=== PATIENT | female | born 1950 | race Caucasian/White ===

== ENCOUNTER 2019-09-01 15:39 | Outpatient (CLI) | payer MEDICARE, MEDICAID, SELFPAY ==
[2019-09-01 16:51] LABS: Hepatitis C Virus Antibody Non-Reactive (Nonreactive)
[2019-09-01 16:52] LABS: Hepatitis B Surface Antigen Non-Reactive (Nonreactive)
[2019-09-01 16:57] LABS: HIV 1 & 2 Antigen Non-Reactive (Non-Reactiv)
[2019-09-01 16:58] LABS: HIV 1 & 2 Antibody Non-Reactive (Non-Reactiv)
== END 2019-09-01 15:40 | disposition home or self-care (01) ==
PROVIDERS: PCP Family Medicine; Visit Provider Family Medicine
DX: Z77.21 Contact with and (suspected) exposure to potentially hazardous body fluids (principal); W46.1XXA Contact with contaminated hypodermic needle, initial encounter
CPT/HCPCS: 86803; 87340; 87806

== ENCOUNTER 2020-01-22 03:35 | Observation (INO) | payer MEDICARE, MEDICAID, SELFPAY ==
[2020-01-22] VITALS (22 sets, daily range): BP systolic 105–156; BP diastolic 65–106; PULSE 37–105; RESP 15–24; TEMP 36.6–37.1; O2SAT 89–98; BMI 29.8
--- NOTE | 2020-01-22 03:37 | XRR_ITS ---
PROCEDURE INFORMATION: Exam: XR Chest, 1 View Exam date and time: 01/22/2020 3:58 AM Age: 70 years old Clinical indication: Chest pain TECHNIQUE: Imaging protocol: XR of the chest Views: 1 view. COMPARISON: CR Chest 1 [place] [id number] 02/17/2019 10:52 AM FINDINGS: Lungs: Linear scarring or atelectasis left mid lung. No lobar consolidation. Pleural space: Unremarkable. No pleural effusion. No pneumothorax. Heart/Mediastinum: Cardiomegaly. Bones/joints: Osteopenia. XR/XR chest 1V portable [id number] IMPRESSION: Linear atelectasis or scarring left mid lung.
--- NOTE | 2020-01-22 03:37 | ECG_ITS ---
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 Measurements Intervals [place] Rate: 100 P: 83 [place]: 167 QRS: 46 QRSD: 89 T: 49 QT: 312 QTc: 404 Interpretive Statements SINUS TACHYCARDIA ABNORMAL RHYTHM ECG Compared to ECG 02/17/2019 10:41:49 Ectopic atrial tachycardia, multifocal no longer present Electronically Signed On 01-23-2020 20:28:36 CDT by Michel Pascal M.D. [id number]
--- NOTE | 2020-01-22 03:43 | W.ED.CHESTPA ---
Documented by User: Rose Smith 01/22/20 05:40 HPI - Chest Pain General: Chief Complaint: Chest Pain Stated Complaint: CP Time Seen by Provider: 01/22/20 03:36 Source: patient and EMS Mode of arrival: EMS Limitations: no limitations History of Present Illness: HPI narrative: Candis is a very nice 70-year-old female who comes in complaining of chest pain. When asked to describe the pain she describes as a hurting . She states that she was up throughout the night and she was awake when it started. She was resting in her chair at the time. Since the pain radiates to her left arm. She has associated shortness of breath became clammy and diaphoretic with this. She denies any nausea or vomiting. She denies having anything similar. She did not try anything for this prior to coming in and is unaware of anything that does make it better or worse. EMS transported her here and did not try any nitro or aspirin. The patient does claim an allergy to aspirin. Patient states the pain is about a 2 out of 10. Associated symptoms: Reports diaphoresis and dyspnea; Deny abdominal pain, fever(s), nausea, palpitations, syncope or vomiting Review of Systems Const: Reports: diaphoresis; Denies: fever(s), chills, body aches, fatigue or malaise Eyes: Denies: change in vision, blurry vision, photophobia, eye discomfort, eye discharge, eye redness or yellow eyes ENMT: Denies: throat pain, odynophagia, hoarseness, swelling of lips/tongue, ear or mastoid pain, ear discharge, change in hearing or nasal discharge Card: Reports: chest pain; Denies: palpitations, irregular heart rhythm, edema, lightheadedness, syncope, pre-syncope, dyspnea on exertion or orthopnea Resp: Reports: dyspnea; Denies: productive cough, non-productive cough, wheezing, hemoptysis or chest congestion GI: Denies: abdominal pain, nausea, vomiting, hematemesis, coffee ground emesis, heartburn, diarrhea, constipation, GI cramping, hematochezia or melena : Denies: flank pain, dysuria, urinary frequency, urinary urgency or hematuria Musc: Denies: neck pain, back pain, extremity pain, extremity swelling, joint pain, joint swelling, joint redness, joint warmth or joint stiffness Skin/Breast: Denies: rash, pruritus, erythema, skin pain or skin tenderness Neuro: Denies: headache(s), numbness in extremities, weakness in extremities, sensory changes, lack of coordination, difficulty walking, dizziness, vertigo, confusion, Slurred speech present or seizure-like activity Madi/Lymph: Denies: easy bruising, easy bleeding, petechiae, purpura or enlarged lymph nodes All/Imm: Denies: urticaria, throat swelling, tongue swelling, facial swelling or acute wheezing PFSH ED PFSH: Medical History Chronic low back pain Coronary artery disease DM type 2 (diabetes mellitus, type 2) GERD (gastroesophageal reflux disease) Hypertension Obstructive sleep apnea Osteoarthritis Surgical History H/O tubal ligation H/O umbilical hernia repair H/O: hysterectomy Previous section Status post bilateral knee replacements Course Vital Signs: Vital signs: Vital Signs Temperature 98.7 F 01/22/20 03:37 Pulse Rate 78 01/22/20 12:53 Respiratory Rate 15 01/22/20 12:00 Blood Pressure 148/92 01/22/20 12:00 Pulse Oximetry 95 01/22/20 12:53 MDM - Chest Pain Lab Data: Labs: Lab Results 01/22/20 01/22/20 01/22/20 Range/Units 03:00 03:00 03:00 WBC 8.9 (4.0-10.0) 10^3/ uL RBC 4.67 (4.1-5.3) 10^6/u L Hgb 8.8 L (11.5-15.3) g/dL Hct 30.7 L (37.0-47.0) % MCV 65.7 L (81-99) fL MCH 18.8 L (28.0-34.0) pg MCHC 28.7 L (30.0-36.0) g/dL RDW 18.5 H (12.1-15.1) % Plt Count 308 (130-400) 10^3/c mm MPV 9.7 (7.4-10.4) fL Neut % (Auto) 62.2 % Lymph % (Auto) 29.1 % [place] % (Auto) 5.5 % Eos % (Auto) 2.2 % Baso % (Auto) 0.6 % Neut # (Auto) 5.52 (1.8-7.7) 10^3/u L Lymph # (Auto) 2.6 (0.8-4.8) 10^3/u L [place] # (Auto) 0.5 (0.2-0.9) 10^3/u L Eos # (Auto) 0.2 (0.0-0.8) 10^3/u L Baso # (Auto) 0.1 (0.0-0.1) 10^3/u L Nucleated RBC % (a uto) 0 % Nucleated RBCs # 0.0 /100WBC PT (12.1-14.9) SECO NDS INR (0.8-1.2) D-Dimer (0-0.59) ug/mIFE U Sodium 128 L (136-145) mmol/L Potassium 4.0 (3.5-5.1) mmol/L Chloride 92 L (98-107) mmol/L Carbon Dioxide 24 (22-29) mmol/L Anion Gap 16.0 (5-19) BUN 8 (8-23) mg/dL Creatinine 0.7 (0.5-0.9) mg/dL GFR Calculation Not Reportable Glucose 237 H (65-115) mg/dL Calculated Osmolal ity 272 L (285-295) mOsm/k g Calcium 9.5 (8.5-10.5) mg/dL Magnesium 1.6 L (1.7-2.3) mg/dL Total Bilirubin 0.3 (0.15-1.2) mg/dL AST 33 H (0-32) U/L ALT 20 (0-33) U/L Alkaline Phosphata se 158 H (35-105) IU/L Troponin T Baselin e 8 (0-10) ng/L Troponin T 120 Min [place] (0-10) ng/L Delta Troponin T (0-10) ABS# Total Protein 7.3 (6.6-8.7) g/dL Albumin 3.7 (3.5-5.2) g/dL Globulin 3.6 (1.3-4.6) g/dL Lipase 43 (13-60) U/L Urine Color (Yellow) Urine Appearance (CLEAR) Urine pH (5-7) Ur Specific Gravit y (1.005-1.030) Urine Protein (Negative) Urine Glucose (UA) (Normal) Urine Ketones (Negative) Urine Blood (Negative) Urine Nitrate (Negative) Urine Bilirubin (Negative) Urine Urobilinogen (Negative) mg/dL Ur Leukocyte Coby ase (Negative) 01/22/20 01/22/20 01/22/20 Range/Units 04:24 04:49 05:28 WBC (4.0-10.0) 10^3/ uL RBC (4.1-5.3) 10^6/u L Hgb (11.5-15.3) g/dL Hct (37.0-47.0) % MCV (81-99) fL MCH (28.0-34.0) pg MCHC (30.0-36.0) g/dL RDW (12.1-15.1) % Plt Count (130-400) 10^3/c mm MPV (7.4-10.4) fL Neut % (Auto) % Lymph % (Auto) % [place] % (Auto) % Eos % (Auto) % Baso % (Auto) % Neut # (Auto) (1.8-7.7) 10^3/u L Lymph # (Auto) (0.8-4.8) 10^3/u L [place] # (Auto) (0.2-0.9) 10^3/u L Eos # (Auto) (0.0-0.8) 10^3/u L Baso # (Auto) (0.0-0.1) 10^3/u L Nucleated RBC % (a uto) % Nucleated RBCs # /100WBC PT 14.20 (12.1-14.9) SECO NDS INR 1.07 (0.8-1.2) D-Dimer 0.63 H (0-0.59) ug/mIFE U Sodium (136-145) mmol/L Potassium (3.5-5.1) mmol/L Chloride (98-107) mmol/L Carbon Dioxide (22-29) mmol/L Anion Gap (5-19) BUN (8-23) mg/dL Creatinine (0.5-0.9) mg/dL GFR Calculation Glucose (65-115) mg/dL Calculated Osmolal ity (285-295) mOsm/k g Calcium (8.5-10.5) mg/dL Magnesium (1.7-2.3) mg/dL Total Bilirubin (0.15-1.2) mg/dL AST (0-32) U/L ALT (0-33) U/L Alkaline Phosphata se (35-105) IU/L Troponin T Baselin e (0-10) ng/L Troponin T 120 Min [place] 7.83 (0-10) ng/L Delta Troponin T -0.17 L (0-10) ABS# Total Protein (6.6-8.7) g/dL Albumin (3.5-5.2) g/dL Globulin (1.3-4.6) g/dL Lipase (13-60) U/L Urine Color Yellow (Yellow) Urine Appearance Clear (CLEAR) Urine pH 6.5 (5-7) Ur Specific Gravit y 1.010 (1.005-1.030) Urine Protein Neg (Negative) Urine Glucose (UA) Norm (Normal) Urine Ketones Negative (Negative) Urine Blood Neg (Negative) Urine Nitrate Negative (Negative) Urine Bilirubin Neg (Negative) Urine Urobilinogen Norm (Negative) mg/dL Ur Leukocyte Coby ase Negative (Negative) EKG Data^: EKG 1: Attestation: I personally reviewed and interpreted this EKG as follows: EKG interpretation date: 01/22/20 EKG interpretation time: 03:44 Interpretation: Normal sinus rhythm at 100 beats a minute, normal axis, no blocks, normal intervals, no acute ST-T wave changes. EKG 2: Attestation: I personally reviewed and interpreted this EKG as follows: EKG interpretation date: 01/22/20 EKG interpretation time: 05:36 Interpretation: Normal sinus rhythm at 98 beats a minute, no blocks, normal intervals, nonspecific ST-T wave changes. Discharge Plan Discharge Patient Disposition: Placed in Observation Admit Provider: Thelma Cerda Clinical Impression: Chest pain, DM type 2 (diabetes mellitus, type 2), Hypertension, Coronary artery disease Condition: Stable Referrals: Edmond Machado [Primary Care Provider] - Discharge Date/Time: 01/22/20 11:40 Sign Out Sign Out Data: Patient Sign Out occurred on 01/22/20 at 06:31. Patient's care was discussed, and care was transferred from Rose Smith to Alexandro Arreola DO. Sign Out Comment: Case turned over to Dr. Arreola at change of shift. Last updated by Rose Smith at 01/22/20 05:59 Coding Level of Care Code ED Test Puller for Chg Fwd Exam Detailed Documented by User: Alexandro Arreola DO 01/22/20 13:32 HPI - Chest Pain General: Chief Complaint: Chest Pain Stated Complaint: CP Time Seen by Provider: 01/22/20 03:36 PFSH ED PFSH: Medical History Chronic low back pain Coronary artery disease DM type 2 (diabetes mellitus, type 2) GERD (gastroesophageal reflux disease) Hypertension Obstructive sleep apnea Osteoarthritis Surgical History H/O tubal ligation H/O umbilical hernia repair H/O: hysterectomy Previous section Status post bilateral knee replacements Physical Exam Const: COMMON NORMALS: no acute distress GENERAL APPEARANCE: cooperative and comfortable ORIENTATION/CONSCIOUSNESS: Yes awake, Yes oriented to person, Yes oriented to place and Yes oriented to time HENMT: COMMON NORMALS: normocephalic, atraumatic and hearing grossly normal bilaterally HEAD & SCALP: normocephalic and atraumatic Neck/C-Spine: COMMON NORMALS: no JVD Resp: COMMON NORMALS: normal respiratory effort, No retractions, No use of accessory muscles and clear to auscultation bilaterally AUSCULTATION: clear to auscultation bilaterally Cardio: COMMON NORMALS: no JVD, regular rate, regular rhythm and No murmurs present (Cardio) RATE: regular rate RHYTHM: regular rhythm Extremity: COMMON NORMALS: normal to inspection, capillary refill normal, no clubbing, cyanosis or edema, no calf tenderness and no pedal edema Neuro: SENSORIUM/ORIENTATION: Yes oriented to person, Yes oriented to place and Yes oriented to time Skin: COMMON NORMALS: no rashes or lesions noted GENERAL SKIN EXAM: no rashes or lesions noted Course Vital Signs: Vital signs: Vital Signs Temperature 98.7 F 01/22/20 03:37 Pulse Rate 78 01/22/20 12:53 Respiratory Rate 15 01/22/20 12:00 Blood Pressure 148/92 01/22/20 12:00 Pulse Oximetry 95 01/22/20 12:53 MDM - Chest Pain MDM Narrative: Medical decision making narrative: 70-year-old female is care assumed by myself from Dr. Ge. She not having any chest pain she states she did have an episode a month ago. She is anemic as well. Slightly worse than she was about a year ago. Chest pain resolved this morning with nitro. Given her history and the recurrence of chest pain absence of any recent stress testing will go ahead and put her on knobs complete to rule out and get cardiac evaluation. Lab Data: Labs: Lab Results 01/22/20 01/22/20 01/22/20 Range/Units 03:00 03:00 03:00 WBC 8.9 (4.0-10.0) 10^3/ uL RBC 4.67 (4.1-5.3) 10^6/u L Hgb 8.8 L (11.5-15.3) g/dL Hct 30.7 L (37.0-47.0) % MCV 65.7 L (81-99) fL MCH 18.8 L (28.0-34.0) pg MCHC 28.7 L (30.0-36.0) g/dL RDW 18.5 H (12.1-15.1) % Plt Count 308 (130-400) 10^3/c mm MPV 9.7 (7.4-10.4) fL Neut % (Auto) 62.2 % Lymph % (Auto) 29.1 % [place] % (Auto) 5.5 % Eos % (Auto) 2.2 % Baso % (Auto) 0.6 % Neut # (Auto) 5.52 (1.8-7.7) 10^3/u L Lymph # (Auto) 2.6 (0.8-4.8) 10^3/u L [place] # (Auto) 0.5 (0.2-0.9) 10^3/u L Eos # (Auto) 0.2 (0.0-0.8) 10^3/u L Baso # (Auto) 0.1 (0.0-0.1) 10^3/u L Nucleated RBC % (a uto) 0 % Nucleated RBCs # 0.0 /100WBC PT (12.1-14.9) SECO NDS INR (0.8-1.2) D-Dimer (0-0.59) ug/mIFE U Sodium 128 L (136-145) mmol/L Potassium 4.0 (3.5-5.1) mmol/L Chloride 92 L (98-107) mmol/L Carbon Dioxide 24 (22-29) mmol/L Anion Gap 16.0 (5-19) BUN 8 (8-23) mg/dL Creatinine 0.7 (0.5-0.9) mg/dL GFR Calculation Not Reportable Glucose 237 H (65-115) mg/dL Calculated Osmolal ity 272 L (285-295) mOsm/k g Calcium 9.5 (8.5-10.5) mg/dL Magnesium 1.6 L (1.7-2.3) mg/dL Total Bilirubin 0.3 (0.15-1.2) mg/dL AST 33 H (0-32) U/L ALT 20 (0-33) U/L Alkaline Phosphata se 158 H (35-105) IU/L Troponin T Baselin e 8 (0-10) ng/L Troponin T 120 Min [place] (0-10) ng/L Delta Troponin T (0-10) ABS# Total Protein 7.3 (6.6-8.7) g/dL Albumin 3.7 (3.5-5.2) g/dL Globulin 3.6 (1.3-4.6) g/dL Lipase 43 (13-60) U/L Urine Color (Yellow) Urine Appearance (CLEAR) Urine pH (5-7) Ur Specific Gravit y (1.005-1.030) Urine Protein (Negative) Urine Glucose (UA) (Normal) Urine Ketones (Negative) Urine Blood (Negative) Urine Nitrate (Negative) Urine Bilirubin (Negative) Urine Urobilinogen (Negative) mg/dL Ur Leukocyte Coby ase (Negative) 01/22/20 01/22/20 01/22/20 Range/Units 04:24 04:49 05:28 WBC (4.0-10.0) 10^3/ uL RBC (4.1-5.3) 10^6/u L Hgb (11.5-15.3) g/dL Hct (37.0-47.0) % MCV (81-99) fL MCH (28.0-34.0) pg MCHC (30.0-36.0) g/dL RDW (12.1-15.1) % Plt Count (130-400) 10^3/c mm MPV (7.4-10.4) fL Neut % (Auto) % Lymph % (Auto) % [place] % (Auto) % Eos % (Auto) % Baso % (Auto) % Neut # (Auto) (1.8-7.7) 10^3/u L Lymph # (Auto) (0.8-4.8) 10^3/u L [place] # (Auto) (0.2-0.9) 10^3/u L Eos # (Auto) (0.0-0.8) 10^3/u L Baso # (Auto) (0.0-0.1) 10^3/u L Nucleated RBC % (a uto) % Nucleated RBCs # /100WBC PT 14.20 (12.1-14.9) SECO NDS INR 1.07 (0.8-1.2) D-Dimer 0.63 H (0-0.59) ug/mIFE U Sodium (136-145) mmol/L Potassium (3.5-5.1) mmol/L Chloride (98-107) mmol/L Carbon Dioxide (22-29) mmol/L Anion Gap (5-19) BUN (8-23) mg/dL Creatinine (0.5-0.9) mg/dL GFR Calculation Glucose (65-115) mg/dL Calculated Osmolal ity (285-295) mOsm/k g Calcium (8.5-10.5) mg/dL Magnesium (1.7-2.3) mg/dL Total Bilirubin (0.15-1.2) mg/dL AST (0-32) U/L ALT (0-33) U/L Alkaline Phosphata se (35-105) IU/L Troponin T Baselin e (0-10) ng/L Troponin T 120 Min [place] 7.83 (0-10) ng/L Delta Troponin T -0.17 L (0-10) ABS# Total Protein (6.6-8.7) g/dL Albumin (3.5-5.2) g/dL Globulin (1.3-4.6) g/dL Lipase (13-60) U/L Urine Color Yellow (Yellow) Urine Appearance Clear (CLEAR) Urine pH 6.5 (5-7) Ur Specific Gravit y 1.010 (1.005-1.030) Urine Protein Neg (Negative) Urine Glucose (UA) Norm (Normal) Urine Ketones Negative (Negative) Urine Blood Neg (Negative) Urine Nitrate Negative (Negative) Urine Bilirubin Neg (Negative) Urine Urobilinogen Norm (Negative) mg/dL Ur Leukocyte Coby ase Negative (Negative) Discharge Plan Discharge Patient Disposition: Placed in Observation Admit Provider: Thelma Cerda Clinical Impression: Chest pain, DM type 2 (diabetes mellitus, type 2), Hypertension, Coronary artery disease Condition: Stable Referrals: Edmond Machado [Primary Care Provider] - Discharge Date/Time: 01/22/20 11:40 Sign Out Sign Out Data: Patient Sign Out occurred on 01/22/20 at 06:31. Patient's care was discussed, and care was transferred from Rose Smith to Alexandro Arreola DO. Sign Out Comment: Case turned over to Dr. Arreola at change of shift. Last updated by Rose Smith at 01/22/20 05:59 Coding Level of Care Code ED Test Puller for Chg Fwd Exam Detailed
[2020-01-22] MEDS: sodium chloride 0.9% 1,000 ML 100 ML IV (03:46)
[2020-01-22] MEDS: nitroglycerin 0.4 mg sublingual Tablet SUBLINGUAL ×3 (03:50→04:20)
[2020-01-22 03:57] LABS: Basophils # 0.1 10^3/uL (0.0-0.1); Basophils % 0.6 %; Eosinophils # 0.2 10^3/uL (0.0-0.8); Eosinophils % 2.2 %; Hematocrit 30.7 % (37.0-47.0); Hemoglobin 8.8 g/dL (11.5-15.3); Lymphocytes # 2.6 10^3/uL (0.8-4.8); Lymphocytes % 29.1 %; Mean Corpuscular HGB Conc 28.7 g/dL (30.0-36.0); Mean Corpuscular Hemoglobin 18.8 pg (28.0-34.0); Mean Corpuscular Volume 65.7 fL (81-99); Mean Platelet Volume 9.7 fL (7.4-10.4); Monocytes # 0.5 10^3/uL (0.2-0.9); Monocytes % 5.5 %; Neutrophils # 5.52 10^3/uL (1.8-7.7); Neutrophils % 62.2 %; Nucleated Red Blood Cells % 0 %; Platelet Count 308 10^3/cmm (130-400); Red Blood Count 4.67 10^6/uL (4.1-5.3); Red Cell Distribution Width 18.5 % (12.1-15.1); White Blood Count 8.9 10^3/uL (4.0-10.0)
[2020-01-22 04:10] LABS: Alanine Aminotransferase 20 U/L (0-33); Albumin Level 3.7 g/dL (3.5-5.2); Alkaline Phosphatase 158 IU/L (35-105); Aspartate Amino Transferase 33 U/L (0-32); Blood Urea Nitrogen 8 mg/dL (8-23); Calcium 9.5 mg/dL (8.5-10.5); Carbon Dioxide 24 mmol/L (22-29); Chloride 92 mmol/L (98-107); Globulin 3.6 g/dL (1.3-4.6); Glucose 237 mg/dL (65-115); Lipase 43 U/L (13-60); Magnesium 1.6 mg/dL (1.7-2.3); Osmolality Calculated 272 mOsm/kg (285-295); Sodium 128 mmol/L (136-145); Total Bilirubin 0.3 mg/dL (0.15-1.2); Total Protein 7.3 g/dL (6.6-8.7)
[2020-01-22 04:11] LABS: Troponin(5th) Baseline 8 ng/L (0-10)
[2020-01-22] MEDS: magnesium sulfate premix 2 GM/50 ML PIGGYBACK IV (04:34)
[2020-01-22] MEDS: ondansetron 2 mg/ML SDV 2 mL 4 MG IVP (04:35)
[2020-01-22] MEDS: HYDROmorphone 1 mg/mL INJ 1 mL 0.5 MG IVP (04:35)
[2020-01-22 04:47] LABS: INR 1.07 (0.8-1.2)
[2020-01-22 04:49] LABS: D Dimer 0.63 ug/mIFEU (0-0.59)
--- NOTE | 2020-01-22 05:00 | PC.NURSE ---
after dilaudid adm, pt resp rate and sats dropped to 14/78% on r/a. Dr notified, vo for 2lpm of o2 obtained with 0.4mg of narcan PRN if no response from O2. Pt rr increased to 18-20 non labored with sats improved to 98% on 2lpm of O2. Pt reports no pain after dilaudid adm
[2020-01-22 05:14] LABS: Add Urine Microscopic? NO
--- NOTE | 2020-01-22 05:23 | CTR_ITS ---
PROCEDURE INFORMATION: Exam: CT Angiography Chest With Contrast Exam date and time: 01/22/2020 5:50 AM Age: 70 years old Clinical indication: Chest pain; Additional info: Chest pain, positive d-dimer TECHNIQUE: Imaging protocol: Computed tomographic angiography of the chest with intravenous contrast. 3D rendering (Not supervised by radiologist): MIP and/or 3D reconstructed images were created by the technologist. Radiation optimization: All CT scans at this facility use at least one of these dose optimization techniques: automated exposure control; mA and/or kV adjustment per patient size (includes targeted exams where dose is matched to clinical indication); or iterative reconstruction. Contrast material: OMNI 350; Contrast volume: 78 ml; Contrast route: INTRAVENOUS (IV); COMPARISON: CTA Chest w Abd/Pel w* 11/11/2018 9:30 PM RADIATION DOSE METRICS: Total DLP (mGy-cm): 632.13 FINDINGS: Pulmonary arteries: No dissection. No visualized embolism as characterized to the most proximal segmental level. Consider alternative form of imaging if indicated. Aorta: Unremarkable. No aortic aneurysm. No aortic dissection. Thyroid: Calcification left thyroid gland. Low density nodule 15 mm. Lungs: Minimal atelectasis. Lungs are well aerated without a focal area of consolidation. Pleural space: Unremarkable. No pneumothorax. No pleural effusion. Heart: Unremarkable. No cardiomegaly. No pericardial effusion. Lymph nodes: Numerous lymph nodes within the mediastinum including the anterior mediastinum. Largest lymph node in the pretracheal/retrocaval region. 15 mm. Previously noted. Liver: Nodular appearing liver. Hepatomegaly. Splenomegaly. Correlate regarding known history. Gallbladder and bile ducts: Small gallstones. Kidneys and ureters: 3 mm calculus lower pole left kidney New line small ventral hernia Bones/joints: Unremarkable. No acute fracture. Soft tissues: Unremarkable. CT/CT angio chest PE protcl [id number] IMPRESSION: 1. No dissection. No visualized embolism as characterized to the most proximal segmental level. Consider alternative form of imaging if indicated. 2. Numerous lymph nodes within the mediastinum including the anterior mediastinum. Largest lymph node in the pretracheal/retrocaval region. 15 mm. Previously noted. 3. Nodular appearing liver. Hepatomegaly. Splenomegaly. Correlate regarding known history. 4. Small gallstones. 5. Lungs are well aerated without a focal area of consolidation. COMMENTS: Consistent with the [employer]'s Incidental Findings Committee white paper (J Am Quintin Radiol 2015): In patients aged 35 years and older with an incidental thyroid nodule equal to or greater than 1.[address], MRI or extrathyroidal US, further evaluation with dedicated thyroid US is recommended for patients with normal life expectancy and without comorbidities. For smaller nodules without suspicious features, no further evaluation or follow up is recommended. Radiation Dose CTDIVOL = (mGy): DLP = 632.13 (mGy-cm)
[2020-01-22 05:24] LABS: Blood Urine Neg (Negative); Glucose Urine UA Norm (Normal); Ketones Urine Negative (Negative); Nitrate Urine Negative (Negative); Protein Urine Neg (Negative); Urine Appearance Clear (CLEAR); Urine Color Yellow (Yellow); pH Urine 6.5 (5-7)
[2020-01-22 05:25] LABS: Bilirubin Urine Neg (Negative); Leukocyte Esterase Urine Negative (Negative); Urobilinogen Urine Norm (Negative)
--- NOTE | 2020-01-22 05:37 | ECG_ITS ---
[facility] Test Date: 2020-01-22 Pat Name: Candis Almonte Department: Room: Gender: Female [employer]: : 1950 Requested By: Rose Clayton Order Number: [id number] Bray MD: Michel Pascal M.D. Measurements Intervals [place] Rate: 98 P: 83 [place]: 154 QRS: 33 QRSD: 91 T: 33 QT: 332 QTc: 426 Interpretive Statements SINUS RHYTHM MINIMAL ST DEPRESSION [0.025+ mV ST DEPRESSION] Compared to ECG 01/22/2020 03:44:01 ST (T wave) deviation now present Sinus tachycardia no longer present Electronically Signed On 01-23-2020 20:53:15 CDT by Michel Pascal M.D. [id number]
[2020-01-22 05:54] LABS: Troponin 5 2HR 7.83 ng/L (0-10)
[2020-01-22 05:57] LABS: Troponin 5 2HR Delta -0.17 ABS# (0-10)
[2020-01-22] MEDS: iohexol 350 mg/mL 100 mL Btl IV (06:09)
--- NOTE | 2020-01-22 06:22 | PC.NURSE ---
after CT, pt sats dropping consistently to <89% on r/a. Pt coached to take deep breaths, sats remaining in 89-90%. Pt placed on 2lpm of o2 via nasal cannula, sats immediately improving to 98-99%
--- NOTE | 2020-01-22 09:37 | ECG_ITS ---
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 Measurements Intervals [place] Rate: 91 P: 84 [place]: 152 QRS: 40 QRSD: 94 T: 45 QT: 327 QTc: 403 Interpretive Statements SINUS RHYTHM WITH MARKED SINUS ARRHYTHMIA Compared to ECG 01/22/2020 05:36:47 ST (T wave) deviation no longer present Electronically Signed On 01-23-2020 20:52:24 CDT by Michel Pascal M.D. [id number]
[2020-01-22 10:06] LABS: Troponin 5 6HR 7.24 ng/L (0-10)
[2020-01-22 10:09] LABS: Troponin 5 6HR Delta -0.76 ng/L (0-12)
[2020-01-22 10:59] LABS: SARS Covid-2 Antigen Negative (Negative)
--- NOTE | 2020-01-22 11:33 | PC.NURSE ---
pt from er transported by wheelchair. upon arrival to room pt wanted to use bsc. assisted in doing so. commode empty and pt resting in bed. assessment and vitals performed. pt was resting in bed with call light in reach and denied any needs when nurse left the room. will continue to monitor.
--- NOTE | 2020-01-22 13:33 | P.HP_ITS ---
Providers/Chief Complaint Admitting Physician: Thelma Cerda DO Primary Care Provider: Edmond Machado Chief Complaint: CP History of Present Illness Candis Almonte is a 70 year old female with a past medical history of coronary artery disease, diabetes, hypertension, obstructive sleep apnea, depression and hypothyroidism that presented to the emergency department for chest pain. She stated that it started this morning. While at rest and was located in the center of her chest. Patient stated that she had a coughing spell with this episode. She denies any fevers or chills. Denies any exposure to anyone under investigation are positive for COVID-19. Patient reports that she had stents in her heart several years ago but has not had any further cardiac intervention. 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 Patient was seen and evaluated in the emergency department due to concern for chest pain and history of coronary artery disease she was admitted for further evaluation and treatment. Review of Systems Const: Denies: fever(s) or chills Eyes: Denies: change in vision ENMT: Denies: nasal congestion Card: Reports: chest pain; Denies: palpitations or edema Resp: Reports: non-productive cough; Denies: dyspnea, productive cough or hemoptysis GI: Reports: constipation; Denies: abdominal pain, nausea, vomiting, diarrhea, hematochezia or melena : Denies: dysuria or hematuria Musc: Reports: other (Status post right BKA); Denies: extremity pain or muscle cramps Skin/Breast: Denies: rash or new lesions Neuro: Denies: headache(s) or dizziness Psych: Denies: anxiety or depression Endo: Denies: polyuria or hot flashes Madi/Lymph: Denies: easy bruising or easy bleeding Medications/Allergies Home Medications Medication Instructions Recorded Confirmed Last Taken Type acetaminophen [Tylenol] 650 mg PO QID PRN 01/22/20 01/22/20 Unknown History alum-mag hydroxide-simeth [Mylanta 5 ml PO QID PRN 01/22/20 01/22/20 Unknown History Maximum Strength] amlodipine [Norvasc] 2.5 mg PO DAILY 01/22/20 01/22/20 01/21/20 History aripiprazole [Abilify] 2 mg PO DAILY 01/22/20 01/22/20 01/21/20 20:00 History bisacodyl 10 mg WI DAILY PRN 01/22/20 01/22/20 01/21/20 History digoxin 125 mcg PO DAILY 01/22/20 01/22/20 01/21/20 History docusate sodium 50 mg PO DAILY 01/22/20 01/22/20 01/21/20 History donepezil [Aricept] 5 mg PO DAILY 01/22/20 01/22/20 01/21/20 08:00 History duloxetine [Cymbalta] 30 mg PO DAILY 01/22/20 01/22/20 01/21/20 History fluticasone propionate 2 puff INHALATION BID 01/22/20 01/22/20 01/21/20 History furosemide [Lasix] 40 mg PO DAILY 01/22/20 01/22/20 01/21/20 History hydrocodone-acetaminophen 1 tab PO Q6H PRN 01/22/20 01/22/20 01/21/20 History hydrocortisone 1 applic TOPICAL BID PRN 01/22/20 01/22/20 Unknown History insulin NPH isoph U-100 human 42 unit SUBCUT QAM 01/22/20 01/22/20 01/21/20 History [Novolin N Flexpen] insulin aspart U-100 [Novolog 100 unit SUBCUT DAILY 01/22/20 01/22/20 01/21/20 History Flexpen U-100 Insulin] insulin glargine 10 unit SUBCUT DAILY 01/22/20 01/22/20 01/21/20 History levothyroxine 125 mcg PO DAILY 01/22/20 01/22/20 01/21/20 History loperamide [Imodium A-D] 2 mg PO Q4H PRN 01/22/20 01/22/20 Unknown History magnesium hydroxide [Milk of 30 ml PO DAILY PRN 01/22/20 01/22/20 Unknown History Magnesia] memantine [Namenda] 5 mg PO BID 01/22/20 01/22/20 01/21/20 History metformin 500 mg PO BID 01/22/20 01/22/20 01/21/20 History nystatin 1 applic TOPICAL DAILY 01/22/20 01/22/20 Unknown History omeprazole magnesium [Prilosec OTC] 40 mg PO DAILY 01/22/20 01/22/20 01/21/20 History ondansetron HCl [Zofran] 4 mg PO Q4H PRN 01/22/20 01/22/20 Unknown History polyethylene glycol 3350 [Miralax] 17 g PO DAILY PRN 01/22/20 01/22/20 Unknown History potassium chloride 20 meq PO DAILY 01/22/20 01/22/20 01/21/20 History ropinirole [Requip XL] 1 mg PO DAILY 01/22/20 01/22/20 01/21/20 History sennosides-docusate sodium 2 tab-cap PO DAILY PRN 01/22/20 01/22/20 Unknown History [Senna-S] trospium 20 mg PO BID 01/22/20 01/22/20 01/21/20 History Allergies Allergy/AdvReac Type Severity Reaction Status Date / Time aspirin Allergy Unknown Verified 01/22/20 03:49 codeine Allergy Unknown Verified 01/22/20 03:49 morphine Allergy Unknown Verified 01/22/20 03:49 Sulfa (Sulfonamide Allergy Unknown Verified 01/22/20 03:49 Antibiotics) sulfamethoxazole Allergy Unknown Verified 01/22/20 03:49 [From Bactrim] trimethoprim [From Bactrim] Allergy Unknown Verified 01/22/20 03:49 PFSH Acute PFSH: Medical History Chronic low back pain Coronary artery disease DM type 2 (diabetes mellitus, type 2) GERD (gastroesophageal reflux disease) Hypertension Obstructive sleep apnea Osteoarthritis Surgical History (Updated 01/22/20 @ 13:35 by Thelma Cerda DO) H/O tubal ligation H/O umbilical hernia repair H/O: hysterectomy History of right below knee amputation Previous section Status post bilateral knee replacements Supplemental PFSH Information: Patient denies any history of tobacco abuse, denies any alcohol abuse. Is a [facility] resident. Denies any family history of any health problems. Vitals/I&O/Wt Last Vital Signs Temp 98.7 F 01/22/20 03:37 Pulse 78 01/22/20 12:53 Resp 15 01/22/20 12:00 BP 148/92 01/22/20 12:00 Pulse Ox 95 01/22/20 12:53 01/21/20 01/22/20 01/22/20 22:59 06:59 14:59 Intake Total 240 / 240 Balance 240 / 240 Weight last 48 hrs Weight 83.915 kg Physical Exam Const: COMMON NORMALS: patient oriented x3 and alert GENERAL APPEARANCE: cooperative ORIENTATION/CONSCIOUSNESS: Yes awake, Yes oriented to person, Yes oriented to place and Yes oriented to time HENMT: COMMON NORMALS: normocephalic and atraumatic HEAD & SCALP: normocephalic and atraumatic Eye: COMMON NORMALS: Equal, round and reactive pupils present PUPIL: Yes Equal, round and reactive pupils present Neck/C-Spine: COMMON NORMALS: supple GENERAL: Yes normal visual inspection Resp: COMMON NORMALS: normal respiratory effort and clear to auscultation bilaterally EFFORT & INSPECTION: Yes able to speak in complete sentences AUSCULTATION: clear to auscultation bilaterally, no rhonchi and no wheezes Cardio: COMMON NORMALS: regular rate, regular rhythm and No murmurs present (Cardio) RATE: regular rate RHYTHM: regular rhythm GI: COMMON NORMALS: Soft to palpation and non-tender INSPECTION: No abdominal distension AUSCULTATION: Yes normoactive bowel sounds PALPATION: Yes Soft to palpation Extremity: COMMON NORMALS: no clubbing, cyanosis or edema NARRATIVE EXTREMITY EXAM: s/p R BKA Neuro: COMMON NORMALS: patient oriented x3, CN's II-XII intact bilaterally, moves all extremities and no focal motor deficits SENSORIUM/ORIENTATION: Yes alert, Yes oriented to person, Yes oriented to place and Yes oriented to time SPEECH: speech normal OTHER: somewhat sleepy but answers all questions appropriately Psych: COMMON NORMALS: mental status grossly normal and cooperative Skin: COMMON NORMALS: no rashes or lesions noted GENERAL SKIN EXAM: no rashes or lesions noted Data : 01/23/20 04:15 01/23/20 04:15 CXR: I personally reviewed and interpreted this imaging study as follows: Radiologist's impression: FINDINGS: Lungs: Linear scarring or atelectasis left mid lung. No lobar consolidation. Pleural space: Unremarkable. No pleural effusion. No pneumothorax. Heart/Mediastinum: Cardiomegaly. Bones/joints: Osteopenia. XR/XR chest 1V portable [id number] IMPRESSION: Linear atelectasis or scarring left mid lung. CTA Chest: I personally reviewed and interpreted this imaging study as follows: Radiologist's impression: IMPRESSION: 1. No dissection. No visualized embolism as characterized to the most proximal segmental level. Consider alternative form of imaging if indicated. 2. Numerous lymph nodes within the mediastinum including the anterior mediastinum. Largest lymph node in the pretracheal/retrocaval region. 15 mm. Previously noted. 3. Nodular appearing liver. Hepatomegaly. Splenomegaly. Correlate regarding known history. 4. Small gallstones. 5. Lungs are well aerated without a focal area of consolidation. A&P Assessment and plan (1) Chest pain: Atypical chest pain with reported cough, rapid COVID antigen testing pend ing We will further evaluate with echocardiogram and potential stress test Telemetry Serial EKG and troponin Status: Acute (2) Coronary artery disease: With history of stenting many years ago, patient unable to describe specifics Status: Acute (3) GERD (gastroesophageal reflux disease): Continue on PPI Status: Acute (4) Obstructive sleep apnea: Continue with CPAP Status: Acute (5) Hypertension: Blood pressures well controlled at this time Status: Acute (6) DM type 2 (diabetes mellitus, type 2): Place on moderate dose sliding scale insulin as needed Status: Acute Additional A&P Information Anemia, microcytic, will check further iron studies and anemia work-up Hyponatremia: Patient appears to be mildly fluid overloaded will give Lasix IV x1 Incidental finding on CTA showing numerous lymph nodes in the mediastinum 15 mm previously noted, recommend close outpatient follow-up, also noted to have nodular appearance of the liver with hepatomegaly and splenomegaly Gallstones noted, no right upper quadrant pain did palpation recommend close outpatient follow-up DVT prophylaxis: SCDs, no pharmacologic prophylaxis due to anemia Diet: Carbohydrate consistent, n.p.o. 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
--- NOTE | 2020-01-22 13:36 | USCV_ITS ---
Candis Almonte Age: 70 Gender: F : 1950 Exam Date: 01/22/2020 14:59 Ordering Phys: Thelma Cerda DO Technologist: DAVEY PEREZ Exam Location: [facility] – [place] Indication: CHEST PAIN BP: 148 / 92 HR: 99 Rhythm: Sinus Technical Quality: Poor MEASUREMENTS (Male / Female) Normal Values 2D ECHO LV Diastolic Diameter PLAX 4.2 cm 4.2 - 5.9 / 3.9 - 5.3 cm LV Systolic Diameter PLAX 2.6 cm IVS Diastolic Thickness 1.4 cm 0.6 - 1.0 / 0.6 - 0.9 cm IVS Systolic Thickness 1.6 cm LVPW Diastolic Thickness 1.1 cm 0.6 - 1.0 / 0.6 - 0.9 cm LVPW Systolic Thickness 1.8 cm LVOT Diameter 2.0 cm LV Ejection Fraction 2D Teich 67.5 % LV Ejection Fraction MOD 2C 59.3 % LV Ejection Fraction 2C AL 60.0 % LA Diameter 3.0 cm LA Width 3.4 cm LA Height 5.0 cm RA Width 3.2 cm RA Height 3.3 cm M-MODE LV Diastolic Diameter MM 4.9 cm 4.2 - 5.9 / 3.9 - 5.3 cm LV Systolic Diameter MM 2.9 cm LV Ejection Fraction MM Teich 72.0 % IVS Diastolic Thickness MM 0.8 cm 0.6 - 1.0 / 0.6 - 0.9 cm IVS Systolic Thickness MM 1.1 cm LVPW Diastolic Thickness MM 0.9 cm 0.6 - 1.0 / 0.6 - 0.9 cm LVPW Systolic Thickness MM 2.2 cm Aortic Annulus Diameter 3.5 cm LA Ao Ratio MM 0.9 MV E Point Septal Separation 0.7 cm DOPPLER AV Peak Velocity 183.3 cm/s LVOT Peak Velocity 101.0 cm/s AV Area Cont Eq vti 2.9 cm squared AV Area Cont Eq pk 1.8 cm squared MV Peak Velocity 110.0 cm/s MV Area PHT 5.1 cm squared Mitral E to A Ratio 0.7 MV E' Velocity 41.0 cm/s Mitral E to MV E' Ratio 8.8 Mitral E to LV E' Lateral Ratio 8.6 Mitral E to LV E' Septal Ratio 9.1 TR Peak Velocity 83.7 cm/s TR Peak Gradient 2.8 mmHg Right Atrial Pressure 3.0 mmHg Pulmonary Artery Systolic Pressu 5.8 mmHg PV Peak Velocity 135.3 cm/s RV Acceleration Time 0.1 s FINDINGS Left Ventricle Normal left ventricular size and systolic function. Regional wall motion abnormalities cannot be assessed because of limited quality echo. LVEF is 55 to 60%. Mild left ventricular hypertrophy is noted. Grade 1 diastolic dysfunction is noted. Right Ventricle The right ventricle is normal in size and function. Right Atrium The right atrium is normal in size. Left Atrium The left atrium is normal in size. Mitral Valve Structurally normal mitral valve without significant stenosis or prolapse. There is no mitral regurgitation. Aortic Valve Not very well visualized. No significant stenosis is present. There is no aortic regurgitation. Tricuspid Valve Structurally normal tricuspid valve without significant stenosis or regurgitation. Insufficient TR jet to calculate RVSP. Pulmonic Valve Structurally normal pulmonic valve without significant stenosis. There is no pulmonic regurgitation. Pericardium Normal pericardium without effusion. Aorta Normal ascending aorta dimension. CONCLUSIONS LV systolic function is normal with EF of 55 to 60%. Regional wall motion abnormalities cannot be assessed because of limited quality echocardiogram. Grade 1 diastolic dysfunction is present. Aortic valve is not well-visualized. However no significant stenosis or regurgitation is present. No comparison studies are available. Michel Pascal MD (Electronically Signed) Final Date: 22 January 2020 17:40 S
--- NOTE | 2020-01-22 13:48 | ECG_ITS ---
[facility] Test Date: 2020-01-23 Pat Name: Candis Almonte Department: Room: 105 Gender: Female [employer] Man: : 1950 Requested By: Thelma Cerda Order Number: [id number] Asa MD: Chanel Conde M.D. Interpretive Statements NAME OF STUDY: LEXISCAN SESTAMIBI STRESS TEST INDICATION: Chest Pain, cad PROCEDURE: At the baseline, the blood pressure was 129/90 mmHg, oxygen saturation 93% with a heart rate of 96 bpm. The electrocardiogram showed normal sinus rhythm, normal axis with normal ST and T's. The Lexiscan was infused over a period of 20 seconds. A total of 0.4 milligrams of Lexiscan was infused. The stress phase was continued for a total of 5 minutes. Heart rate at the end of the stress phase was 101 bpm, oxygen saturation 94% with a blood pressure 171/89 mmHg. The EKG at the peak infusion revealed sinus tachycardia at [address]-T wave changes. Sestamibi was injected 20 seconds after the Lexiscan infusion. Blood pressure at the end of the recovery phase was 154/86 mmHg, oxygen saturation 92% with a heart rate of 99 beats per minute. CONCLUSION: 1. No significant EKG changes with the LexiScan infusion. 2. No LexiScan induced chest pain or cardiac arrhythmia. 3. Normal blood pressure and heart rate response. 4. Sestamibi/sestamibi perfusion scan pending; see separate report. Electronically Signed On 01-23-2020 12:16:50 CDT by Chanel Conde M.D. [email or web address]
[2020-01-22] MEDS: FUROsemide 10 mg/mL SDV 4mL 40 MG IVP (14:22)
[2020-01-22 14:29] LABS: Iron 19 ug/dL (37-145); Magnesium 1.6 mg/dL (1.7-2.3); NT Pro B Type Natriuretic Pept 33 pg/mL (0-125); Percent Saturation 5.1 % (20-50); Phosphorus 3.1 mg/dL (2.5-4.5); Thyroid Stimulating Hormone 5.61 uIU/mL (0.27-4.20); Total Iron Binding Capacity 372 mcg/dl; Unsaturated Iron Binding 353 ug/dL (112-347); Vitamin B12 886 pg/mL (232-1245)
[2020-01-22 14:31] LABS: Estmated Average Glucose 252; Hemoglobin A1C 10.4 % (4.0-6.0)
[2020-01-22 15:27] LABS: Digoxin 1.3 ng/mL (0.6-1.2)
[2020-01-22 16:52] LABS: Glucose Point of Care 316 mg/dL (70-110)
[2020-01-22] MEDS: memantine 5 mg tablet PO (17:51)
--- NOTE | 2020-01-22 19:41 | PC.NURSE ---
Rounding: Patient assisted to the bedside commode with x2 assist. Patient put back to bed call light within reach. Patient denies any needs or pain at this time.
[2020-01-22 19:57] LABS: Folate Level > 20.0 ng/mL (4.8-37.3)
[2020-01-22 20:45] LABS: Glucose Point of Care 371 mg/dL (70-110)
[2020-01-22] MEDS: insulin glargine 100 units/1 mL 10 UNIT SUBCUT (20:48)
[2020-01-23] VITALS (9 sets, daily range): BP systolic 126–165; BP diastolic 75–98; PULSE 82–100; RESP 15–25; TEMP 36.6–36.8; O2SAT 94–98
[2020-01-23 04:56] LABS: Basophils # 0.1 10^3/uL (0.0-0.1); Eosinophils # 0.2 10^3/uL (0.0-0.8); Eosinophils % 2.7 %; Hematocrit 32.7 % (37.0-47.0); Hemoglobin 8.9 g/dL (11.5-15.3); Lymphocytes # 1.8 10^3/uL (0.8-4.8); Mean Corpuscular HGB Conc 27.2 g/dL (30.0-36.0); Mean Corpuscular Hemoglobin 18.8 pg (28.0-34.0); Mean Platelet Volume 9.5 fL (7.4-10.4); Monocytes # 0.4 10^3/uL (0.2-0.9); Monocytes % 6.7 %; Neutrophils # 3.86 10^3/uL (1.8-7.7); Neutrophils % 61.3 %; Nucleated Red Blood Cells % 0 %; Platelet Count 304 10^3/cmm (130-400); Red Blood Count 4.74 10^6/uL (4.1-5.3); Red Cell Distribution Width 18.9 % (12.1-15.1); White Blood Count 6.3 10^3/uL (4.0-10.0)
[2020-01-23 05:16] LABS: Anion Gap 12.9 (5-19); Blood Urea Nitrogen 7 mg/dL (8-23); Carbon Dioxide 29 mmol/L (22-29); Chloride 97 mmol/L (98-107); Glucose 255 mg/dL (65-115); Osmolality Calculated 287 mOsm/kg (285-295); Potassium 3.9 mmol/L (3.5-5.1); Sodium 135 mmol/L (136-145)
[2020-01-23 05:17] LABS: Chol HDL Ratio 4.27 mg/dL (0.0-4.40); Cholesterol 128 mg/dL (0-200); HDL Cholesterol 30 mg/dL (60-100); LDL Cholesterol Calculated 75 mg/dL (50-129); Triglycerides 115 mg/dL (0-150)
--- NOTE | 2020-01-23 06:08 | PC.NURSE ---
End of shift: Patient has rested well this shift with CPAP in place. patient remains alert and cooperative with care. Patient denies any caffeine use for her pending stress test. Patient has had no complaints of pain.
[2020-01-23 07:28] LABS: Glucose Point of Care 272 mg/dL (70-110)
[2020-01-23] MEDS: regadenoson 0.4 Mg/5 ml Syringe IVP (08:16)
[2020-01-23 09:31] LABS: Iron 21 ug/dL (37-145); Percent Saturation 6.2 % (20-50); Total Iron Binding Capacity 337 mcg/dl; Unsaturated Iron Binding 316 ug/dL (112-347)
[2020-01-23] MEDS: amlodipine 5 mg Tablet 2.5 MG PO (09:49)
[2020-01-23] MEDS: levothyroxine 125 mcg Tablet PO (09:49)
[2020-01-23] MEDS: pantoprazole DR 40 mg Tablet PO (09:50)
[2020-01-23] MEDS: ropinirole 1 mg Tablet PO (09:50)
[2020-01-23] MEDS: ARIPiprazole 2 mg Tablet PO (09:50)
[2020-01-23] MEDS: duloxetine 30 mg Capsule PO (09:50)
[2020-01-23] MEDS: memantine 5 mg tablet PO (09:50)
[2020-01-23] MEDS: potassium chloride ER 10 mEq Tablet 20 MEQ PO (09:50)
[2020-01-23] MEDS: digoxin 125 mcg Tablet PO (09:50)
--- NOTE | 2020-01-23 11:12 | PC.CHAP ---
Pastoral Care Encounter/Spiritual Assessment Type of Contact [] Declined beamer hand visit [] Patient/Family/Request visit [] Outpatient visit [] Follow-up visit [] Physician referral [] Code/Alert [x] Routine visit [] Staff referral [] Actively dying [] Patient sleeping [] Family support [] [] Out of room [] Palliative care [] [x] Receiving care in room [] Pre-surgical visit [] Trauma [] Long length of stay [] ICU visit [] Other: Relational/Emotional Strength [x] Patient feels connected with others/family/visitors/staff [] Distress [] Loneliness/isolation [] Abandonment Spirituality of Patient [x] Person of Zaida [] Attends Mu-Ism of their Zaida [x] Believes in Prayer [] Reads Bible or Jainism materials [] There are Spiritual issues to be addressed Dispatcher Street Department Interventions [x] Prayer [x] Active listening [x] Non-anxious presence [x] Spiritual/emotional support [] Crisis/trauma care [x] Spiritual counseling [] Bereavement support [] Provided bereavement packet [] Provided Bible/devotional materials [] Provided toy/stuffed animal, coloring book to patient or family member [] Provided Communion [] Anointing/[place] [] Salvation [x] Completed spiritual assessment [] Other: Impact on Illness or Injury [] Angry [] Fearful [x] Anxious [] Often cries [] Exhaustion [] Unable to work [] Unable to attend methodist [] Unable to walk/stand [] Unable to read [] Unable to drive [] Unable to eat/drink [] Unable to sleep [] Unable to be with family [] Patient intubated [] Other: Summary Has had tests not sure what needs to done? Time spent with patient 10 mins
[2020-01-23 11:33] LABS: Glucose Point of Care 443 mg/dL (70-110)
--- NOTE | 2020-01-23 13:33 | PM.DCS ---
Discharge Providers Date of Admission: 01/22/20 08:33 Date of Discharge: January 23, 2020 Attending Provider at Admission: Thelma Cerda DO Attending Provider at Discharge: Thelma Cerda DO Primary Care Provider: Edmond Machado Diagnoses at Discharge Discharge Diagnosis (1) Chest pain: Status: Acute (2) Coronary artery disease: Status: Acute (3) GERD (gastroesophageal reflux disease): Status: Acute (4) Obstructive sleep apnea: Status: Acute (5) Hypertension: Status: Acute (6) DM type 2 (diabetes mellitus, type 2): Status: Acute Reason for Visit Reason for Visit: CP Hospital Course Hospital Course: Patient was seen and evaluated in the emergency department noted to have concern for chest pain and admitted for further evaluation and treatment. Serial EKG and troponin showed no acute changes she was admitted to telemetry and kept n.p.o. for stress test. Stress test showed low evidence of any ischemic changes and patient was discharged back to shelter facility. She did not have any further chest pain following admission. Physical Exam Const: COMMON NORMALS: patient oriented x3 and alert GENERAL APPEARANCE: cooperative ORIENTATION/CONSCIOUSNESS: Yes awake, Yes oriented to person, Yes oriented to place and Yes oriented to time HENMT: COMMON NORMALS: normocephalic and atraumatic HEAD & SCALP: normocephalic and atraumatic Eye: COMMON NORMALS: Equal, round and reactive pupils present PUPIL: Yes Equal, round and reactive pupils present Neck/C-Spine: COMMON NORMALS: supple GENERAL: Yes normal visual inspection Resp: COMMON NORMALS: normal respiratory effort and clear to auscultation bilaterally EFFORT & INSPECTION: Yes able to speak in complete sentences AUSCULTATION: clear to auscultation bilaterally, no rhonchi and no wheezes Cardio: COMMON NORMALS: regular rate, regular rhythm and No murmurs present (Cardio) RATE: regular rate RHYTHM: regular rhythm GI: COMMON NORMALS: Soft to palpation and non-tender INSPECTION: No abdominal distension AUSCULTATION: Yes normoactive bowel sounds PALPATION: Yes Soft to palpation Extremity: COMMON NORMALS: no clubbing, cyanosis or edema NARRATIVE EXTREMITY EXAM: s/p R BKA Neuro: COMMON NORMALS: patient oriented x3, CN's II-XII intact bilaterally, moves all extremities and no focal motor deficits SENSORIUM/ORIENTATION: Yes alert, Yes oriented to person, Yes oriented to place and Yes oriented to time SPEECH: speech normal Psych: COMMON NORMALS: mental status grossly normal and cooperative Skin: COMMON NORMALS: no rashes or lesions noted GENERAL SKIN EXAM: no rashes or lesions noted Discharge Data Data Completed and Pending: Completed Studies During Hospitalization Category Date Time Status CT angio chest PE protcl [id number] Stat Cat Scan 01/22/20 05:23 Completed Sestamibi Stress Test Request Routi ne Exams 01/22/20 13:48 Completed XR chest 1V gin ble [id number] Stat Exams 01/22/20 03:37 Completed NM rosalind perf SPECT r/s* [id number] Routin e Nuc Med 01/23/20 13:48 Completed CV echo complete* [id number] Routine Ultrasound 01/22/20 13:36 Completed Pending at discharge Category Date Time Status SARS Covid-2 Anti gen Routine Lab 01/23/20 12:56 Ordered Labs from last 24 hours 01/23/20 01/23/20 01/23/20 11:23 07:24 04:15 WBC RBC Hgb Hct MCV MCH MCHC RDW Plt Count MPV Neut % (Auto) Lymph % (Auto) [place] % (Auto) Eos % (Auto) Baso % (Auto) Neut # (Auto) Lymph # (Auto) [place] # (Auto) Eos # (Auto) Baso # (Auto) Nucleated RBC % (a uto) Nucleated RBCs # Sodium Potassium Chloride Carbon Dioxide Anion Gap BUN Creatinine GFR Calculation Glucose POC Glucose 443 272 Estimat Average Gl ucose Hemoglobin A1c Calculated Osmolal ity Calcium Phosphorus Magnesium Iron 21 L TIBC 337 % Saturation 6.2 L Unsat Iron Binding 316 NT-Pro-B Natriuret Pep Triglycerides Cholesterol LDL Cholesterol, C alc HDL Cholesterol LDL/HDL Ratio Cholesterol/HDL Ra rashawn Vitamin B12 Folate TSH Digoxin 01/23/20 01/23/20 01/23/20 04:15 04:15 04:15 WBC 6.3 RBC 4.74 Hgb 8.9 L Hct 32.7 L MCV 69.0 L MCH 18.8 L MCHC 27.2 L RDW 18.9 H Plt Count 304 MPV 9.5 Neut % (Auto) 61.3 Lymph % (Auto) 28.0 [place] % (Auto) 6.7 Eos % (Auto) 2.7 Baso % (Auto) 1.0 Neut # (Auto) 3.86 Lymph # (Auto) 1.8 [place] # (Auto) 0.4 Eos # (Auto) 0.2 Baso # (Auto) 0.1 Nucleated RBC % (a uto) 0 Nucleated RBCs # 0.0 Sodium 135 L Potassium 3.9 Chloride 97 L Carbon Dioxide 29 Anion Gap 12.9 BUN 7 L Creatinine 0.6 GFR Calculation Not Reportable Glucose 255 H POC Glucose Estimat Average Gl ucose Hemoglobin A1c Calculated Osmolal ity 287 Calcium 9.0 Phosphorus Magnesium Iron TIBC % Saturation Unsat Iron Binding NT-Pro-B Natriuret Pep Triglycerides 115 Cholesterol 128 LDL Cholesterol, C alc 75 HDL Cholesterol 30 L LDL/HDL Ratio 2.50 Cholesterol/HDL Ra rashawn 4.27 Vitamin B12 Folate TSH Digoxin 01/22/20 01/22/20 01/22/20 20:13 16:27 14:08 WBC RBC Hgb Hct MCV MCH MCHC RDW Plt Count MPV Neut % (Auto) Lymph % (Auto) [place] % (Auto) Eos % (Auto) Baso % (Auto) Neut # (Auto) Lymph # (Auto) [place] # (Auto) Eos # (Auto) Baso # (Auto) Nucleated RBC % (a uto) Nucleated RBCs # Sodium Potassium Chloride Carbon Dioxide Anion Gap BUN Creatinine GFR Calculation Glucose POC Glucose 371 316 Estimat Average Gl ucose Hemoglobin A1c Calculated Osmolal ity Calcium Phosphorus Magnesium Iron TIBC % Saturation Unsat Iron Binding NT-Pro-B Natriuret Pep Triglycerides Cholesterol LDL Cholesterol, C alc HDL Cholesterol LDL/HDL Ratio Cholesterol/HDL Ra rashawn Vitamin B12 Folate TSH Digoxin 1.3 H 01/22/20 01/22/20 01/22/20 03:00 03:00 03:00 WBC RBC Hgb Hct MCV MCH MCHC RDW Plt Count MPV Neut % (Auto) Lymph % (Auto) [place] % (Auto) Eos % (Auto) Baso % (Auto) Neut # (Auto) Lymph # (Auto) [place] # (Auto) Eos # (Auto) Baso # (Auto) Nucleated RBC % (a uto) Nucleated RBCs # Sodium Potassium Chloride Carbon Dioxide Anion Gap BUN Creatinine GFR Calculation Glucose POC Glucose Estimat Average Gl ucose 252 Hemoglobin A1c 10.4 H Calculated Osmolal ity Calcium Phosphorus 3.1 Magnesium 1.6 L Iron 19 L TIBC 372 % Saturation 5.1 L Unsat Iron Binding 353 H NT-Pro-B Natriuret Pep 33 Triglycerides Cholesterol LDL Cholesterol, C alc HDL Cholesterol LDL/HDL Ratio Cholesterol/HDL Ra rashawn Vitamin B12 886 Folate > 20.0 TSH 5.61 H Digoxin Vitals: Last Vital Signs Temp 98.1 F 01/23/20 12:00 Pulse 97 01/23/20 12:00 Resp 15 01/23/20 12:00 BP 161/90 01/23/20 12:00 Pulse Ox 96 01/23/20 12:00 Discharge Plan Discharge Patient Disposition: Xfer SNF Condition: Stable Prescriptions: New nitroglycerin 0.4 mg Tablet, Sublingual 0.4 mg sublingual Q5M PRN (Reason: Chest Pain) 30 Days Qty: 20 RF: 0 ferrous sulfate 325 mg (65 mg iron) tablet 325 mg PO BID 30 Days Qty: 60 RF: 0 Continued Lasix 40 mg Tablet 40 mg PO DAILY RF: 0 metformin 500 mg Tablet 500 mg PO BID RF: 0 Tylenol 325 mg Tablet 650 mg PO QID PRN (Reason: Pain) RF: 0 Aricept 5 mg Tablet 5 mg PO DAILY RF: 0 Miralax 17 gram Powder In Packet 17 g PO DAILY PRN (Reason: Constipation) RF: 0 Zofran 4 mg Tablet 4 mg PO Q4H PRN (Reason: Nausea) RF: 0 Senna-S 8.6-50 mg Tablet 2 tab-cap PO DAILY PRN (Reason: Constipation) RF: 0 Imodium A-D 2 mg Tablet 2 mg PO Q4H PRN (Reason: Diarrhea) RF: 0 docusate sodium 50 mg Capsule 50 mg PO DAILY RF: 0 Norvasc 2.5 mg Tablet 2.5 mg PO DAILY RF: 0 Milk of Magnesia 400 mg/5 mL Suspension 30 ml PO DAILY PRN (Reason: Constipation) RF: 0 hydrocortisone 1 % Cream 1 applic TOPICAL BID PRN (Reason: Itching) RF: 0 bisacodyl 10 mg Suppository 10 mg RI DAILY PRN (Reason: Constipation) RF: 0 levothyroxine 125 mcg Tablet 125 mcg PO DAILY RF: 0 digoxin 125 mcg (0.125 mg) Tablet 125 mcg PO DAILY RF: 0 nystatin 100,000 unit/gram Powder 1 applic TOPICAL DAILY RF: 0 fluticasone propionate 110 mcg/actuation Hfa Aerosol Inhaler 2 puff INHALATION BID RF: 0 Mylanta Maximum Strength 400-400-40 mg/5 mL Suspension 5 ml PO QID PRN (Reason: Constipation) RF: 0 Novolin N Flexpen 100 unit/mL (3 mL) Insulin Pen 42 unit SUBCUT QAM RF: 0 Novolog Flexpen U-100 Insulin 100 unit/mL (3 mL) Insulin Pen 100 unit SUBCUT DAILY RF: 0 Prilosec OTC 20 mg Tablet,Delayed Release (Dr/Ec) 40 mg PO DAILY RF: 0 Namenda 5 mg Tablet 5 mg PO BID RF: 0 trospium 20 mg Tablet 20 mg PO BID RF: 0 Cymbalta 30 mg Capsule,Delayed Release(Dr/Ec) 30 mg PO DAILY RF: 0 Abilify 2 mg Tablet 2 mg PO DAILY RF: 0 hydrocodone-acetaminophen 5-300 mg Tablet 1 tab PO Q6H PRN (Reason: Pain) RF: 0 insulin glargine 100 unit/mL (3 mL) Insulin Pen 10 unit SUBCUT DAILY RF: 0 Requip XL 2 mg Tablet Extended Release 24 Hr 1 mg PO DAILY RF: 0 potassium chloride 20 mEq Tablet Extended Release 20 meq PO DAILY RF: 0 Discharge Orders: Discharge Order (Routine); Ordered 01/23/20 Ordered By: Thelma Cerda Referrals: Edmond Machado [Primary Care Provider] - 4-7 days Discharge Diet: Cardiac and Diabetic Discharge Activity: Increase activity as tolerated Activity Restrictions/Additional Instructions: Discharge to nursing facility with iron 325 twice daily Nitro as needed for chest pain Stress test showed low probability of any coronary ischemia Recommend continued follow-up with her primary care provider in 5 to 7 days Follow-up with outpatient serial imaging due to lymph nodes within the mediastinum including paratracheal/retrocaval region 15 mm, incidental finding and previously noted on exams. Recommend follow-up in 3 to 6 months per primary care provider. Discussed with physician about any acute concerns, or present to the ED for any acute illness or concern. 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
[2020-01-23 13:42] LABS: SARS Covid-2 Antigen Negative (Negative)
--- NOTE | 2020-01-23 13:48 | NMCV_ITS ---
NM rosalind perf SPECT r/s* [id number] Candis Almonte Age: 70 Gender: F : 1950 Exam Date: 01/23/2020 07:30 Ordering Phys: Thelma Cerda DO Technologist: GENTRY Martinez Exam Location: [facility] Indications: CP STRESS TEST [facility] IMAGE PROTOCOL Rest/Stress 1 Radiopharmaceutical Dose (mCi) Administration Site Administered by Rest: Tc-99m 11.0 IV Ysabel Jessica, CORRECTIONAL OFFICER CHIEF Sestamibi Stress:Tc-99m 33.0 IV Ysabel Jessica, CORRECTIONAL OFFICER CHIEF Sestamibi Rest: 23-Jan-2020 ExtendEvent 630 Stress: 23-Jan-2020 Discovery 630 SPECT RESULTS Technical Quality: Good Raw Data Analysis: Breast attenuation, Soft tissue attenuation Image Corrections: No attenuation or motion correction applied Summed Stress Score: 0 Summed Rest Score: 0 Summed Difference Score: 0 PERFUSION FINDINGS SPECT images demonstrate homogeneous tracer distribution throughout the myocardium. FUNCTIONAL RESULTS (calculated via Gated SPECT) Stress Image LV EF (%): 58 Stress EDV (mL):72 TID: 1.24 Stress ESV (mL):30 FUNCTIONAL FINDINGS: The left ventricle is normal in size. Transient Ischemia Dilatation of 1.2. There is normal left ventricular systolic function. The left ventricular ejection fraction is normal with a value of 58%. There is normal left ventricular wall thickening. Normal end-diastolic and end-systolic volumes. IMPRESSIONS 1. Myocardial perfusion imaging is normal. 2. Overall left ventricular systolic function is normal without regional wall motion abnormalities. 3. The left ventricular ejection fraction is normal with a value of 58%. 4. Transient ischemic dilation index mildly increased at 1.2. This may represent hypertensive response or subendocardial ischemia. Clinical correlation is advised. 5. No significant EKG changes. This is of limited sensitivity given pharmacologic protocol. Refer to EKG portion of the study for details. Chanel Conde MD (Electronically Signed) Final Date: 23 January 2020 12:42 S
--- NOTE | 2020-01-23 14:45 | PC.NURSE ---
discharge assessment questions that were answered no are due to pt going to snf. report called to SAMREEN Hart.
== END 2020-01-23 16:00 | disposition skilled nursing facility (03) ==
LOC: ER 08:16 → CSU 10:41
PROVIDERS: Emergency Medicine; Family Medicine; Admitting Provider Family Medicine; PCP Family Medicine; Visit Provider Family Medicine
DX: R07.9 Chest pain, unspecified (principal); I25.10 Atherosclerotic heart disease of native coronary artery without angina pectoris; K21.9 Gastro-esophageal reflux disease without esophagitis; G47.33 Obstructive sleep apnea (adult) (pediatric); I10 Essential (primary) hypertension; E11.9 Type 2 diabetes mellitus without complications; F32.9 Major depressive disorder, single episode, unspecified; Z79.4 Long term (current) use of insulin
CPT/HCPCS: 12345; 36415; 36416; 71045; 71275; 78452; 80048; 80053; 80061; 80162; 81003; 82607; 82746; 82962; 83036; 83540; 83550; 83690; 83735; 83880; 84100; 84443; 84484; 85025; 85378; 85610; 87426; 93005; 93017; 93306; 96361; 96365; 96372; 96375; 99284; 99285; A9500; G0378; J1170; J1815 ×2; J1940; J2405; J2785; J3475; J3535; J7030; Q9967

== ENCOUNTER 2022-03-17 09:33 | Outpatient (CLI) | payer MEDICARE, MEDICAID, SELFPAY ==
[2022-03-17 15:17] LABS: Influenza A by IFA Negative (Negative); Influenza B by IFA Negative (Negative)
== END 2022-03-17 09:34 | disposition home or self-care (01) ==
PROVIDERS: PCP Family Medicine; Visit Provider Family Medicine
DX: Z01.89 Encounter for other specified special examinations (principal)
CPT/HCPCS: 87804

== ENCOUNTER 2023-09-06 08:30 | Outpatient (CLI) | payer MEDICARE, MEDICAID, SELFPAY ==
--- NOTE | 2023-09-06 08:33 | FL_ITS ---
WS: [id number] Exam: FL barium swallow [id number] Date/Time of Exam: 09/06/2023 8:34 AM Reason For Exam: Dysphasia Fluoroscopy time: 2min 0.577865gct minutes # of spot films: 0 Oral pharyngeal phase of swallowing was normal. No aspiration or penetration identified. Patulous eso phagus noted with marked presbyesophagus. There is thickening of the esophageal mucosa. Questionable esophageal ulceration involving the mid and distal aspects of the esophagus. Barium spills freely int o the stomach without obstruction. The esophagus is not displaced. FL/FL barium swallow [id number] IMPRESSION: 1. 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 2. Questionable esophageal ulceration involving the mid and distal esophagus. F urther evaluation with endoscopy might be a consideration. 3. No esophageal obstruction identified.
== END 2023-09-06 08:31 | disposition home or self-care (01) ==
LOC: RAD 08:31
PROVIDERS: PCP Family Medicine; Visit Provider Otolaryngology
DX: R13.10 Dysphagia, unspecified (principal)
CPT/HCPCS: 74220

== ENCOUNTER 2023-10-04 09:33 | Outpatient (CLI) | payer MEDICARE, MEDICAID, SELFPAY ==
--- NOTE | 2023-10-04 09:39 | FL_ITS ---
WS: [id number] Exam: FL barium swallow modifd [id number] Date/Time of Exam: 10/04/2023 10:10 AM Reason For Exam: Other dysphagia Fluoroscopy time: 3min 1.254971hoj minutes # of spot films: 0 Modified barium swallow was performed in conjunction with the speech therapy service. Oral pharyngeal phase of swallowing was normal. The patient experienced 1 episode of mild penetration into the laryngeal inlet when ingesting thin liquid barium. No aspiration was observed. The patient swallowed the barium tablet without difficulty however the tablet was retained in the midesophagus du e to dysmotility. Several swallows of pudding consistency barium and liquid propelled the tablet into the stomach. FL/FL barium swallow modifd [id number] IMPRESSION: 1. Single episode of mild penetration into the laryngeal inlet when the patient ingested thin liquid. 2. Esophageal dysmotility when the patient ingested a barium tablet. See above discussion. A separate report and recommendations will follow from the speech therapy servi ce.
== END 2023-10-04 09:34 | disposition home or self-care (01) ==
LOC: RAD 09:35
PROVIDERS: PCP Family Medicine; Visit Provider Otolaryngology
DX: R13.10 Dysphagia, unspecified (principal); R09.89 Other specified symptoms and signs involving the circulatory and respiratory systems; R93.3 Abnormal findings on diagnostic imaging of other parts of digestive tract
CPT/HCPCS: 74230; 92611

== ENCOUNTER 2025-01-21 17:11 | Emergency (ER) | payer MEDICARE, MEDICAID, SELFPAY ==
[2025-01-21 17:16] VITALS: BP 100/71; PULSE 92; RESP 17; TEMP 36.8; O2SAT 96
--- OUTSIDE RECORDS SUMMARY | 2025-01-21 17:17 | XMS_ITS | Encounter Summary ---
Author Organization [facility] Address [address] [place] [address] Care Team Providers Care Basin Finish Operator Tig Welder Name Role Phone Non-Staff, Physician Primary Care Provider Unava ilable Encounter Details Date Type Department Care Team (Latest Contact Info) Description 10/28/2002 Outpatient Historical [facility] Family Medicine- [address]mita [address] [place] [phone] Nell Verde MD NO ADDRESS ON FILE DIABETES UNCOMPL ADULT-TYPE II (CMS/HCC) (Primary Dx) Social History Tobacco Use Types Packs/Day Years Used Date Smoking Tobacco: Never Assessed Comments Unknown Sex and Gender Information Value Date Recorded Sex Assigned at Not on file 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 Gender Identity Not on file Sexual Orientation Not on file documented as of this encounter Plan of Treatment Not on file documented as of this encounter Visit Diagnoses Diagnosis Type II or unspecified type diabetes mellitus without mention of complication, not stated as uncontrolled- Primary documented in this encounter Additional Health Concerns Infection Onset Date Last Indicated Resolved Time CRE-CP Comment:Sputum 07/09/18 (Serratia) 07/09/2018 07/09/2018 MRSA 10/12/2018 12/25/2018 12/26/2019 8:08 PM CDT documented as of this encounter Care Teams Basin Finish Operator Tig Welder Relationship Specialty Start Date End Date Non-Staff, Physician NO ADDRESS ON FILE PCP - General 01/10/20 documented as of this encounter
--- OUTSIDE RECORDS SUMMARY | 2025-01-21 17:17 | XMS_ITS | Encounter Summary ---
Author Organization [facility] Address [address] [facility] [place] [address] Care Team Providers Care Chief Ii Dispatcher Name Role Phone Non-Staff, Physician Primary Care Provider Unava ilable Encounter Details Date Type Department Care Team (Latest Contact Info) Description 10/28/2002 Outpatient Historical [facility] Family Medicine- Amit[address] [place] [phone] Nell Verde MD NO ADDRESS ON FILE URIN TRACT INFECTION NOS (Primary Dx); CYST KIDNEY DIS, UNSPEC; ABDOMINAL PAIN RLQ; DIABETES UNCOMPL ADULT-TYPE II ([facility]) Social History Tobacco Use Types Packs/Day Years Used Date Smoking Tobacco: Never Assessed Comments Unknown Sex and Gender Information Value Date Recorded Sex Assigned at Not on file 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 Gender Identity Not on file Sexual Orientation Not on file documented as of this encounter Plan of Treatment Not on file documented as of this encounter Visit Diagnoses Diagnosis Urinary tract infection, site not specified- Primary Unspecified congenital cystic kidney disease Abdominal pain, right lower quadrant Type II or unspecified type diabetes mellitus without mention of complication, not stated as uncontrolled documented in this encounter Additional Health Concerns Infection Onset Date Last Indicated Resolved Time CRE-CP Comment:Sputum 07/09/18 (Serratia) 07/09/2018 07/09/2018 MRSA 10/12/2018 12/25/2018 12/26/2019 8:08 PM CDT documented as of this encounter Care Teams Chief Ii Dispatcher Relationship Specialty Start Date End Date Non-Staff, Physician NO ADDRESS ON FILE PCP - General 01/10/20 documented as of this encounter
--- OUTSIDE RECORDS SUMMARY | 2025-01-21 17:17 | XMS_ITS | Encounter Summary ---
Author Organization [facility] Address [address] [facility] Attn: Epic Prelude ADT [place] [address] Care Team Providers Care Director Enterprise Sales Name Role Phone Non-Staff, Physician Primary Care Provider Unava ilable Encounter Details Date Type Department Care Team (Late st Contact Info) Description 02/04/2002 [place] [id number] [address] Social History Tobacco Use Types Packs/Day Years Used Date Smoking Tobacco: Never Assessed Comments Unknown Sex and Gender Information Value Date Recorded Sex Assigned at Not on file 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 Gender Identity Not on file Sexual Orientation Not on file documented as of this encounter Plan of Treatment Not on file documented as of this encounter Visit Diagnoses Not on filedocumented in this encounter Additional Health Concerns Infection Onset Date Last Indicated Resolved Time CRE-CP Comment:Sputum 07/09/18 (Serratia) 07/09/2018 07/09/2018 MRSA 10/12/2018 12/25/2018 12/26/2019 8:08 PM CDT documented as of this encounter Care Teams Director Enterprise Sales Relationship Specialty Start Date End Date Non-Staff, Physician NO ADDRESS ON FILE PCP - General 01/10/20 documented as of this encounter
--- OUTSIDE RECORDS SUMMARY | 2025-01-21 17:17 | XMS_ITS | Encounter Summary ---
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 Gender Identity Not on file Sexual Orientation Not on file documented as of this encounter Plan of Treatment Not on file documented as of this encounter Visit Diagnoses Diagnosis Lumbago- Primary documented in this encounter Additional Health Concerns Infection Onset Date Last Indicated Resolved Time CRE-CP Comment:Sputum 07/09/18 (Serratia) 07/09/2018 07/09/2018 MRSA 10/12/2018 12/25/2018 12/26/2019 8:08 PM CDT documented as of this encounter Care Teams Carry Out Clerk Relationship Specialty Start Date End Date Non-Staff, Physician NO ADDRESS ON FILE PCP - General 01/10/20 documented as of this encounter
--- OUTSIDE RECORDS SUMMARY | 2025-01-21 17:17 | XMS_ITS | Encounter Summary ---
Author Organization [facility] Address [address] [facility] [place] [address] Care Team Providers Care Python Developer Name Role Phone Non-Staff, Physician Primary Care Provider Unava ilable Encounter Details Date Type Department Care Team (Latest Contact Info) Description 08/01/2006 Outpatient Historical [facility] Family Medicine- [address] [place] [phone] Abel Fields NP NO ADDRESS ON FILE Screening for Malignant Neoplasm of the Cervix (Primary Dx) Social History Tobacco Use Types Packs/Day Years Used Date Smoking Tobacco: Never Assessed Comments Unknown Sex and Gender Information Value Date Recorded Sex Assigned at Not on file 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 Gender Identity Not on file Sexual Orientation Not on file documented as of this encounter Plan of Treatment Not on file documented as of this encounter Visit Diagnoses Diagnosis Screening for malignant neoplasm of the cervix- Primary documented in this encounter Additional Health Concerns Infection Onset Date Last Indicated Resolved Time CRE-CP Comment:Sputum 07/09/18 (Serratia) 07/09/2018 07/09/2018 MRSA 10/12/2018 12/25/2018 12/26/2019 8:08 PM CDT documented as of this encounter Care Teams Python Developer Relationship Specialty Start Date End Date Non-Staff, Physician NO ADDRESS ON FILE PCP - General 01/10/20 documented as of this encounter
--- OUTSIDE RECORDS SUMMARY | 2025-01-21 17:17 | XMS_ITS | Encounter Summary ---
Author Organization [facility] Address [address] [facility] [place] [address] Care Team Providers Care Electric Car Operator Name Role Phone Non-Staff, Physician Primary Care Provider Unava ilable Encounter Details Date Type Department Care Team (Latest Contact Info) Description 08/23/2006 Outpatient Historical [facility] Pain [facility] [address] 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 Gender Identity Not on file Sexual Orientation Not on file documented as of this encounter Plan of Treatment Not on file documented as of this encounter Visit Diagnoses Diagnosis Thoracic or lumbosacral neuritis or radiculitis, unspecified- Primary documented in this encounter Additional Health Concerns Infection Onset Date Last Indicated Resolved Time CRE-CP Comment:Sputum 07/09/18 (Serratia) 07/09/2018 07/09/2018 MRSA 10/12/2018 12/25/2018 12/26/2019 8:08 PM CDT documented as of this encounter Care Teams Electric Car Operator Relationship Specialty Start Date End Date Non-Staff, Physician NO ADDRESS ON FILE PCP - General 01/10/20 documented as of this encounter
--- OUTSIDE RECORDS SUMMARY | 2025-01-21 17:17 | XMS_ITS | Encounter Summary ---
Author Organization [facility] Address [address] [place] [address] Care Team Providers Care Booster Pump Oiler Name Role Phone Non-Staff, Physician Primary Care Provider Unava ilable Encounter Details Date Type Department Care Team (Latest Contact Info) Description 09/12/2006 Outpatient Historical [facility] [address] 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 Gender Identity Not on file Sexual Orientation Not on file documented as of this encounter Plan of Treatment Not on file documented as of this encounter Visit Diagnoses Diagnosis Thoracic or lumbosacral neuritis or radiculitis, unspecified- Primary Lumbosacral spondylosis Lumbosacral spondylosis without myelopathy documented in this encounter Additional Health Concerns Infection Onset Date Last Indicated Resolved Time CRE-CP Comment:Sputum 07/09/18 (Serratia) 07/09/2018 07/09/2018 MRSA 10/12/2018 12/25/2018 12/26/2019 8:08 PM CDT documented as of this encounter Care Teams Booster Pump Oiler Relationship Specialty Start Date End Date Non-Staff, Physician NO ADDRESS ON FILE PCP - General 01/10/20 documented as of this encounter
--- OUTSIDE RECORDS SUMMARY | 2025-01-21 17:17 | XMS_ITS | Encounter Summary ---
Author Organization [facility] Address [address] [place] [address] Care Team Providers Care Farm Adviser Name Role Phone Non-Staff, Physician Primary Care Provider Unava ilable Encounter Details Date Type Department Care Team (Latest Contact Info) Description 02/19/2002 Outpatient Historical [facility] Family Medicine- [address] [place] [phone] Edmond Machado DO NO ADDRESS ON FILE HEADACHE (Primary Dx); CERVICALGIA; ABN BLOOD CHEMISTRY NEC Social History Tobacco Use Types Packs/Day Years Used Date Smoking Tobacco: Never Assessed Comments Unknown Sex and Gender Information Value Date Recorded Sex Assigned at Not on file Legal Sex Female 2:45 AM PRODUCTION ANALYST Gender Identity Not on file Sexual Orientation Not on file documented as of this encounter Plan of Treatment Not on file documented as of this encounter Visit Diagnoses Diagnosis Headache(784.0)- Primary Headache Cervicalgia Other abnormal blood chemistry documented in this encounter Additional Health Concerns Infection Onset Date Last Indicated Resolved Time CRE-CP Comment:Sputum 07/09/18 (Serratia) 07/09/2018 07/09/2018 MRSA 10/12/2018 12/25/2018 12/26/2019 8:08 PM CDT documented as of this encounter Care Teams Farm Adviser Relationship Specialty Start Date End Date Non-Staff, Physician NO ADDRESS ON FILE PCP - General 01/10/20 documented as of this encounter
--- OUTSIDE RECORDS SUMMARY | 2025-01-21 17:17 | XMS_ITS | Encounter Summary ---
Author Organization [facility] Address [address] [place] [address] Care Team Providers Care Business Lawyer Name Role Phone Non-Staff, Physician Primary Care Provider Unava ilable Encounter Details Date Type Department Care Team (Latest Contact Info) Description 08/23/2006 Outpatient Historical [facility] [address] 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
--- OUTSIDE RECORDS SUMMARY | 2025-01-21 17:17 | XMS_ITS | Encounter Summary ---
Author Organization [facility] Address [address] [place] [address] Care Team Providers Care General Repairer Name Role Phone Non-Staff, Physician Primary Care Provider Unava ilable Encounter Details Date Type Department Care Team (Latest Contact Info) Description 01/30/2007 Outpatient Historical [facility] Family Medicine- [address] [place] [phone] Jim Aquino PA NO ADDRESS ON FILE Edema (Primary Dx); Pain in Joint, Site Unspecified; DM w/o Complication Type II (CMS/HCC); Vaccine for Influenza Social History Tobacco Use Types Packs/Day Years Used Date Smoking Tobacco: Never Assessed Comments Unknown Sex and Gender Information Value Date Recorded Sex Assigned at Not on file Legal Sex Female 2:45 AM PRODUCT ENGINEER Gender Identity Not on file Sexual Orientation Not on file documented as of this encounter Plan of Treatment Not on file documented as of this encounter Visit Diagnoses Diagnosis Edema- Primary Pain in joint, site unspecified Type II or unspecified type diabetes mellitus without mention of complication, not stated as uncontrolled Vaccine for influenza Need for prophylactic vaccination and inoculation against influenza documented in this encounter Additional Health Concerns Infection Onset Date Last Indicated Resolved Time CRE-CP Comment:Sputum 07/09/18 (Serratia) 07/09/2018 07/09/2018 MRSA 10/12/2018 12/25/2018 12/26/2019 8:08 PM CDT documented as of this encounter Care Teams General Repairer Relationship Specialty Start Date End Date Non-Staff, Physician NO ADDRESS ON FILE PCP - General 01/10/20 documented as of this encounter
--- OUTSIDE RECORDS SUMMARY | 2025-01-21 17:17 | XMS_ITS | Encounter Summary ---
Author Organization [facility] Address [address] [facility] [place] [address] Care Team Providers Care Site Safety Coordinator Name Role Phone Non-Staff, Physician Primary Care Provider Unava ilable Encounter Details Date Type Department Care Team (Latest Contact Info) Description 05/13/[address] [facility] Family Medicine- [address] [place] [phone] Nell Verde MD NO ADDRESS ON FILE DERMATITIS NOS (Primary Dx) Social History Tobacco Use Types Packs/Day Years Used Date Smoking Tobacco: Never Assessed Comments Unknown Sex and Gender Information Value Date Recorded Sex Assigned at Not on file Legal Sex Female 2:45 AM PREFITTER DOORS Gender Identity Not on file Sexual Orientation Not on file documented as of this encounter Plan of Treatment Not on file documented as of this encounter Visit Diagnoses Diagnosis Contact dermatitis and other eczema, due to unspecified cause- Primary documented in this encounter Additional Health Concerns Infection Onset Date Last Indicated Resolved Time CRE-CP Comment:Sputum 07/09/18 (Serratia) 07/09/2018 07/09/2018 MRSA 10/12/2018 12/25/2018 12/26/2019 8:08 PM CDT documented as of this encounter Care Teams Site Safety Coordinator Relationship Specialty Start Date End Date Non-Staff, Physician NO ADDRESS ON FILE PCP - General 01/10/20 documented as of this encounter
--- OUTSIDE RECORDS SUMMARY | 2025-01-21 17:17 | XMS_ITS | Encounter Summary ---
Author Organization [facility] Address [address] [place] [address] Care Team Providers Care Dictaphone Typist Name Role Phone Non-Staff, Physician Primary Care Provider Unava ilable Encounter Details Date Type Department Care Team (Latest Contact Info) Description 09/06/2006 Outpatient Historical [facility] Family Medicine- [place] [place] [phone] Abel Fields NP NO ADDRESS ON FILE Acute Sinusitis, Unspecified (Primary Dx); Acute Bronchitis; Unspecified Vaginitis and Vulvovaginitis; DM w/o Complication Type II (CMS/HCC) Social History Tobacco Use Types Packs/Day Years Used Date Smoking Tobacco: Never Assessed Comments Unknown Sex and Gender Information Value Date Recorded Sex Assigned at Not on file Legal Sex Female 2: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 Gender Identity Not on file Sexual Orientation Not on file documented as of this encounter Plan of Treatment Not on file documented as of this encounter Visit Diagnoses Diagnosis Acute sinusitis, unspecified- Primary Acute bronchitis Vaginitis and vulvovaginitis, unspecified Type II or unspecified type diabetes mellitus without mention of complication, not stated as uncontrolled documented in this encounter Additional Health Concerns Infection Onset Date Last Indicated Resolved Time CRE-CP Comment:Sputum 07/09/18 (Serratia) 07/09/2018 07/09/2018 MRSA 10/12/2018 12/25/2018 12/26/2019 8:08 PM CDT documented as of this encounter Care Teams Dictaphone Typist Relationship Specialty Start Date End Date Non-Staff, Physician NO ADDRESS ON FILE PCP - General 01/10/20 documented as of this encounter
--- OUTSIDE RECORDS SUMMARY | 2025-01-21 17:17 | XMS_ITS | Encounter Summary ---
Author Organization [facility] Address [address] [place] [address] Care Team Providers Care Truck Trailer Mechanic Name Role Phone Non-Staff, Physician Primary Care Provider Unava ilable Encounter Details Date Type Department Care Team (Latest Contact Info) Description 02/21/2002 Outpatient Historical [facility] Medicine [place] [address] [facility] [address] [place] [phone] Nell Verde MD NO ADDRESS ON FILE DIABETES UNCOMPL ADULT-TYPE II (CMS/HCC) (Primary Dx); HYPERTENSION NOS; ADJ REACT-ANXIOUS MOOD Social History Tobacco Use Types Packs/Day Years Used Date Smoking Tobacco: Never Assessed Comments Unknown Sex and Gender Information Value Date Recorded Sex Assigned at Not on file Legal Sex Female 2:45 AM TRACK WALKER Gender Identity Not on file Sexual Orientation Not on file documented as of this encounter Plan of Treatment Not on file documented as of this encounter Visit Diagnoses Diagnosis Type II or unspecified type diabetes mellitus without mention of complication, not stated as uncontrolled- Primary Unspecified essential hypertension Adjustment disorder with anxiety documented in this encounter Additional Health Concerns Infection Onset Date Last Indicated Resolved Time CRE-CP Comment:Sputum 07/09/18 (Serratia) 07/09/2018 07/09/2018 MRSA 10/12/2018 12/25/2018 12/26/2019 8:08 PM CDT documented as of this encounter Care Teams Truck Trailer Mechanic Relationship Specialty Start Date End Date Non-Staff, Physician NO ADDRESS ON FILE PCP - General 01/10/20 documented as of this encounter
--- OUTSIDE RECORDS SUMMARY | 2025-01-21 17:17 | XMS_ITS | Encounter Summary ---
Author Organization [facility] Address [address] [place] [address] Care Team Providers Care Powder Operator Name Role Phone Non-Staff, Physician Primary Care Provider Unava ilable Reason for Referral * CT Scan (Routine) - Closed Specialty Diagnoses / Procedures Referred By Contac t Referred To Contact Radiology Diagnoses Cephalgia Procedures CT HEAD WO CONTRAST Edmond Machado DO [facility] CT Scan [place] [address] [place] [address] Phone: tel: fax: Referral ID Status Reason Start Date Expiration Date Visits Re quested Visits Authorized [id number] Closed 03/13/2019 04/12/2020 1 1 RATION WORKROOM SUPERVISOR Encounter Details Date Type Department Care Team (Late st Contact Info) Description 03/13/2019 Ancillary Orders [facility] Centralized Scheduling [address] [place] [address] Edmond Machado DO NO ADDRESS ON FILE Cephalgia Social History Tobacco Use Types Packs/Day Years Used Date Smoking Tobacco: Former Cigarettes 2.5 9 0 04/10/2003 - 04/10/2012 Smokeless Tobacco: Never Alcohol Use Standard Drinks/Week Comments No 0 (1 standard drink = 0.6 oz pur e alcohol) Comments No Sex and Gender Information Value Date Recorded Sex Assigned at Not on file Legal Sex Female 2:45 AM ALTERATION WORKROOM SUPERVISOR Gender Identity Not on file Sexual Orientation Not on file Occupation Industry Job Start Date Job End Date Not on file Not on file Not on file Not on file documented as of this encounter Plan of Treatment Not on file documented as of this encounter Results * CT HEAD WO CONTRAST (03/14/2019 3:14 PM ALTERATION WORKROOM SUPERVISOR) Anatomical Region Laterality Modality Head Computed Tomogra phy 03/14/2019 3:15 PM ALTERATION WORKROOM SUPERVISOR Impressions 03/16/2019 10:20 AM ALTERATION WORKROOM SUPERVISOR IMPRESSION: Please see below. Exam: CT HEAD WO CONTRAST Date/Time of Exam: 03/14/2019 3:14 PM Reason For Exam: See Diagnosis. Diagnosis: Cephalgia. Technique: CT of the head was performed without the administration of intravenous contrast. Comparison: CT head without contrast 09/12/2018. Findings: Mild atrophy. No evidence of an acute infarct, mass or hemorrhage. Intact calvarium. The middle ear cavities and mastoid air cells are clear. Prior sinus surgery. Interval right ethmoid sinus mucosal thickening. IMPRESSION: 1. No significant abnormality. [id number] Narrative Procedure Note Tex Murrieta MD - 03/16/2019 IMPRESSION: Please see below. Exam: CT HEAD WO CONTRAST Date/Time of Exam: 03/14/2019 3:14 PM Reason For Exam: See Diagnosis. Diagnosis: Cephalgia. Technique: CT of the head was performed without the administration of intravenous contrast. Comparison: CT head without contrast 09/12/2018. Findings: Mild atrophy. No evidence of an acute infarct, mass or hemorrhage. Intact calvarium. The middle ear cavities and mastoid air cells are clear. Prior sinus surgery. Interval right ethmoid sinus mucosal thickening. IMPRESSION: 1. No significant abnormality. [id number] ORDERABLES Final Result documented in this encounter Visit Diagnoses Diagnosis Cephalgia Headache Cephalgia Headache documented in this encounter Additional Health Concerns Infection Onset Date Last Indicated Resolved Time CRE-CP Comment:Sputum 07/09/18 (Serratia) 07/09/2018 07/09/2018 MRSA 10/12/2018 12/25/2018 12/26/2019 8:08 PM CDT Assessment Noted Time PHQ-9 Depression Total Score: 1 07/20/19 18 11:00 AM CDT documented as of this encounter Care Teams Powder Operator Relationship Specialty Start Date End Date Non-Staff, Physician NO ADDRESS ON FILE PCP - General 01/10/20 documented as of this encounter
--- OUTSIDE RECORDS SUMMARY | 2025-01-21 17:17 | XMS_ITS | Encounter Summary ---
Author Organization [facility] Address [address] [place] [address] Care Team Providers Care Taper Printed Circuit Layout Name Role Phone Non-Staff, Physician Primary Care Provider Unava ilable Encounter Details Date Type Department Care Team (Late st Contact Info) Description 02/06/2002 Outpatient Historical [facility] General Surgery [address] [address] [address] [place] [address] Social History Tobacco Use Types Packs/Day Years Used Date Smoking Tobacco: Never Assessed Comments Unknown Sex and Gender Information Value Date Recorded Sex Assigned at Not on file Legal Sex Female 2:45 AM RETAIL ACCOUNT 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
--- OUTSIDE RECORDS SUMMARY | 2025-01-21 17:17 | XMS_ITS | Encounter Summary ---
Author Organization [facility] Address [address] [place] [place] [address] Care Team Providers Care Animated Cartoons Painter Name Role Phone Non-Staff, Physician Primary Care Provider Unava ilable Encounter Details Date Type Department Care Team (Latest Contact Info) Description 08/01/[address] [facility] Family Medicine- [address]mit[address] [place] [phone] Abel Fields NP NO ADDRESS ON FILE Routine Gynecological Examination (Primary Dx); Unspecified Vaginitis and Vulvovaginitis; Unspecified Constipation; Lumbago Social History Tobacco Use Types Packs/Day Years Used Date Smoking Tobacco: Never Assessed Comments Unknown Sex and Gender Information Value Date Recorded Sex Assigned at Not on file Legal Sex Female 2:45 AM COATING OPERATOR Gender Identity Not on file Sexual Orientation Not on file documented as of this encounter Plan of Treatment Not on file documented as of this encounter Visit Diagnoses Diagnosis Routine gynecological examination- Primary Vaginitis and vulvovaginitis, unspecified Unspecified constipation Lumbago documented in this encounter Additional Health Concerns Infection Onset Date Last Indicated Resolved Time CRE-CP Comment:Sputum 07/09/18 (Serratia) 07/09/2018 07/09/2018 MRSA 10/12/2018 12/25/2018 12/26/2019 8:08 PM CDT documented as of this encounter Care Teams Animated Cartoons Painter Relationship Specialty Start Date End Date Non-Staff, Physician NO ADDRESS ON FILE PCP - General 01/10/20 documented as of this encounter
--- OUTSIDE RECORDS SUMMARY | 2025-01-21 17:17 | XMS_ITS | Encounter Summary ---
Author Organization [facility] Address [address] [facility] [place] [address] Care Team Providers Care Production Line Worker Name Role Phone Non-Staff, Physician Primary Care Provider Unava ilable Encounter Details Date Type Department Care Team (Latest Contact Info) Description 06/10/2002 Outpatient Historical [facility] Family Medicine- [address]mit[address] [place] [address] Nell Verde MD NO ADDRESS ON FILE ACUTE SINUSITIS NOS (Primary Dx); HYPERTENSION NOS; HYPOTHYROIDISM NOS; DIABETES UNCOMPL ADULT-TYPE II ([facility]) Social History Tobacco Use Types Packs/Day Years Used Date Smoking Tobacco: Never Assessed Comments Unknown Sex and Gender Information Value Date Recorded Sex Assigned at Not on file Legal Sex Female 2:45 AM BOOK EDITOR Gender Identity Not on file Sexual Orientation Not on file documented as of this encounter Plan of Treatment Not on file documented as of this encounter Visit Diagnoses Diagnosis Acute sinusitis, unspecified- Primary Unspecified essential hypertension Unspecified hypothyroidism Type II or unspecified type diabetes mellitus without mention of complication, not stated as uncontrolled documented in this encounter Additional Health Concerns Infection Onset Date Last Indicated Resolved Time CRE-CP Comment:Sputum 07/09/18 (Serratia) 07/09/2018 07/09/2018 MRSA 10/12/2018 12/25/2018 12/26/2019 8:08 PM CDT documented as of this encounter Care Teams Production Line Worker Relationship Specialty Start Date End Date Non-Staff, Physician NO ADDRESS ON FILE PCP - General 01/10/20 documented as of this encounter
--- OUTSIDE RECORDS SUMMARY | 2025-01-21 17:17 | XMS_ITS | Encounter Summary ---
Author Organization [facility] Address [address] [place] [address] Care Team Providers Care Food Services Manager Name Role Phone Non-Staff, Physician Primary Care Provider Unava ilable Encounter Details Date Type Department Care Team (Late st Contact Info) Description 07/07/2020 Lab Requisition [facility] Services [address] [place] [address] Nomi White, [address] [facility] [address] [place] [address] Social History Tobacco Use Types Packs/Day Years Used Date Smoking Tobacco: Former Cigarettes 2.5 9 0 04/10/2003 - 04/10/2012 Smokeless Tobacco: Never Alcohol Use Standard Drinks/Week Comments No 0 (1 standard drink = 0.6 oz pur e alcohol) Comments No Sex and Gender Information Value Date Recorded Sex Assigned at Not on file Legal Sex Female 2:45 AM RACECOURSE BARRIER ATTENDANT Gender Identity Not on file Sexual Orientation Not on file Occupation Industry Job Start Date Job End Date Not on file Not on file Not on file Not on file documented as of this encounter Plan of Treatment Not on file documented as of this encounter Procedures Procedure Name Priority Date/Time Associated Diagnosis Comments DIGOXIN LEVEL Routine 07/07/2020 8:50 AM CDT documented in this encounter Results * (ABNORMAL) DIGOXIN LEVEL (07/07/2020 8:50 AM CDT) DIGOXIN LEVEL <0.40(L) 0.80 - 2.00 ng/mL 07/07/2020 6:18 PM CDT [facility] Blood 07/07/2020 8:50 AM CDT 07/07/2020 5:22 PM CDT Nomi White DO CHEMISTRY ORDERABLES Final Result [facility] [address] [place] [address] documented in this encounter Visit Diagnoses Not on filedocumented in this encounter Additional Health Concerns Infection Onset Date Last Indicated Resolved Time CRE-CP Comment:Sputum 07/09/18 (Serratia) 07/09/2018 07/09/2018 Assessment Noted Time PHQ-9 Depression Total Score: 1 07/20/19 18 11:00 AM CDT documented as of this encounter Care Teams Food Services Manager Relationship Specialty Start Date End Date Non-Staff, Physician NO ADDRESS ON FILE PCP - General 01/10/20 documented as of this encounter
--- OUTSIDE RECORDS SUMMARY | 2025-01-21 17:17 | XMS_ITS | Encounter Summary ---
Author Organization [facility] Address [address] [facility] [place] [address] Care Team Providers Care Electric Pile Driver Operator Name Role Phone Non-Staff, Physician Primary Care Provider Unava ilable Reason for Referral * Outpatient Services (Routine) - Closed Specialty Diagnoses / Procedures Referred By Jose t Referred To Contact Diagnoses Well woman exam Procedures MAMMO DIGITIZED STUDY Mary Kate Abbasi APRN NO ADDRESS ON FILE Referral ID Status Reason Start Date Expiration Date Visits Re quested Visits Authorized [id number] Closed 07/05/2011 07/04/2012 1 1 * Outpatient Services (Routine) - Closed Specialty Diagnoses / Procedures Referred By Jose arriola Referred To Contact Diagnoses Well woman exam Procedures MAMMO DIGITIZED STUDY Mary Kate Abbasi APRN NO ADDRESS ON FILE Referral ID Status Reason Start Date Expiration Date Visits Re quested Visits Authorized [id number] Closed 07/05/2011 07/04/2012 1 1 Encounter Details Date Type Department Care Team (Late st Contact Info) Description 07/05/2011 Ancillary Orders [facility] Family Medicine- Amita Jimenez [address] [place] [phone] Mary Kate Abbasi APRN NO ADDRESS ON FILE Well woman exam Social History Tobacco Use Types Packs/Day Years Used Date Smoking Tobacco: Former Cigarettes Q uit: 04/10/2006 Smokeless Tobacco: Never Alcohol Use Standard Drinks/Week Comments No 0 (1 standard drink = 0.6 oz pur e alcohol) Comments No Sex and Gender Information Value Date Recorded Sex Assigned at Not on file Legal Sex Female 2:45 AM MANAGER CONSTRUCTION Gender Identity Not on file Sexual Orientation Not on file documented as of this encounter Plan of Treatment Not on file documented as of this encounter Results * MAMMO DIGITIZED STUDY (03/11/2009 11:46 AM MANAGER CONSTRUCTION) Narrative Emily Hairston, RT - 07/05/2011 11:46 AM CDT Order information only. Exam was auto-finalized. Procedure Note Emily Hairston, RT - 07/05/2011 Order information only. Exam was [facility]finalized. [facility] [place] [facility]N DIAGNOSTIC IMAGIN G ORDERABLES Final Result * MAMMO DIGITIZED STUDY (03/15/2007 11:45 AM MANAGER CONSTRUCTION) Narrative Emily Hairston, RT - 07/05/2011 11:46 AM CDT Order information only. Exam was auto-finalized. Procedure Note Emily Hairston, RT - 07/05/2011 Order information only. Exam was auto-finalized. [facility] [place] [place] [facility] APRN DIAGNOSTIC IMAGIN G ORDERABLES Final Result documented in this encounter Visit Diagnoses Diagnosis Well woman exam Routine general medical examination at a health care facility Well woman exam Routine general medical examination at a health care facility Well woman exam Routine general medical examination at a health care facility documented in this encounter Additional Health Concerns Infection Onset Date Last Indicated Resolved Time CRE-CP Comment:Sputum 07/09/18 (Serratia) 07/09/2018 07/09/2018 MRSA 10/12/2018 12/25/2018 12/26/2019 8:08 PM CDT documented as of this encounter Care Teams Electric Pile Driver Operator Relationship Specialty Start Date End Date Non-Staff, Physician NO ADDRESS ON FILE PCP - General 01/10/20 documented as of this encounter
--- OUTSIDE RECORDS SUMMARY | 2025-01-21 17:17 | XMS_ITS | Encounter Summary ---
Author Organization [facility] Address [address] [place] [address] Care Team Providers Care Floor Scraper Name Role Phone Non-Staff, Physician Primary Care Provider Unava ilable Encounter Details Date Type Department Care Team (Latest Contact Info) Description 09/12/2006 Outpatient [facility] [address] [place] [id number] Cristiano Nunez Thoracic or Lumbosacral Neuritis or Radiculitis, Unspecified (Primary Dx) Social History Tobacco Use Types Packs/Day Years Used Date Smoking Tobacco: Never Assessed Comments Unknown Sex and Gender Information Value Date Recorded Sex Assigned at Not on file 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
--- OUTSIDE RECORDS SUMMARY | 2025-01-21 17:17 | XMS_ITS | Encounter Summary ---
Author Organization [facility] Address [address] [facility] [address] Care Team Providers Care Unindentured Apprentice Name Role Phone Non-Staff, Physician Primary Care Provider Unava ilable Encounter Details Date Type Department Care Team (Latest Contact Info) Description 07/15/2002 Outpatient Historical [facility] Family Medicine- [address]mita [address] [place] [phone] Nell Verde MD NO ADDRESS ON FILE CERVICALGIA (Primary Dx) Social History Tobacco Use Types Packs/Day Years Used Date Smoking Tobacco: Never Assessed Comments Unknown Sex and Gender Information Value Date Recorded Sex Assigned at Not on file 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 Gender Identity Not on file Sexual Orientation Not on file documented as of this encounter Plan of Treatment Not on file documented as of this encounter Visit Diagnoses Diagnosis Cervicalgia- Primary documented in this encounter Additional Health Concerns Infection Onset Date Last Indicated Resolved Time CRE-CP Comment:Sputum 07/09/18 (Serratia) 07/09/2018 07/09/2018 MRSA 10/12/2018 12/25/2018 12/26/2019 8:08 PM CDT documented as of this encounter Care Teams Unindentured Apprentice Relationship Specialty Start Date End Date Non-Staff, Physician NO ADDRESS ON FILE PCP - General 01/10/20 documented as of this encounter
--- OUTSIDE RECORDS SUMMARY | 2025-01-21 17:17 | XMS_ITS | Encounter Summary ---
Author Organization [facility] Address [address] [facility] [place] [address] Care Team Providers Care Furnace Loader Name Role Phone Non-Staff, Physician Primary Care Provider Unava ilable Encounter Details Date Type Department Care Team (Latest Contact Info) Description 07/01/2002 Outpatient Historical [facility] Family Medicine- Amita [address] [place] [phone] Nell Verde MD NO ADDRESS ON FILE ACUTE SINUSITIS NOS (Primary Dx); Plantar fibromatosis; DIABETES UNCOMPL ADULT-TYPE II ([facility]) Social History Tobacco Use Types Packs/Day Years Used Date Smoking Tobacco: Never Assessed Comments Unknown Sex and Gender Information Value Date Recorded Sex Assigned at Not on file 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 Gender Identity Not on file Sexual Orientation Not on file documented as of this encounter Plan of Treatment Not on file documented as of this encounter Visit Diagnoses Diagnosis Acute sinusitis, unspecified- Primary Plantar fibromatosis Plantar fascial fibromatosis Type II or unspecified type diabetes mellitus without mention of complication, not stated as uncontrolled documented in this encounter Additional Health Concerns Infection Onset Date Last Indicated Resolved Time CRE-CP Comment:Sputum 07/09/18 (Serratia) 07/09/2018 07/09/2018 MRSA 10/12/2018 12/25/2018 12/26/2019 8:08 PM CDT documented as of this encounter Care Teams Furnace Loader Relationship Specialty Start Date End Date Non-Staff, Physician NO ADDRESS ON FILE PCP - General 01/10/20 documented as of this encounter
--- OUTSIDE RECORDS SUMMARY | 2025-01-21 17:17 | XMS_ITS | Encounter Summary ---
Author Organization [facility] Address [address] [place] [address] Care Team Providers Care Bioinformatics Developer Name Role Phone Non-Staff, Physician Primary Care Provider Unava ilable Encounter Details Date Type Department Care Team (Latest Contact Info) Description 02/13/2006 Outpatient Historical [facility] 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 Gender Identity Not on file Sexual Orientation Not on file documented as of this encounter Plan of Treatment Not on file documented as of this encounter Visit Diagnoses Diagnosis Other screening mammogram- Primary documented in this encounter Additional Health Concerns Infection Onset Date Last Indicated Resolved Time CRE-CP Comment:Sputum 07/09/18 (Serratia) 07/09/2018 07/09/2018 MRSA 10/12/2018 12/25/2018 12/26/2019 8:08 PM CDT documented as of this encounter Care Teams Bioinformatics Developer Relationship Specialty Start Date End Date Non-Staff, Physician NO ADDRESS ON FILE PCP - General 01/10/20 documented as of this encounter
--- OUTSIDE RECORDS SUMMARY | 2025-01-21 17:17 | XMS_ITS | Encounter Summary ---
Author Organization [facility] Address [address] [facility] [place] [address] Care Team Providers Care Necktie Centralizing Machine Operator Name Role Phone Non-Staff, Physician Primary Care Provider Unava ilable Encounter Details Date Type Department Care Team (Latest Contact Info) Description 02/25/2002 Outpatient Historical [facility] Family Medicine- [address]mita [address] [place] [phone] Nell Verde MD NO ADDRESS ON FILE DIABETES UNCOMPL ADULT-TYPE II ([facility]) (Primary Dx); DYSURIA Social History Tobacco Use Types Packs/Day Years Used Date Smoking Tobacco: Never Assessed Comments Unknown Sex and Gender Information Value Date Recorded Sex Assigned at Not on file 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 Gender Identity Not on file Sexual Orientation Not on file documented as of this encounter Plan of Treatment Not on file documented as of this encounter Visit Diagnoses Diagnosis Type II or unspecified type diabetes mellitus without mention of complication, not stated as uncontrolled- Primary Dysuria documented in this encounter Additional Health Concerns Infection Onset Date Last Indicated Resolved Time CRE-CP Comment:Sputum 07/09/18 (Serratia) 07/09/2018 07/09/2018 MRSA 10/12/2018 12/25/2018 12/26/2019 8:08 PM CDT documented as of this encounter Care Teams Necktie Centralizing Machine Operator Relationship Specialty Start Date End Date Non-Staff, Physician NO ADDRESS ON FILE PCP - General 01/10/20 documented as of this encounter
--- OUTSIDE RECORDS SUMMARY | 2025-01-21 17:17 | XMS_ITS | Encounter Summary ---
Author Organization [facility] Address [address] [place] [facility] [place] [address] Care Team Providers Care Photographic Artist Name Role Phone Non-Staff, Physician Primary Care Provider Unava ilable Encounter Details Date Type Department Care Team (Latest Contact Info) Description 08/16/2006 Outpatient Historical [facility] Family Medicine- [address]mit[address] [place] [phone] Abel Fields NP NO ADDRESS ON FILE Shortness of Breath (Primary Dx); Lumbago Social History Tobacco Use Types Packs/Day Years Used Date Smoking Tobacco: Never Assessed Comments Unknown Sex and Gender Information Value Date Recorded Sex Assigned at Not on file 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 Gender Identity Not on file Sexual Orientation Not on file documented as of this encounter Plan of Treatment Not on file documented as of this encounter Visit Diagnoses Diagnosis Shortness of breath- Primary Lumbago documented in this encounter Additional Health Concerns Infection Onset Date Last Indicated Resolved Time CRE-CP Comment:Sputum 07/09/18 (Serratia) 07/09/2018 07/09/2018 MRSA 10/12/2018 12/25/2018 12/26/2019 8:08 PM CDT documented as of this encounter Care Teams Photographic Artist Relationship Specialty Start Date End Date Non-Staff, Physician NO ADDRESS ON FILE PCP - General 01/10/20 documented as of this encounter
--- OUTSIDE RECORDS SUMMARY | 2025-01-21 17:17 | XMS_ITS | Encounter Summary ---
Author Organization [facility] Address [address] [place] [facility] [place] [address] Care Team Providers Care Shift Leader Name Role Phone Non-Staff, Physician Primary Care Provider Unava ilable Encounter Details Date Type Department Care Team (Latest Contact Info) Description 08/18/2006 Outpatient Historical [facility] Pain [facility] [address] 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
--- OUTSIDE RECORDS SUMMARY | 2025-01-21 17:17 | XMS_ITS | Clinical Summary ---
Author Organization [facility] tone Address [address] [place] [address] Care Team Providers Care Cpa Tax Name Role Phone Non-Staff, Physician Primary Care Provider Unava ilable Allergies Active Allergy Reactions Criticality Noted Date Comments Aspirin Nausea and Vomiting Medium Codeine Rash,Nausea and Vomiting,Unknown High Morphine Swelling High Sulfa (Sulfonamide Antibiotics) Rash High Sulfamethoxazole-Trim ethoprim Other (See Comments) 12/25/2018 Unknown, per facility Medications DULoxetine (CYMBALTA) 30 mg Capsule, Delayed Release(E.C.) Take 90 mg by mouth daily. Active albuterol (PROVENTIL,VENTOL IN) 2.5 mg /3 mL (0.083 %) Solution for Nebulization Take 3 mL (2.5 mg) by inhalation every 6 hours as needed for Shortness of Breath. 180 mL 3 03/18/20 15 Active Blood-Glucose Meter (ONETOUCH ULTRA2) KitIndications:Ty pe 2 diabetes mellitus with complication, with long-term current use of insulin,Hyperglyc emia Test blood sugar 3 times per day DX: E11.43. 1 Kit 01/20/20 17 Active Insulin O'Neals, Disposable, (BD ULTRA-FINE MINI PEN NEEDLE) 31 gauge x /16 NeedleIndications :Type 2 diabetes mellitus with hyperglycemia, with long-term current use of insulin Use 4 times per day Dx: E11.8. 300 Each 3 01/31/20 18 Active donepezil (ARICEPT) 5 mg tabletIndications :Short-term memory loss TAKE 1 TABLET BY MOUTH DAILY 90 Tablet 3 11/02/20 18 Active Additional Information Patient taking differently: DAILY LATE, Reported on 12/25/2018 lidocaine (LIDODERM) 5 % Adhesive Patch, MedicatedIndicati ons:Primary osteoarthritis of right knee Apply 1 Patch to affected area every 24 hours. 90 Each 3 04/17/19 Active lancets (One Touch Delica) 33 gaugeIndications: Type 2 diabetes mellitus with hyperglycemia, with long-term current use of insulin Test blood sugar 3 times per day. DX E11.43. 300 Each 3 04/17/19 Active fluticasone (FLOVENT HFA) 110 mcg/actuation HFA Aerosol InhalerIndication s:Mild intermittent asthma without complication,Panl obular emphysema Take 2 Puffs by inhalation 2 times daily. 36 Gram 3 04/17/19 Active blood sugar diagnostic (ONETOUCH ULTRA TEST) StripIndications: Type 2 diabetes mellitus with hyperglycemia, with long-term current use of insulin Test blood sugar three time per day. DX:E11.43. 300 Each 3 04/17/19 Active ARIPiprazole (ABILIFY) 2 mg tabletIndications :Depression with anxiety TAKE 1 TABLET(2 MG) BY MOUTH DAILY 90 Tablet 1 04/27/19 Active Additional Information Patient taking differently: 2 mg Oral DAILY LATE, (No instructions reported), Reported on 02/15/2019 HUMALOG KWIKPEN INSULIN 100 unit/mL pen syringeIndication s:Type 2 diabetes mellitus with complication, with long-term current use of insulin INJECT 15 UNITS SUBCUTANEOUSLY THREE TIMES DAILY BEFORE MEALS IF GLUCOSE GREATER THAN 160 45 mL 2 06/19/19 Active Additional Information Patient taking differently: Inject per sliding scale, Reported on 12/25/2018 insulin detemir U-100 (LEVEMIR FLEXTOUCH U-100 INSULN) 100 unit/mL pen syringeIndication s:Type 2 diabetes mellitus with complication, with long-term current use of insulin,Hyperglyc emia Inject 20 Units by subcutaneous injection daily at bedtime. 36 mL 06/25/19 Active furosemide (LASIX) 40 mg tablet Take 1 Tablet (40 mg) by mouth daily. 30 Tablet 1 07/21/19 Active potassium chloride (K-TAB) 20 mEq Extended Release tablet Take 2 Tablets (40 mEq) by mouth daily with breakfast. 30 Tablet 07/21/19 Active memantine (NAMENDA) 5 mg Tablet Take 5 mg by mouth 2 times daily. 12/18/19 Active mirtazapine (REMERON) 15 mg tablet Take 15 mg by mouth late in the day. 12/18/19 Active omeprazole (PriLOSEC) 40 mg Capsule, Delayed Release(E.C.) Take 40 mg by mouth daily. 12/19/19 Active trospium (SANCTURA) 20 mg Tablet Take 20 mg by mouth 2 times daily. 12/18/19 Active HYDROcodone-aceta minophen (NORCO) 7.5-325 mg Tablet Take 1 Tablet by mouth every 4 hours as needed. 10/27/19 Active Lactobacillus acidophilus (ACIDOPHILUS ORAL) Take 1 Tablet by mouth daily. Active metFORMIN (GLUCOPHAGE) 500 mg tablet Take 500 mg by mouth 2 times daily with meals. Active polyethylene glycol 3350 (MIRALAX) 17 gram/dose Powder Take 17 Grams by mouth daily. Dissolve in 8 ounces of fluid and drink entire liquid Active rOPINIRole (REQUIP) 0.5 mg tablet Take 0.5 mg by mouth daily at bedtime. Active levothyroxine 100 mcg tablet Take 100 mcg by mouth daily mental retardation aide. Active docusate sodium (COLACE) 100 mg capsule Take 200 mg by mouth 2 times daily. Active OTHER Take 1 Capsule by mouth 2 times daily. Lactobacillus Rhamnosus Active sennosides-docusa te sodium (SENNA PLUS) 8.6-50 mg tablet Take 2 Tablets by mouth 2 times daily. Active bisacodyl (DULCOLAX) 10 mg Suppository Insert 10 mg by rectum 1 time daily as needed for Constipation. Active magnesium hydroxide (MILK OF MAGNESIA) 400 mg/5 mL suspension Take 30 mL by mouth 1 time daily as needed for Constipation. Active aluminum - magnesium - simethicone (MYLANTA) 200-200-20 mg/5 mL Suspension Take 10 mL by mouth every 4 hours as needed for Dyspepsia. Active ondansetron HCl (ZOFRAN ORAL) Take 1 Tablet by mouth every 6 hours as needed. Active aspirin (TIANA CHEWABLE) 81 mg Tablet, Chewable Take 1 Tablet (81 mg) by mouth 2 times daily. 01/03/20 Active ondansetron (ZOFRAN ODT) 4 mg Tablet, Rapid Dissolve Place 1 Tablet (4 mg) under tongue every 4 hours as needed for Nausea. 30 Tablet 1 01/03/20 Active oxyCODONE-acetami nophen (PERCOCET) 5-325 mg tabletIndications :Status post above knee amputation of right lower extremity Take 1-2 Tablets by mouth every 4 hours as needed for Pain. 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 Active loperamide (IMODIUM) 2 mg Tablet Take 2 mg by mouth. 1 tab oral as needed for diarrhea then 1 tab after each loose stool not to exceed 6 tabs in 24 hours Active acetaminophen (TYLENOL) 325 mg tablet Take 650 mg by mouth every 4 hours as needed. Active insulin glargine (LANTUS) 100 unit/mL injection Inject 5 Units by subcutaneous injection daily at bedtime. Active albuterol-ipratro pium (COMBIVENT) 103-18 mcg/Actuation Inhalation Aero Take 2 Puffs by inhalation every 4 hours. 1 Inhaler 3 07/28/19 10 014 Disconti nued(Reo rder) Active Problems Problem Noted Date Diagnosed Date S/P AKA (above knee amputation) unilateral, righ t 01/05/2019 GERD (gastroesophageal reflux disease) 9 Constipation 12/25/2018 Preoperative general physical examination 2018 Anemia 12/25/2018 MRSA (methicillin resistant staph aureus) cultur e positive 12/25/2018 Infection of total knee replacement 12/24/2018 Hyperbilirubinemia 06/23/2018 Short-term memory loss 02/16/2017 Mixed hyperlipidemia 12/05/2016 Peripheral edema 12/05/2016 Depression with anxiety 11/10/2016 Bunion of great toe of right foot 07/04/2014 Obstructive sleep apnea 01/28/2013 Overactive bladder 09/10/2012 Restless legs 07/16/2012 Varicose vein of leg 01/09/2012 Essential hypertension 05/30/2011 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 Hiatal hernia 11/09/2010 Degenerative arthritis of right knee 09/14/2009 Type 2 diabetes mellitus wit h neurologic complication, with long-term current use of insulin Lumbago Pulmonary emphysema Asthma Hypothyroidism Alcoholic hepatitis without ascites Resolved Problems Problem Noted Date Diagnosed Date Resolved Date Bacteremia due to group B Streptococcus 07/18/2018 07/19/2018 Acute on chronic combined sy stolic and diastolic congestive heart failure 07/09/201807/19 Severe sepsis with septic shock 07/07/2018 07/18/2018 Hypokalemia 07/07/2018 07/19/2018 Hyponatremia 07/07/2018 07/19/2018 Bilateral leg edema 07/07/2018 07/20/19 19 Abscess and cellulitis-back of head 10/04/2013 12/15/2013 Umbilical hernia 09/10/2012 12/15/2013 Hypokalemia 09/10/2012 12/25/2018 Degenerative arthritis of left knee 11/01/2008 09/14/2009 Viral hepatitis A without hepatic coma 12/25/2018 Immunizations Immunization Administration Dates Next Due (ADACEL/BOOSTRIX)(10 YR UP) TDAP VACCINE, 0.5ML, IM 01/15/2018,06/08/2014,09/14/2010 (PNEUMOVAX 23)(50 YRS UP) PN EUMOCOCCAL POLYSACCHARIDE (PPV23) 0.5 ML, IM 02/02/2017,03/18/2005 (TDVAX)(7 YRS UP) TETANUS AN D DIPHTHERIA TOXOIDS, ADSORBED (2 LF OF TETANUS TOXOID AND 2 LF OF DIPHTHERIA TOXOID), 0.5ML (PF), IM 05/03/2000 Influenza Seasonal Unspecifi ed Formulation IM 01/15/2015,01/30/2007,03/24/2000 Influenza Vaccine High Dose 65+ Yrs IM 7 Influenza Vaccine Split 3+ Yrs IM 05/10/2010,02/2009 Family History Medical History Relation Name Comments Prostate Cancer Brother 1 Healthy Brother 2 Unknown Half-Brother 1 Unknown Half-Brother 2 No Known Problems Half-Sister 1 No Known Problems Half-Sister 2 No Known Problems Half-Sister 3 Depression Mother Hypertension Mother Healthy Sister Liver Disease Son 1 Depression Son 2 No Known Problems Son 3 Relation Name Status Comments Brother 1 Brother 2 MVA Daughter NONE Father Drowned Half-Brother 1 Alive Half-Brother 2 Alive Half-Sister 1 Alive Half-Sister 2 Alive Half-Sister 3 Alive Mother Sister Son 1 Alive Son 2 Alive Son 3 Alive Social History Tobacco Use Types Packs/Day Years Used Date Smoking Tobacco: Former Cigarettes 2.5 9 0 04/10/2003 - 04/10/2012 Smokeless Tobacco: Never Alcohol Use Standard Drinks/Week Comments No 0 (1 standard drink = 0.6 oz pur e alcohol) Comments No Sex and Gender Information Value Date Recorded Sex Assigned at Not on file Legal Sex Female 2:45 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 Gender Identity Not on file Sexual Orientation Not on file Occupation Industry Job Start Date Job End Date Not on file Not on file Not on file Not on file Last Filed Vital Signs Vital Sign Reading Time Taken Comments Blood Pressure 140/80 04/24/2019 10:00 PM SOLAR ENERGY SALES SPECIALIST Pulse 92 04/24/2019 10:00 PM SOLAR ENERGY SALES SPECIALIST Temperature 36.6 C (97.8 F) 04/24/2019 10:00 PM SOLAR ENERGY SALES SPECIALIST Respiratory Rate 18 04/24/2019 10:00 PM SOLAR ENERGY SALES SPECIALIST Oxygen Saturation 97% 02/15/2019 5:43 PM SOLAR ENERGY SALES SPECIALIST Inhaled Oxygen Concentration - - Weight 69.4 kg (153 lb) 02/15/2019 12:49 PM SOLAR ENERGY SALES SPECIALIST Height 147.3 cm (4' 10 ) 01/14/2019 10:43 AM CDT Body Mass Index 31.98 01/14/2019 10:43 AM CDT Plan of Treatment Health Maintenance Due Date Last Done Comments ZOSTER VACCINE (1 of 2) 01/16/1998 DIABETES MICROALBUMIN ANNUAL SCREEN 01/19/2018 01/19/2017, 12/09/2015, 08/20/2014, Additional history exists PNEUMOCOCCAL VACCINE 50+ YEA RS (2 of 2 - PCV) 02/02/2018 02/02/2017, 03/18/2005 DIABETES ANNUAL FOOT EXAM 05/12/20182017, 05/08/2015, 09/26/2013, Additional history exists DIABETES ANNUAL RETINAL EXAM 05/19/201812/2017, 05/19/2017, 12/26/2012 LDL CHOLESTEROL ANNUAL 10/26/2018 8, 07/19/2017, 12/09/2015, Additional history exists DIABETES HBA1C Q 6 MONTHS 06/25/20192018, 04/17/2018, 10/26/2017, Additional history exists OSTEOPOROSIS SCREENING 08/01/2022 08/01/2017 RSV VACCINE (60+ or ) (1 - 1-dose 75+ series) 01/16/2023 INFLUENZA VACCINE (#1) 2024 9, 02/02/2017, 01/15/2015, Additional history exists DTAP/TDAP/TD VACCINES (4 - T d or Tdap) 01/16/2028 01/15/2018, 06/08/2014, 09/14/2010, Additional history exists FIT/FOBT Q 1 year Discontinued 01/02/2002, 12/08/1999 COLORECTAL SCREENING Discontinued 07/21/2015, 10/15/2008, 06/25/2003 Colorectal Cancer Screening Discontinued FIT-DNA Q 3 years Discontinued Flex Sig/CT Colonography Q 5 years Discontinued Medical Devices Implanted Type Area Program Support Specialist Device Identifier Shelf Expiration Date Model / Serial / Lot Log [id number] - Cement - 1 - Cement Palacos Sgl [id number] Implanted:Qty: 1 on 11/11/2008 at [facility] Cement Left: Knee [employer] 05/11/2013 [id number] 1 / NA / [id number] Cement Palacos Sgl [id number] Implanted:Qty: 1 on 09/15/2009 at [facility] Cement Right: Knee [employer] 09/08/[id number] 1 / / [id number] Log 07026 - Katherine Total Knee - 1 - Comp Fem Nkii Gsf [id number] Implanted:Qty: 1 on 11/11/2008 at [facility] Knee Left: Knee [employer] 10/08/2017 [id number] 1 / NA / [id number] Log 58166 - Katherine Total Knee - 1 - Patella Nk Gs Poly 8mm [id number] Implanted:Qty: 1 on 11/11/2008 at [facility] Knee Left: Knee [employer] 09/08/2012 [id number] / NA / [id number] Log 95635 - Katherine Total Knee - 1 - Comp Tib Nkii Risk Control Product Liability Director Stmd [id number] Implanted:Qty: 1 on 11/11/2008 at [facility] Knee Left: Knee [employer] [id number] / NA / [id number] Log 98921 - Katherine Total Knee - 1 - Art Surface Nk [id number] Implanted:Qty: 1 on 11/11/2008 at [facility] Knee Left: Knee [employer] 05/11/2012 [id number] / NA / [id number] Log 20622 - Depuy Total Knee - 1 - Comp Fem Sigma Cr Npor Sz2.5 Rt 96-0018 Implanted:Qty: 1 on 09/15/2009 at [facility] Knee Right: Knee [employer] 07/09/2014 96-0018 / / [id number] Tibial Tray Implanted:Qty: 1 on 09/15/2009 at [facility] Knee Right: Knee [employer] 07/10/2019 [id number] / / [id number] Description:Napoleon DUONGTIBI AL TRAY FIXED BEARINGMODULAR COCR 2 Patella Implanted:Qty: 1 on 09/15/2009 at [facility] Knee Right: Knee [employer] 07/09/2014 96-0018 / / [id number] Description:3-Post Round Dom e [id number] MM Mesh Ventralex Patch Med [id number] - [id number] Implanted:Qty: 1 on 09/10/2012 at [facility] Mesh N/A: Abdomen CR [employer]ARD[employer] 06/10/2016 [id number] / / [id number] Cross-Linked Curved Insert Implanted:Qty: 1 on 09/15/2009 at [facility] Right: Knee [employer] 02/08/2014 [id number] / / [id number] Description:Napoleon DUONGCROS S-LINKED CURVED INSERT Procedures Procedure Name Priority Date/Time Associated Diagnosis Comments HEMOGLOBIN A1C Routine 12/25/2018 8:21 AM CDT LIPID PANEL Routine 10/26/2017 12:21 PM CDT XR DEXA BONE DENSITY AXIAL 1 OR MORE SITES Routine 08/01/2017 1:30 PM CDT Encounter for screening for osteoporosis HM DIABETES EYE EXAM Routine 05/19/2017 MICROALBUMIN/CREATI NINE RATIO, RANDOM UR Routine 01/19/2017 9:43 AM CDT Type 2 diabetes mellitus with complication, with long-term current use of insulin ([facility]) Hyperglycemia ENDOSCOPY, COLON, DIAGNOSTIC Routine 10/15/2008 from Last 3 Months or Most Recently Relevant to Health Maintenance Results * (ABNORMAL) HEMOGLOBIN A1C (12/25/2018 8:21 AM CDT) HEMOGLOBIN A1C 7.4(H) <=5.6 % 12/25/2018 9:10 AM CDT [facility] EST. AVG GLUCOSE, A1C 166 mg/dL 12/25/2018 9:10 AM CDT [facility] Blood Venipuncture / Unknown 12/25/2018 8:21 AM CDT 12/25/2018 8:40 AM CDT [facility]AT[facility] - 12/25/2018 9:10 AM CDT HGB A1C INTERPRETATION NORMAL: <5.7% PRE-DIABETES: 5.7 - 6.4% DIABETES: 6.5% OR GREATER us David eLvy MD CHEMISTRY ORDERABLES Final Resu lt [facility] CLIA #[id number] [address] [place] [address] * (ABNORMAL) LIPID PANEL (10/26/2017 12:21 PM CDT) CHOLESTEROL 169 <200 mg/dL 10/26/2017 9:39 PM CDT [facility] TRIGLYCERIDE 61 <150 mg/dL 10/26/2017 9:39 PM CDT [facility] HDL 63(H) 40 - 59 mg/dL 10/26/2017 9:39 PM CDT [facility] LDL CALCULATED 94 <100 mg/dL 10/26/2017 9:39 PM CDT [facility] NON-HDL CHOLESTEROL 106 <130 mg/dL 10/26/2017 9:39 PM CDT [facility] Blood Collection / Unknown 10/26/2017 12:21 PM CDT 10/26/2017 8:19 PM CDT Narrative [facility] - 10/26/2017 9:39 PM CDT TOTAL CHOLESTEROL mg/dL Desirable <200 Borderline high 200-239 High >=240 TRIGLYCERIDES mg/dL Normal <150 Borderline high 150-199 High 200-499 Very high >=500 HDL CHOLESTEROL mg/dL Low <40 Normal 40-59 Desirable >=60 NON HDL CHOLESTEROL mg/dL Optimal <130 Near Optimal 130-159 Borderline High 160-189 Very High >=190 Calculated LDL mg/dL Optimal <100 Near Optimal 100-129 Borderline High 130-159 High 160-189 Very High >=190 ATPIII Guidelines Reference Ranges for Lipid Panels (NCEP/AMA) Gwendolyn Pitts SAMPLE ROOM SUPERVISOR CHEMISTRY ORDERABLES Fi nal Result [facility] CLIA# [id number] [address] [place] [address] * XR DEXA BONE DENSITY AXIAL 1 OR MORE SITES (08/01/2017 1:30 PM CDT) Anatomical Region Laterality Modality Digital Radiogra phy 08/01/2017 1:31 PM CDT Impressions 08/01/2017 11:47 PM CDT IMPRESSION: 1. Current findings consistent with mild osteopenia; there is currently moderate risk for fracture as predicted at the lumbar spine. Age matched Z-score of greater than -2.0 does not indicate accelerated bone demineralization. Definitions: T-score > -0.99 = Normal T-score -1.00 to -1.49 = mild osteopenia T-score -1.50 to -1.99 = moderate osteopenia T-score -2.00 to -2.49 = severe osteopenia T-score < -2.50 = osteoporosis N.B. Changes in density of <=0.05 g/cm2 are not statistically significant. RECOMMENDATIONS: Normal: Low risk for fracture - f/u in 2 years Mild/Mod osteopenia: Moderate risk for fracture - f/u in 1 year Severe osteopenia: Moderate/high risk for fracture - f/u in 1 year Osteoporosis: High risk for fracture - f/u in 1 year NOF guidelines recommend consideration of FDA-approved medical therapies in patients with FRAX determined 10-year probabilities of hip/major osteoporosis-related fractures equal or greater than 3%/20% respectively. Consider assessing fracture risk using the FRAX analysis tool for guidance of clinical management available online at www.shef.ac.uk/FRAX/. Enter HotLink for Select DXA and the Femoral Neck BMD value. [id number] Narrative 08/01/2017 11:47 PM CDT DEXA Evaluation of the Lumbar Spine and Proximal Femur Reason for Consultation: Osteoporosis screening. Evaluation of bone mineral density. The following absorptiometry data were obtained. The quality of this examination is acceptable with regards to count density, processed images, data display and lack of important artifacts (including but not limited to motion and attenuation artifacts). Serial examination number 1. L1-L4 BMD (g/cm2): 0.939 Adult T-score: -1.0 Adult Z-score: 1.1 Left Femoral Neck BMD (g/cm2): 0.763 Adult T-score: -0.8 Adult Z-score: 1.0 Left Total Hip BMD (g/cm2): 1.016 Adult T-score: 0.6 Adult Z-score: 2.1 Procedure Note Luke Valladares MD - 08/01/2017 DEXA Evaluation of the Lumbar Spine and Proximal Femur Reason for Consultation: Osteoporosis screening. Evaluation of bone mineral density. The following absorptiometry data were obtained. The quality of this examination is acceptable with regards to count density, processed images, data display and lack of important artifacts (including but not limited to motion and attenuation artifacts). Serial examination number 1. L1-L4 BMD (g/cm2): 0.939 Adult T-score: -1.0 Adult Z-score: 1.1 Left Femoral Neck BMD (g/cm2): 0.763 Adult T-score: -0.8 Adult Z-score: 1.0 Left Total Hip BMD (g/cm2): 1.016 Adult T-score: 0.6 Adult Z-score: 2.1 IMPRESSION: 1. Current findings consistent with mild osteopenia; there is currently moderate risk for fracture as predicted at the lumbar spine. Age matched Z-score of greater than -2.0 does not indicate accelerated bone demineralization. Definitions: T-score > -0.99 = Normal T-score -1.00 to -1.49 = mild osteopenia T-score -1.50 to -1.99 = moderate osteopenia T-score -2.00 to -2.49 = severe osteopenia T-score < -2.50 = osteoporosis N.B. Changes in density of <=0.05 g/cm2 are not statistically significant. RECOMMENDATIONS: Normal: Low risk for fracture - f/u in 2 years Mild/Mod osteopenia: Moderate risk for fracture - f/u in 1 year Severe osteopenia: Moderate/high risk for fracture - f/u in 1 year Osteoporosis: High risk for fracture - f/u in 1 year NOF guidelines recommend consideration of FDA-approved medical therapies in patients with FRAX determined 10-year probabilities of hip/major osteoporosis-related fractures equal or greater than 3%/20% respectively. Consider assessing fracture risk using the FRAX analysis tool for guidance of clinical management available online at www.shef.ac.uk/FRAX/. Enter HotLink for Select DXA and the Femoral Neck BMD value. [id number] Gwendolyn Kirsty Pitts SAMPLE ROOM SUPERVISOR DIAGNOSTIC IMAGING ORDCesar PEREZ Final Result * DIABETES EYE EXAM (05/19/2017) us Abstract Spg Provider HEALTH MAINTENANCE Final R esult * MICROALBUMIN/CREATININE RATIO, RANDOM UR (01/19/2017 9:43 AM CDT) MICROALBUMIN, URINE <1.2 No Reference Range mg/dL 01/19/2017 9:27 PM CDT [facility] CREATININE, URINE 85.1 29.0 - 226.0 mg/dL 01/19/2017 9:27 PM CDT [facility] Comment: Reference Range varies with fluid intake and diet. MICROALBUMIN/C REAT RATIO, UR <14.1 <25.0 mg/g Creatinine 01/19/2017 9:27 PM CDT [facility] Urine URINE SPECIMEN OBTAINED BY CLEAN CATCH PROCEDURE / Unknown Collection / Unknown 01/19/2017 9:43 AM CDT 01/19/2017 8:39 PM CDT Narrative [facility] - 01/19/2017 9:27 PM CDT Condition Microalbumin/Creat ratio Normal Males <17 Normal Females <25 Microalbuminuria Males 17-299 Microalbuminuria Females 25-299 Overt proteinuria >=300 us Mary Kate Abbasi CARPET JOURNEYMAN URINE ORDERABLES Final Result [facility] CLIA# [id number] [address] [place] [id number] * ENDOSCOPY, COLON, DIAGNOSTIC (10/15/2008) us Abstract Spg Provider GI PROCEDURE ORDERABLES Fi nal Result [facility] from Last 3 Months or Most Recently Relevant to Health Maintenance Additional Health Concerns Infection Onset Date Last Indicated CRE-CP Comment:Sputum 07/09/18 (Serratia) 07/09/2018 07/09/[address] [place] [address] MEDICAID [place] PART [place] B Advance Directives For more information, please contact: [phone] Documents on File Type Date Recorded Patient Community Chest Officer Expl anation Advance Directive POA 07/07/2018 7:27 AM A dvance Directive POA * Full Code (Latest Code Status on File) Date Activated Date Inactivated Comments 01/01/2019 5:07 PM 01/04/2019 5:34 PM * Full Code Date Activated Date Inactivated Comments 07/07/2018 3:29 AM 07/19/2018 7:43 PM * Full Code Date Activated Date Inactivated Comments 06/23/2018 3:58 AM 06/24/2018 6:49 PM * Full Code Date Activated Date Inactivated Comments 10/25/2017 1:30 PM 10/25/2017 4:25 PM * Full Code Date Activated Date Inactivated Comments 07/21/2015 10:49 AM 07/21/2015 1:34 PM Care Teams Cpa Tax Relationship Specialty Start Date End Date Non-Staff, Physician NO ADDRESS ON FILE PCP - General 01/10/20
--- OUTSIDE RECORDS SUMMARY | 2025-01-21 17:17 | XMS_ITS | Encounter Summary ---
Author Organization [facility] Address [address] [facility] [place] [address] Care Team Providers Care Architectural Drafting Instructor Name Role Phone Non-Staff, Physician Primary Care Provider Unava ilable Encounter Details Date Type Department Care Team (Latest Contact Info) Description 11/22/2002 Outpatient Historical [facility] Family Medicine- [address] [place] [address] Nell Verde MD NO ADDRESS ON FILE BACKACHE NOS (Primary Dx) Social History Tobacco Use Types Packs/Day Years Used Date Smoking Tobacco: Never Assessed Comments Unknown Sex and Gender Information Value Date Recorded Sex Assigned at Not on file Legal 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 Gender Identity Not on file Sexual Orientation Not on file documented as of this encounter Plan of Treatment Not on file documented as of this encounter Visit Diagnoses Diagnosis Backache, unspecified- Primary documented in this encounter Additional Health Concerns Infection Onset Date Last Indicated Resolved Time CRE-CP Comment:Sputum 07/09/18 (Serratia) 07/09/2018 07/09/2018 MRSA 10/12/2018 12/25/2018 12/26/2019 8:08 PM CDT documented as of this encounter Care Teams Architectural Drafting Instructor Relationship Specialty Start Date End Date Non-Staff, Physician NO ADDRESS ON FILE PCP - General 01/10/20 documented as of this encounter
--- OUTSIDE RECORDS SUMMARY | 2025-01-21 17:17 | XMS_ITS | Encounter Summary ---
Author Organization [employer] [facility] Address [address] [place] [address] Care Team Providers Care Peer Specialist Name Role Phone Non-Staff, Physician Primary Care Provider Unava ilable Encounter Details Date Type Department Care Team (Late st Contact Info) Description 03/14/2019 Ancillary Orders [email or web address] [address] [place] [address] Edmond Machado, NO ADDRESS ON FILE Social History Tobacco Use Types Packs/Day Years Used Date Smoking Tobacco: Former Cigarettes 2.5 9 0 04/10/2003 - 04/10/2012 Smokeless Tobacco: Never Alcohol Use Standard Drinks/Week Comments No 0 (1 standard drink = 0.6 oz pur e alcohol) Comments No Sex and Gender Information Value Date Recorded Sex Assigned at Not on file Legal Sex Female 2:45 AM FITTER WELDER Gender Identity Not on file Sexual Orientation [...] documented as of this encounter Care Teams Peer Specialist Relationship Specialty Start Date End Date Non-Staff, Physician NO ADDRESS ON FILE PCP - General 01/10/20 documented as of this encounter
--- OUTSIDE RECORDS SUMMARY | 2025-01-21 17:17 | XMS_ITS | Encounter Summary ---
Author Organization [facility] Address [address] [place] [address] Care Team Providers Care Metal Work Duct Installer Name Role Phone Non-Staff, Physician Primary Care Provider Unava ilable Encounter Details Date Type Department Care Team (Latest Contact Info) Description 06/10/2002 Outpatient Historical [facility] [address] [place] [address] Nell Verde MD NO ADDRESS ON FILE DIABETES UNCOMPL ADULT-TYPE II (CMS/HCC) (Primary Dx) Social History Tobacco Use Types Packs/Day Years Used Date Smoking Tobacco: Never Assessed Comments Unknown Sex and Gender Information Value Date Recorded Sex Assigned at Not on file Legal Sex Female 2:45 AM EDUCATION REPORTER Gender Identity Not on file Sexual Orientation [...] documented as of this encounter Care Teams Metal Work Duct Installer Relationship Specialty Start Date End Date Non-Staff, Physician NO ADDRESS ON FILE PCP - General 01/10/20 documented as of this encounter
--- OUTSIDE RECORDS SUMMARY | 2025-01-21 17:17 | XMS_ITS | Encounter Summary ---
Author Organization [facility] Address [address] [place] [address] Care Team Providers Care Airport Traffic Controller Name Role Phone Non-Staff, Physician Primary Care Provider Unava ilable Encounter Details Date Type Department Care Team (Latest Contact Info) Description 08/08/2006 Outpatient [facility] [address] [place] [id number] Cristiano Nunez Thoracic or Lumbosacral Neuritis or Radiculitis, Unspecified (Primary Dx) Social History Tobacco Use Types Packs/Day Years Used Date Smoking Tobacco: Never Assessed Comments Unknown Sex and Gender Information Value Date Recorded Sex Assigned at Not on file Legal Sex Female 2:45 AM RETAIL MARKETING SPECIALIST Gender Identity Not on file Sexual [...] documented as of this encounter Care Teams Airport Traffic Controller Relationship Specialty Start Date End Date Non-Staff, Physician NO ADDRESS ON FILE PCP - General 01/10/20 documented as of this encounter
--- OUTSIDE RECORDS SUMMARY | 2025-01-21 17:17 | XMS_ITS | Encounter Summary ---
Author Organization [facility] Address [address] [place] [facility] [place] [address] Care Team Providers Care Instructional Design Manager Name Role Phone Non-Staff, Physician Primary Care Provider Unava ilable Encounter Details Date Type Department Care Team (Late st Contact Info) Description 06/10/2002 Outpatient Historical [facility] Family Medicine- [address] [place] [phone] Nell Verde MD NO ADDRESS ON FILE Social History Tobacco Use Types Packs/Day Years Used Date Smoking Tobacco: Never Assessed Comments Unknown Sex and Gender Information Value Date Recorded Sex Assigned at Not on file Legal Sex Female 2:45 AM STARCH TREATING ASSISTANT Gender Identity Not on file Sexual [...] documented as of this encounter Care Teams Instructional Design Manager Relationship Specialty Start Date End Date Non-Staff, Physician NO ADDRESS ON FILE PCP - General 01/10/20 documented as of this encounter
--- OUTSIDE RECORDS SUMMARY | 2025-01-21 17:17 | XMS_ITS | Encounter Summary ---
Author Organization [facility] Address [address] [place] [address] Care Team Providers Care Assembly Associate Name Role Phone Non-Staff, Physician Primary Care Provider Unava ilable Encounter Details Date Type Department Care Team (Late st Contact Info) Description 05/29/2007 Outpatient Historical [facility] Family Medicine [address] [place] [address] Jim Aquino PA NO ADDRESS ON FILE Social History Tobacco Use Types Packs/Day Years Used Date Smoking Tobacco: Never Assessed Comments Unknown Sex and Gender Information Value Date Recorded Sex Assigned at Not on file Legal Sex Female 2:45 AM TRANSACTIONAL ATTORNEY Gender Identity Not on file Sexual Orientation Not on file documented as of this encounter Progress Notes * Jim Aquino PA - 05/29/2007 12:00 AM CST Patient Name: Candis Almonte DOS: 05/29/2007 : 1950 VITALS: Weight: 0.0 pounds. Not dictated. Pulse: 0. BP: 120/80. SUBJECTIVE: The patient is here regarding her x-rays that she had. Had been having shoulder and knee pain. X-ray of the clavicle revealed no abnormalities. Right shoulder showed no abnormalities, fractures or dislocation. Cervical spine showed moderate degenerative changes, and left knee showed degenerative changes and osteoarthritis without other acute findings. OBJECTIVE: MUSCULOSKELETAL: The patient continues to have pain with range of motion of the right shoulder. Does have an area of ecchymosis on her right lateral shoulder. States she bumped it. EXTREMITIES: Left knee is painful with range of motion. ENDOCRINE: The patient states she has not been checking her blood sugars. ASSESSMENT: Degenerative joint disease, arthralgia, diabetes. PLAN: Recommend she check her sugar for a week or two. If her sugar is in good control, could consider an intra-articular injection. Will make further decisions after her sugar status is known. JESS Clayton D.O[facility] Electronically Signed by Jim Aquino PA-C 05/31/2007 12:19 , A, mdjoel Document #: [id number] cc: SACTIONAL ATTORNEY documented in this encounter Plan of Treatment Not on file documented as of this encounter Visit Diagnoses Not on filedocumented in this encounter Additional Health Concerns Infection Onset Date Last Indicated Resolved Time CRE-CP Comment:Sputum 07/09/18 (Serratia) 07/09/2018 07/09/2018 MRSA 10/12/2018 12/25/2018 12/26/2019 8:08 PM CDT documented as of this encounter Care Teams Assembly Associate Relationship Specialty Start Date End Date Non-Staff, Physician NO ADDRESS ON FILE PCP - General 01/10/20 documented as of this encounter
--- OUTSIDE RECORDS SUMMARY | 2025-01-21 17:17 | XMS_ITS | Encounter Summary ---
Author Organization [facility] Address [address] [place] [facility] [place] [address] Care Team Providers Care Temperature Regulator Name Role Phone Non-Staff, Physician Primary Care Provider Unava ilable Encounter Details Date Type Department Care Team (Latest Contact Info) Description 07/05/2002 Outpatient Historical [facility] Family Medicine- [address] [place] [address] Nell Verde MD NO ADDRESS ON FILE ACUTE SINUSITIS NOS (Primary Dx); ALLERGIC RHINITIS NOS; DIABETES UNCOMPL ADULT-TYPE II ([facility]) Social History Tobacco Use Types Packs/Day Years Used Date Smoking Tobacco: Never Assessed Comments Unknown Sex and Gender Information Value Date Recorded Sex Assigned at Not on file Legal Sex Female 2:45 AM SHANK TAPPER Gender Identity Not on file Sexual Orientation Not on file documented as of this encounter Plan of Treatment Not on file documented as of this encounter Visit Diagnoses Diagnosis Acute sinusitis, unspecified- Primary Allergic rhinitis, cause unspecified Type II or unspecified type diabetes mellitus without mention of complication, not stated as uncontrolled documented in this encounter Additional Health Concerns Infection Onset Date Last Indicated Resolved Time CRE-CP Comment:Sputum 07/09/18 (Serratia) 07/09/2018 07/09/2018 MRSA 10/12/2018 12/25/2018 12/26/2019 8:08 PM CDT documented as of this encounter Care Teams Temperature Regulator Relationship Specialty Start Date End Date Non-Staff, Physician NO ADDRESS ON FILE PCP - General 01/10/20 documented as of this encounter
--- OUTSIDE RECORDS SUMMARY | 2025-01-21 17:17 | XMS_ITS | Encounter Summary ---
Author Organization [facility] Address [address] [place] [address] Care Team Providers Care Guest Advisor Name Role Phone Non-Staff, Physician Primary Care Provider Unava ilable Encounter Details Date Type Department Care Team (Latest Contact Info) Description 08/18/2006 Outpatient Historical [facility] Pain Management Procedures [address] [place] [address] Cristiano Nunez Thoracic or Lumbosacral Neuritis or Radiculitis, Unspecified (Primary Dx) Social History Tobacco Use Types Packs/Day Years Used Date Smoking Tobacco: Never Assessed Comments Unknown Sex and Gender Information Value Date Recorded Sex Assigned at Not on file Legal Sex Female 2:45 AM SHOE CEMENTER Gender Identity Not on file Sexual Orientation [...] documented as of this encounter Care Teams Guest Advisor Relationship Specialty Start Date End Date Non-Staff, Physician NO ADDRESS ON FILE PCP - General 01/10/20 documented as of this encounter
--- OUTSIDE RECORDS SUMMARY | 2025-01-21 17:17 | XMS_ITS | Encounter Summary ---
Author Organization [facility] Address [address] [place] [facility] [place] [address] Care Team Providers Care Quick Mixer Operator Name Role Phone Non-Staff, Physician Primary Care Provider Unava ilable Encounter Details Date Type Department Care Team (Latest Contact Info) Description 08/07/2002 Outpatient Historical [facility] Family Medicine- [address] [place] [phone] Edmond Machado DO NO ADDRESS ON FILE CHRONIC AIRWAY OBSTRUCTION NEC (CMS/[facility]) (Primary Dx); DIABETES UNCOMPL ADULT-TYPE II (CMS/[facility]); SPASM OF MUSCLE Social History Tobacco Use Types Packs/Day Years Used Date Smoking Tobacco: Never Assessed Comments Unknown Sex and Gender Information Value Date Recorded Sex Assigned at Not on file Legal Sex Female 2:45 AM MANAGER MOLECULAR Gender Identity Not on file Sexual Orientation Not on file documented as of this encounter Plan of Treatment Not on file documented as of this encounter Visit Diagnoses Diagnosis Chronic airway obstruction, not elsewhere classified (CMS/HCC)- Primary Chronic airway obstruction, not elsewhere classified Type II or unspecified type diabetes mellitus without mention of complication, not stated as uncontrolled Spasm of muscle documented in this encounter Additional Health Concerns Infection Onset Date Last Indicated Resolved Time CRE-CP Comment:Sputum 07/09/18 (Serratia) 07/09/2018 07/09/2018 MRSA 10/12/2018 12/25/2018 12/26/2019 8:08 PM CDT documented as of this encounter Care Teams Quick Mixer Operator Relationship Specialty Start Date End Date Non-Staff, Physician NO ADDRESS ON FILE PCP - General 01/10/20 documented as of this encounter
--- OUTSIDE RECORDS SUMMARY | 2025-01-21 17:17 | XMS_ITS | Encounter Summary ---
Author Organization [facility] Address [address] [place] [address] Care Team Providers Care Celery Tier Name Role Phone Non-Staff, Physician Primary Care Provider Unava ilable Encounter Details Date Type Department Care Team (Latest Contact Info) Description 12/20/2006 Outpatient Historical [facility] [address] [place] [address] AMBULANCE, [facility] Pain in Soft Tissues of Limb (Primary Dx) Social History Tobacco Use Types Packs/Day Years Used Date Smoking Tobacco: Never Assessed Comments Unknown Sex and Gender Information Value Date Recorded Sex Assigned at Not on file Legal Sex Female 2:45 AM COMMISSIONED DEFENCE FORCE OFFICER Gender Identity Not on file Sexual Orientation Not on file documented as of this encounter Plan of Treatment Not on file documented as of this encounter Visit Diagnoses Diagnosis Pain in limb- Primary documented in this encounter Additional Health Concerns Infection Onset Date Last Indicated Resolved Time CRE-CP Comment:Sputum 07/09/18 (Serratia) 07/09/2018 07/09/2018 MRSA 10/12/2018 12/25/2018 12/26/2019 8:08 PM CDT documented as of this encounter Care Teams Celery Tier Relationship Specialty Start Date End Date Non-Staff, Physician NO ADDRESS ON FILE PCP - General 01/10/20 documented as of this encounter
--- OUTSIDE RECORDS SUMMARY | 2025-01-21 17:17 | XMS_ITS | Encounter Summary ---
Author Organization [facility] Address [address] [place] [address] Care Team Providers Care Calculator Operator Name Role Phone Non-Staff, Physician Primary Care Provider Unava ilable Encounter Details Date Type Department Care Team (Latest Contact Info) Description 08/11/2006 Outpatient Historical [facility] Pain Management Procedures [address] [place] [address] Cristiano Nunez Thoracic or Lumbosacral Neuritis or Radiculitis, Unspecified (Primary Dx) Social History Tobacco Use Types Packs/Day Years Used Date Smoking Tobacco: Never Assessed Comments Unknown Sex and Gender Information Value Date Recorded Sex Assigned at Not on file Legal Sex Female 2:45 AM PATHOLOGY MANAGER Gender Identity Not on file Sexual [...] documented as of this encounter Care Teams Calculator Operator Relationship Specialty Start Date End Date Non-Staff, Physician NO ADDRESS ON FILE PCP - General 01/10/20 documented as of this encounter
--- OUTSIDE RECORDS SUMMARY | 2025-01-21 17:17 | XMS_ITS | Encounter Summary ---
Author Organization [facility] Address [address] [place] [facility] [place] [address] Care Team Providers Care Beef Farmer Name Role Phone Non-Staff, Physician Primary Care Provider Unava ilable Encounter Details Date Type Department Care Team (Latest Contact Info) Description 08/08/2006 Outpatient Historical [facility] [address] [place] [phone] Cristiano Nunez Thoracic or Lumbosacral Neuritis or Radiculitis, Unspecified (Primary Dx); Lumbosacral Spondylosis Social History Tobacco Use Types Packs/Day Years Used Date Smoking Tobacco: Never Assessed Comments Unknown Sex and Gender Information Value Date Recorded Sex Assigned at Not on file Legal Sex Female 2:45 AM UPFITTER Gender Identity Not on file Sexual Orientation [...] documented as of this encounter Care Teams Beef Farmer Relationship Specialty Start Date End Date Non-Staff, Physician NO ADDRESS ON FILE PCP - General 01/10/20 documented as of this encounter
--- OUTSIDE RECORDS SUMMARY | 2025-01-21 17:17 | XMS_ITS | Encounter Summary ---
Author Organization [facility] Address [address] [place] [facility] [place] [address] Care Team Providers Care Fiscal Manager Name Role Phone Non-Staff, Physician Primary Care Provider Unava ilable Encounter Details Date Type Department Care Team (Latest Contact Info) Description 09/20/2002 Outpatient Historical [facility] Family Medicine- [address] [place] [phone] Nell Verde MD NO ADDRESS ON FILE LUMBAGO (Primary Dx); DIABETES UNCOMPL ADULT-TYPE II ([facility]) Social History Tobacco Use Types Packs/Day Years Used Date Smoking Tobacco: Never Assessed Comments Unknown Sex and Gender Information Value Date Recorded Sex Assigned at Not on file Legal Sex Female 2:45 AM CAR WASH MANAGER Gender Identity Not on file Sexual Orientation Not on file documented as of this encounter Plan of Treatment Not on file documented as of this encounter Visit Diagnoses Diagnosis Lumbago- Primary Type II or unspecified type diabetes mellitus without mention of complication, not stated as uncontrolled documented in this encounter Additional Health Concerns Infection Onset Date Last Indicated Resolved Time CRE-CP Comment:Sputum 07/09/18 (Serratia) 07/09/2018 07/09/2018 MRSA 10/12/2018 12/25/2018 12/26/2019 8:08 PM CDT documented as of this encounter Care Teams Fiscal Manager Relationship Specialty Start Date End Date Non-Staff, Physician NO ADDRESS ON FILE PCP - General 01/10/20 documented as of this encounter
--- OUTSIDE RECORDS SUMMARY | 2025-01-21 17:17 | XMS_ITS | Encounter Summary ---
Author Organization [facility] Address [address] [facility] [place] [address] Care Team Providers Care Skip Load Driver Name Role Phone Non-Staff, Physician Primary Care Provider Unava ilable Encounter Details Date Type Department Care Team (Late st Contact Info) Description 03/20/2007 Outpatient Historical [facility] Family Medicine- [address] [place] [address] Jim Aquino, PA NO ADDRESS ON FILE Social History Tobacco Use Types Packs/Day Years Used Date Smoking Tobacco: Never Assessed Comments Unknown Sex and Gender Information Value Date Recorded Sex Assigned at Not on file Legal Sex Female 2:45 AM MOBILE ELECTRONICS INSTALLER Gender Identity Not on file Sexual Orientation [...] documented as of this encounter Care Teams Skip Load Driver Relationship Specialty Start Date End Date Non-Staff, Physician NO ADDRESS ON FILE PCP - General 01/10/20 documented as of this encounter
--- OUTSIDE RECORDS SUMMARY | 2025-01-21 17:17 | XMS_ITS | Encounter Summary ---
Author Organization [facility] Address [address] [facility] [place] [address] Care Team Providers Care Hydraulic Chair Assembler Name Role Phone Non-Staff, Physician Primary Care Provider Unava ilable Encounter Details Date Type Department Care Team (Latest Contact Info) Description 08/19/2002 Outpatient Historical [facility] Family Medicine- [address] [place] [phone] Nell Verde MD NO ADDRESS ON FILE CERVICALGIA (Primary Dx); LUMBAGO; NEURALGIA/NEURITIS NOS Social History Tobacco Use Types Packs/Day Years Used Date Smoking Tobacco: Never Assessed Comments Unknown Sex and Gender Information Value Date Recorded Sex Assigned at Not on file Legal Sex Female 2:45 AM CONCESSION MANAGER Gender Identity Not on file Sexual Orientation Not on file documented as of this encounter Plan of Treatment Not on file documented as of this encounter Visit Diagnoses Diagnosis Cervicalgia- Primary Lumbago Neuralgia, neuritis, and radiculitis, unspecified documented in this encounter Additional Health Concerns Infection Onset Date Last Indicated Resolved Time CRE-CP Comment:Sputum 07/09/18 (Serratia) 07/09/2018 07/09/2018 MRSA 10/12/2018 12/25/2018 12/26/2019 8:08 PM CDT documented as of this encounter Care Teams Hydraulic Chair Assembler Relationship Specialty Start Date End Date Non-Staff, Physician NO ADDRESS ON FILE PCP - General 01/10/20 documented as of this encounter
--- OUTSIDE RECORDS SUMMARY | 2025-01-21 17:17 | XMS_ITS | Encounter Summary ---
Author Organization [facility] Address [address] [place] [address] Care Team Providers Care Decorating Machine Tender Name Role Phone Non-Staff, Physician Primary Care Provider Unava ilable Encounter Details Date Type Department Care Team (Latest Contact Info) Description 08/01/2017 Ancillary Orders [facility] [address] [place] [address] Gwendolyn Pitts, [place] [address] [place] [address] Visit for screening mammogram Social History Tobacco Use Types Packs/Day Years Used Date Smoking Tobacco: Former Cigarettes 2.5 9 0 04/10/2003 - 04/10/2012 Smokeless Tobacco: Never Alcohol Use Standard Drinks/Week Comments No 0 (1 standard drink = 0.6 oz pur e alcohol) Comments No Sex and Gender Information Value Date Recorded Sex Assigned at Not on file Legal Sex Female 2:45 AM TOW MOTOR OPERATOR Gender Identity Not on file Sexual Orientation Not on file Occupation Industry Job Start Date Job End Date Not on file Not on file Not on file Not on file documented as of this encounter Plan of Treatment Not on file documented as of this encounter Results * MAMMO PRIOR STUDY (03/18/2008 1:30 PM TOW MOTOR OPERATOR) Narrative 08/01/2017 1:39 PM CDT This exam was auto finalized to allow images to be scanned to PACS. Gwendolyn Lavee Hong COACH OPERATOR DIAGNOSTIC IMAGING ORDCesar PEREZ Final Result documented in this encounter Visit Diagnoses Diagnosis Visit for screening mammogram Other screening mammogram Visit for screening mammogram Other screening mammogram documented in this encounter Additional Health Concerns Infection Onset Date Last Indicated Resolved Time CRE-CP Comment:Sputum 07/09/18 (Serratia) 07/09/2018 07/09/2018 MRSA 10/12/2018 12/25/2018 12/26/2019 8:08 PM CDT Assessment Noted Time PHQ-9 Depression Total Score: 1 07/20/19 18 11:00 AM CDT documented as of this encounter Care Teams Decorating Machine Tender Relationship Specialty Start Date End Date Non-Staff, Physician NO ADDRESS ON FILE PCP - General 01/10/20 documented as of this encounter
--- OUTSIDE RECORDS SUMMARY | 2025-01-21 17:17 | XMS_ITS | Encounter Summary ---
Author Organization [facility] Address [address] [place] [facility] [place] [address] Care Team Providers Care Speedboat Operator Name Role Phone Non-Staff, Physician Primary Care Provider Unava ilable Encounter Details Date Type Department Care Team (Latest Contact Info) Description 05/07/2002 Outpatient Historical [facility] Family Medicine- Amita Jim[address] [place] [address] Edmond Machado, NO ADDRESS ON FILE DIABETES UNCOMPL ADULT-TYPE II (CMS/HCC) (Primary Dx); CERVICALGIA; ACUTE URI NOS; HYPERTENSION NOS Social History Tobacco Use Types Packs/Day Years Used Date Smoking Tobacco: Never Assessed Comments Unknown Sex and Gender Information Value Date Recorded Sex Assigned at Not on file Legal Sex Female 2:45 AM ADMINISTRATIVE ACCOUNTANT Gender Identity Not on file Sexual Orientation Not on file documented as of this encounter Plan of Treatment Not on file documented as of this encounter Visit Diagnoses Diagnosis Type II or unspecified type diabetes mellitus without mention of complication, not stated as uncontrolled- Primary Cervicalgia Acute upper respiratory infections of unspecified site Unspecified essential hypertension documented in this encounter Additional Health Concerns Infection Onset Date Last Indicated Resolved Time CRE-CP Comment:Sputum 07/09/18 (Serratia) 07/09/2018 07/09/2018 MRSA 10/12/2018 12/25/2018 12/26/2019 8:08 PM CDT documented as of this encounter Care Teams Speedboat Operator Relationship Specialty Start Date End Date Non-Staff, Physician NO ADDRESS ON FILE PCP - General 01/10/20 documented as of this encounter
--- OUTSIDE RECORDS SUMMARY | 2025-01-21 17:17 | XMS_ITS | Encounter Summary ---
Author Organization [facility] Address [address] [place] [address] Care Team Providers Care Drop Shipment Clerk Name Role Phone Non-Staff, Physician Primary Care Provider Unava ilable Encounter Details Date Type Department Care Team (Late st Contact Info) Description 03/27/2007 Outpatient Historical [facility] Family Medicine- Amita [address] [place] [address] Jim Aquino, [place] NO ADDRESS ON FILE Social History Tobacco Use Types Packs/Day Years Used Date Smoking Tobacco: Never Assessed Comments Unknown Sex and Gender Information Value Date Recorded Sex Assigned at Not on file Legal Sex Female 2:45 AM ROOM SERVICE MANAGER Gender Identity Not on file Sexual [...] documented as of this encounter Care Teams Drop Shipment Clerk Relationship Specialty Start Date End Date Non-Staff, Physician NO ADDRESS ON FILE PCP - General 01/10/20 documented as of this encounter
--- OUTSIDE RECORDS SUMMARY | 2025-01-21 17:17 | XMS_ITS | Encounter Summary ---
Author Organization [facility] Address [address] [place] [address] Care Team Providers Care Operations Research Group Manager Name Role Phone Non-Staff, Physician Primary Care Provider Unava ilable Encounter Details Date Type Department Care Team (Latest Contact Info) Description 03/06/2007 Outpatient Historical [facility] Family Medicine- Amita [address] [place] [address] Jim Aquino, [place] NO ADDRESS ON FILE Pain in Joint, Multiple Sites (Primary Dx); DM w/o Complication Type II (CMS/HCC); Nausea with Vomiting; Abdominal Pain, Unspecified Site Social History Tobacco Use Types Packs/Day Years Used Date Smoking Tobacco: Never Assessed Comments Unknown Sex and Gender Information Value Date Recorded Sex Assigned at Not on file Legal Sex Female 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 Gender Identity Not on file Sexual Orientation Not on file documented as of this encounter Plan of Treatment Not on file documented as of this encounter Visit Diagnoses Diagnosis Pain in joint, multiple sites- Primary Type II or unspecified type diabetes mellitus without mention of complication, not stated as uncontrolled Nausea with vomiting Abdominal pain, unspecified site documented in this encounter Additional Health Concerns Infection Onset Date Last Indicated Resolved Time CRE-CP Comment:Sputum 07/09/18 (Serratia) 07/09/2018 07/09/2018 MRSA 10/12/2018 12/25/2018 12/26/2019 8:08 PM CDT documented as of this encounter Care Teams Operations Research Group Manager Relationship Specialty Start Date End Date Non-Staff, Physician NO ADDRESS ON FILE PCP - General 01/10/20 documented as of this encounter
--- OUTSIDE RECORDS SUMMARY | 2025-01-21 17:18 | XMS_ITS | Encounter Summary ---
Author Organization [facility] Address [address] [place] [address] Care Team Providers Care Fiber Optic Central Office Installer Name Role Phone Non-Staff, Physician Primary Care Provider Unava ilable Encounter Details Date Type Department Care Team (Latest Contact Info) Description 01/21/2002 Outpatient Historical [facility] Medicine [place] [address] [facility] [address] [place] [phone] Yuan Barros MD ESOPHAGEAL REFLUX (Primary Dx) Social History Tobacco Use Types Packs/Day Years Used Date Smoking Tobacco: Never Assessed Comments Unknown Sex and Gender Information Value Date Recorded Sex Assigned at Not on file Legal Sex Female 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 Gender Identity Not on file Sexual Orientation Not on file documented as of this encounter Plan of Treatment Not on file documented as of this encounter Visit Diagnoses Diagnosis Esophageal reflux- Primary documented in this encounter Additional Health Concerns Infection Onset Date Last Indicated Resolved Time CRE-CP Comment:Sputum 07/09/18 (Serratia) 07/09/2018 07/09/2018 MRSA 10/12/2018 12/25/2018 12/26/2019 8:08 PM CDT documented as of this encounter Care Teams Fiber Optic Central Office Installer Relationship Specialty Start Date End Date Non-Staff, Physician NO ADDRESS ON FILE PCP - General 01/10/20 documented as of this encounter
--- OUTSIDE RECORDS SUMMARY | 2025-01-21 17:18 | XMS_ITS | Encounter Summary ---
Author Organization [facility] Address [address] [place] [address] Care Team Providers Care Rubbing Bed Operator Name Role Phone Non-Staff, Physician Primary Care Provider Unava ilable Encounter Details Date Type Department Care Team (Latest Contact Info) Description 02/25/2004 Outpatient Historical [facility] Family Medicine- Amita [address] [place] [phone] Abel Fields NP NO ADDRESS ON FILE VAGINITIS NOS (Primary Dx) Social History Tobacco Use Types Packs/Day Years Used Date Smoking Tobacco: Never Assessed Comments Unknown Sex and Gender Information Value Date Recorded Sex Assigned at Not on file 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 Gender Identity Not on file Sexual Orientation Not on file documented as of this encounter Plan of Treatment Not on file documented as of this encounter Visit Diagnoses Diagnosis Vaginitis and vulvovaginitis, unspecified- Primary documented in this encounter Additional Health Concerns Infection Onset Date Last Indicated Resolved Time CRE-CP Comment:Sputum 07/09/18 (Serratia) 07/09/2018 07/09/2018 MRSA 10/12/2018 12/25/2018 12/26/2019 8:08 PM CDT documented as of this encounter Care Teams Rubbing Bed Operator Relationship Specialty Start Date End Date Non-Staff, Physician NO ADDRESS ON FILE PCP - General 01/10/20 documented as of this encounter
--- OUTSIDE RECORDS SUMMARY | 2025-01-21 17:18 | XMS_ITS | Encounter Summary ---
Author Organization [facility] Address [address] [facility] [place] [address] Care Team Providers Care Welder First Class Name Role Phone Non-Staff, Physician Primary Care Provider Unava ilable Encounter Details Date Type Department Care Team (Late st Contact Info) Description 01/03/2006 Outpatient Historical [facility] Nell Verde MD NO ADDRESS ON FILE Social History Tobacco Use Types Packs/Day Years Used Date Smoking Tobacco: Never Assessed Comments Unknown Sex and Gender Information Value Date Recorded Sex Assigned at Not on file Legal Sex Female 2:45 AM PLANNER Gender Identity Not on file Sexual Orientation Not on file documented as of this encounter Plan of Treatment Not on file documented as of this encounter Procedures Procedure Name Priority Date/Time Associated Diagnosis Comments MRI LUMBAR WO CONTRAST Routine 01/03/2006 1:28 PM CDT documented in this encounter Results * MRI LUMBAR WO CONTRAST (01/03/2006 1:28 PM CDT) Anatomical Region Laterality Modality Spine Other 01/03/2006 1:28 PM CDT Narrative 01/03/2006 1:28 PM CDT ATTENTION: This report replaces any previous documents on this accession number received prior to this date and time: 01/03/2006 23:45 (ama) MR - LUMBAR SPINE WITHOUT CONTRAST, 01/03/06 HISTORY: Chronic low back pain. No comparison studies available. No significant focal bony lesion or acute fracture is identified. Conus is intact. L1-2: There is a small disc bulge and mild degenerative end plate changes. L2-3: There is a small right foraminal disc bulge without nerve root compression. L3-4: A small right foraminal disc protrusion is present which comes in close proximity to the exiting right L3 nerve root. L4-5: A tiny disc bulge is present. L5-S1: There is a small disc bulge and mild degenerative end plate changes. A left foraminal disc protrusion is present which may compress the exiting left L5 nerve root. IMPRESSION: 1. Left foraminal disc protrusion at L5-S1 which may compress the left L5 nerve root. 2. Small right foraminal disc protrusion at L3-4 which comes in close proximity to the exiting right L3 nerve root. ama / Dictated By: Robert Belle M.D. Electronically Signed By: Robert Belle M.D. Date Signed: 01/05/06 AMA Procedure Note 02/27/2009 ATTENTION: This report replaces any previous documents on this accession numberreceived prior to this date and time: 01/03/2006 23:45 (ama) MR - LUMBAR SPINE WITHOUT CONTRAST, 01/03/06 HISTORY: Chronic low back pain. No comparison studies available. No significant focal bony lesion or acute fracture is identified. Conusis intact. L1-2: There is a small disc bulge and mild degenerative end plate changes. L2-3: There is a small right foraminal disc bulge without nerve rootcompression. L3-4: A small right foraminal disc protrusion is present which comes in closeproximity to the exiting right L3 nerve root. L4-5: A tiny disc bulge is present. L5-S1: There is a small disc bulge and mild degenerative end plate changes. Aleft foraminal disc protrusion is present which may compress the exiting left L5 nerve root. IMPRESSION: 1. Left foraminal disc protrusion at L5-S1 which may compress the left E3pbwhg root. 2. Small right foraminal disc protrusion at L3-4 which comes in closeproximity to the exiting right L3 nerve root. ama / Dictated By: Robert Poteet, M.D. Electronically Signed By: Robert Belle M.D. Date Signed: 01/05/06 AMA us Historical Provider MR ORDERABLES Final Result documented in this encounter Visit Diagnoses Not on filedocumented in this encounter Additional Health Concerns Infection Onset Date Last Indicated Resolved Time CRE-CP Comment:Sputum 07/09/18 (Serratia) 07/09/2018 07/09/2018 MRSA 10/12/2018 12/25/2018 12/26/2019 8:08 PM CDT documented as of this encounter Care Teams Welder First Class Relationship Specialty Start Date End Date Non-Staff, Physician NO ADDRESS ON FILE PCP - General 01/10/20 documented as of this encounter
--- OUTSIDE RECORDS SUMMARY | 2025-01-21 17:18 | XMS_ITS | Encounter Summary ---
Author Organization [facility] Address [address] [place] [address] Care Team Providers Care Rd Scientist Name Role Phone Non-Staff, Physician Primary Care Provider Unava ilable Encounter Details Date Type Department Care Team (Latest Contact Info) Description 06/03/2005 Outpatient Historical [facility] Family Medicine- [address] [place] [address] Nell Verde MD NO ADDRESS ON FILE ACUTE BRONCHITIS (Primary Dx); MORBID OBESITY (CMS/HCC); DIABETES MELLITUS TYPE II-UNCOMPL (CMS/HCC) Social History Tobacco Use Types Packs/Day Years Used Date Smoking Tobacco: Never Assessed Comments Unknown Sex and Gender Information Value Date Recorded Sex Assigned at Not on file Legal Sex Female 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 Gender Identity Not on file Sexual Orientation Not on file documented as of this encounter Plan of Treatment Not on file documented as of this encounter Visit Diagnoses Diagnosis Acute bronchitis- Primary Morbid obesity (CMS/HCC) Morbid obesity Type II or unspecified type diabetes mellitus without mention of complication, not stated as uncontrolled documented in this encounter Additional Health Concerns Infection Onset Date Last Indicated Resolved Time CRE-CP Comment:Sputum 07/09/18 (Serratia) 07/09/2018 07/09/2018 MRSA 10/12/2018 12/25/2018 12/26/2019 8:08 PM CDT documented as of this encounter Care Teams Rd Scientist Relationship Specialty Start Date End Date Non-Staff, Physician NO ADDRESS ON FILE PCP - General 01/10/20 documented as of this encounter
--- OUTSIDE RECORDS SUMMARY | 2025-01-21 17:18 | XMS_ITS | Encounter Summary ---
Author Organization [facility] Address [address] [facility] [place] [address] Care Team Providers Care Sales Lead Name Role Phone Non-Staff, Physician Primary Care Provider Unava ilable Encounter Details Date Type Department Care Team (Latest Contact Info) Description 07/30/2003 Outpatient Historical [facility] Family Medicine- [address] [place] [address] Edmond Machado DO NO ADDRESS ON FILE ACUTE PHARYNGITIS (Primary Dx); ACUTE SINUSITIS NOS; ACUTE BRONCHITIS; LUMBAGO Social History Tobacco Use Types Packs/Day Years Used Date Smoking Tobacco: Never Assessed Comments Unknown Sex and Gender Information Value Date Recorded Sex Assigned at Not on file Legal Sex Female 2:45 AM SALES EXEC Gender Identity Not on file Sexual Orientation Not on file documented as of this encounter Plan of Treatment Not on file documented as of this encounter Visit Diagnoses Diagnosis Acute pharyngitis- Primary Acute sinusitis, unspecified Acute bronchitis Lumbago documented in this encounter Additional Health Concerns Infection Onset Date Last Indicated Resolved Time CRE-CP Comment:Sputum 07/09/18 (Serratia) 07/09/2018 07/09/2018 MRSA 10/12/2018 12/25/2018 12/26/2019 8:08 PM CDT documented as of this encounter Care Teams Sales Lead Relationship Specialty Start Date End Date Non-Staff, Physician NO ADDRESS ON FILE PCP - General 01/10/20 documented as of this encounter
--- OUTSIDE RECORDS SUMMARY | 2025-01-21 17:18 | XMS_ITS | Encounter Summary ---
Author Organization [facility] Address [address] [place] [address] Care Team Providers Care Fire Alarm Mechanic Name Role Phone Non-Staff, Physician Primary Care Provider Unava ilable Encounter Details Date Type Department Care Team (Latest Contact Info) Description 12/21/2005 Outpatient Historical [facility] Medicine [place] [address] [facility] [address] [place] [phone] Nell Verde MD NO ADDRESS ON FILE Urinary Tract Infection, Site not Specified (Primary Dx); Unspecified Backache; Dermatophytosis of Nail; DM w/o Complication Type II (CMS/HCC) Social History Tobacco Use Types Packs/Day Years Used Date Smoking Tobacco: Never Assessed Comments Unknown Sex and Gender Information Value Date Recorded Sex Assigned at Not on file Legal 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 Female 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 Gender Identity Not on file Sexual Orientation Not on file documented as of this encounter Plan of Treatment Not on file documented as of this encounter Visit Diagnoses Diagnosis Urinary tract infection, site not specified- Primary Backache, unspecified Dermatophytosis of nail Type II or unspecified type diabetes mellitus without mention of complication, not stated as uncontrolled documented in this encounter Additional Health Concerns Infection Onset Date Last Indicated Resolved Time CRE-CP Comment:Sputum 07/09/18 (Serratia) 07/09/2018 07/09/2018 MRSA 10/12/2018 12/25/2018 12/26/2019 8:08 PM CDT documented as of this encounter Care Teams Fire Alarm Mechanic Relationship Specialty Start Date End Date Non-Staff, Physician NO ADDRESS ON FILE PCP - General 01/10/20 documented as of this encounter
--- OUTSIDE RECORDS SUMMARY | 2025-01-21 17:18 | XMS_ITS | Encounter Summary ---
Author Organization [facility] Address [address] [facility] [address] Care Team Providers Care Sap Basis Administrator Name Role Phone Non-Staff, Physician Primary Care Provider Unava ilable Encounter Details Date Type Department Care Team (Latest Contact Info) Description 02/25/2004 Outpatient Historical [facility] Family Medicine- [address] [place] [phone] Abel Fields NP NO ADDRESS ON FILE ROUTINE SYSTEMS PROGRAMMER EXAMINATION (Primary Dx) Social History Tobacco Use Types Packs/Day Years Used Date Smoking Tobacco: Never Assessed Comments Unknown Sex and Gender Information Value Date Recorded Sex Assigned at Not on file Legal Sex Female 2:45 AM SPREADER OPERATOR Gender Identity Not on file Sexual Orientation Not on file documented as of this encounter Plan of Treatment Not on file documented as of this encounter Visit Diagnoses Diagnosis Routine gynecological examination- Primary documented in this encounter Additional Health Concerns Infection Onset Date Last Indicated Resolved Time CRE-CP Comment:Sputum 07/09/18 (Serratia) 07/09/2018 07/09/2018 MRSA 10/12/2018 12/25/2018 12/26/2019 8:08 PM CDT documented as of this encounter Care Teams Sap Basis Administrator Relationship Specialty Start Date End Date Non-Staff, Physician NO ADDRESS ON FILE PCP - General 01/10/20 documented as of this encounter
--- OUTSIDE RECORDS SUMMARY | 2025-01-21 17:18 | XMS_ITS | Encounter Summary ---
Author Organization [facility] Address [address] [place] [address] Care Team Providers Care Special Investigator Name Role Phone Non-Staff, Physician Primary Care Provider Unava ilable Encounter Details Date Type Department Care Team (Latest Contact Info) Description 02/18/2003 Outpatient Historical [facility] Family Medicine- [address] [place] [address] Edmond Machado DO NO ADDRESS ON FILE BACKACHE NOS (Primary Dx); HYPOTHYROIDISM NOS Social History Tobacco Use Types Packs/Day Years Used Date Smoking Tobacco: Never Assessed Comments Unknown Sex and Gender Information Value Date Recorded Sex Assigned at Not on file Legal Sex Female 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 Gender Identity Not on file Sexual Orientation Not on file documented as of this encounter Plan of Treatment Not on file documented as of this encounter Visit Diagnoses Diagnosis Backache, unspecified- Primary Unspecified hypothyroidism documented in this encounter Additional Health Concerns Infection Onset Date Last Indicated Resolved Time CRE-CP Comment:Sputum 07/09/18 (Serratia) 07/09/2018 07/09/2018 MRSA 10/12/2018 12/25/2018 12/26/2019 8:08 PM CDT documented as of this encounter Care Teams Special Investigator Relationship Specialty Start Date End Date Non-Staff, Physician NO ADDRESS ON FILE PCP - General 01/10/20 documented as of this encounter
--- OUTSIDE RECORDS SUMMARY | 2025-01-21 17:18 | XMS_ITS | Encounter Summary ---
Author Organization [facility] Address [address] [place] [address] Care Team Providers Care Deckhand Clam Dredge Name Role Phone Non-Staff, Physician Primary Care Provider Unava ilable Encounter Details Date Type Department Care Team (Latest Contact Info) Description 08/07/2003 Outpatient Historical [facility] Medicine [place] [address] [facility] [address] [place] [address] Abel Fields, [place] NO ADDRESS ON FILE Diverticulosis of colon (Primary Dx); CHRONIC SINUSITIS NOS Social History Tobacco Use Types Packs/Day Years Used Date Smoking Tobacco: Never Assessed Comments Unknown Sex and Gender Information Value Date Recorded Sex Assigned at Not on file Legal Sex Female 2:45 AM FORENSIC DOCUMENT EXAMINER Gender Identity Not on file Sexual Orientation Not on file documented as of this encounter Plan of Treatment Not on file documented as of this encounter Visit Diagnoses Diagnosis Diverticulosis of colon- Primary Diverticulosis of colon (without mention of hemorrhage) Unspecified sinusitis (chronic) documented in this encounter Additional Health Concerns Infection Onset Date Last Indicated Resolved Time CRE-CP Comment:Sputum 07/09/18 (Serratia) 07/09/2018 07/09/2018 MRSA 10/12/2018 12/25/2018 12/26/2019 8:08 PM CDT documented as of this encounter Care Teams Deckhand Clam Dredge Relationship Specialty Start Date End Date Non-Staff, Physician NO ADDRESS ON FILE PCP - General 01/10/20 documented as of this encounter
--- OUTSIDE RECORDS SUMMARY | 2025-01-21 17:18 | XMS_ITS | Encounter Summary ---
Author Organization [facility] Address [address] [facility] [place] [address] Care Team Providers Care Lav Crewman Name Role Phone Non-Staff, Physician Primary Care Provider Unava ilable Encounter Details Date Type Department Care Team (Latest Contact Info) Description 12/16/2003 Outpatient Historical [facility] Nell Verde MD NO ADDRESS ON FILE THORACIC DISC DEGEN (Primary Dx) Social History Tobacco Use Types Packs/Day Years Used Date Smoking Tobacco: Never Assessed Comments Unknown Sex and Gender Information Value Date Recorded Sex Assigned at Not on file Legal 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 Gender Identity Not on file Sexual Orientation Not on file documented as of this encounter Plan of Treatment Not on file documented as of this encounter Visit Diagnoses Diagnosis 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
--- OUTSIDE RECORDS SUMMARY | 2025-01-21 17:18 | XMS_ITS | Encounter Summary ---
Author Organization [facility] Address [address] [place] [address] Care Team Providers Care Shipping Track Supervisor Name Role Phone Non-Staff, Physician Primary Care Provider Unava ilable Encounter Details Date Type Department Care Team (Latest Contact Info) Description 01/09/2002 Outpatient Historical [facility] General Surgery [address] [place] [address] [address] [place] [address] [place] [address] 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 Gender Identity Not on file Sexual Orientation Not on file documented as of this encounter Plan of Treatment Not on file documented as of this encounter Visit Diagnoses Diagnosis Abdominal pain, epigastric- Primary documented in this encounter Additional Health Concerns Infection Onset Date Last Indicated Resolved Time CRE-CP Comment:Sputum 07/09/18 (Serratia) 07/09/2018 07/09/2018 MRSA 10/12/2018 12/25/2018 12/26/2019 8:08 PM CDT documented as of this encounter Care Teams Shipping Track Supervisor Relationship Specialty Start Date End Date Non-Staff, Physician NO ADDRESS ON FILE PCP - General 01/10/20 documented as of this encounter
--- OUTSIDE RECORDS SUMMARY | 2025-01-21 17:18 | XMS_ITS | Encounter Summary ---
Author Organization [facility] Address [address] [facility] [place] [address] Care Team Providers Care Toucher Up Name Role Phone Non-Staff, Physician Primary Care Provider Unava ilable Encounter Details Date Type Department Care Team (Latest Contact Info) Description 01/07/2004 Outpatient Historical [facility] Family Medicine- Amita [address] [place] [address] Abel Fields NP NO ADDRESS ON FILE ABDOMINAL PAIN RLQ (Primary Dx); BACKACHE NOS; CERVICALGIA; ACUTE PHARYNGITIS Social History Tobacco Use Types Packs/Day Years Used Date Smoking Tobacco: Never Assessed Comments Unknown Sex and Gender Information Value Date Recorded Sex Assigned at Not on file Legal Sex Female 2:45 AM STATE 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 Gender Identity Not on file Sexual Orientation Not on file documented as of this encounter Plan of Treatment Not on file documented as of this encounter Visit Diagnoses Diagnosis Abdominal pain, right lower quadrant- Primary Backache, unspecified Cervicalgia Acute pharyngitis documented in this encounter Additional Health Concerns Infection Onset Date Last Indicated Resolved Time CRE-CP Comment:Sputum 07/09/18 (Serratia) 07/09/2018 07/09/2018 MRSA 10/12/2018 12/25/2018 12/26/2019 8:08 PM CDT documented as of this encounter Care Teams Toucher Up Relationship Specialty Start Date End Date Non-Staff, Physician NO ADDRESS ON FILE PCP - General 01/10/20 documented as of this encounter
--- OUTSIDE RECORDS SUMMARY | 2025-01-21 17:18 | XMS_ITS | Encounter Summary ---
Author Organization [facility] Address [address] [place] [address] Care Team Providers Care Hoe Runner Name Role Phone Non-Staff, Physician Primary Care Provider Unava ilable Reason for Referral * CT Scan (Routine) - Closed Specialty Diagnoses / Procedures Referred By Contac t Referred To Contact Radiology Diagnoses Headache Procedures CT HEAD WO CONTRAST Edmond Machado DO [facility] CT Scan [place] [address] [facility] [address] [place] [address] Phone: tel: fax: Referral ID Status Reason Start Date Expiration Date V isits Requested Visits Authorized [id number] Closed [place] CTS to Schedule (SGF) 09/11/2018 10/12/2019 1 1 Encounter Details Date Type Department Care Team (Late st Contact Info) Description 09/11/[address] 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 Prior sinus surgery without significant mucosal thickening within the residual paranasal sinuses. Narrative 09/12/2018 2:07 PM CDT Exam: CT HEAD WO CONTRAST Date/Time of Exam: 09/12/2018 1:16 PM Reason For Exam: See Diagnosis. Diagnosis: Headache. Technique: CT of the head was performed without the administration of intravenous contrast. Findings: No acute infarction, hemorrhage or extra-axial collection. Mild sequela of small vessel ischemic disease. Mild diffuse parenchymal volume loss. The ventricles are midline and the basal cisterns are patent. No acute osseous abnormality. Prior sinus surgery. Small left mastoid effusion. The orbits are intact. Vascular calcifications present. Procedure Note Gurvinder Franco DO - 09/12/2018 Exam: CT HEAD WO CONTRAST Date/Time of Exam: 09/12/2018 1:16 PM Reason For Exam: See Diagnosis. Diagnosis: Headache. Technique: CT of the head was performed without the administration of intravenous contrast. Findings: No acute infarction, hemorrhage or extra-axial collection. Mild sequela of small vessel ischemic disease. Mild diffuse parenchymal volume loss. The ventricles are midline and the basal cisterns are patent. No acute osseous abnormality. Prior sinus surgery. Small left mastoid effusion. The orbits are intact. Vascular calcifications present. IMPRESSION: No acute intracranial abnormality. Prior sinus surgery without significant mucosal thickening within the residual paranasal sinuses. Edmond Machado DO CT ORDERABLES Final Result documented in this encounter Visit Diagnoses Diagnosis Headache Headache documented in this encounter Additional Health Concerns Infection Onset Date Last Indicated Resolved Time CRE-CP Comment:Sputum 07/09/18 (Serratia) 07/09/2018 07/09/2018 MRSA 10/12/2018 12/25/2018 12/26/2019 8:08 PM CDT Assessment Noted Time PHQ-9 Depression Total Score: 1 07/20/19 18 11:00 AM CDT documented as of this encounter Care Teams Hoe Runner Relationship Specialty Start Date End Date Non-Staff, Physician NO ADDRESS ON FILE PCP - General 01/10/20 documented as of this encounter
--- OUTSIDE RECORDS SUMMARY | 2025-01-21 17:18 | XMS_ITS | Encounter Summary ---
Author Organization [facility] Address [address] [place] [address] Care Team Providers Care Dynamometer Tester Engine Name Role Phone Non-Staff, Physician Primary Care Provider Unava ilable Encounter Details Date Type Department Care Team (Latest Contact Info) Description 11/07/2018 Ancillary Orders [facility] Centralized Scheduling [address] [place] [id number] Raeann Diehl MD NO ADDRESS ON FILE Weight loss; Nausea and vomiting Social History Tobacco Use Types Packs/Day Years Used Date Smoking Tobacco: Former Cigarettes 2.5 9 0 04/10/2003 - 04/10/2012 Smokeless Tobacco: Never Alcohol Use Standard Drinks/Week Comments No 0 (1 standard drink = 0.6 oz pur e alcohol) Comments No Sex and Gender Information Value Date Recorded Sex Assigned at Not on file 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 Gender Identity Not on file Sexual Orientation Not on file Occupation Industry Job Start Date Job End Date Not on file Not on file Not on file Not on file documented as of this encounter Plan of Treatment Not on file documented as of this encounter Visit Diagnoses Diagnosis Weight loss Loss of weight Nausea and vomiting Nausea with vomiting documented in this encounter Additional Health Concerns Infection Onset Date Last Indicated Resolved Time CRE-CP Comment:Sputum 07/09/18 (Serratia) 07/09/2018 07/09/2018 MRSA 10/12/2018 12/25/2018 12/26/2019 8:08 PM CDT Assessment Noted Time PHQ-9 Depression Total Score: 1 07/20/19 18 11:00 AM CDT documented as of this encounter Care Teams Dynamometer Tester Engine Relationship Specialty Start Date End Date Non-Staff, Physician NO ADDRESS ON FILE PCP - General 01/10/20 documented as of this encounter
--- OUTSIDE RECORDS SUMMARY | 2025-01-21 17:18 | XMS_ITS | Encounter Summary ---
Author Organization [facility] Address [address] [facility] [place] [address] Care Team Providers Care Pack Mule Worker Name Role Phone Non-Staff, Physician Primary Care Provider Unava ilable Encounter Details Date Type Department Care Team (Latest Contact Info) Description 04/23/2004 Outpatient Historical [facility] Family Medicine- [address] [place] [phone] Nell Verde MD NO ADDRESS ON FILE ACUTE BRONCHITIS (Primary Dx); ACUTE URI NOS; DIABETES MELLITUS TYPE II-UNCOMPL ([facility]) Social History Tobacco Use Types Packs/Day Years Used Date Smoking Tobacco: Never Assessed Comments Unknown Sex and Gender Information Value Date Recorded Sex Assigned at Not on file 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 Gender Identity Not on file Sexual Orientation Not on file documented as of this encounter Plan of Treatment Not on file documented as of this encounter Visit Diagnoses Diagnosis Acute bronchitis- Primary Acute upper respiratory infections of unspecified site Type II or unspecified type diabetes mellitus without mention of complication, not stated as uncontrolled documented in this encounter Additional Health Concerns Infection Onset Date Last Indicated Resolved Time CRE-CP Comment:Sputum 07/09/18 (Serratia) 07/09/2018 07/09/2018 MRSA 10/12/2018 12/25/2018 12/26/2019 8:08 PM CDT documented as of this encounter Care Teams Pack Mule Worker Relationship Specialty Start Date End Date Non-Staff, Physician NO ADDRESS ON FILE PCP - General 01/10/20 documented as of this encounter
--- OUTSIDE RECORDS SUMMARY | 2025-01-21 17:18 | XMS_ITS | Encounter Summary ---
Author Organization [facility] Address [address] [place] [facility] [place] [address] Care Team Providers Care Nylon Operator Name Role Phone Non-Staff, Physician Primary Care Provider Unava ilable Encounter Details Date Type Department Care Team (Latest Contact Info) Description 12/05/2003 Outpatient Historical [facility] Family Medicine- [address] [place] [address] Nell Verde MD NO ADDRESS ON FILE LUMBAGO (Primary Dx); URIN TRACT INFECTION NOS Social History Tobacco Use Types Packs/Day Years Used Date Smoking Tobacco: Never Assessed Comments Unknown Sex and Gender Information Value Date Recorded Sex Assigned at Not on file 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 Gender Identity Not on file Sexual Orientation Not on file documented as of this encounter Plan of Treatment Not on file documented as of this encounter Visit Diagnoses Diagnosis Lumbago- Primary Urinary tract infection, site not specified documented in this encounter Additional Health Concerns Infection Onset Date Last Indicated Resolved Time CRE-CP Comment:Sputum 07/09/18 (Serratia) 07/09/2018 07/09/2018 MRSA 10/12/2018 12/25/2018 12/26/2019 8:08 PM CDT documented as of this encounter Care Teams Nylon Operator Relationship Specialty Start Date End Date Non-Staff, Physician NO ADDRESS ON FILE PCP - General 01/10/20 documented as of this encounter
--- OUTSIDE RECORDS SUMMARY | 2025-01-21 17:18 | XMS_ITS | Encounter Summary ---
Author Organization [facility] Address [address] [facility] [place] [place] [place] [address] Care Team Providers Care Production Machine Computer Operator Name Role Phone Non-Staff, Physician Primary Care Provider Unava ilable Encounter Details Date Type Department Care Team (Latest Contact Info) Description 02/26/2003 Outpatient Historical [facility] Family Medicine- [address] [place] [address] Nell Verde MD NO ADDRESS ON FILE HERPANGINA (Primary Dx) Social History Tobacco Use Types Packs/Day Years Used Date Smoking Tobacco: Never Assessed Comments Unknown Sex and Gender Information Value Date Recorded Sex Assigned at Not on file 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 Gender Identity Not on file Sexual Orientation Not on file documented as of this encounter Plan of Treatment Not on file documented as of this encounter Visit Diagnoses Diagnosis Herpangina- Primary documented in this encounter Additional Health Concerns Infection Onset Date Last Indicated Resolved Time CRE-CP Comment:Sputum 07/09/18 (Serratia) 07/09/2018 07/09/2018 MRSA 10/12/2018 12/25/2018 12/26/2019 8:08 PM CDT documented as of this encounter Care Teams Production Machine Computer Operator Relationship Specialty Start Date End Date Non-Staff, Physician NO ADDRESS ON FILE PCP - General 01/10/20 documented as of this encounter
--- OUTSIDE RECORDS SUMMARY | 2025-01-21 17:18 | XMS_ITS | Encounter Summary ---
Author Organization [facility] Address [address] [place] [facility] [place] [address] Care Team Providers Care Pilot Plant Research Technician Name Role Phone Non-Staff, Physician Primary Care Provider Unava ilable Encounter Details Date Type Department Care Team (Latest Contact Info) Description 08/06/2003 Outpatient Historical [facility] Family Medicine- [address] [place] [address] Abel Feilds NP NO ADDRESS ON FILE OBST CHRON BRONCHITIS WITH EXAC (CMS/HCC) (Primary Dx); ABDOMINAL PAIN RLQ Social History Tobacco Use Types Packs/Day Years Used Date Smoking Tobacco: Never Assessed Comments Unknown Sex and Gender Information Value Date Recorded Sex Assigned at Not on file 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 Gender Identity Not on file Sexual Orientation Not on file documented as of this encounter Plan of Treatment Not on file documented as of this encounter Visit Diagnoses Diagnosis Obstructive chronic bronchitis with exacerbation (CMS/HCC)- Primary Obstructive chronic bronchitis with exacerbation Abdominal pain, right lower quadrant documented in this encounter Additional Health Concerns Infection Onset Date Last Indicated Resolved Time CRE-CP Comment:Sputum 07/09/18 (Serratia) 07/09/2018 07/09/2018 MRSA 10/12/2018 12/25/2018 12/26/2019 8:08 PM CDT documented as of this encounter Care Teams Pilot Plant Research Technician Relationship Specialty Start Date End Date Non-Staff, Physician NO ADDRESS ON FILE PCP - General 01/10/20 documented as of this encounter
--- OUTSIDE RECORDS SUMMARY | 2025-01-21 17:18 | XMS_ITS | Encounter Summary ---
Author Organization [facility] Address [address] [place] [address] Care Team Providers Care Global Security Architect Name Role Phone Non-Staff, Physician Primary Care Provider Unava ilable Encounter Details Date Type Department Care Team (Latest Contact Info) Description 03/18/2005 Outpatient Historical [facility] Family Medicine- [place] [address] [place] [phone] Nell Verde MD NO ADDRESS ON FILE HYPERTENSION NOS (Primary Dx); DIABETES MELLITUS TYPE II-UNCOMPL (CMS/[facility]); ACUTE URI NOS; VACCINE FOR STREP PNEUMONIAE Social History Tobacco Use Types Packs/Day Years Used Date Smoking Tobacco: Never Assessed Comments Unknown Sex and Gender Information Value Date Recorded Sex Assigned at Not on file 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 Gender Identity Not on file Sexual Orientation Not on file documented as of this encounter Plan of Treatment Not on file documented as of this encounter Visit Diagnoses Diagnosis Unspecified essential hypertension- Primary Type II or unspecified type diabetes mellitus without mention of complication, not stated as uncontrolled Acute upper respiratory infections of unspecified site Need for prophylactic vaccination against Streptococcus pneumoniae (pneumococcus) Need for prophylactic vaccination against streptococcus pneumoniae (pneumococcus) documented in this encounter Additional Health Concerns Infection Onset Date Last Indicated Resolved Time CRE-CP Comment:Sputum 07/09/18 (Serratia) 07/09/2018 07/09/2018 MRSA 10/12/2018 12/25/2018 12/26/2019 8:08 PM CDT documented as of this encounter Care Teams Global Security Architect Relationship Specialty Start Date End Date Non-Staff, Physician NO ADDRESS ON FILE PCP - General 01/10/20 documented as of this encounter
--- OUTSIDE RECORDS SUMMARY | 2025-01-21 17:18 | XMS_ITS | Encounter Summary ---
Author Organization [facility] Address [address] [place] [address] Care Team Providers Care Public Health Informatician Name Role Phone Non-Staff, Physician Primary Care Provider Unava ilable Encounter Details Date Type Department Care Team (Late st Contact Info) Description 05/15/2007 Outpatient Historical [facility] Family Medicine [place] [address] [facility] [address] [place] [phone] Jim Aquino PA NO ADDRESS ON FILE Social History Tobacco Use Types Packs/Day Years Used Date Smoking Tobacco: Never Assessed Comments Unknown Sex and Gender Information Value Date Recorded Sex Assigned at Not on file Legal 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 Also received an abrasion to the right shoulder. Also states her neck hurts now since the fall. In addition, she injured her knee. She states there is pain with movement. She has had arthroscopic surgery in the past. OBJECTIVE: NECK: Evaluation of the neck reveals limited range of motion looking to the right. EXTREMITIES: The shoulder has pain with active range of motion. There is some tenderness over the clavicle itself. The knee is stable to stress maneuvers. Bob sign is negative. ASSESSMENT: Neck, right shoulder, and knee trauma. PLAN: 1. We will set up for x-rays. 2. [place] 1 by mouth every eight hours as needed pain 3. DT will be given this date. Jim Aquino PA-C [facility] Electronically Signed by Jim Aquino PA-C 05/18/2007 16:42 , A, mdjoel Job #: Document #: [id number] cc: CER documented in this encounter Plan of Treatment Not on file documented as of this encounter Visit Diagnoses Not on filedocumented in this encounter Additional Health Concerns Infection Onset Date Last Indicated Resolved Time CRE-CP Comment:Sputum 07/09/18 (Serratia) 07/09/2018 07/09/2018 MRSA 10/12/2018 12/25/2018 12/26/2019 8:08 PM CDT documented as of this encounter Care Teams Public Health Informatician Relationship Specialty Start Date End Date Non-Staff, Physician NO ADDRESS ON FILE PCP - General 01/10/20 documented as of this encounter
--- OUTSIDE RECORDS SUMMARY | 2025-01-21 17:18 | XMS_ITS | Encounter Summary ---
Author Organization [facility] Address [address] [place] [address] Care Team Providers Care Senior Medical Writer Name Role Phone Non-Staff, Physician Primary Care Provider Unava ilable Encounter Details Date Type Department Care Team (Latest Contact Info) Description 06/25/2003 Outpatient Historical [facility] General Surgery [address] [address] [address] [place] [address] [place] [address] 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 Gender Identity Not on file Sexual Orientation Not on file documented as of this encounter Plan of Treatment Not on file documented as of this encounter Visit Diagnoses Diagnosis Personal history of colonic polyps- Primary documented in this encounter Additional Health Concerns Infection Onset Date Last Indicated Resolved Time CRE-CP Comment:Sputum 07/09/18 (Serratia) 07/09/2018 07/09/2018 MRSA 10/12/2018 12/25/2018 12/26/2019 8:08 PM CDT documented as of this encounter Care Teams Senior Medical Writer Relationship Specialty Start Date End Date Non-Staff, Physician NO ADDRESS ON FILE PCP - General 01/10/20 documented as of this encounter
--- OUTSIDE RECORDS SUMMARY | 2025-01-21 17:18 | XMS_ITS | Encounter Summary ---
Author Organization [facility] Address [address] [place] [address] Care Team Providers Care Quality Systems Specialist Name Role Phone Anshu Ames MD Primary Care Provider Reason for Visit * Reason Onset Date Comments Med Refill 01/16/2025 Encounter Details Date Type Department Care Team (Late st Contact Info) Description 01/16/2025 Refill [facility] - Primary [facility] [address] [facility] [address] [place], [place] [id number] Vanessa Dominguez RN Pain Social History Tobacco Use Types Packs/Day Years Used Date Smoking Tobacco: Never Smokeless Tobacco: Never PHQ-2 Answer Date Recorded PHQ-2 Score 0 04/29/2024 Comments Unknown Sex and Gender Information Value Date Recorded Sex Assigned at Not on file 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 Gender Identity Not on file Sexual Orientation Not on file documented as of this encounter Miscellaneous Notes * Telephone Encounter - Vanessa Dominguez RN - 01/16/2025 3:00 PM CDT [place] documented in this encounter Plan of Treatment Not on file documented as of this encounter Visit Diagnoses Diagnosis Pain Generalized pain documented in this encounter Additional Health Concerns Assessment Noted Time PHQ-9 Depression Total Score: 0 04/29/19 25 1:39 PM FARM FORE[employer]Y [employer] GARDEN WORKERS A fall risk assessment has been complete d for the patient 12/23/2024 9:37 AM CDT documented as of this encounter Care Teams Quality Systems Specialist Relationship Specialty Start Date End Date Anshu Ames MD [address] [place] [address] PCP - General Family Medicine 03/08/22 documented as of this encounter
--- OUTSIDE RECORDS SUMMARY | 2025-01-21 17:18 | XMS_ITS | Clinical Summary ---
Author Organization [facility] Address [address] [place]: Epic Prelude ADT [place] [address] Care Team Providers Care Recreation Activities Coordinator Name Role Phone Non-Staff, Physician Primary Care Provider Unava ilable Allergies Active Allergy Reactions Criticality Noted Date Comments Aspirin Nausea and Vomiting Medium Codeine Rash,Nausea and Vomiting,Unknown High Morphine Swelling High Sulfa (Sulfonamide Antibiotics) Rash High Sulfamethoxazole-Trim ethoprim Other (See Comments) 12/25/2018 Unknown, per facility Medications blood sugar diagnostic StripIndications:T ype 2 diabetes mellitus with hyperglycemia, with long-term current use of insulin Test blood sugar three time per day. DX:E11.43. 300 Each 3 04/17/19 Active fluticasone propionate (FLOVENT HFA) 110 mcg/actuation HFA Aerosol InhalerIndications :Mild intermittent asthma without complication,Panlo bular emphysema Take 2 Puffs by inhalation 2 times daily. 36 Gram 3 04/17/19 Active ARIPiprazole (ABILIFY) 2 mg tabletIndications: Depression with anxiety TAKE 1 TABLET(2 MG) BY MOUTH DAILY 90 Tablet 1 04/27/19 19 Active insulin lispro (HumaLOG KwikPen Insulin) 100 unit/mL pen syringeIndications :Type 2 diabetes mellitus with complication, with long-term current use of insulin INJECT 15 UNITS SUBCUTANEOUSLY THREE TIMES DAILY BEFORE MEALS IF GLUCOSE GREATER THAN 160 45 mL 2 06/19/19 19 Active insulin detemir U-100 (LEVEMIR) 100 unit/mL pen syringeIndications :Type 2 diabetes mellitus with complication, with long-term current use of insulin,Hyperglyce adriano Inject 20 Units by subcutaneous injection daily at bedtime. 36 mL 0 06/25/19 Active furosemide (LASIX) 40 mg tablet Take 1 Tablet (40 mg) by mouth daily. 30 Tablet 1 07/21/19 Active memantine (NAMENDA) 5 mg Tablet Take 5 mg by mouth 2 times daily. 12/18/19 Active potassium chloride (K-TAB) 20 mEq Extended Release tablet Take 2 Tablets (40 mEq) by mouth daily with breakfast. 30 Tablet 07/21/19 Active mirtazapine (REMERON) 15 mg tablet Take 15 mg by mouth late in the day. 12/18/19 Active HYDROcodone-acetam inophen (NORCO) 7.5-325 mg Tablet Take 1 Tablet by mouth every 4 hours as needed. 10/27/19 Active trospium (SANCTURA) 20 mg Tablet Take 20 mg by mouth 2 times daily. 12/18/19 Active omeprazole (PriLOSEC) 40 mg Capsule, Delayed Release(E.C.) Take 40 mg by mouth daily. 12/19/19 Active docusate sodium (COLACE) 100 mg capsule Take 200 mg by mouth 2 times daily. 12/26/19 Active sennosides-docusat e sodium (SENNA-S) 8.6-50 mg tablet Take 2 Tablets by mouth 2 times daily. 12/26/19 Active polyethylene glycol 3350 (MIRALAX) 17 gram/dose Powder Take 17 Grams by mouth daily. Dissolve in 8 ounces of fluid and drink entire liquid 12/26/19 Active levothyroxine 100 mcg tablet Take 100 mcg by mouth daily traffic administrator. 12/26/19 Active MAGNESIUM HYDROXIDE ORAL Take 30 mL by mouth 1 time daily as needed for Constipation. 1200 mg/15 mL 12/26/19 Active metFORMIN (GLUCOPHAGE) 500 mg tablet Take 1,000 mg by mouth 2 times daily with meals. 12/26/19 Active OTHER Take 1 Capsule by mouth 2 times daily. Lactobacillus Rhamnosus 12/26/19 Active Lactobacillus acidophilus (ACIDOPHILUS ORAL) Take 1 Tablet by mouth daily. 12/26/19 Active rOPINIRole (REQUIP) 0.5 mg tablet Take 1 mg by mouth daily at bedtime. 12/26/19 Active bisacodyL (DULCOLAX) 10 mg Suppository Insert 10 mg by rectum 1 time daily as needed for Constipation. 12/26/19 Active aluminum - magnesium - simethicone (MYLANTA) 200-200-20 mg/5 mL Suspension Take 10 mL by mouth every 4 hours as needed for Dyspepsia. 12/26/19 Active ondansetron HCl (ZOFRAN ORAL) Take 1 Tablet by mouth every 6 hours as needed. 12/26/19 Active Insulin [place], Disposable, 31 gauge x 06/23 NeedleIndications: Type 2 diabetes mellitus with hyperglycemia, with long-term current use of insulin Use 4 times per day Dx: E11.8. 300 Each 3 01/31/20 Active donepeziL (ARICEPT) 5 mg tabletIndications: Short-term memory loss TAKE 1 TABLET BY MOUTH DAILY 90 Tablet 3 02/10/20 Active lancets 33 gaugeIndications:T ype 2 diabetes mellitus with hyperglycemia, with long-term current use of insulin Test blood sugar 3 times per day. DX E11.43. 300 Each 3 04/17/19 Active lidocaine (LIDODERM) 5 % Adhesive Patch, MedicatedIndicatio ns:Primary osteoarthritis of right knee Apply 1 Patch to affected area every 24 hours. 90 Each 3 04/17/19 Active ondansetron (ZOFRAN ODT) 4 mg Tablet, Rapid Dissolve Place 1 Tablet (4 mg) under tongue every 4 hours as needed for Nausea. 30 Tablet 1 01/03/20 Active aspirin (TIANA CHEWABLE) 81 mg Tablet, Chewable Take 1 Tablet (81 mg) by mouth 2 times daily. 01/03/20 Active oxyCODONE-acetamin ophen (PERCOCET) 5-325 mg tabletIndications: Status post above knee amputation of right lower extremity Take 1-2 Tablets by mouth every 4 hours as needed for Pain. Max Daily Amount: 12 Tablets 42 Tablet 0 01/03/20 Active amLODIPine (NORVASC) 2.5 mg tablet Take 2.5 mg by mouth daily. 02/16/20 Active insulin glargine (LANTUS) 100 unit/mL injection Inject 35 Units by subcutaneous injection 2 times daily. Every morning and at bedtime. 02/16/20 Active Miscellaneous Medical SupplyIndications: Infection of total knee replacement, subsequent encounter Inspector And Mender Socks 1 Each 0 01/15/20 19 Active Miscellaneous Medical SupplyIndications: Infection of total knee replacement, subsequent encounter Temporary above the knee Prosthesis 1 Each 0 01/15/20 19 Active loperamide (IMODIUM) 2 mg Tablet Take 2 mg by mouth. 1 tab oral as needed for diarrhea then 1 tab after each loose stool not to exceed 6 tabs in 24 hours 02/16/20 19 Active acetaminophen (TYLENOL) 325 mg tablet Take 650 mg by mouth every 6 hours as needed for Pain. 02/16/20 19 Active Blood-Glucose Meter KitIndications:Typ e 2 diabetes mellitus with complication, with long-term current use of insulin,Hyperglyce adriano Test blood sugar 3 times per day DX: E11.43. 1 Kit 0 01/20/20 17 Active albuterol (PROVENTIL,VENTOLI N) 2.5 mg /3 mL (0.083 %) Solution for Nebulization Take 3 mL (2.5 mg) by inhalation every 6 hours as needed for Shortness of Breath. 180 mL 3 03/18/20 15 Active DULoxetine (CYMBALTA) 20 mg Capsule, Delayed Release(E.C.) Take 20 mg by mouth see administration instructions. Give 1 capsule by mouth in the morning every other day. Active digoxin (LANOXIN) 125 mcg (0.125 mg) tablet Take 125 mcg by mouth daily in the morning. Active ferrous sulfate 325 mg (65 mg iron) tablet Take 325 mg by mouth see administration instructions. Give 1 tablet by mouth in the morning every other day. Active gabapentin (NEURONTIN) 400 mg capsule Take 400 mg by mouth daily at bedtime. Active HYDROcodone-acetam inophen (NORCO) 5-325 mg tablet Take 1 Tablet by mouth every 6 hours as needed for Pain, Moderate. Active losartan (COZAAR) 25 mg tablet Take 25 mg by mouth daily. Active menthol (MINERAL ICE TOPICAL) Apply 2 % to affected area every 4 hours as needed for Pain. Active naloxone HCl (NARCAN INJECTION) Inject 2 mg by intramuscular injection 1 time daily as needed for Other (See Comment). Opioid overdose. Active nitroglycerin (NITROSTAT) 0.4 mg Tablet, Sublingual Place 0.4 mg under tongue every 5 minutes as needed for Chest Pain. Active insulin aspart (NovoLOG) 100 unit/mL injection Inject by subcutaneous injection see administration instructions. Inject per sliding scale subCUT before meals. 0-199= 0 200-249= 2 units 250-299= 3 units 300-349= 4 units 350-399= 5 units 400-900= 6 units Active triamcinolone acetonide (KENALOG) 0.1 % Ointment Apply to affected area 2 times daily. Active Active Problems Problem Noted Date Diagnosed Date S/P AKA (above knee amputation) unilateral, righ t 01/05/2019 GERD (gastroesophageal reflux disease) 9 Constipation 12/25/2018 Preoperative general physical examination 2018 MRSA (methicillin resistant staph aureus) cultur e positive 12/25/2018 Anemia 12/25/2018 Infection of total knee replacement 12/24/2018 Hyperbilirubinemia 06/23/2018 Short-term memory loss 02/16/2017 Mixed hyperlipidemia 12/05/2016 Peripheral edema 12/05/2016 Depression with anxiety 11/10/2016 Bunion of great toe of right foot 07/04/2014 Obstructive sleep apnea 01/28/2013 Overactive bladder 09/10/2012 Restless legs 07/16/2012 Varicose vein of leg 01/09/2012 Essential hypertension 05/30/2011 Hiatal hernia 11/09/2010 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 Degenerative arthritis of right knee 09/14/2009 Type 2 diabetes mellitus wit h neurologic complication, with long-term current use of insulin Pulmonary emphysema Asthma Lumbago Hypothyroidism Alcoholic hepatitis without ascites Resolved Problems Problem Noted Date Diagnosed Date Resolved Date Bacteremia due to group B Streptococcus 07/18/2018 07/19/2018 Acute on chronic combined sy stolic and diastolic congestive heart failure 07/09/201807/19 Severe sepsis with septic shock 07/07/2018 07/18/2018 Hyponatremia 07/07/2018 07/19/2018 Bilateral leg edema 07/07/2018 07/20/19 19 Hypokalemia 07/07/2018 07/19/2018 Abscess and cellulitis-back of head 10/04/2013 12/15/2013 [...] Date Smoking Tobacco: Former Cigarettes Q uit: 04/10/2012 Smokeless Tobacco: Never Alcohol Use Standard Drinks/Week Comments No 0 (1 standard drink = 0.6 oz pur e alcohol) Feeling Safe Answer Date Recorded Are you in a relationship wi th someone who hurts you emotionally and/or physically? No 05/05/2023 Comments No Sex and Gender Information Value Date Recorded Sex Assigned at Not on file Legal Sex Female 10:52 AM MEAT PROCESSING CENTER MANAGER Gender Identity Not on file Sexual Orientation Not on file Last Filed Vital Signs Vital Sign Reading Time Taken Comments Blood Pressure 143/92 05/06/2023 12:00 AM MEAT PROCESSING CENTER MANAGER Pulse 94 05/06/2023 12:00 AM MEAT PROCESSING CENTER MANAGER Temperature 36.3 C (97.3 F) 05/05/2023 9:01 PM MEAT PROCESSING CENTER MANAGER Respiratory Rate 16 05/06/2023 12:00 AM MEAT PROCESSING CENTER MANAGER Oxygen Saturation 100% 05/06/2023 12:00 AM MEAT PROCESSING CENTER MANAGER Inhaled Oxygen Concentration - - Weight 68.1 kg (150 lb 3.2 oz) 05/05/2023 9:01 P M MEAT PROCESSING CENTER MANAGER Height 147.3 cm (4' 10 ) 05/05/2023 9:01 PM MEAT PROCESSING CENTER MANAGER Body Mass Index 31.39 05/05/2023 9:01 PM MEAT PROCESSING CENTER MANAGER Plan of Treatment Health Maintenance Due Date Last Done Comments ZOSTER VACCINE (1 of 2) 01/16/1998 DIABETES MICROALBUMIN ANNUAL SCREEN 01/19/2018 01/19/2017, 12/09/2015, 08/20/2014 DIABETES ANNUAL FOOT EXAM 05/12/2018 05/12/2017, DIABETES ANNUAL RETINAL EXAM 05/19/2018 05/19/2017, 05/19/2017 LDL CHOLESTEROL ANNUAL 10/26/2018 8, 07/19/2017, 12/09/2015, Additional history exists DIABETES HBA1C Q 6 MONTHS 03/10/20212020, 07/07/2020, 05/23/2019, Additional history exists OSTEOPOROSIS SCREENING 08/01/2022 08/01/2017, 2017 RSV VACCINE (60+ or ) (1 - 1-dose 75+ series) 01/16/2023 INFLUENZA VACCINE (#1) 2024 9, 04/17/2018, 04/17/2018, Additional history exists DTAP/TDAP/TD VACCINES (4 - T d or Tdap) 01/16/2028 01/15/2018, 06/08/2014, 09/14/2010, Additional history exists COLORECTAL SCREENING Discontinued 07/21/2015, 10/16/19 09 Colorectal Cancer Screening Discontinued PNEUMOCOCCAL VACCINE 50+ YEARS Completed 1 , 02/15/2016, 03/18/2005 FIT-DNA Q 3 years Discontinued FIT/FOBT Q 1 year Discontinued Flex Sig/CT Colonography Q 5 years Discontinued Medical Devices Implanted Type Area Receiving Supervisor Device Identifier Shelf Expiration Date Model / Serial / Lot Log [id number] - Cement - 1 - Cement Palacos [facility] [id number] Implanted:Qty: 1 on 11/11/2008 Cement Left: Knee [employer] 05/11/2013 [id number] / NA / [id number] Cement Palacos [facility] [id number] Implanted:Qty: 1 on 09/15/2009 Cement Right: Knee [employer] 09/08/[id number] 1 / / [id number] Log [id number] - Julee Total Knee - 1 - Art Surface Nk Gs [id number] Implanted:Qty: 1 on 11/11/2008 Knee Left: Knee [employer] 05/11/2012 [id number] / NA / [id number] Log [id number] - Julee Total Knee - 1 - Comp Fem Nkii Gsf [id number] Implanted:Qty: 1 on 11/11/2008 Knee Left: Knee [employer] 10/08/2017 [id number] / NA / [id number] Log 74008 - Julee Total Knee - 1 - Comp Tib Nkii Floor Attendant Stmd [id number] Implanted:Qty: 1 on 11/11/2008 Knee Left: Knee [employer] [id number] / NA / [id number] Log 91954 - Julee Total Knee - 1 - Patella Nk Gs Poly 8mm [id number] Implanted:Qty: 1 on 11/11/2008 Knee Left: Knee [employer] 09/08/2012 [id number] / NA / [id number] Log 90581 - Depuy Total Knee - 1 - Comp Fem Sigma Cr Npor Sz2.5 Rt 96-0018 Implanted:Qty: 1 on 09/15/2009 Knee Right: Knee J[employer]J- [employer] 07/09/2014 96-0018 / / [id number] Patella Implanted:Qty: 1 on 09/15/2009 Knee Right: Knee [employer] 07/09/2014 96-0018 / / [id number] Description:3-Post Round Dom e [id number] MM Tibial Tray Implanted:Qty: 1 on 09/15/2009 Knee Right: Knee [employer] 07/10/2019 [id number] / / [id number] Description:aNpoleon DUONGTIBI AL TRAY FIXED BEARINGMODULAR COCR 2 Mesh Ventralex Patch Med [id number] - [id number] Implanted:Qty: 1 on 09/10/2012 Mesh N/A: Abdomen CR BARD- [employer] 06/10/2016 [id number] / / [id number] Cross-Linked Curved Insert Implanted:Qty: 1 on 09/15/2009 Right: Knee [employer] 02/08/2014 [id number] / / [id number] Description:HeatherTeaIggy JARRELLOS S-LINKED CURVED INSERT Procedures Procedure Name Priority Date/Time Associated Diagnosis Comments HEMOGLOBIN A1C Routine 12/25/2018 8:21 AM CDT LIPID PANEL Routine 10/26/2017 12:21 PM CDT XR DEXA BONE DENSITY AXIAL 1 OR MORE SITES Routine 08/01/2017 1:30 PM CDT Encounter for screening for osteoporosis HM DIABETES EYE EXAM 05/19/2017 12:00 AM MEAT PROCESSING CENTER MANAGER MICROALBUMIN/CREATI NINE RATIO, RANDOM UR Routine 01/19/2017 9:43 AM CDT from Last 3 Months or Most Recently Relevant to Health Maintenance Results * (ABNORMAL) HEMOGLOBIN A1C (12/25/2018 8:21 AM CDT) HEMOGLOBIN A1C 7.4(H) <=5.6 % 12/25/2018 9:10 AM CDT [facility] EST. AVG GLUCOSE, A1C 166 mg/dL 12/25/2018 9:10 AM CDT [facility] Blood Venipuncture / Unknown 12/25/2018 8:21 AM CDT 12/25/2018 8:40 AM CDT Narrative [facility] - 12/25/2018 9:10 AM CDT HGB A1C INTERPRETATION NORMAL: <5.7% PRE-DIABETES: 5.7 - 6.4% DIABETES: 6.5% OR GREATER us David Levy MD CHEMISTRY ORDERABLES Final Resu lt [facility] CLIA #[id number] [address] [address] [facility] CLIA #[id number] [address] [place] [address] * (ABNORMAL) LIPID PANEL (10/26/2017 12:21 PM CDT) CHOLESTEROL 169 <200 mg/dL 10/26/2017 9:39 PM CDT [facility] TRIGLYCERIDE 61 <150 mg/dL 10/26/2017 9:39 PM CDT [facility] HDL 63(H) 40 - 59 mg/dL 10/26/2017 9:39 PM CDT [facility] LDL CALCULATED 94 <100 mg/dL 10/26/2017 9:39 PM CDT [facility] NON-HDL CHOLESTEROL 106 <130 mg/dL 10/26/2017 9:39 PM CDT [facility] Blood Collection / Unknown 10/26/2017 12:21 PM CDT 10/26/2017 8:19 PM CDT Narrative [facility] - 10/26/2017 9:39 PM CDT TOTAL CHOLESTEROL mg/dL Desirable<200 Borderline [id number] High>=240 TRIGLYCERIDES mg/dL Normal<150 Borderline [id number] [id number] Very high>=500 HDL CHOLESTEROL mg/dL Low<40 Tccryz87-69 Desirable>=60 NON HDL CHOLESTEROL mg/dL Optimal<130 Near Tfyzuki480-241 Borderline [id number] Very High>=190 Calculated LDL mg/dL Optimal<100 Near Ovqjeaj953-991 Borderline Uvef410-449 Fzkr514-571 Very High>=190 ATPIII Guidelines Reference Ranges for Lipid Panels (NCEP/AMA) us Gwendolyn Pitts BEAMING INSPECTOR CHEMISTRY ORDERABLES Fi nal Result [facility] CLIA# [id number] [address] [place] [address] * XR DEXA BONE DENSITY AXIAL 1 OR MORE SITES (08/01/2017 1:30 PM CDT) Anatomical Region Laterality Modality Other Impressions 08/01/2017 11:47 PM CDT 1. Current findings consistent with mild osteopenia; [...] clinical management available online at [email or web address] Enter [employer] for Select DXA and the Femoral Neck BMD value. [id number] Narrative 08/01/2017 11:47 PM CDT DEXA Evaluation [...] 2.1 Procedure Note Luke Valladares MD - 06/04/2021 DEXA Evaluation of the Lumbar Spine and [...] 1.016 Adult T-score: 0.6 Adult Z-score: 2.1 IMPRESSION 1. Current findings consistent with mild osteopenia; [...] clinical management available online at [email or web address] Enter [employer] for Select DXA and the Femoral Neck BMD value. [id number] Gwendolyn Kirsty Hong BEAMING INSPECTOR DIAGNOSTIC IMAGING ORDCesar PEREZ Final Result * DIABETES EYE EXAM (05/19/2017 12:00 AM MEAT PROCESSING CENTER MANAGER) Sg Scanning HEALTH MAINTENANCE Final Result * MICROALBUMIN/CREATININE RATIO, RANDOM UR (01/19/2017 9:43 AM CDT) MICROALBUMIN, URINE <1.2 No Reference Range mg/dL 01/19/2017 9:27 PM T [facility] CREATININE, URINE 85.1 29.0 - 226.0 mg/dL 01/19/2017 9:27 PM T [facility] Comment: Reference Range varies with fluid intake and diet. MICROALBUMIN/C REAT RATIO, UR <14.1 <25.0 mg/g Creatinine 01/19/2017 9:27 PM T [facility] Urine URINE SPECIMEN OBTAINED BY CLEAN CATCH PROCEDURE / Unknown Collection / Unknown 01/19/2017 9:43 AM CDT 01/19/2017 8:39 PM CDT Danny [facility] - 01/19/2017 9:27 PM CDT Condition Microalbumin/Creat ratio Normal Males <17 Normal Females <25 Microalbuminuria Males 17-299 Microalbuminuria Females 25-299 Overt proteinuria >=300 us Mary Kate Abbasi HOT PLATE [employer] PRESS FEEDER URINE ORDERABLES Final Result [facility] [place]# [id number] [address] [place] [address] from Last 3 Months or Most Recently Relevant to Health Maintenance Additional Health Concerns Infection Onset Date Last Indicated ALLIED HEALTH INSTRUCTOR-CP Comment:Sputum 07/09/18 (Serratia) 07/09/2018 12/25/[address] [place] [address] MEDICAID [place] MEDICARE PART A AND B Advance Directives For more information, please contact: [phone] Documents on File Type Date Recorded Patient Stock Driver Expl anation Advance Directive POA 07/09/2018 5:19 AM Ad martines Directive POA Care Teams Recreation Activities Coordinator Relationship Specialty Start Date End Date Non-Staff, Physician NO ADDRESS ON FILE PCP - General 01/10/20
--- OUTSIDE RECORDS SUMMARY | 2025-01-21 17:18 | XMS_ITS | Encounter Summary ---
Author Organization [facility] Address [address] [place] [address] Care Team Providers Care Charity Fundraiser Name Role Phone Non-Staff, Physician Primary Care Provider Unava ilable Encounter Details Date Type Department Care Team (Latest Contact Info) Description 07/04/2003 Outpatient Historical [facility] General Surgery [address] [address] [address] [place] [address] [place] [address] [facility] [address] [place] [address] SURGERY FOLLOWUP, UNSPEC (Primary Dx) Social History Tobacco Use Types Packs/Day Years Used Date Smoking Tobacco: Never Assessed Comments Unknown Sex and Gender Information Value Date Recorded Sex Assigned at Not on file Legal Sex Female 2:45 AM CREDIT BALANCE SPECIALIST Gender Identity Not on file Sexual Orientation Not on file documented as of this encounter Plan of Treatment Not on file documented as of this encounter Visit Diagnoses Diagnosis Follow-up examination, following unspecified surgery- Primary documented in this encounter Additional Health Concerns Infection Onset Date Last Indicated Resolved Time CRE-CP Comment:Sputum 07/09/18 (Serratia) 07/09/2018 07/09/2018 MRSA 10/12/2018 12/25/2018 12/26/2019 8:08 PM CDT documented as of this encounter Care Teams Charity Fundraiser Relationship Specialty Start Date End Date Non-Staff, Physician NO ADDRESS ON FILE PCP - General 01/10/20 documented as of this encounter
--- OUTSIDE RECORDS SUMMARY | 2025-01-21 17:18 | XMS_ITS | Encounter Summary ---
Author Organization [facility] Address [address] [facility] [place] [address] Care Team Providers Care Dial Polisher Name Role Phone Non-Staff, Physician Primary Care Provider Unava ilable Encounter Details Date Type Department Care Team (Latest Contact Info) Description 02/18/2004 Outpatient Historical [facility] Family Medicine- [address] [place] [phone] Edmond Machado DO NO ADDRESS ON FILE ABDOMINAL PAIN UNSPEC SITE (Primary Dx); FEMALE GENITAL SYMPTOMS NOS; LUMBAGO; DIABETES MELLITUS TYPE II-UNCOMPL (CMS/HCC) Social History Tobacco Use Types Packs/Day Years Used Date Smoking Tobacco: Never Assessed Comments Unknown Sex and Gender Information Value Date Recorded Sex Assigned at Not on file Legal Sex Female 2:45 AM DIRECTOR ACUTE Gender Identity Not on file Sexual Orientation Not on file documented as of this encounter Plan of Treatment Not on file documented as of this encounter Visit Diagnoses Diagnosis Abdominal pain, unspecified site- Primary Unspecified symptom associated with female genital organs Lumbago Type II or unspecified type diabetes mellitus without mention of complication, not stated as uncontrolled documented in this encounter Additional Health Concerns Infection Onset Date Last Indicated Resolved Time CRE-CP Comment:Sputum 07/09/18 (Serratia) 07/09/2018 07/09/2018 MRSA 10/12/2018 12/25/2018 12/26/2019 8:08 PM CDT documented as of this encounter Care Teams Dial Polisher Relationship Specialty Start Date End Date Non-Staff, Physician NO ADDRESS ON FILE PCP - General 01/10/20 documented as of this encounter
--- OUTSIDE RECORDS SUMMARY | 2025-01-21 17:18 | XMS_ITS | Encounter Summary ---
Author Organization [facility] Address [address] [facility] [place] [address] Care Team Providers Care General Cleaner Name Role Phone Non-Staff, Physician Primary Care Provider Unava ilable Encounter Details Date Type Department Care Team (Latest Contact Info) Description 02/25/2004 Outpatient Historical [facility] Family Medicine- [address] [place] [phone] Abel Fields NP NO ADDRESS ON FILE ABDOMINAL PAIN RLQ (Primary Dx); VAGINITIS NOS; ROUTINE AVIATION PROGRAM MANAGER EXAMINATION Social History Tobacco Use Types Packs/Day Years Used Date Smoking Tobacco: Never Assessed Comments Unknown Sex and Gender Information Value Date Recorded Sex Assigned at Not on file Legal Sex Female 2:45 AM SOIL CONSERVATION AIDE Gender Identity Not on file Sexual Orientation Not on file documented as of this encounter Plan of Treatment Not on file documented as of this encounter Visit Diagnoses Diagnosis Abdominal pain, right lower quadrant- Primary Vaginitis and vulvovaginitis, unspecified Routine gynecological examination documented in this encounter Additional Health Concerns Infection Onset Date Last Indicated Resolved Time CRE-CP Comment:Sputum 07/09/18 (Serratia) 07/09/2018 07/09/2018 MRSA 10/12/2018 12/25/2018 12/26/2019 8:08 PM CDT documented as of this encounter Care Teams General Cleaner Relationship Specialty Start Date End Date Non-Staff, Physician NO ADDRESS ON FILE PCP - General 01/10/20 documented as of this encounter
--- OUTSIDE RECORDS SUMMARY | 2025-01-21 17:18 | XMS_ITS | Encounter Summary ---
Author Organization [facility] Address [address] [place] [address] Care Team Providers Care Button Maker Name Role Phone Non-Staff, Physician Primary Care Provider Unava ilable Encounter Details Date Type Department Care Team (Late st Contact Info) Description 11/19/2013 Ancillary Orders [facility] Admitting [address] [place] [address] Rodolfo Zendejas MD NO ADDRESS ON FILE Pain in limb (Primary Dx); Pain in joint, shoulder region Social History Tobacco Use Types Packs/Day Years Used Date Smoking Tobacco: Former Cigarettes 2.5 9 0 04/10/2003 - 04/10/2012 Smokeless Tobacco: Never Alcohol Use Standard Drinks/Week Comments No 0 (1 standard drink = 0.6 oz pur e alcohol) Comments No Sex and Gender Information Value Date Recorded Sex Assigned at Not on file Legal Sex Female 2:45 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 No soft tissue foreign body or calcification is seen. IMPRESSION normal right humerus views Procedure Note Stevie Xavier MD - 11/20/2013 PROCEDURE XR RIGHT HUMERUS, three views 19 November 2013 DESCRIPTION AP and lateral views of the right humerus show no acute fracture or deformity. No soft tissue foreign body or calcification is seen. IMPRESSION normal right humerus views us Rodolfo Zendejas MD DIAGNOSTIC IMAGING ORDERABL ES Final Result * XR SHOULDER 2+ VW RIGHT (11/19/2013 5:34 PM CDT) Anatomical Region Laterality Modality Upper Extremity Computed Radiogr aphy 11/19/2013 5:34 PM CDT Narrative 11/20/2013 9:20 AM CDT PROCEDURE XR RIGHT SHOULDER, three views 19 November 2013 DESCRIPTION AP, Grashey, and tangential scapular lateral view of the right shoulder show no acute fracture, dislocation, or deformity. No chromic lytic or separation is seen on nonweightbearing imaging. IMPRESSION no acute changes seen Procedure Note Stevie Xavier MD - 11/20/2013 PROCEDURE XR RIGHT SHOULDER, three views 19 November 2013 DESCRIPTION AP, Grashey, and tangential scapular lateral view of the right shoulder show no acute fracture, dislocation, or deformity. No chromic lytic or separation is seen on nonweightbearing imaging. IMPRESSION no acute changes seen us Rodolfo Zendejas MD DIAGNOSTIC IMAGING ORDERABL ES Final Result documented in this encounter Visit Diagnoses Diagnosis Pain in limb- Primary Pain in joint, shoulder region Pain in joint, shoulder region Pain in limb documented in this encounter Additional Health Concerns Infection Onset Date Last Indicated Resolved Time CRE-CP Comment:Sputum 07/09/18 (Serratia) 07/09/2018 07/09/2018 MRSA 10/12/2018 12/25/2018 12/26/2019 8:08 PM CDT documented as of this encounter Care Teams Button Maker Relationship Specialty Start Date End Date Non-Staff, Physician NO ADDRESS ON FILE PCP - General 01/10/20 documented as of this encounter
--- OUTSIDE RECORDS SUMMARY | 2025-01-21 17:18 | XMS_ITS | Encounter Summary ---
Author Organization [facility] Address [address] [place] [address] Care Team Providers Care Home Care Music Therapist Name Role Phone Non-Staff, Physician Primary Care Provider Unava ilable Encounter Details Date Type Department Care Team (Latest Contact Info) Description 09/09/2004 Outpatient Historical [facility] [place] [address] [facility] [address] [place] [address] Nell Verde MD NO ADDRESS ON FILE HYPERTENSION NOS (Primary Dx); DIABETES MELLITUS TYPE II-UNCOMPL (CMS/HCC); HYPOTHYROIDISM NOS; MYOCLONUS Social History Tobacco Use Types Packs/Day Years Used Date Smoking Tobacco: Never Assessed Comments Unknown Sex and Gender Information Value Date Recorded Sex Assigned at Not on file Legal Sex Female 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 Gender Identity Not on file Sexual Orientation Not on file documented as of this encounter Plan of Treatment Not on file documented as of this encounter Visit Diagnoses Diagnosis Unspecified essential hypertension- Primary Type II or unspecified type diabetes mellitus without mention of complication, not stated as uncontrolled Unspecified hypothyroidism Myoclonus documented in this encounter Additional Health Concerns Infection Onset Date Last Indicated Resolved Time CRE-CP Comment:Sputum 07/09/18 (Serratia) 07/09/2018 07/09/2018 MRSA 10/12/2018 12/25/2018 12/26/2019 8:08 PM CDT documented as of this encounter Care Teams Home Care Music Therapist Relationship Specialty Start Date End Date Non-Staff, Physician NO ADDRESS ON FILE PCP - General 01/10/20 documented as of this encounter
--- OUTSIDE RECORDS SUMMARY | 2025-01-21 17:18 | XMS_ITS | Encounter Summary ---
Author Organization [facility] Address [address] [place] [facility] [place] [address] Care Team Providers Care Pie Filling Mixer Name Role Phone Non-Staff, Physician Primary Care Provider Unava ilable Encounter Details Date Type Department Care Team (Latest Contact Info) Description 08/25/[address] 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 Gender Identity Not on file Sexual Orientation Not on file documented as of this encounter Plan of Treatment Not on file documented as of this encounter Visit Diagnoses Diagnosis Herpes zoster without mention of complication- Primary Otalgia, unspecified Acute pharyngitis Pain in joint, lower leg documented in this encounter Additional Health Concerns Infection Onset Date Last Indicated Resolved Time CRE-CP Comment:Sputum 07/09/18 (Serratia) 07/09/2018 07/09/2018 MRSA 10/12/2018 12/25/2018 12/26/2019 8:08 PM CDT documented as of this encounter Care Teams Pie Filling Mixer Relationship Specialty Start Date End Date Non-Staff, Physician NO ADDRESS ON FILE PCP - General 01/10/20 documented as of this encounter
--- OUTSIDE RECORDS SUMMARY | 2025-01-21 17:18 | XMS_ITS | Clinical Summary ---
Author Organization [facility] Address [address] [place] [address] Care Team Providers Care Merchandise Support Associate Name Role Phone Anshu Ames MD Primary Care Provider Allergies Active Allergy Reactions Criticality Noted Date Comments Aspirin Unknown 03/21/2022 Sulfamethoxazole-Trimethoprim Unknown 2021 Codeine Unknown 03/21/2022 Morphine Unknown 03/21/2022 Sulfa (Sulfonamide Antibiotics) Unknown 03/10 Medications HYDROcodone-maribel taminophen (NORCO) 5-325 mg per tabletIndicatio ns:Pain Take 1 tablet by mouth every 6 (six) hours. Max Daily Amount: 4 tablets 120 tablet 5 Active HYDROcodone-maribel taminophen (NORCO) 5-325 mg per tabletIndicatio ns:Pain Take 1 tablet by mouth every 6 (six) hours. Max Daily Amount: 4 tablets 120 tablet 5 01/17/20 25 Discontinu ed(Reorder ) Active Problems Problem Noted Date Diagnosed Date Globus sensation 08/07/2023 Thrombocytopenia 06/07/2023 Moderate dementia with mood disturbance 03/25/20 22 ASHD (arteriosclerotic heart disease) 03/25/2022 Status post left knee replacement 03/25/2022 Tachycardia 03/25/2022 Anemia 03/25/2022 Restless leg syndrome 03/25/2022 Other emphysema 03/25/2022 Hx of AKA (above knee amputation), right 022 Overactive bladder 03/25/2022 Major depression 03/25/2022 Chronic post-traumatic stress disorder (PTSD) Essential hypertension 03/25/2022 Chronic constipation 03/25/2022 Hypothyroidism 03/25/2022 Type 2 diabetes mellitus wit h diabetic neuropathy, with long-term current use of insulin 03/25/2022 Obstructive sleep apnea 03/25/2022 Hypokalemia 03/25/2022 Chronic diastolic CHF (congestive heart failure) 03/25/2022 Mixed hyperlipidemia 12/05/2016 Hiatal hernia with GERD 11/09/2010 Resolved Problems Problem Noted Date Diagnosed Date Resolved Date Pressure injury of left heel, unstageable 05/24/2024 06/24/2024 Alcoholic hepatitis without ascites 02/02/2024 02/02/2024 Infection of total knee replacement 12/24/2018 02/02/2024 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 02/02/2024 Encounters Date Type Department Care Team Description 01/16/2025 Refill [facility] [address] [place] [address] Vanessa Dominguez RN Pain 12/10/2024 Refill [facility] - [facility] [address] [place] [address] Alirio Teran LPN Pain 11/14/2024 Refill [facility] - [facility] [address] [place] [address] Vanessa Dominguez, DANA Pain from Last 3 Months Immunizations Immunization Administration Dates Next Due Td (adult) (TDVAX) 05/03/2000 Tdap (BOOSTRIX, ADACEL) 01/15/2018,06/08/2014, influenza, high-dose, trival ent (FLUZONE HIGH-DOSE) 01/25/2019,04/17/2018,02/02/2017,02/14,01/15/2015 influenza, injectable, triva lent (AFLURIA/FLUZONE MDV) 05/10/2010,02/18/2009,01/30/2007,03/24 pneumococcal conjugate PCV 1 3 (PREVNAR 13) 02/15/2016 pneumococcal polysaccharide PPV 23 (PNEUMOVAX 23) 02/02/2017,03/18/2005 Social History Tobacco Use Types Packs/Day Years Used Date Smoking Tobacco: Never Smokeless Tobacco: Never Tobacco Cessation:Counseling Given: Not Answered PHQ-2 Answer Date Recorded PHQ-2 Score 0 04/29/2024 Comments Unknown Sex and Gender Information Value Date Recorded Sex Assigned at Not on file Legal Sex Female 9:13 PM WINERY WORKER Gender Identity Not on file Sexual Orientation Not on file Last Filed Vital Signs Vital Sign Reading Time Taken Comments Blood Pressure 152/80 01/20/2025 11:12 AM CDT Pulse 83 01/20/2025 11:12 AM CDT Temperature 36.5 C (97.7 F) 01/20/2025 11:12 AM CDT Respiratory Rate 18 01/20/2025 11:12 AM CDT Oxygen Saturation 96% 01/20/2025 11:12 AM CDT Inhaled Oxygen Concentration - - Weight 78.5 kg (173 lb) 01/20/2025 11:12 AM CDT Height 144.8 cm (4' 9 ) 01/20/2025 11:12 AM CDT Body Mass Index 37.44 01/20/2025 11:12 AM CDT Plan of Treatment Health Maintenance Due Date Last Done Comments Foot Exam 1950 Ophthalmology Exam 01/16/1958 Urine Microalbumin 01/16/1958 Shingrix (ZOSTER RECOMBINANT) (1 of 2) 01/16/1998 Mammogram 08/29/2018 08/29/2017, 08/01/2017 Colonoscopy 10/15/2018 10/15/2008 Hemoglobin A1C 03/28/2019 12/25/2018 Bone Density Scan (DXA Scan) 08/01/2020 08/01/2017, 08/01/2017 RSV 60+ (1 - 1-dose 75+ series) 01/16/2023 COVID-19 Vaccine ( season) 2025 07/04/2024, 05/05/2023, 04/28/2020 Medicare Annual Wellness 09/13/2025 025, 09/13/2024, 06/30/2023 Td, Tdap Vaccines Adult 01/16/2028 01/16/20 18, 06/08/2014, 09/14/2010, Additional history exists Pneumococcal Vaccine: 50+ Years Completed 02/02/2017, 02/15/2016, 03/18/2005 Influenza Vaccination Completed 01/08/2025 , 01/31/2024, 02/27/2023, Additional history exists HIB Vaccines Aged Out No longer eligi ble based on patient's age to complete this topic HPV Vaccines Aged Out No longer eligi ble based on patient's age to complete this topic Hepatitis A Vaccines Aged Out No long er eligible based on patient's age to complete this topic Hepatitis B Vaccines Aged Out No long er eligible based on patient's age to complete this topic IPV Vaccines Aged Out No longer eligi ble based on patient's age to complete this topic Meningococcal Vaccines Aged Out No lo nger eligible based on patient's age to complete this topic RSV Mab Nirsevimab (Beyfortus) <20 months Aged Out No longer eligibl e based on patient's age to complete this topic Rotavirus Vaccines Aged Out No longer eligible based on patient's age to complete this topic Insurance [place]ICARE [place] [facility] Care Teams Merchandise Support Associate Relationship Specialty Start Date End Date Anshu Ames MD [facility] [address] PCP - General Family Medicine 03/08/22
--- OUTSIDE RECORDS SUMMARY | 2025-01-21 17:18 | XMS_ITS | Encounter Summary ---
Author Organization [facility] Address [address] [facility] [place] [address] Care Team Providers Care Major Account Representative Name Role Phone Non-Staff, Physician Primary Care Provider Unava ilable Encounter Details Date Type Department Care Team (Latest Contact Info) Description 02/11/2004 Outpatient Historical [facility] Family Medicine- [address] [place] [phone] Abel Fields NP NO ADDRESS ON FILE Lichenification (Primary Dx); CALCULUS OF KIDNEY; LUMBAGO Social History Tobacco Use Types Packs/Day Years Used Date Smoking Tobacco: Never Assessed Comments Unknown Sex and Gender Information Value Date Recorded Sex Assigned at Not on file Legal 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 Female 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 Gender Identity Not on file Sexual Orientation Not on file documented as of this encounter Plan of Treatment Not on file documented as of this encounter Visit Diagnoses Diagnosis Lichenification- Primary Lichenification and lichen simplex chronicus Calculus of kidney Lumbago documented in this encounter Additional Health Concerns Infection Onset Date Last Indicated Resolved Time CRE-CP Comment:Sputum 07/09/18 (Serratia) 07/09/2018 07/09/2018 MRSA 10/12/2018 12/25/2018 12/26/2019 8:08 PM CDT documented as of this encounter Care Teams Major Account Representative Relationship Specialty Start Date End Date Non-Staff, Physician NO ADDRESS ON FILE PCP - General 01/10/20 documented as of this encounter
--- OUTSIDE RECORDS SUMMARY | 2025-01-21 17:18 | XMS_ITS | Encounter Summary ---
Author Organization [facility] Address [address] [place] [facility] [place] [address] Care Team Providers Care Roll Wrapper Name Role Phone Non-Staff, Physician Primary Care Provider Unava ilable Encounter Details Date Type Department Care Team (Latest Contact Info) Description 08/22/2003 Outpatient Historical [facility] Family Medicine- [address] [place] [phone] Nell Verde MD NO ADDRESS ON FILE HYPERTENSION NOS (Primary Dx) Social History Tobacco Use Types Packs/Day Years Used Date Smoking Tobacco: Never Assessed Comments Unknown Sex and Gender Information Value Date Recorded Sex Assigned at Not on file Legal Sex Female 2:45 AM RADIO REPORTER Gender Identity Not on file Sexual Orientation Not on file documented as of this encounter Plan of Treatment Not on file documented as of this encounter Visit Diagnoses Diagnosis Unspecified essential hypertension- Primary documented in this encounter Additional Health Concerns Infection Onset Date Last Indicated Resolved Time CRE-CP Comment:Sputum 07/09/18 (Serratia) 07/09/2018 07/09/2018 MRSA 10/12/2018 12/25/2018 12/26/2019 8:08 PM CDT documented as of this encounter Care Teams Roll Wrapper Relationship Specialty Start Date End Date Non-Staff, Physician NO ADDRESS ON FILE PCP - General 01/10/20 documented as of this encounter
--- OUTSIDE RECORDS SUMMARY | 2025-01-21 17:18 | XMS_ITS | Encounter Summary ---
Author Organization [facility] Address [address] [place] [address] Care Team Providers Care Staff Air Tactical Officer Name Role Phone Non-Staff, Physician Primary Care Provider Unava ilable Encounter Details Date Type Department Care Team (Latest Contact Info) Description 06/20/2003 Outpatient Historical [facility] General Surgery [address] [address] [address] [place] [address] [place] [address] [facility] [address] [place] [address] ABDOMINAL PAIN OTHER SPEC SITE (Primary Dx) Social History Tobacco Use Types Packs/Day Years Used Date Smoking Tobacco: Never Assessed Comments Unknown Sex and Gender Information Value Date Recorded Sex Assigned at Not on file Legal Sex Female 2:45 AM PRINT CUTTER Gender Identity Not on file Sexual Orientation Not on file documented as of this encounter Plan of Treatment Not on file documented as of this encounter Visit Diagnoses Diagnosis Abdominal pain, other specified site- Primary documented in this encounter Additional Health Concerns Infection Onset Date Last Indicated Resolved Time CRE-CP Comment:Sputum 07/09/18 (Serratia) 07/09/2018 07/09/2018 MRSA 10/12/2018 12/25/2018 12/26/2019 8:08 PM CDT documented as of this encounter Care Teams Staff Air Tactical Officer Relationship Specialty Start Date End Date Non-Staff, Physician NO ADDRESS ON FILE PCP - General 01/10/20 documented as of this encounter
--- OUTSIDE RECORDS SUMMARY | 2025-01-21 17:18 | XMS_ITS | Encounter Summary ---
Author Organization [facility] Address [address] [place] [address] Care Team Providers Care Jingle Writer Name Role Phone Non-Staff, Physician Primary Care Provider Unava ilable Encounter Details Date Type Department Care Team (Latest Contact Info) Description 12/17/2018 Ancillary Orders [facility] [address] [place] [id number] Lance Mon PA-C [address] [place] [phone] Arthritis of right knee Social History Tobacco Use Types Packs/Day Years Used Date Smoking Tobacco: Former Cigarettes 2.5 9 0 04/10/2003 - 04/10/2012 Smokeless Tobacco: Never Alcohol Use Standard Drinks/Week Comments No 0 (1 standard drink = 0.6 oz pur e alcohol) Comments No Sex and Gender Information Value Date Recorded Sex Assigned at Not on file 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 This is suspicious for infection and loosening of the components. us Lance Mon PA-C DIAGNOSTIC IMAGING ORDERAB LES Final Result documented in this encounter Visit Diagnoses Diagnosis Arthritis of right knee Unspecified arthropathy, lower leg Arthritis of right knee Unspecified arthropathy, lower leg documented in this encounter Additional Health Concerns Infection Onset Date Last Indicated Resolved Time CRE-CP Comment:Sputum 07/09/18 (Serratia) 07/09/2018 07/09/2018 MRSA 10/12/2018 12/25/2018 12/26/2019 8:08 PM CDT Assessment Noted Time PHQ-9 Depression Total Score: 1 07/20/19 18 11:00 AM CDT documented as of this encounter Care Teams Jingle Writer Relationship Specialty Start Date End Date Non-Staff, Physician NO ADDRESS ON FILE PCP - General 01/10/20 documented as of this encounter
--- OUTSIDE RECORDS SUMMARY | 2025-01-21 17:18 | XMS_ITS | Encounter Summary ---
Author Organization [facility] Address [address] [place] [address] Care Team Providers Care Inventory And Pricing Associate Name Role Phone Non-Staff, Physician Primary Care Provider Unava ilable Encounter Details Date Type Department Care Team (Late st Contact Info) Description 10/20/2017 Ancillary Orders [facility] 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 Gwendolyn Smitheling PLUG SORTER DIAGNOSTIC IMAGING ORDE RABLES Final Result * MAMMO PRIOR STUDY (08/29/2017 11:40 AM CDT) Narrative 10/20/2017 11:40 AM CDT This exam was auto finalized to allow images to be scanned to PACS. us Gwendolyn Smitheling PLUG SORTER DIAGNOSTIC IMAGING ORDE RABLES Final Result * MAMMO PRIOR STUDY (08/01/2017 11:40 AM CDT) Narrative 10/20/2017 11:40 AM CDT This exam was auto finalized to allow images to be scanned to PACS. us Gwendolyn Pitts PLUG SORTER DIAGNOSTIC IMAGING ORDE RABLES Final Result documented in this encounter Visit Diagnoses Diagnosis Abnormal mammogram Abnormal mammogram, unspecified Abnormal mammogram Abnormal mammogram, unspecified Abnormal mammogram Abnormal mammogram, unspecified Abnormal mammogram Abnormal mammogram, unspecified documented in this encounter Additional Health Concerns Infection Onset Date Last Indicated Resolved Time CRE-CP Comment:Sputum 07/09/18 (Serratia) 07/09/2018 07/09/2018 MRSA 10/12/2018 12/25/2018 12/26/2019 8:08 PM CDT Assessment Noted Time PHQ-9 Depression Total Score: 1 07/20/19 18 11:00 AM CDT documented as of this encounter Care Teams Inventory And Pricing Associate Relationship Specialty Start Date End Date Non-Staff, Physician NO ADDRESS ON FILE PCP - General 01/10/20 documented as of this encounter
--- OUTSIDE RECORDS SUMMARY | 2025-01-21 17:18 | XMS_ITS | Encounter Summary ---
Author Organization [facility] Address [address] [place] [facility] [address] Care Team Providers Care Kindergarten Aide Name Role Phone Non-Staff, Physician Primary Care Provider Unava ilable Encounter Details Date Type Department Care Team (Latest Contact Info) Description 08/22/2003 Outpatient Historical [facility] Family Medicine- [address] [place] [phone] Nell Verde MD NO ADDRESS ON FILE DIABETES UNCOMPL ADULT-TYPE II (CMS/HCC) (Primary Dx); HYPOTHYROIDISM NOS; HYPERTENSION NOS Social History Tobacco Use Types Packs/Day Years Used Date Smoking Tobacco: Never Assessed Comments Unknown Sex and Gender Information Value Date Recorded Sex Assigned at Not on file 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 Female 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 Gender Identity Not on file Sexual Orientation Not on file documented as of this encounter Plan of Treatment Not on file documented as of this encounter Visit Diagnoses Diagnosis Type II or unspecified type diabetes mellitus without mention of complication, not stated as uncontrolled- Primary Unspecified hypothyroidism Unspecified essential hypertension documented in this encounter Additional Health Concerns Infection Onset Date Last Indicated Resolved Time CRE-CP Comment:Sputum 07/09/18 (Serratia) 07/09/2018 07/09/2018 MRSA 10/12/2018 12/25/2018 12/26/2019 8:08 PM CDT documented as of this encounter Care Teams Kindergarten Aide Relationship Specialty Start Date End Date Non-Staff, Physician NO ADDRESS ON FILE PCP - General 01/10/20 documented as of this encounter
--- OUTSIDE RECORDS SUMMARY | 2025-01-21 17:18 | XMS_ITS | Encounter Summary ---
Author Organization [facility] Address [address] [facility] [place] [address] Care Team Providers Care Property Utilization Manager Name Role Phone Non-Staff, Physician Primary Care Provider Unava ilable Encounter Details Date Type Department Care Team (Late st Contact Info) Description 09/21/2004 Outpatient Historical [facility] Abel Fields, NUCLEAR TECHNICIAN NO ADDRESS ON FILE Social History Tobacco Use Types Packs/Day Years Used Date Smoking Tobacco: Never Assessed Comments Unknown Sex and Gender Information Value Date Recorded Sex Assigned at Not on file Legal Sex Female 2:45 AM PURIFICATION 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
--- OUTSIDE RECORDS SUMMARY | 2025-01-21 17:19 | XMS_ITS | Encounter Summary ---
Author Organization [facility] Address [address] [place] [address] Care Team Providers Care Industrial Boilermaker Name Role Phone Non-Staff, Physician Primary Care Provider Unava ilable Encounter Details Date Type Department Care Team (Latest Contact Info) Description 05/22/2001 Outpatient Historical [facility] Family Medicine- [address] [place] [phone] Edmond Machado DO NO ADDRESS ON FILE HEADACHE (Primary Dx); CERVICALGIA; HYPERTENSION NOS Social History Tobacco Use Types Packs/Day Years Used Date Smoking Tobacco: Never Assessed Comments Unknown Sex and Gender Information Value Date Recorded Sex Assigned at Not on file Legal Sex Female 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 Gender Identity Not on file Sexual Orientation Not on file documented as of this encounter Plan of Treatment Not on file documented as of this encounter Visit Diagnoses Diagnosis Headache(784.0)- Primary Headache Cervicalgia Unspecified essential hypertension documented in this encounter Additional Health Concerns Infection Onset Date Last Indicated Resolved Time CRE-CP Comment: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
--- OUTSIDE RECORDS SUMMARY | 2025-01-21 17:19 | XMS_ITS | Encounter Summary ---
Author Organization [facility] Address [address] [facility] [place] [address] Care Team Providers Care Food Aide Name Role Phone Non-Staff, Physician Primary Care Provider Unava ilable Encounter Details Date Type Department Care Team (Latest Contact Info) Description 02/26/2001 Outpatient Historical [facility] Family Medicine- [address] [place] [phone] Nell Verde MD NO ADDRESS ON FILE HYPOTHYROIDISM NOS (Primary Dx); HEADACHE; ACUTE SINUSITIS NOS Social History Tobacco Use Types Packs/Day Years Used Date Smoking Tobacco: Never Assessed Comments Unknown Sex and Gender Information Value Date Recorded Sex Assigned at Not on file Legal 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 Female 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 Gender Identity Not on file Sexual Orientation Not on file documented as of this encounter Plan of Treatment Not on file documented as of this encounter Visit Diagnoses Diagnosis Unspecified hypothyroidism- Primary Headache(784.0) Headache Acute sinusitis, unspecified documented in this encounter Additional Health Concerns Infection Onset Date Last Indicated Resolved Time CRE-CP Comment:Sputum 07/09/18 (Serratia) 07/09/2018 07/09/2018 MRSA 10/12/2018 12/25/2018 12/26/2019 8:08 PM CDT documented as of this encounter Care Teams Food Aide Relationship Specialty Start Date End Date Non-Staff, Physician NO ADDRESS ON FILE PCP - General 01/10/20 documented as of this encounter
--- OUTSIDE RECORDS SUMMARY | 2025-01-21 17:19 | XMS_ITS | Encounter Summary ---
Author Organization [facility] Address [address] [facility] [place] [address] Care Team Providers Care Resaw Operator Name Role Phone Non-Staff, Physician Primary Care Provider Unava ilable Encounter Details Date Type Department Care Team (Latest Contact Info) Description 12/14/1999 Outpatient Historical [facility] Medicine [facility] [address] [place] [phone] Yuan Barros MD Abdominal pain, right upper quadrant (Primary Dx) Social History Tobacco Use Types Packs/Day Years Used Date Smoking Tobacco: Never Assessed Comments Unknown Sex and Gender Information Value Date Recorded Sex Assigned at Not on file Legal 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 Gender Identity Not on file Sexual Orientation Not on file documented as of this encounter Plan of Treatment Not on file documented as of this encounter Visit Diagnoses Diagnosis Abdominal pain, right upper quadrant- Primary documented in this encounter Additional Health Concerns Infection Onset Date Last Indicated Resolved Time CRE-CP Comment:Sputum 07/09/18 (Serratia) 07/09/2018 07/09/2018 MRSA 10/12/2018 12/25/2018 12/26/2019 8:08 PM CDT documented as of this encounter Care Teams Resaw Operator Relationship Specialty Start Date End Date Non-Staff, Physician NO ADDRESS ON FILE PCP - General 01/10/20 documented as of this encounter
--- OUTSIDE RECORDS SUMMARY | 2025-01-21 17:19 | XMS_ITS | Encounter Summary ---
Author Organization [facility] Address [address] [place] [address] Care Team Providers Care Statistical Secretary Name Role Phone Non-Staff, Physician Primary Care Provider Unava ilable Encounter Details Date Type Department Care Team (Latest Contact Info) Description 01/29/2002 Outpatient Historical [facility] Family Medicine- [address] [place] [phone] Jaime Frausto MD [address] [facility] [address] [place] [address] LOCAL SKIN INFECTION NOS (Primary Dx); Dermatitis due to plant; FLUID OVERLOAD Social History Tobacco Use Types Packs/Day Years Used Date Smoking Tobacco: Never Assessed Comments Unknown Sex and Gender Information Value Date Recorded Sex Assigned at Not on file Legal Sex Female 2:45 AM OIL AGENT Gender Identity Not on file Sexual Orientation Not on file documented as of this encounter Plan of Treatment Not on file documented as of this encounter Visit Diagnoses Diagnosis Unspecified local infection of skin and subcutaneous tissue- Primary Dermatitis due to plant Contact dermatitis and other eczema due to plants (except food) Fluid overload documented in this encounter Additional Health Concerns Infection Onset Date Last Indicated Resolved Time CRE-CP Comment:Sputum 07/09/18 (Serratia) 07/09/2018 07/09/2018 MRSA 10/12/2018 12/25/2018 12/26/2019 8:08 PM CDT documented as of this encounter Care Teams Statistical Secretary Relationship Specialty Start Date End Date Non-Staff, Physician NO ADDRESS ON FILE PCP - General 01/10/20 documented as of this encounter
--- OUTSIDE RECORDS SUMMARY | 2025-01-21 17:19 | XMS_ITS | Encounter Summary ---
Author Organization [facility] Address [address] [place] [facility] [place] [address] Care Team Providers Care Dairy Consultant Name Role Phone Non-Staff, Physician Primary Care Provider Unava ilable Encounter Details Date Type Department Care Team (Latest Contact Info) Description 10/29/1999 Outpatient Historical [facility] Family Medicine- [address] [place] [phone] Eliz Echevarria NO ADDRESS ON FILE Other specified disorder of bladder (Primary Dx); Dysuria Social History Tobacco Use Types Packs/Day Years Used Date Smoking Tobacco: Never Assessed Comments Unknown Sex and Gender Information Value Date Recorded Sex Assigned at Not on file Legal Sex Female 2:45 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 Gender Identity Not on file Sexual Orientation Not on file documented as of this encounter Plan of Treatment Not on file documented as of this encounter Visit Diagnoses Diagnosis Other specified disorder of bladder- Primary Dysuria documented in this encounter Additional Health Concerns Infection Onset Date Last Indicated Resolved Time CRE-CP Comment:Sputum 07/09/18 (Serratia) 07/09/2018 07/09/2018 MRSA 10/12/2018 12/25/2018 12/26/2019 8:08 PM CDT documented as of this encounter Care Teams Dairy Consultant Relationship Specialty Start Date End Date Non-Staff, Physician NO ADDRESS ON FILE PCP - General 01/10/20 documented as of this encounter
--- OUTSIDE RECORDS SUMMARY | 2025-01-21 17:19 | XMS_ITS | Encounter Summary ---
Author Organization [facility] Address [address] [place] [address] Care Team Providers Care Configuration Management Analyst Name Role Phone Non-Staff, Physician Primary Care Provider Unava ilable Encounter Details Date Type Department Care Team (Late st Contact Info) Description 03/18/2009 Ancillary Orders [facility] [address] [place] [address] Nikkie Arias, PIPE FITTER SUPERVISOR MAINTENANCE [address] [place] [address] Screening Mammogram Social History Tobacco Use Types Packs/Day Years Used Date Smoking Tobacco: Former Cigarettes Alcohol Use Standard Drinks/Week Comments No 0 (1 standard drink = 0.6 oz pur e alcohol) Comments No Sex and Gender Information Value Date Recorded Sex Assigned at Not on file Legal Sex Female 2:45 AM SUPERVISOR DRYING Gender Identity Not on file Sexual Orientation Not on file documented as of this encounter Plan of Treatment Not on file documented as of this encounter Results * MAMMO SCREENING BILAT (03/18/2009 10:33 AM SUPERVISOR DRYING) Anatomical Region Laterality Modality Breast Bilateral Mammography Narrative 03/19/2009 11:50 AM SUPERVISOR DRYING Bilateral Mammogram Reason for Exam: Screening Comparison: Comparison is made with the prior exam(s) dated 2005 Findings: Bilateral CC and MLO views were obtained. This examination was reviewed with the aid of a computer-aided detection system(CAD). The breast tissue density is fatty. No significant new findings since the prior mammogram(s). Procedure Note Jun Carias MD - 03/19/2009 Bilateral Mammogram Reason for Exam: Screening Comparison: Comparison is made with the prior exam(s) dated 2005 Findings: Bilateral CC and MLO views were obtained. This examination was reviewed with the aid of a computer-aided detectionsystem(CAD). The breast tissue density is fatty. No significant new findings since the prior mammogram(s). Nikkie Arias PIPE FITTER SUPERVISOR MAINTENANCE MAMMO ORDERABLES Final Resu lt documented in this encounter Visit Diagnoses Diagnosis Screening mammogram Other screening mammogram documented in this encounter Additional Health Concerns Infection Onset Date Last Indicated Resolved Time CRE-CP Comment:Sputum 07/09/18 (Serratia) 07/09/2018 07/09/2018 MRSA 10/12/2018 12/25/2018 12/26/2019 8:08 PM CDT documented as of this encounter Care Teams Configuration Management Analyst Relationship Specialty Start Date End Date Non-Staff, Physician NO ADDRESS ON FILE PCP - General 01/10/20 documented as of this encounter
--- OUTSIDE RECORDS SUMMARY | 2025-01-21 17:19 | XMS_ITS | Encounter Summary ---
Author Organization [facility] Address [address] [facility] [place] [address] Care Team Providers Care Ship Steward Name Role Phone Non-Staff, Physician Primary Care Provider Unava ilable Encounter Details Date Type Department Care Team (Latest Contact Info) Description 11/20/2001 Outpatient Historical [facility] Family Medicine- [address] [place] [phone] Edmond Machado DO NO ADDRESS ON FILE CUTANEOUS CANDIDIASIS (Primary Dx) Social History Tobacco Use Types Packs/Day Years Used Date Smoking Tobacco: Never Assessed Comments Unknown Sex and Gender Information Value Date Recorded Sex Assigned at Not on file Legal 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 Female 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 Gender Identity Not on file Sexual Orientation Not on file documented as of this encounter Plan of Treatment Not on file documented as of this encounter Visit Diagnoses Diagnosis Candidiasis of skin and nails- Primary documented in this encounter Additional Health Concerns Infection Onset Date Last Indicated Resolved Time CRE-CP Comment:Sputum 07/09/18 (Serratia) 07/09/2018 07/09/2018 MRSA 10/12/2018 12/25/2018 12/26/2019 8:08 PM CDT documented as of this encounter Care Teams Ship Steward Relationship Specialty Start Date End Date Non-Staff, Physician NO ADDRESS ON FILE PCP - General 01/10/20 documented as of this encounter
--- OUTSIDE RECORDS SUMMARY | 2025-01-21 17:19 | XMS_ITS | Encounter Summary ---
Author Organization [facility] Address [address] [place] [facility] [place] [address] Care Team Providers Care Laboratory Technician Name Role Phone Non-Staff, Physician Primary Care Provider Unava ilable Encounter Details Date Type Department Care Team (Latest Contact Info) Description 03/10/1998 Outpatient Historical [facility] Family Medicine- [address] [place] [phone] Edmond Machado DO NO ADDRESS ON FILE Pain in joint, lower leg (Primary Dx); Rash and other nonspecific skin eruption Social History Tobacco Use Types Packs/Day Years Used Date Smoking Tobacco: Never Assessed Comments Unknown Sex and Gender Information Value Date Recorded Sex Assigned at Not on file Legal Sex Female 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 Gender Identity Not on file Sexual Orientation Not on file documented as of this encounter Plan of Treatment Not on file documented as of this encounter Visit Diagnoses Diagnosis Pain in joint, lower leg- Primary Rash and other nonspecific skin eruption documented in this encounter Additional Health Concerns Infection Onset Date Last Indicated Resolved Time CRE-CP Comment:Sputum 07/09/18 (Serratia) 07/09/2018 07/09/2018 MRSA 10/12/2018 12/25/2018 12/26/2019 8:08 PM CDT documented as of this encounter Care Teams Laboratory Technician Relationship Specialty Start Date End Date Non-Staff, Physician NO ADDRESS ON FILE PCP - General 01/10/20 documented as of this encounter
--- OUTSIDE RECORDS SUMMARY | 2025-01-21 17:19 | XMS_ITS | Encounter Summary ---
Author Organization [facility] Address [address] Attn: Epic [address]relude [address]T [place] [address] Care Team Providers Care Customs And Border Protection Inspector Name Role Phone Non-Staff, Physician Primary Care Provider Unava ilable Encounter Details Date Type Department Care Team (Late st Contact Info) Description 06/27/2001 Outpatient Historical Jim Aquino PA NO ADDRESS ON FILE Social History Tobacco Use Types Packs/Day Years Used Date Smoking Tobacco: Never Assessed Comments Unknown Sex and Gender Information Value Date Recorded Sex Assigned at Not on file Legal Sex Female 2:45 AM POWER SUPERINTENDENT Gender Identity Not on file Sexual Orientation [...] documented as of this encounter Care Teams Customs And Border Protection Inspector Relationship Specialty Start Date End Date Non-Staff, Physician NO ADDRESS ON FILE PCP - General 01/10/20 documented as of this encounter
--- OUTSIDE RECORDS SUMMARY | 2025-01-21 17:19 | XMS_ITS | Encounter Summary ---
Author Organization [facility] Address [address] [facility] [place] [address] Care Team Providers Care Injection Molding Technician Name Role Phone Non-Staff, Physician Primary Care Provider Unava ilable Encounter Details Date Type Department Care Team (Latest Contact Info) Description 02/03/1998 Outpatient Historical [facility] Family Medicine- [address] [place] [phone] Edmond Machado DO NO ADDRESS ON FILE Generalized osteoarthrosis, involving multiple sites (Primary Dx) Social History Tobacco Use Types Packs/Day Years Used Date Smoking Tobacco: Never Assessed Comments Unknown Sex and Gender Information Value Date Recorded Sex Assigned at Not on file Legal Sex Female 2:45 AM CAB SUPERVISOR Gender Identity Not on file Sexual Orientation Not on file documented as of this encounter Plan of Treatment Not on file documented as of this encounter Visit Diagnoses Diagnosis Generalized osteoarthrosis, involving multiple sites- Primary documented in this encounter Additional Health Concerns Infection Onset Date Last Indicated Resolved Time CRE-CP Comment:Sputum 07/09/18 (Serratia) 07/09/2018 07/09/2018 MRSA 10/12/2018 12/25/2018 12/26/2019 8:08 PM CDT documented as of this encounter Care Teams Injection Molding Technician Relationship Specialty Start Date End Date Non-Staff, Physician NO ADDRESS ON FILE PCP - General 01/10/20 documented as of this encounter
--- OUTSIDE RECORDS SUMMARY | 2025-01-21 17:19 | XMS_ITS | Encounter Summary ---
Author Organization [facility] Address [address] [place] [address] Care Team Providers Care Director Of Institutional Research Name Role Phone Non-Staff, Physician Primary Care Provider Unava ilable Encounter Details Date Type Department Care Team (Latest Contact Info) Description 12/08/1999 Outpatient Historical [facility] Family Medicine- [address] [place] [phone] Eliz Echevarria NO ADDRESS ON FILE Vaginitis and vulvovaginitis, unspecified (Primary Dx); Ventral hernia, unspecified, without mention of obstruction or gangrene; Screening for malignant neoplasm of the rectum; Gynecologic examination Social History Tobacco Use Types Packs/Day Years Used Date Smoking Tobacco: Never Assessed Comments Unknown Sex and Gender Information Value Date Recorded Sex Assigned at Not on file Legal Sex Female 2:45 AM DICE TABLE PERSON Gender Identity Not on file Sexual Orientation Not on file documented as of this encounter Plan of Treatment Not on file documented as of this encounter Visit Diagnoses Diagnosis Vaginitis and vulvovaginitis, unspecified- Primary Ventral hernia, unspecified, without mention of obstruction or gangrene Screening for malignant neoplasm of the rectum Gynecologic examination Gynecological examination documented in this encounter Additional Health Concerns Infection Onset Date Last Indicated Resolved Time CRE-CP Comment:Sputum 07/09/18 (Serratia) 07/09/2018 07/09/2018 MRSA 10/12/2018 12/25/2018 12/26/2019 8:08 PM CDT documented as of this encounter Care Teams Director Of Institutional Research Relationship Specialty Start Date End Date Non-Staff, Physician NO ADDRESS ON FILE PCP - General 01/10/20 documented as of this encounter
--- OUTSIDE RECORDS SUMMARY | 2025-01-21 17:19 | XMS_ITS | Encounter Summary ---
Author Organization [facility] Address [address] [facility] Attn: Epic Prelude ADT [place] [address] Care Team Providers Care Dean Of Women Name Role Phone Non-Staff, Physician Primary Care Provider Unava ilable Encounter Details Date Type Department Care Team (Late st Contact Info) Description 08/29/2000 Outpatient Historical Jim Aquino PA NO ADDRESS ON FILE Social History Tobacco Use Types Packs/Day Years Used Date Smoking Tobacco: Never Assessed Comments Unknown Sex and Gender Information Value Date Recorded Sex Assigned at Not on file Legal Sex Female 2:45 AM NUTRITION SERVICES MANAGER Gender Identity Not on file Sexual [...] documented as of this encounter Care Teams Dean Of Women Relationship Specialty Start Date End Date Non-Staff, Physician NO ADDRESS ON FILE PCP - General 01/10/20 documented as of this encounter
--- OUTSIDE RECORDS SUMMARY | 2025-01-21 17:19 | XMS_ITS | Encounter Summary ---
Author Organization [facility] Address [address] [place] [address] Care Team Providers Care Windshield Wiper Repairer Name Role Phone Non-Staff, Physician Primary Care Provider Unava ilable Encounter Details Date Type Department Care Team (Latest Contact Info) Description 07/19/2000 Outpatient Historical [facility] Family Medicine- [address] [place] [phone] Jaime Frausto MD [address] [facility] [address] [place] [address] Abdominal pain, unspecified site (Primary Dx); Flatulence, eructation, and gas pain Social History Tobacco Use Types Packs/Day Years Used Date Smoking Tobacco: Never Assessed Comments Unknown Sex and Gender Information Value Date Recorded Sex Assigned at Not on file Legal Sex Female 2:45 AM 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 RESOURCES FILE CLERK Gender Identity Not on file Sexual Orientation Not on file documented as of this encounter Plan of Treatment Not on file documented as of this encounter Visit Diagnoses Diagnosis Abdominal pain, unspecified site- Primary Flatulence, eructation, and gas pain documented in this encounter Additional Health Concerns Infection Onset Date Last Indicated Resolved Time CRE-CP Comment:Sputum 07/09/18 (Serratia) 07/09/2018 07/09/2018 MRSA 10/12/2018 12/25/2018 12/26/2019 8:08 PM CDT documented as of this encounter Care Teams Windshield Wiper Repairer Relationship Specialty Start Date End Date Non-Staff, Physician NO ADDRESS ON FILE PCP - General 01/10/20 documented as of this encounter
--- OUTSIDE RECORDS SUMMARY | 2025-01-21 17:19 | XMS_ITS | Encounter Summary ---
Author Organization [facility] Address [address] [facility] [place] [address] Care Team Providers Care Biological Photographer Name Role Phone Non-Staff, Physician Primary Care Provider Unava ilable Encounter Details Date Type Department Care Team (Latest Contact Info) Description 04/21/1998 Outpatient Historical [facility] Family Medicine- [address] [place] [phone] Edmond Machado DO NO ADDRESS ON FILE Scabies (Primary Dx); Allergy, unspecified not elsewhere classified Social History Tobacco Use Types Packs/Day Years Used Date Smoking Tobacco: Never Assessed Comments Unknown Sex and Gender Information Value Date Recorded Sex Assigned at Not on file Legal Sex Female 2:45 AM 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 EQUIPMENT 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 Gender Identity Not on file Sexual Orientation Not on file documented as of this encounter Plan of Treatment Not on file documented as of this encounter Visit Diagnoses Diagnosis Scabies- Primary Allergy, unspecified not elsewhere classified documented in this encounter Additional Health Concerns Infection Onset Date Last Indicated Resolved Time CRE-CP Comment:Sputum 07/09/18 (Serratia) 07/09/2018 07/09/2018 MRSA 10/12/2018 12/25/2018 12/26/2019 8:08 PM CDT documented as of this encounter Care Teams Biological Photographer Relationship Specialty Start Date End Date Non-Staff, Physician NO ADDRESS ON FILE PCP - General 01/10/20 documented as of this encounter
--- OUTSIDE RECORDS SUMMARY | 2025-01-21 17:19 | XMS_ITS | Encounter Summary ---
Author Organization [facility] Address [address] [facility] [place] [address] Care Team Providers Care Enterprise Sales Executive Name Role Phone Non-Staff, Physician Primary Care Provider Unava ilable Encounter Details Date Type Department Care Team (Latest Contact Info) Description 11/27/2000 Outpatient Historical [facility] Family Medicine- [address] [place] [phone] Edmond Machado, NO ADDRESS ON FILE Toxic effect venom (Primary Dx); Cervicalgia; Impetigo; Dermatophytosis of groin and perianal area Social History Tobacco Use Types Packs/Day Years Used Date Smoking Tobacco: Never Assessed Comments Unknown Sex and Gender Information Value Date Recorded Sex Assigned at Not on file Legal Sex Female 2:45 AM AIRPLANE PATROLLER Gender Identity Not on file Sexual Orientation Not on file documented as of this encounter Plan of Treatment Not on file documented as of this encounter Visit Diagnoses Diagnosis Toxic effect venom- Primary Toxic effect of venom Cervicalgia Impetigo Dermatophytosis of groin and perianal area documented in this encounter Additional Health Concerns Infection Onset Date Last Indicated Resolved Time CRE-CP Comment:Sputum 07/09/18 (Serratia) 07/09/2018 07/09/2018 MRSA 10/12/2018 12/25/2018 12/26/2019 8:08 PM CDT documented as of this encounter Care Teams Enterprise Sales Executive Relationship Specialty Start Date End Date Non-Staff, Physician NO ADDRESS ON FILE PCP - General 01/10/20 documented as of this encounter
--- OUTSIDE RECORDS SUMMARY | 2025-01-21 17:19 | XMS_ITS | Encounter Summary ---
Author Organization [facility] Address [address] [facility] Attn: Epic Prelude ADT [place] [address] Care Team Providers Care Application Systems Engineer Name Role Phone Non-Staff, Physician Primary Care Provider Unava ilable Encounter Details Date Type Department Care Team (Late st Contact Info) Description 02/27/2001 Outpatient Historical Nell Verde MD NO ADDRESS ON FILE Social History Tobacco Use Types Packs/Day Years Used Date Smoking Tobacco: Never Assessed Comments Unknown Sex and Gender Information Value Date Recorded Sex Assigned at Not on file Legal Sex Female 2:45 AM SHAREPOINT CONSULTANT Gender Identity Not on file Sexual [...] documented as of this encounter Care Teams Application Systems Engineer Relationship Specialty Start Date End Date Non-Staff, Physician NO ADDRESS ON FILE PCP - General 01/10/20 documented as of this encounter
--- OUTSIDE RECORDS SUMMARY | 2025-01-21 17:19 | XMS_ITS | Encounter Summary ---
Author Organization [facility] Address [address] [place] [facility] [place] [address] Care Team Providers Care Warp Tier Name Role Phone Non-Staff, Physician Primary Care Provider Unava ilable Encounter Details Date Type Department Care Team (Latest Contact Info) Description 08/29/2000 Outpatient Historical [facility] Family Medicine- [address] [place] [phone] Edmond Machado DO NO ADDRESS ON FILE Unspecified hypothyroidism (Primary Dx); Cough; Fluid overload Social History Tobacco Use Types Packs/Day Years Used Date Smoking Tobacco: Never Assessed Comments Unknown Sex and Gender Information Value Date Recorded Sex Assigned at Not on file Legal Sex Female 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 Gender Identity Not on file Sexual Orientation Not on file documented as of this encounter Plan of Treatment Not on file documented as of this encounter Visit Diagnoses Diagnosis Unspecified hypothyroidism- Primary Cough Fluid overload documented in this encounter Additional Health Concerns Infection Onset Date Last Indicated Resolved Time CRE-CP Comment: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
--- OUTSIDE RECORDS SUMMARY | 2025-01-21 17:19 | XMS_ITS | Encounter Summary ---
Author Organization [facility] Address [address] [facility] [address] Care Team Providers Care Urban Gardening Specialist Name Role Phone Non-Staff, Physician Primary Care Provider Unava ilable Encounter Details Date Type Department Care Team (Latest Contact Info) Description 02/10/1998 Outpatient Historical [facility] Family Medicine- [address] [place] [phone] Edmond Machado DO NO ADDRESS ON FILE Pain in limb (Primary Dx); Other, multiple, and unspecified sites, insect bite, nonvenomous, infected(919.5) Social History Tobacco Use Types Packs/Day Years Used Date Smoking Tobacco: Never Assessed Comments Unknown Sex and Gender Information Value Date Recorded Sex Assigned at Not on file Legal Sex Female 2:45 AM MILL SET UP Gender Identity Not on file Sexual Orientation Not on file documented as of this encounter Plan of Treatment Not on file documented as of this encounter Visit Diagnoses Diagnosis Pain in limb- Primary Pain in soft tissues of limb Other, multiple, and unspecified sites, insect bite, nonvenomous, infected(919.5) Other, multiple, and unspecified sites, insect bite, nonvenomous, infected documented in this encounter Additional Health Concerns Infection Onset Date Last Indicated Resolved Time CRE-CP Comment:Sputum 07/09/18 (Serratia) 07/09/2018 07/09/2018 MRSA 10/12/2018 12/25/2018 12/26/2019 8:08 PM CDT documented as of this encounter Care Teams Urban Gardening Specialist Relationship Specialty Start Date End Date Non-Staff, Physician NO ADDRESS ON FILE PCP - General 01/10/20 documented as of this encounter
--- OUTSIDE RECORDS SUMMARY | 2025-01-21 17:19 | XMS_ITS | Encounter Summary ---
Author Organization [facility] Address [address] [place] [facility] [place] [address] Care Team Providers Care Electrical Maintenance Supervisor Name Role Phone Non-Staff, Physician Primary Care Provider Unava ilable Encounter Details Date Type Department Care Team (Latest Contact Info) Description 11/24/1999 Outpatient Historical [facility] Family Medicine- [address] [place] [phone] Edmond Machado DO NO ADDRESS ON FILE Backache, unspecified (Primary Dx); Pain in joint, shoulder region; Pain in joint, lower leg; Urinary tract infection, site not specified Social History Tobacco Use Types Packs/Day Years Used Date Smoking Tobacco: Never Assessed Comments Unknown Sex and Gender Information Value Date Recorded Sex Assigned at Not on file Legal Sex Female 2:45 AM TERMITE HELPER Gender Identity Not on file Sexual Orientation Not on file documented as of this encounter Plan of Treatment Not on file documented as of this encounter Visit Diagnoses Diagnosis Backache, unspecified- Primary Pain in joint, shoulder region Pain in joint, lower leg Urinary tract infection, site not specified documented in this encounter Additional Health Concerns Infection Onset Date Last Indicated Resolved Time CRE-CP Comment:Sputum 07/09/18 (Serratia) 07/09/2018 07/09/2018 MRSA 10/12/2018 12/25/2018 12/26/2019 8:08 PM CDT documented as of this encounter Care Teams Electrical Maintenance Supervisor Relationship Specialty Start Date End Date Non-Staff, Physician NO ADDRESS ON FILE PCP - General 01/10/20 documented as of this encounter
--- OUTSIDE RECORDS SUMMARY | 2025-01-21 17:19 | XMS_ITS | Encounter Summary ---
Author Organization [facility] Address [address] [place] [address] Care Team Providers Care Landscape Contractor Name Role Phone Non-Staff, Physician Primary Care Provider Unava ilable Encounter Details Date Type Department Care Team (Latest Contact Info) Description 02/21/2000 Outpatient Historical [facility] Family Medicine- [address] [place] [phone] Eliz Echevarria NO ADDRESS ON FILE Acute sinusitis, unspecified (Primary Dx); Headache(784.0); Cough Social History Tobacco Use Types Packs/Day Years Used Date Smoking Tobacco: Never Assessed Comments Unknown Sex and Gender Information Value Date Recorded Sex Assigned at Not on file Legal Sex Female 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 Gender Identity Not on file Sexual Orientation Not on file documented as of this encounter Plan of Treatment Not on file documented as of this encounter Visit Diagnoses Diagnosis Acute sinusitis, unspecified- Primary Headache(784.0) Headache Cough documented in this encounter Additional Health Concerns Infection Onset Date Last Indicated Resolved Time CRE-CP Comment:Sputum 07/09/18 (Serratia) 07/09/2018 07/09/2018 MRSA 10/12/2018 12/25/2018 12/26/2019 8:08 PM CDT documented as of this encounter Care Teams Landscape Contractor Relationship Specialty Start Date End Date Non-Staff, Physician NO ADDRESS ON FILE PCP - General 01/10/20 documented as of this encounter
--- OUTSIDE RECORDS SUMMARY | 2025-01-21 17:19 | XMS_ITS | Encounter Summary ---
Author Organization [facility] Address [address] [place] [address] Care Team Providers Care Hyperbaric Welder Diver Name Role Phone Non-Staff, Physician Primary Care Provider Unava ilable Encounter Details Date Type Department Care Team (Latest Contact Info) Description 08/09/2000 Outpatient Historical [facility] General Surgery [address] [address] [address] [place] [address] [place] [address] [facility] [address] [place] [address] Abdominal pain, epigastric (Primary Dx) Social History Tobacco Use Types Packs/Day Years Used Date Smoking Tobacco: Never Assessed Comments Unknown Sex and Gender Information Value Date Recorded Sex Assigned at Not on file Legal Sex Female 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
--- OUTSIDE RECORDS SUMMARY | 2025-01-21 17:19 | XMS_ITS | Encounter Summary ---
Author Organization [facility] Address [address] [place] [facility] [place] [address] Care Team Providers Care Corporate Compliance Officer Name Role Phone Non-Staff, Physician Primary Care Provider Unava ilable Encounter Details Date Type Department Care Team (Latest Contact Info) Description 03/24/2000 Outpatient Historical [facility] Family Medicine- [address] [place] [phone] Eliz Echevarria NO ADDRESS ON FILE Generalized osteoarthrosis, involving multiple sites (Primary Dx); Abdominal pain, unspecified site; Need vaccination-viral disease Social History Tobacco Use Types Packs/Day Years Used Date Smoking Tobacco: Never Assessed Comments Unknown Sex and Gender Information Value Date Recorded Sex Assigned at Not on file Legal Sex Female 2:45 AM HAND PACKAGER Gender Identity Not on file Sexual Orientation Not on file documented as of this encounter Plan of Treatment Not on file documented as of this encounter Visit Diagnoses Diagnosis Generalized osteoarthrosis, involving multiple sites- Primary Abdominal pain, unspecified site Need vaccination-viral disease Need for prophylactic vaccination and inoculation against other viral diseases documented in this encounter Additional Health Concerns Infection Onset Date Last Indicated Resolved Time CRE-CP Comment:Sputum 07/09/18 (Serratia) 07/09/2018 07/09/2018 MRSA 10/12/2018 12/25/2018 12/26/2019 8:08 PM CDT documented as of this encounter Care Teams Corporate Compliance Officer Relationship Specialty Start Date End Date Non-Staff, Physician NO ADDRESS ON FILE PCP - General 01/10/20 documented as of this encounter
--- OUTSIDE RECORDS SUMMARY | 2025-01-21 17:19 | XMS_ITS | Encounter Summary ---
Author Organization [facility] Address [address] [facility] [address] Care Team Providers Care Digital Engineer Name Role Phone Non-Staff, Physician Primary Care Provider Unava ilable Encounter Details Date Type Department Care Team (Latest Contact Info) Description 10/23/1998 Outpatient Historical [address] [phone] Edmond Machado, NO ADDRESS ON FILE Other abnormal blood chemistry (Primary Dx); Backache, unspecified; Other malaise and fatigue Social History Tobacco Use Types Packs/Day Years Used Date Smoking Tobacco: Never Assessed Comments Unknown Sex and Gender Information Value Date Recorded Sex Assigned at Not on file Legal 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 Gender Identity Not on file Sexual Orientation Not on file documented as of this encounter Plan of Treatment Not on file documented as of this encounter Visit Diagnoses Diagnosis Other abnormal blood chemistry- Primary Backache, unspecified Other malaise and fatigue documented in this encounter Additional Health Concerns Infection Onset Date Last Indicated Resolved Time CRE-CP Comment:Sputum 07/09/18 (Serratia) 07/09/2018 07/09/2018 MRSA 10/12/2018 12/25/2018 12/26/2019 8:08 PM CDT documented as of this encounter Care Teams Digital Engineer Relationship Specialty Start Date End Date Non-Staff, Physician NO ADDRESS ON FILE PCP - General 01/10/20 documented as of this encounter
--- OUTSIDE RECORDS SUMMARY | 2025-01-21 17:19 | XMS_ITS | Encounter Summary ---
Author Organization [facility] Address [address] [facility] [place] [address] Care Team Providers Care Commissary Assistant Name Role Phone Non-Staff, Physician Primary Care Provider Unava ilable Encounter Details Date Type Department Care Team (Latest Contact Info) Description 07/11/2000 Outpatient Historical [facility] Family Medicine- [address] [place] [phone] Edmond Machado DO NO ADDRESS ON FILE Other and unspecified noninfectious gastroenteritis and colitis(558.9) (Primary Dx) Social History Tobacco Use Types Packs/Day Years Used Date Smoking Tobacco: Never Assessed Comments Unknown Sex and Gender Information Value Date Recorded Sex Assigned at Not on file Legal Sex Female 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 Gender Identity Not on file Sexual Orientation Not on file documented as of this encounter Plan of Treatment Not on file documented as of this encounter Visit Diagnoses Diagnosis Other and unspecified noninfectious gastroenteritis and colitis(558.9)- Primary Other and unspecified noninfectious gastroenteritis and colitis documented in this encounter Additional Health Concerns Infection Onset Date Last Indicated Resolved Time CRE-CP Comment:Sputum 07/09/18 (Serratia) 07/09/2018 07/09/2018 MRSA 10/12/2018 12/25/2018 12/26/2019 8:08 PM CDT documented as of this encounter Care Teams Commissary Assistant Relationship Specialty Start Date End Date Non-Staff, Physician NO ADDRESS ON FILE PCP - General 01/10/20 documented as of this encounter
--- OUTSIDE RECORDS SUMMARY | 2025-01-21 17:19 | XMS_ITS | Encounter Summary ---
Author Organization [facility] Address [address] [facility] [place] [address] Care Team Providers Care Forging Press Lever Tender Name Role Phone Non-Staff, Physician Primary Care Provider Unava ilable Encounter Details Date Type Department Care Team (Latest Contact Info) Description 04/24/2001 Outpatient Historical [facility] Family Medicine- [address] [place] [phone] Edmond Machado DO NO ADDRESS ON FILE HEADACHE (Primary Dx); ACUTE URI NOS; KERATODERMA, ACQUIRED Social History Tobacco Use Types Packs/Day Years Used Date Smoking Tobacco: Never Assessed Comments Unknown Sex and Gender Information Value Date Recorded Sex Assigned at Not on file Legal Sex Female 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 Gender Identity Not on file Sexual Orientation Not on file documented as of this encounter Plan of Treatment Not on file documented as of this encounter Visit Diagnoses Diagnosis Headache(784.0)- Primary Headache Acute upper respiratory infections of unspecified site Acquired keratoderma documented in this encounter Additional Health Concerns Infection Onset Date Last Indicated Resolved Time CRE-CP Comment:Sputum 07/09/18 (Serratia) 07/09/2018 07/09/2018 MRSA 10/12/2018 12/25/2018 12/26/2019 8:08 PM CDT documented as of this encounter Care Teams Forging Press Lever Tender Relationship Specialty Start Date End Date Non-Staff, Physician NO ADDRESS ON FILE PCP - General 01/10/20 documented as of this encounter
--- OUTSIDE RECORDS SUMMARY | 2025-01-21 17:19 | XMS_ITS | Encounter Summary ---
Author Organization [facility] Address [address] [facility] [place] [address] Care Team Providers Care Accounts Receivable Supervisor Name Role Phone Non-Staff, Physician Primary Care Provider Unava ilable Encounter Details Date Type Department Care Team (Latest Contact Info) Description 12/16/1999 Outpatient Historical [facility] Medicine [place] [address] [facility] [address] [place] [phone] Yuan Barros MD Abdominal pain, epigastric (Primary Dx); Abdominal pain, right upper quadrant Social History Tobacco Use Types Packs/Day Years Used Date Smoking Tobacco: Never Assessed Comments Unknown Sex and Gender Information Value Date Recorded Sex Assigned at Not on file Legal Sex Female 2:45 AM DRIVER HELPER Gender Identity Not on file Sexual Orientation Not on file documented as of this encounter Plan of Treatment Not on file documented as of this encounter Visit Diagnoses Diagnosis Abdominal pain, epigastric- Primary Abdominal pain, right upper quadrant documented in this encounter Additional Health Concerns Infection Onset Date Last Indicated Resolved Time CRE-CP Comment:Sputum 07/09/18 (Serratia) 07/09/2018 07/09/2018 MRSA 10/12/2018 12/25/2018 12/26/2019 8:08 PM CDT documented as of this encounter Care Teams Accounts Receivable Supervisor Relationship Specialty Start Date End Date Non-Staff, Physician NO ADDRESS ON FILE PCP - General 01/10/20 documented as of this encounter
--- OUTSIDE RECORDS SUMMARY | 2025-01-21 17:19 | XMS_ITS | Encounter Summary ---
Author Organization [facility] Address [address] [facility] [place] [address] Care Team Providers Care Gas Pit Worker Name Role Phone Non-Staff, Physician Primary Care Provider Unava ilable Encounter Details Date Type Department Care Team (Latest Contact Info) Description 09/29/1999 Outpatient Historical [facility] Family Medicine- [address] [place] [phone] Eliz Echevarria NO ADDRESS ON FILE Benign murali lg bowel (Primary Dx); Rectal/anal hemorrhage; Obesity, unspecified Social History Tobacco Use Types Packs/Day Years Used Date Smoking Tobacco: Never Assessed Comments Unknown Sex and Gender Information Value Date Recorded Sex Assigned at Not on file Legal Sex Female 2:45 AM 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 Gender Identity Not on file Sexual Orientation Not on file documented as of this encounter Plan of Treatment Not on file documented as of this encounter Visit Diagnoses Diagnosis 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
--- OUTSIDE RECORDS SUMMARY | 2025-01-21 17:19 | XMS_ITS | Encounter Summary ---
Author Organization [facility] Address [address] [place] [facility] [place] [address] Care Team Providers Care Soaker Meat Name Role Phone Non-Staff, Physician Primary Care Provider Unava ilable Encounter Details Date Type Department Care Team (Latest Contact Info) Description 06/26/2001 Outpatient Historical [facility] Family Medicine- [address] [place] [phone] Edmond Machado DO NO ADDRESS ON FILE OSTEOARTHROS NOS-UNSPEC (Primary Dx); HEADACHE Social History Tobacco Use Types Packs/Day Years Used Date Smoking Tobacco: Never Assessed Comments Unknown Sex and Gender Information Value Date Recorded Sex Assigned at Not on file Legal Sex Female 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 MOP 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 Gender Identity Not on file Sexual Orientation Not on file documented as of this encounter Plan of Treatment Not on file documented as of this encounter Visit Diagnoses Diagnosis Osteoarthrosis, unspecified whether generalized or localized, unspecified site- Primary Headache(784.0) Headache documented in this encounter Additional Health Concerns Infection Onset Date Last Indicated Resolved Time CRE-CP Comment:Sputum 07/09/18 (Serratia) 07/09/2018 07/09/2018 MRSA 10/12/2018 12/25/2018 12/26/2019 8:08 PM CDT documented as of this encounter Care Teams Soaker Meat Relationship Specialty Start Date End Date Non-Staff, Physician NO ADDRESS ON FILE PCP - General 01/10/20 documented as of this encounter
--- OUTSIDE RECORDS SUMMARY | 2025-01-21 17:19 | XMS_ITS | Encounter Summary ---
Author Organization [facility] Address [address] [place] [facility] [place] [address] Care Team Providers Care Embedded Software Programmer Name Role Phone Non-Staff, Physician Primary Care Provider Unava ilable Encounter Details Date Type Department Care Team (Latest Contact Info) Description 07/25/2000 Outpatient Historical [facility] Family Medicine- [address] [place] [phone] Edmond Machado DO NO ADDRESS ON FILE Contact dermatitis and other eczema, due to unspecified cause (Primary Dx); Backache, unspecified; Abdominal pain, unspecified site Social History Tobacco Use Types Packs/Day Years Used Date Smoking Tobacco: Never Assessed Comments Unknown Sex and Gender Information Value Date Recorded Sex Assigned at Not on file Legal Sex Female 2:45 AM FORESTRY AID Gender Identity Not on file Sexual Orientation Not on file documented as of this encounter Plan of Treatment Not on file documented as of this encounter Visit Diagnoses Diagnosis Contact dermatitis and other eczema, due to unspecified cause- Primary Backache, unspecified Abdominal pain, unspecified site documented in this encounter Additional Health Concerns Infection Onset Date Last Indicated Resolved Time CRE-CP Comment:Sputum 07/09/18 (Serratia) 07/09/2018 07/09/2018 MRSA 10/12/2018 12/25/2018 12/26/2019 8:08 PM CDT documented as of this encounter Care Teams Embedded Software Programmer Relationship Specialty Start Date End Date Non-Staff, Physician NO ADDRESS ON FILE PCP - General 01/10/20 documented as of this encounter
--- OUTSIDE RECORDS SUMMARY | 2025-01-21 17:19 | XMS_ITS | Encounter Summary ---
Author Organization [facility] Address [address] [place] [address] Care Team Providers Care Ticketer Name Role Phone Non-Staff, Physician Primary Care Provider Unava ilable Encounter Details Date Type Department Care Team (Latest Contact Info) Description 06/12/2001 Outpatient Historical [facility] Family Medicine- Amita Jim[address] [place] [phone] Edmond Machado DO NO ADDRESS ON FILE HEADACHE (Primary Dx); LACK OF COORDINATION; DYSURIA Social History Tobacco Use Types Packs/Day Years Used Date Smoking Tobacco: Never Assessed Comments Unknown Sex and Gender Information Value Date Recorded Sex Assigned at Not on file Legal Sex Female 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 Gender Identity Not on file Sexual Orientation Not on file documented as of this encounter Plan of Treatment Not on file documented as of this encounter Visit Diagnoses Diagnosis Headache(784.0)- Primary Headache Lack of coordination Dysuria documented in this encounter Additional Health Concerns Infection Onset Date Last Indicated Resolved Time CRE-CP Comment:Sputum 07/09/18 (Serratia) 07/09/2018 07/09/2018 MRSA 10/12/2018 12/25/2018 12/26/2019 8:08 PM CDT documented as of this encounter Care Teams Ticketer Relationship Specialty Start Date End Date Non-Staff, Physician NO ADDRESS ON FILE PCP - General 01/10/20 documented as of this encounter
--- OUTSIDE RECORDS SUMMARY | 2025-01-21 17:19 | XMS_ITS | Encounter Summary ---
Author Organization [facility] Address [address] [facility] [address] Care Team Providers Care Freelance Digital Project Manager Name Role Phone Non-Staff, Physician Primary Care Provider Unava ilable Encounter Details Date Type Department Care Team (Latest Contact Info) Description 05/03/[address] 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 Gender Identity Not on file Sexual Orientation Not on file documented as of this encounter Plan of Treatment Not on file documented as of this encounter Visit Diagnoses Diagnosis Unspecified viral infection, in conditions classified elsewhere and of unspecified site- Primary Need for prophylactic vaccination with tetanus-diphtheria (Td) documented in this encounter Additional Health Concerns Infection Onset Date Last Indicated Resolved Time CRE-CP Comment:Sputum 07/09/18 (Serratia) 07/09/2018 07/09/2018 MRSA 10/12/2018 12/25/2018 12/26/2019 8:08 PM CDT documented as of this encounter Care Teams Freelance Digital Project Manager Relationship Specialty Start Date End Date Non-Staff, Physician NO ADDRESS ON FILE PCP - General 01/10/20 documented as of this encounter
--- OUTSIDE RECORDS SUMMARY | 2025-01-21 17:19 | XMS_ITS | Encounter Summary ---
Author Organization [facility] Address [address] [place] [address] Care Team Providers Care Fabric Separator Operator Name Role Phone Non-Staff, Physician Primary Care Provider Unava ilable Encounter Details Date Type Department Care Team (Latest Contact Info) Description 01/30/2002 Outpatient Historical [facility] General Surgery [address] [address] [address] [place] [address] [place] [address] [facility] [address] [place] [address] Open wound of breast (Primary Dx) Social History Tobacco Use Types Packs/Day Years Used Date Smoking Tobacco: Never Assessed Comments Unknown Sex and Gender Information Value Date Recorded Sex Assigned at Not on file Legal Sex Female 2:45 AM DIRECTOR OF SPA AND GUEST EXPERIENCE Gender Identity Not on file Sexual Orientation Not on file documented as of this encounter Plan of Treatment Not on file documented as of this encounter Visit Diagnoses Diagnosis Open wound of breast- Primary Open wound of breast, without mention of complication documented in this encounter Additional Health Concerns Infection Onset Date Last Indicated Resolved Time CRE-CP Comment:Sputum 07/09/18 (Serratia) 07/09/2018 07/09/2018 MRSA 10/12/2018 12/25/2018 12/26/2019 8:08 PM CDT documented as of this encounter Care Teams Fabric Separator Operator Relationship Specialty Start Date End Date Non-Staff, Physician NO ADDRESS ON FILE PCP - General 01/10/20 documented as of this encounter
--- OUTSIDE RECORDS SUMMARY | 2025-01-21 17:19 | XMS_ITS | Encounter Summary ---
Author Organization [facility] Address [address] [facility] [place] [address] Care Team Providers Care Tank Calibrator Name Role Phone Non-Staff, Physician Primary Care Provider Unava ilable Encounter Details Date Type Department Care Team (Latest Contact Info) Description 03/12/2001 Outpatient Historical [facility] Family Medicine- [address]mita [address] [place] [phone] Nell Verde MD NO ADDRESS ON FILE JOINT PAIN-PELVIS (Primary Dx) Social History Tobacco Use Types Packs/Day Years Used Date Smoking Tobacco: Never Assessed Comments Unknown Sex and Gender Information Value Date Recorded Sex Assigned at Not on file Legal Sex Female 2:45 AM HAND MODEL Gender Identity Not on file Sexual Orientation Not on file documented as of this encounter Plan of Treatment Not on file documented as of this encounter Visit Diagnoses Diagnosis Pain in joint, pelvic region and thigh- Primary documented in this encounter Additional Health Concerns Infection Onset Date Last Indicated Resolved Time CRE-CP Comment: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
--- OUTSIDE RECORDS SUMMARY | 2025-01-21 17:19 | XMS_ITS | Encounter Summary ---
Author Organization [facility] Address [address] [place] [address] Care Team Providers Care Small Arms Artillery Repairer Name Role Phone Non-Staff, Physician Primary Care Provider Unava ilable Encounter Details Date Type Department Care Team (Late st Contact Info) Description 10/28/2009 Ancillary Orders [facility] Orthopedics- [address] [place] [address] Matthew Levy MD NO ADDRESS ON FILE Knee Pain Social History Tobacco Use Types Packs/Day Years Used Date Smoking Tobacco: Former Cigarettes Alcohol Use Standard Drinks/Week Comments No 0 (1 standard drink = 0.6 oz pur e alcohol) Comments No Sex and Gender Information Value Date Recorded Sex Assigned at Not on file Legal Sex Female 2:45 AM INGOT CASTER Gender Identity Not on file Sexual Orientation Not on file documented as of this encounter Plan of Treatment Scheduled Orders Name Type Priority Associated Diagnoses Orde r Schedule XR KNEE 1 OR 2 VW RIGHT Imaging Routine Knee Pain Expected: 10/28/2009 (Approximate), Expires: 12/27/2009 documented as of this encounter Visit Diagnoses Diagnosis Knee pain Pain in joint, lower leg documented in this encounter Additional Health Concerns Infection Onset Date Last Indicated Resolved Time CRE-CP Comment:Sputum 07/09/18 (Serratia) 07/09/2018 07/09/2018 MRSA 10/12/2018 12/25/2018 12/26/2019 8:08 PM CDT documented as of this encounter Care Teams Small Arms Artillery Repairer Relationship Specialty Start Date End Date Non-Staff, Physician NO ADDRESS ON FILE PCP - General 01/10/20 documented as of this encounter
--- OUTSIDE RECORDS SUMMARY | 2025-01-21 17:19 | XMS_ITS | Encounter Summary ---
Author Organization [facility] Address [address] [place] [address] Care Team Providers Care Mechanical Commissioning Engineer Name Role Phone Non-Staff, Physician Primary Care Provider Unava ilable Encounter Details Date Type Department Care Team (Latest Contact Info) Description 01/02/2002 Outpatient Historical [facility] Family Medicine- Amita Jimenez [address] [place] [phone] Jaime Frausto MD [address] [facility] [address] [place] [address] ABDOMINAL PAIN RUQ (Primary Dx); Gynecologic examination; POSTMENOPAUSAL HORMONAL REPLACMT Social History Tobacco Use Types Packs/Day Years Used Date Smoking Tobacco: Never Assessed Comments Unknown Sex and Gender Information Value Date Recorded Sex Assigned at Not on file Legal Sex Female 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 Gender Identity Not on file Sexual Orientation Not on file documented as of this encounter Plan of Treatment Not on file documented as of this encounter Visit Diagnoses Diagnosis Abdominal pain, right upper quadrant- Primary Gynecologic examination Gynecological examination Need for prophylactic hormone replacement therapy (postmenopausal) documented in this encounter Additional Health Concerns Infection Onset Date Last Indicated Resolved Time CRE-CP Comment:Sputum 07/09/18 (Serratia) 07/09/2018 07/09/2018 MRSA 10/12/2018 12/25/2018 12/26/2019 8:08 PM CDT documented as of this encounter Care Teams Mechanical Commissioning Engineer Relationship Specialty Start Date End Date Non-Staff, Physician NO ADDRESS ON FILE PCP - General 01/10/20 documented as of this encounter
--- OUTSIDE RECORDS SUMMARY | 2025-01-21 17:19 | XMS_ITS | Encounter Summary ---
Author Organization [facility] Address [address] [place] [facility] [address] Care Team Providers Care Oriental Rug Stretcher Name Role Phone Non-Staff, Physician Primary Care Provider Unava ilable Encounter Details Date Type Department Care Team (Latest Contact Info) Description 07/05/2000 Outpatient Historical [facility] Family Medicine- [address]mita Jim[address] [place] [phone] Edmond Machado DO NO ADDRESS ON FILE Lichenification (Primary Dx); Headache(784.0); Fluid overload Social History Tobacco Use Types Packs/Day Years Used Date Smoking Tobacco: Never Assessed Comments Unknown Sex and Gender Information Value Date Recorded Sex Assigned at Not on file Legal Sex Female 2:45 AM MARRIAGE COUNSELOR MINISTER Gender Identity Not on file Sexual Orientation Not on file documented as of this encounter Plan of Treatment Not on file documented as of this encounter Visit Diagnoses Diagnosis Lichenification- Primary Lichenification and lichen simplex chronicus Headache(784.0) Headache Fluid overload documented in this encounter Additional Health Concerns Infection Onset Date Last Indicated Resolved Time CRE-CP Comment:Sputum 07/09/18 (Serratia) 07/09/2018 07/09/2018 MRSA 10/12/2018 12/25/2018 12/26/2019 8:08 PM CDT documented as of this encounter Care Teams Oriental Rug Stretcher Relationship Specialty Start Date End Date Non-Staff, Physician NO ADDRESS ON FILE PCP - General 01/10/20 documented as of this encounter
--- OUTSIDE RECORDS SUMMARY | 2025-01-21 17:19 | XMS_ITS | Encounter Summary ---
Author Organization [facility] Address [address] [place] [facility] [place] [address] Care Team Providers Care Curriculum Coach Name Role Phone Non-Staff, Physician Primary Care Provider Unava ilable Encounter Details Date Type Department Care Team (Latest Contact Info) Description 10/25/2000 Outpatient Historical [facility] Family Medicine- [address]mit[address] [place] [phone] Edmond Machado DO NO ADDRESS ON FILE Unspecified essential hypertension (Primary Dx); Unspecified hypothyroidism; Obesity, unspecified Social History Tobacco Use Types Packs/Day Years Used Date Smoking Tobacco: Never Assessed Comments Unknown Sex and Gender Information Value Date Recorded Sex Assigned at Not on file Legal Sex Female 2:45 AM ACCOUNTING FILE CLERK Gender Identity Not on file Sexual Orientation Not on file documented as of this encounter Plan of Treatment Not on file documented as of this encounter Visit Diagnoses Diagnosis Unspecified essential hypertension- Primary Unspecified hypothyroidism Obesity, unspecified documented in this encounter Additional Health Concerns Infection Onset Date Last Indicated Resolved Time CRE-CP Comment:Sputum 07/09/18 (Serratia) 07/09/2018 07/09/2018 MRSA 10/12/2018 12/25/2018 12/26/2019 8:08 PM CDT documented as of this encounter Care Teams Curriculum Coach Relationship Specialty Start Date End Date Non-Staff, Physician NO ADDRESS ON FILE PCP - General 01/10/20 documented as of this encounter
--- OUTSIDE RECORDS SUMMARY | 2025-01-21 17:19 | XMS_ITS | Encounter Summary ---
Author Organization [facility] Address [address] [place] [address] Care Team Providers Care Development Chemist Name Role Phone Non-Staff, Physician Primary Care Provider Unava ilable Encounter Details Date Type Department Care Team (Latest Contact Info) Description 01/09/2001 Outpatient Historical [facility] Family Medicine- [address]mita [address] [place] [phone] Edmond Machado DO NO ADDRESS ON FILE Acute upper respiratory infections of unspecified site (Primary Dx) Social History Tobacco Use Types Packs/Day Years Used Date Smoking Tobacco: Never Assessed Comments Unknown Sex and Gender Information Value Date Recorded Sex Assigned at Not on file Legal Sex Female 2:45 AM BUS TRANSPORTATION MANAGER Gender Identity Not on file Sexual Orientation Not on file documented as of this encounter Plan of Treatment Not on file documented as of this encounter Visit Diagnoses Diagnosis Acute upper respiratory infections of unspecified site- Primary documented in this encounter Additional Health Concerns Infection Onset Date Last Indicated Resolved Time CRE-CP Comment:Sputum 07/09/18 (Serratia) 07/09/2018 07/09/2018 MRSA 10/12/2018 12/25/2018 12/26/2019 8:08 PM CDT documented as of this encounter Care Teams Development Chemist Relationship Specialty Start Date End Date Non-Staff, Physician NO ADDRESS ON FILE PCP - General 01/10/20 documented as of this encounter
--- OUTSIDE RECORDS SUMMARY | 2025-01-21 17:19 | XMS_ITS | Encounter Summary ---
Author Organization [facility] Address [address] [place] [address] Care Team Providers Care Computer Customer Support Specialist Name Role Phone Non-Staff, Physician Primary Care Provider Unava ilable Encounter Details Date Type Department Care Team (Latest Contact Info) Description 10/26/2001 Outpatient Historical [facility] Medicine [address] [facility] [address] [place] [address] Nell Verde MD NO ADDRESS ON FILE URIN TRACT INFECTION NOS (Primary Dx); VAGINITIS NOS Social History Tobacco Use Types Packs/Day Years Used Date Smoking Tobacco: Never Assessed Comments Unknown Sex and Gender Information Value Date Recorded Sex Assigned at Not on file Legal Sex Female 2:45 AM 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 Gender Identity Not on file Sexual Orientation Not on file documented as of this encounter Plan of Treatment Not on file documented as of this encounter Visit Diagnoses Diagnosis Urinary tract infection, site not specified- Primary Vaginitis and vulvovaginitis, unspecified documented in this encounter Additional Health Concerns Infection Onset Date Last Indicated Resolved Time CRE-CP Comment:Sputum 07/09/18 (Serratia) 07/09/2018 07/09/2018 MRSA 10/12/2018 12/25/2018 12/26/2019 8:08 PM CDT documented as of this encounter Care Teams Computer Customer Support Specialist Relationship Specialty Start Date End Date Non-Staff, Physician NO ADDRESS ON FILE PCP - General 01/10/20 documented as of this encounter
--- OUTSIDE RECORDS SUMMARY | 2025-01-21 17:19 | XMS_ITS | Encounter Summary ---
Author Organization [facility] Address [address] [place] [facility] [place] [address] Care Team Providers Care Clipper Operator Name Role Phone Non-Staff, Physician Primary Care Provider Unava ilable Encounter Details Date Type Department Care Team (Latest Contact Info) Description 10/02/2001 Outpatient Historical [facility] Family Medicine- [address]mita [address] [place] [phone] Edmond Machado DO NO ADDRESS ON FILE HELICOBACTER PYLORI INFECTION (Primary Dx); SPASM OF MUSCLE Social History Tobacco Use Types Packs/Day Years Used Date Smoking Tobacco: Never Assessed Comments Unknown Sex and Gender Information Value Date Recorded Sex Assigned at Not on file Legal Sex Female 2:45 AM COMPRESSOR STATION ENGINEER Gender Identity Not on file Sexual Orientation Not on file documented as of this encounter Plan of Treatment Not on file documented as of this encounter Visit Diagnoses Diagnosis Helicobacter pylori (H. pylori)- Primary Spasm of muscle documented in this encounter Additional Health Concerns Infection Onset Date Last Indicated Resolved Time CRE-CP Comment:Sputum 07/09/18 (Serratia) 07/09/2018 07/09/2018 MRSA 10/12/2018 12/25/2018 12/26/2019 8:08 PM CDT documented as of this encounter Care Teams Clipper Operator Relationship Specialty Start Date End Date Non-Staff, Physician NO ADDRESS ON FILE PCP - General 01/10/20 documented as of this encounter
--- OUTSIDE RECORDS SUMMARY | 2025-01-21 17:19 | XMS_ITS | Encounter Summary ---
Author Organization [facility] Address [address] [facility] Attn: Epic Prelude ADT [place] [address] Care Team Providers Care Blender/Braze Applicator Name Role Phone Non-Staff, Physician Primary Care Provider Unava ilable Encounter Details Date Type Department Care Team (Late st Contact Info) Description 01/31/2002 [place] [address] [address] Social History Tobacco Use Types Packs/Day Years Used Date Smoking Tobacco: Never Assessed Comments Unknown Sex and Gender Information Value Date Recorded Sex Assigned at Not on file Legal Sex Female 2:45 AM PAY STATION COLLECTOR Gender Identity Not on file Sexual Orientation [...] documented as of this encounter Care Teams Blender/Braze Applicator Relationship Specialty Start Date End Date Non-Staff, Physician NO ADDRESS ON FILE PCP - General 01/10/20 documented as of this encounter
--- OUTSIDE RECORDS SUMMARY | 2025-01-21 17:19 | XMS_ITS | Encounter Summary ---
Author Organization [facility] Address [address] [facility] Attn: Epic Prelude ADT [place] [address] Care Team Providers Care Horse Racing Manager Name Role Phone Non-Staff, Physician Primary Care Provider Unava ilable Encounter Details Date Type Department Care Team (Late st Contact Info) Description 01/04/2002 Outpatient Historical Abel Fields NP NO ADDRESS ON FILE Social History Tobacco Use Types Packs/Day Years Used Date Smoking Tobacco: Never Assessed Comments Unknown Sex and Gender Information Value Date Recorded Sex Assigned at Not on file Legal Sex Female 2:45 AM DENTURE FINISHER Gender Identity Not on file Sexual Orientation [...] documented as of this encounter Care Teams Horse Racing Manager Relationship Specialty Start Date End Date Non-Staff, Physician NO ADDRESS ON FILE PCP - General 01/10/20 documented as of this encounter
--- OUTSIDE RECORDS SUMMARY | 2025-01-21 17:19 | XMS_ITS | Encounter Summary ---
Author Organization [facility] Address [address] [facility] [place] [address] Care Team Providers Care Insulation Worker Furnace Installer Name Role Phone Non-Staff, Physician Primary Care Provider Unava ilable Encounter Details Date Type Department Care Team (Latest Contact Info) Description 08/14/2001 Outpatient Historical [facility] Family Medicine- [address] [place] [phone] Edmond Machado DO NO ADDRESS ON FILE ANEMIA NOS (Primary Dx); HEMATURIA; BACKACHE NOS; MYALGIA AND MYOSITIS NOS Social History Tobacco Use Types Packs/Day Years Used Date Smoking Tobacco: Never Assessed Comments Unknown Sex and Gender Information Value Date Recorded Sex Assigned at Not on file Legal Sex Female 2:45 AM CONDUIT HELPER Gender Identity Not on file Sexual Orientation Not on file documented as of this encounter Plan of Treatment Not on file documented as of this encounter Visit Diagnoses Diagnosis Anemia, unspecified- Primary Hematuria Backache, unspecified Myalgia and myositis, unspecified Mylagia and myositis, unspecified documented in this encounter Additional Health Concerns Infection Onset Date Last Indicated Resolved Time CRE-CP Comment:Sputum 07/09/18 (Serratia) 07/09/2018 07/09/2018 MRSA 10/12/2018 12/25/2018 12/26/2019 8:08 PM CDT documented as of this encounter Care Teams Insulation Worker Furnace Installer Relationship Specialty Start Date End Date Non-Staff, Physician NO ADDRESS ON FILE PCP - General 01/10/20 documented as of this encounter
--- OUTSIDE RECORDS SUMMARY | 2025-01-21 17:19 | XMS_ITS | Encounter Summary ---
Author Organization [facility] Address [address] [facility] Attn: Epic Prelude ADT [place] [address] Care Team Providers Care Extrusion Operator Name Role Phone Non-Staff, Physician Primary Care Provider Unava ilable Encounter Details Date Type Department Care Team (Late st Contact Info) Description 12/14/1999 Outpatient Historical Abel Fields NP NO ADDRESS ON FILE Social History Tobacco Use Types Packs/Day Years Used Date Smoking Tobacco: Never Assessed Comments Unknown Sex and Gender Information Value Date Recorded Sex Assigned at Not on file Legal Sex Female 2:45 AM BOATBUILDER APPRENTICE WOOD Gender Identity Not on file Sexual Orientation [...] documented as of this encounter Care Teams Extrusion Operator Relationship Specialty Start Date End Date Non-Staff, Physician NO ADDRESS ON FILE PCP - General 01/10/20 documented as of this encounter
--- OUTSIDE RECORDS SUMMARY | 2025-01-21 17:19 | XMS_ITS | Encounter Summary ---
Author Organization [facility] Address [address] [place] [facility] [place] [address] Care Team Providers Care Chinese Instructor Name Role Phone Non-Staff, Physician Primary Care Provider Unava ilable Encounter Details Date Type Department Care Team (Latest Contact Info) Description 04/06/2001 Outpatient Historical [facility] Family Medicine- [address] [place] [phone] Nell Verde MD NO ADDRESS ON FILE FLU W MANIFESTATION NEC (Primary Dx); URINARY FREQUENCY Social History Tobacco Use Types Packs/Day Years Used Date Smoking Tobacco: Never Assessed Comments Unknown Sex and Gender Information Value Date Recorded Sex Assigned at Not on file Legal Sex Female 2:45 AM SAWMILL MOULDER OPERATOR Gender Identity Not on file Sexual Orientation Not on file documented as of this encounter Plan of Treatment Not on file documented as of this encounter Visit Diagnoses Diagnosis Influenza with other manifestations- Primary Urinary frequency documented in this encounter Additional Health Concerns Infection Onset Date Last Indicated Resolved Time CRE-CP Comment:Sputum 07/09/18 (Serratia) 07/09/2018 07/09/2018 MRSA 10/12/2018 12/25/2018 12/26/2019 8:08 PM CDT documented as of this encounter Care Teams Chinese Instructor Relationship Specialty Start Date End Date Non-Staff, Physician NO ADDRESS ON FILE PCP - General 01/10/20 documented as of this encounter
--- NOTE | 2025-01-21 17:27 | XRR_ITS ---
PROCEDURE INFORMATION: Exam: XR Left Finger(s) Exam date and time: 01/21/2025 5:30 PM Age: 75 years old Clinical indication: Wound TECHNIQUE: Imaging protocol: Radiologic exam of the left fingers. Views: Minimum 2 views. COMPARISON: No relevant prior studies available. FINDINGS: Bones/joints: Destructive osseous changes involving the distal interphalangeal joint of the middle finger with erosion extending into both the middle and distal phalanges. There is volar subluxation of the distal phalanx. Soft tissues: Skin defect overlying the dorsal aspect of the distal middle finger with subcutaneous gas. Circumferential soft tissue swelling of the 3rd digit. XR/XR finger LT min 2V [id number] IMPRESSION: Findings of osteomyelitis and/or septic arthritis involving the middle finger middle phalanx, distal phalanx, and distal interphalangeal joint. There is associated soft tissue gas.
--- NOTE | 2025-01-21 17:27 | W.ED.EXTPRO ---
HPI - Extremity Problem General: Chief complaint: Wound/Laceration Stated complaint: Wound on finger Time Seen by Provider: 01/21/25 17:13 Source: patient Mode of arrival: ambulatory Limitations: no limitations History of Present Illness: Patient is a 75-year-old female with a history of dementia here from [facility] due to concerns of an infection involving her left middle finger. According to fpc report, patient has had a chronic distal wound infection that she continually picks at . She reportedly just finished a round of cephalexin the finger does not seem to be improving thus they decided to call an ambulance today to have her medically evaluated. Patient overall is a very poor historian secondary to her dementia. prison does not report any recent fevers. MD Complaint: extremity pain and extremity swelling Location: left and upper extremity (L middle finger) Radiation: none Associated symptoms: Reports no associated symptoms Related Data Home Medications ?Medication ?Instructions ?Recorded ?Confirmed acetaminophen 325 mg tablet 650 mg PO QID PRN Pain 01/22/20 01/22/20 (Tylenol) aluminum-mag hydroxide-simethicone 5 ml PO QID PRN Constipation 01/22/20 01/22/20 400 mg-400 mg-40 mg/5 mL oral susp (Mylanta Maximum Strength) amlodipine 2.5 mg tablet (Norvasc) 2.5 mg PO DAILY 01/22/20 01/22/20 aripiprazole 2 mg tablet (Abilify) 2 mg PO DAILY 01/22/20 01/22/20 bisacodyl 10 mg rectal suppository 10 mg AK DAILY PRN Constipation 01/22/20 01/22/20 digoxin 125 mcg (0.125 mg) tablet 125 mcg PO DAILY 01/22/20 01/22/20 docusate sodium 50 mg capsule 50 mg PO DAILY 01/22/20 01/22/20 donepezil 5 mg tablet (Aricept) 5 mg PO DAILY 01/22/20 01/22/20 duloxetine 30 mg capsule,delayed 30 mg PO DAILY 01/22/20 01/22/20 release (Cymbalta) fluticasone propionate 110 2 puff inhalation BID 01/22/20 01/22/20 mcg/actuation HFA aerosol inhaler furosemide 40 mg tablet (Lasix) 40 mg PO DAILY 01/22/20 01/22/20 hydrocodone 5 mg-acetaminophen 300 1 tab PO Q6H PRN Pain 01/22/20 01/22/20 mg tablet hydrocortisone 1 % topical cream 1 applic topical BID PRN Itching 01/22/20 01/22/20 insulin NPH isoph U-100 human 100 42 unit SUBCUT QAM 01/22/20 01/22/20 unit/mL (3 mL) subcutaneous pen (Novolin N FlexPen) insulin aspart U-100 100 unit/mL 100 unit SUBCUT DAILY 01/22/20 01/22/20 (3 mL) subcutaneous pen (Novolog FlexPen U-100 Insulin aspart) insulin glargine 100 unit/mL (3 10 unit SUBCUT DAILY 01/22/20 01/22/20 mL) subcutaneous pen levothyroxine 125 mcg tablet 125 mcg PO DAILY 01/22/20 01/22/20 loperamide 2 mg tablet (Imodium 2 mg PO Q4H PRN Diarrhea 01/22/20 01/22/20 A-D) magnesium hydroxide 400 mg/5 mL 30 ml PO DAILY PRN Constipation 01/22/20 01/22/20 oral suspension (Milk of ThermoCeramix) memantine 5 mg tablet (Namenda) 5 mg PO BID 01/22/20 01/22/20 metformin 500 mg tablet 500 mg PO BID 01/22/20 01/22/20 nystatin 100,000 unit/gram topical 1 applic topical DAILY 01/22/20 01/22/20 powder omeprazole magnesium 20 mg 40 mg PO DAILY 01/22/20 01/22/20 tablet,delayed release (Prilosec OTC) ondansetron HCl 4 mg tablet 4 mg PO Q4H PRN Nausea 01/22/20 01/22/20 (Zofran) polyethylene glycol 3350 17 gram 17 g PO DAILY PRN Constipation 01/22/20 01/22/20 oral powder packet (Miralax) potassium chloride 20 mEq 20 meq PO DAILY 01/22/20 01/22/20 tablet,extended release ropinirole 2 mg tablet,extended 1 mg PO DAILY 01/22/20 01/22/20 release 24 hr (Requip XL) sennosides 8.6 mg-docusate sodium 2 tab-cap PO DAILY PRN Constipation 01/22/20 01/22/20 50 mg tablet (Senna-S) trospium 20 mg tablet 20 mg PO BID 01/22/20 01/22/20 Previous Rx's ?Medication ?Instructions ?Recorded cephalexin 500 mg capsule 500 mg PO Q6H 7 days #28 caps 01/21/25 ciprofloxacin HCl 500 mg tablet 500 mg PO Q12H #14 tabs 01/21/25 (Cipro) Allergies Allergy/AdvReac Type Severity Reaction Status Date / Time aspirin Allergy Unknown Verified 01/22/20 03:49 codeine Allergy Unknown Verified 01/22/20 03:49 morphine Allergy Unknown Verified 01/22/20 03:49 Sulfa (Sulfonamide Allergy Unknown Verified 01/22/20 03:49 Antibiotics) sulfamethoxazole (From Allergy Unknown Verified 01/22/20 03:49 Bactrim) trimethoprim (From Bactrim) Allergy Unknown Verified 01/22/20 03:49 Review of Systems General: Reports: ROS unobtainable due to medical condition and ROS unobtainable due to mental status Narrative: pt has chronic dementia-has no idea why she is here [facility] PFSH: Medical History Coronary artery disease GERD (gastroesophageal reflux disease) Chronic low back pain Osteoarthritis Obstructive sleep apnea Hypertension DM type 2 (diabetes mellitus, type 2) Surgical History History of right below knee amputation Status post bilateral knee replacements H/O: hysterectomy H/O tubal ligation Previous section H/O umbilical hernia repair Physical Exam Const: COMMON NORMALS: no acute distress and alert EXAM LIMITATIONS: altered mental status (chronic-dementia; at mental baseline per fpc) GENERAL APPEARANCE: cooperative Resp: COMMON NORMALS: normal respiratory effort and clear to auscultation bilaterally AUSCULTATION: clear to auscultation bilaterally Cardio: COMMON NORMALS: regular rate and regular rhythm RATE: regular rate RHYTHM: regular rhythm Extremity: NARRATIVE EXTREMITY EXAM: GENERAL: Yes normal exam except as noted LEFT UPPER EXTREMITY: Yes hand & digits (see below) OTHER: pt has necrotic/degloving like injury involving the distal aspect of her L middle finger; nail is gone; foul smelling; she has most likely osteo involving at least her distal IP joint; remainder of digit is edematous; no streaking Neuro: COMMON NORMALS: moves all extremities, no focal motor deficits and no sensory deficits noted SENSORIUM/ORIENTATION: Yes alert Course Consultations: Consultation #1: Dr. Topete-reviewed imaging of finger and XR-agrees this will require amputation but does not feel this needs to be done emergently; recommending follow-up in office and they will schedule this as an outpatient procedure; did request we continue her on oral antibiotics Vital Signs: Vital signs: Vital Signs Temperature 98.2 F 01/21/25 17:16 Pulse Rate 92 01/21/25 17:16 Respiratory Rate 17 01/21/25 17:16 Blood Pressure 100/71 01/21/25 17:16 Pulse Oximetry 96 01/21/25 17:16 Oxygen Delivery Me thod Room Air 01/21/25 17:16 MDM - Extremity (Nontraumatic) Medical Decision Making Patient here for chronic wound to her left middle finger. Patient has dementia and she reportedly constantly picks at this finger. Patient recently just finished oral Keflex. Clinical concern for osteomyelitis which was confirmed with XR. Patient is not tachycardic or febrile. She is a normal white count and normal lactic. CRP is scantly elevated at 18.3. I did speak to data collection specialist Dr. Topete who said that finger does not need to be emergently amputated with recommendation to follow-up in office and they will schedule this as an outpatient procedure. Medical Records I reviewed the patient's medical records. Lab Data I reviewed the patient's lab results. 01/21/25 17:47 01/21/25 17:47 Laboratory Results WBC 4.43 10^3/uL (3.29-11.43) 01/21/25 17:47 RBC 4.43 10^6/uL (3.85-5.65) 01/21/25 17:47 Hgb 11.00 g/dL (11.27-16.99) L 01/21/25 17:47 Hct 34.9 % (36-47) L 01/21/25 17:47 MCV 78.8 fl (85-98) L 01/21/25 17:47 MCH 24.8 pg (27-33) L 01/21/25 17:47 MCHC 31.5 g/dL (30-55) 01/21/25 17:47 RDW 14.7 % (12.1-15.1) 01/21/25 17:47 Plt Count 124 10^3/cmm (157-399) L 01/21/25 17:47 MPV 9.9 fL (7.4-10.4) 01/21/25 17:47 Neut % (Auto) 65.8 % 01/21/25 17:47 Lymph % (Auto) 24.4 % 01/21/25 17:47 Summit % (Auto) 7.7 % 01/21/25 17:47 Eos % (Auto) 0.9 % 01/21/25 17:47 Baso % (Auto) 0.7 % 01/21/25 17:47 Neut # (Auto) 2.92 10^3/uL (1.8-7.7) 01/21/25 17:47 Lymph # (Auto) 1.1 10^3/uL (0.8-4.8) 01/21/25 17:47 Summit # (Auto) 0.3 10^3/uL (0.2-0.9) 01/21/25 17:47 Eos # (Auto) 0.0 10^3/uL (0.0-0.8) 01/21/25 17:47 Baso # (Auto) 0.0 10^3/uL (0.0-0.1) 01/21/25 17:47 Nucleated RBC % (auto) 0 % 01/21/25 17:47 Nucleated RBCs # 0.0 /100WBC 01/21/25 17:47 Sodium 134 mmol/L (136-145) L 01/21/25 17:47 Potassium 3.8 mmol/L (3.5-5.1) 01/21/25 17:47 Chloride 98 mmol/L (98-107) 01/21/25 17:47 Carbon Dioxide 22 mmol/L (22-29) 01/21/25 17:47 Anion Gap 17.8 (5-19) 01/21/25 17:47 BUN 15 mg/dL (8-23) 01/21/25 17:47 Creatinine 1.0 mg/dL (0.5-0.9) H 01/21/25 17:47 GFR Calculation Not Reportable 01/21/25 17:47 Glucose 210 mg/dL (65-115) H 01/21/25 17:47 Calculated Osmolality 285 mOsm/kg (285-295) 01/21/25 17:47 Lactic Acid 1.9 mmol/L (0.5-2.2) 01/21/25 17:47 Calcium 8.8 mg/dL (8.5-10.5) 01/21/25 17:47 Total Bilirubin 0.3 mg/dL (0.15-1.2) 01/21/25 17:47 AST 26 U/L (0-32) 01/21/25 17:47 ALT 20 U/L (0-33) 01/21/25 17:47 Alkaline Phosphatase 122 U/L (35-105) H 01/21/25 17:47 C-Reactive Protein 18.3 mg/L (0.0-4.9) H 01/21/25 17:47 Total Protein 7.9 g/dL (6.6-8.7) 01/21/25 17:47 Albumin 3.4 g/dL (3.5-5.2) L 01/21/25 17:47 Globulin 4.5 g/dL (1.3-4.6) 01/21/25 17:47 XR interpretation done by ED provider, pending radiology final review Discharge Plan Discharge Patient Disposition: Home Clinical Impression: Osteomyelitis of finger of left hand Condition: Stable Prescriptions: New ciprofloxacin HCl [Cipro] 500 mg tablet 500 mg PO Q12H Qty: 14 0RF cephalexin 500 mg capsule 500 mg PO Q6H 7 Days Qty: 28 0RF No Action Lasix 40 mg Tablet 40 mg PO DAILY metformin 500 mg Tablet 500 mg PO BID Tylenol 325 mg Tablet 650 mg PO QID PRN (Reason: Pain) Aricept 5 mg Tablet 5 mg PO DAILY Miralax 17 gram Powder In Packet 17 g PO DAILY PRN (Reason: Constipation) Zofran 4 mg Tablet 4 mg PO Q4H PRN (Reason: Nausea) Senna-S 8.6-50 mg Tablet 2 tab-cap PO DAILY PRN (Reason: Constipation) Imodium A-D 2 mg Tablet 2 mg PO Q4H PRN (Reason: Diarrhea) docusate sodium 50 mg Capsule 50 mg PO DAILY Norvasc 2.5 mg Tablet 2.5 mg PO DAILY Milk of Magnesia 400 mg/5 mL Suspension 30 ml PO DAILY PRN (Reason: Constipation) hydrocortisone 1 % Cream 1 applic TOPICAL BID PRN (Reason: Itching) bisacodyl 10 mg Suppository 10 mg AK DAILY PRN (Reason: Constipation) levothyroxine 125 mcg Tablet 125 mcg PO DAILY digoxin 125 mcg (0.125 mg) Tablet 125 mcg PO DAILY nystatin 100,000 unit/gram Powder 1 applic TOPICAL DAILY fluticasone propionate 110 mcg/actuation Hfa Aerosol Inhaler 2 puff INHALATION BID Mylanta Maximum Strength 400-400-40 mg/5 mL Suspension 5 ml PO QID PRN (Reason: Constipation) Novolin N FlexPen 100 unit/mL (3 mL) Insulin Pen 42 unit SUBCUT QAM Novolog FlexPen U-100 Insulin 100 unit/mL (3 mL) Insulin Pen 100 unit SUBCUT DAILY Prilosec OTC 20 mg Tablet,Delayed Release (Dr/Ec) 40 mg PO DAILY Namenda 5 mg Tablet 5 mg PO BID trospium 20 mg Tablet 20 mg PO BID Cymbalta 30 mg Capsule,Delayed Release(Dr/Ec) 30 mg PO DAILY Abilify 2 mg Tablet 2 mg PO DAILY hydrocodone-acetaminophen 5-300 mg Tablet 1 tab PO Q6H PRN (Reason: Pain) insulin glargine 100 unit/mL (3 mL) Insulin Pen 10 unit SUBCUT DAILY Requip XL 2 mg Tablet Extended Release 24 Hr 1 mg PO DAILY potassium chloride 20 mEq Tablet Extended Release 20 meq PO DAILY Discharge Orders: Discharge ED (Routine); Ordered 01/21/25 Ordered By: Aimee Bernabe Referrals: Edmond Machado [Primary Care Provider, Unknown] Patient Instructions: Osteomyelitis (ED), Patient Portal & [facility]amon Instructions Activity Restrictions/Additional Instructions: Patient has osteomyelitis (infection of the bone) involving her middle and distal phalanx of her left middle finger. This will eventually require amputation of the digit. Patient's vital signs were normal upon arrival. She has a normal white count on her blood work. Normal lactic. Her CRP is mildly elevated. I did speak with Dr. Topete, our orthopedic surgeon on-call who stated this did not have to be done emergently. He recommended keeping her on oral antibiotics. Case management should contact patient/fpc this week to help set you up with a follow-up appointment with orthopedics so they can schedule her for this procedure. She needs to return to the emergency department for onset of fevers, redness or streaking up her hand or arm, or any other concerns the fpc may have. Print Language: Lao Coding Level of Care Code ED Small Stock Facer for Francoise Jacome
[2025-01-21 17:56] LABS: Hematocrit 34.9 % (36-47); Hemoglobin 11.00 g/dL (11.27-16.99); Mean Corpuscular HGB Conc 31.5 g/dL (30-55); Mean Corpuscular Hemoglobin 24.8 pg (27-33); Mean Corpuscular Volume 78.8 fl (85-98); Nucleated Red Blood Cells % 0 %; Platelet Count 124 10^3/cmm (157-399); Red Blood Count 4.43 10^6/uL (3.85-5.65); White Blood Count 4.43 10^3/uL (3.29-11.43)
[2025-01-21 18:12] LABS: Alanine Aminotransferase 20 U/L (0-33); Albumin Level 3.4 g/dL (3.5-5.2); Alkaline Phosphatase 122 U/L (35-105); Anion Gap 17.8 (5-19); Aspartate Amino Transferase 26 U/L (0-32); Blood Urea Nitrogen 15 mg/dL (8-23); Calcium 8.8 mg/dL (8.5-10.5); Carbon Dioxide 22 mmol/L (22-29); Chloride 98 mmol/L (98-107); Globulin 4.5 g/dL (1.3-4.6); Glucose 210 mg/dL (65-115); Osmolality Calculated 285 mOsm/kg (285-295); Potassium 3.8 mmol/L (3.5-5.1); Sodium 134 mmol/L (136-145); Total Protein 7.9 g/dL (6.6-8.7)
[2025-01-21 18:13] LABS: Lactic Sepsis W/Reflex 1.9 mmol/L (0.5-2.2)
[2025-01-21 19:08] VITALS: BP 114/65; O2SAT 94
[2025-01-21 19:37] VITALS: BP 125/65; O2SAT 96
[2025-01-21 20:51] VITALS: BP 133/74; O2SAT 99
[2025-01-21 22:01] VITALS: BP 110/82; O2SAT 97
[2025-01-21 22:17] VITALS: BP 110/82; PULSE 87; RESP 17; O2SAT 98
--- NOTE | 2025-01-23 07:27 | DCPLANNER ---
messaged ortho for er f/u
== END 2025-01-21 22:18 | disposition home or self-care (01) ==
PROVIDERS: Emergency Provider Physician Assistant; PCP Family Medicine
DX: M86.8X4 Other osteomyelitis, hand (principal)
CPT/HCPCS: 36415; 73140; 80053; 83605; 85025; 86140; 87040; 99284; J3373

== ENCOUNTER → 2025-01-24 11:07 | Outpatient (BNVA) | payer MEDICARE, MEDICAID, SELFPAY | PROVIDERS: PCP Family Medicine; Visit Provider Orthopaedic Surgery | DX: M86.142 Other acute osteomyelitis, left hand (principal) | CPT/HCPCS: 99204 ==

== ENCOUNTER 2025-02-13 07:50 | Day surgery (SDC) | payer MEDICARE, MEDICAID, SELFPAY ==
[2025-02-13] VITALS (9 sets, daily range): BP systolic 108–174; BP diastolic 69–98; PULSE 77–86; RESP 15–22; TEMP 36.2–38; O2SAT 92–100
--- NOTE | 2025-02-13 10:49 | W.PM.OPSFHP ---
Same Day Surgery H&P Indication for Procedure/HPI DATE OF PROCEDURE: February 13, 2025 CHIEF COMPLAINT/INDICATIONFOR SURGICAL PROCEDURE: Left hand long finger osteomyelitis with nonhealing ulcer. PREOP DIAGNOSIS: Left hand nonhealing ulcer, with osteomyelitis. PLANNED PROCEDURE: Operation Date: 02/13/25 11:55 Proposed Procedures p LEFT Midde Finger Amputation(Left) - Rufino Topete MD Kiran is an established, 75-year-old female patient, who was referred to our clinic from the emergency department for chronic osteomyelitis of the middle finger of the left hand. Patient has been managed with oral antibiotics which have not helped and due to her overall dementia/confusion, she does pick at her finger, which is because the ulcer to continue to worsen. She was seen originally on January 24, 2025 where treatment plan was discussed with the patient and the skilled facility caregivers present with her. The plan was then made to proceed with scheduling patient for left hand long finger amputation and possible follow-up with antibiotics as needed. The patient presented to the hospital today for planned surgical procedure however, she has not continued her oral antibiotics as previously instructed and now is having increased erythema and warmth now proceeding to the dorsum of the left hand. ROS Review of Systems General: Reports: 10 or more systems reviewed and unremarkable except as noted in History and below Const: Denies: fever(s), chills or body aches Card: Denies: chest pain or orthopnea Resp: Denies: dyspnea, productive cough or wheezing GI: Denies: abdominal pain, nausea or vomiting Skin/Breast: Denies: Infected, chronic, nonhealing ulcer to the left long finger. Erythema and warmth to the left hand. Swelling to the left upper extremity. Neuro: Denies: numbness in extremities or weakness in extremities Psych: Denies: anxiety Madi/Lymph: Denies: easy bruising or easy bleeding Medications/Allergies* Aspirin, codeine, morphine, sulfa, sulfamethoxazole and trimethoprim. Home Medications ?Medication ?Instructions ?Recorded ?Confirmed ?Type acetaminophen 325 mg tablet 650 mg PO QID PRN Pain 01/22/20 02/12/25 History (Tylenol) digoxin 125 mcg (0.125 mg) tablet 125 mcg PO DAILY 01/22/20 02/12/25 History duloxetine 30 mg capsule,delayed 30 mg PO QAM 01/22/20 02/12/25 History release (Cymbalta) fluticasone propionate 110 2 puff inhalation DAILY 01/22/20 02/12/25 History mcg/actuation HFA aerosol inhaler furosemide 40 mg tablet (Lasix) 40 mg PO DAILY 01/22/20 02/12/25 History hydrocodone 5 mg-acetaminophen 300 1 tab PO Q6H PRN Pain 01/22/20 02/12/25 History mg tablet insulin glargine 100 unit/mL (3 65 unit SUBCUT BID 01/22/20 02/12/25 History mL) subcutaneous pen magnesium hydroxide 400 mg/5 mL 30 ml PO DAILY 01/22/20 02/12/25 History oral suspension (Milk of Magnesia) omeprazole magnesium 20 mg 40 mg PO BID 01/22/20 02/12/25 History tablet,delayed release (Prilosec OTC) sennosides 8.6 mg-docusate sodium 2 tab-cap PO BID 01/22/20 02/12/25 History 50 mg tablet (Senna-S) trospium 20 mg tablet 20 mg PO BID 01/22/20 02/12/25 History amitriptyline 100 mg tablet 100 mg PO BEDTIME 01/24/25 02/12/25 History aluminum-mag hydroxide-simethicone 30 ml PO QID PRN Indigestion 02/12/25 02/12/25 History 200 mg-200 mg-20 mg/5 mL oral susp amitriptyline 50 mg tablet 50 mg PO DAILY 02/12/25 02/12/25 History docusate sodium 100 mg tablet 200 mg PO BID 02/12/25 02/12/25 History gabapentin 400 mg tablet 400 mg PO BEDTIME 02/12/25 02/12/25 History insulin aspart U-100 100 unit/mL 3 sliding scale dose SUBCUT 02/12/25 02/12/25 History (3 mL) subcutaneous pen (Novolog DIRECTED FlexPen U-100 Insulin aspart) levothyroxine 100 mcg tablet 100 mcg PO DAILY 02/12/25 02/12/25 History losartan 25 mg tablet 25 mg PO DAILY 02/12/25 02/12/25 History memantine 10 mg tablet 10 mg PO BID 02/12/25 02/12/25 History mirtazapine 15 mg tablet 15 mg PO BEDTIME 02/12/25 02/12/25 History ropinirole 1 mg tablet 1 mg PO BEDTIME 02/12/25 02/12/25 History Allergies/Adverse Reactions Allergy/AdvReac Type Severity Reaction Status Date / Time aspirin Allergy Unknown Verified 02/13/25 08:30 codeine Allergy Unknown Verified 02/13/25 08:30 morphine Allergy Unknown Verified 02/13/25 08:30 Sulfa (Sulfonamide Allergy Unknown Verified 02/13/25 08:30 Antibiotics) sulfamethoxazole (From Allergy Unknown Verified 02/13/25 08:30 Bactrim) trimethoprim (From Bactrim) Allergy Unknown Verified 02/13/25 08:30 Pertinent History/Comorbid Conditions* Medical History (Updated 01/29/25 @ 00:00 by PHILLIP Sanchez) Coronary artery disease GERD (gastroesophageal reflux disease) Chronic low back pain Osteoarthritis Obstructive sleep apnea Hypertension DM type 2 (diabetes mellitus, type 2) Surgical History (Updated 01/22/20 @ 13:35 by Thelma Cerda DO) History of right below knee amputation Status post bilateral knee replacements H/O: hysterectomy H/O tubal ligation Previous section H/O umbilical hernia repair Social History Smoking and tobacco/nicotine status: former use of tobacco/nicotine Pertinent Exam Findings alert, not oriented x 3 (Has known dementia. ), clear to auscultation bilaterally, regular rate & rhythm, operative site marked and procedure specific exam findings Narrative: EXAM NARRATIVE: On examination of her left hand today she has circumferential ulceration of the left distal long finger around the DIP joint region. There is open wound all the way down to bone on the dorsal aspect. Tissues distally do not look viable. No other abnormalities of the hand. Patient is absent her right lower extremity which I was told by litigation claim representative she also had a chronic infection there 2. Const: COMMON NORMALS: no acute distress, average body habitus and patient oriented x3 (Oriented to self) HENMT: COMMON NORMALS: normocephalic and atraumatic HEAD & SCALP: normocephalic and atraumatic Neck/C-Spine: COMMON NORMALS: full ROM Chest: COMMONS NORMALS: normal inspection of the chest Resp: COMMON NORMALS: normal respiratory effort, No retractions and No use of accessory muscles Cardio: COMMON NORMALS: regular rate and Peripheral pulses 2+ throughout RATE: regular rate PERIPHERAL PULSES: Peripheral pulses 2+ throughout Extremity: NARRATIVE EXTREMITY EXAM: As per above Neuro: COMMON NORMALS: patient oriented x3 (Oriented to self), moves all extremities, no focal motor deficits and no sensory deficits noted Psych: COMMON NORMALS: mental status grossly normal (Patient has dementia), cooperative, normal affect and speech normal SPEECH: Yes normal speech Skin: COMMON NORMALS: no rashes or lesions noted and no wounds (Ulceration of the left long finger around the DIP joint) GENERAL SKIN EXAM: no rashes or lesions noted Recommendations Surgery/Procedure today Other Plans: Plan at this time is for surgical amputation of the left long finger through the PIP joint for slightly more proximal. Patient has nonhealing osteomyelitis with bone destruction of this finger. All risks and benefits have been discussed with her provider since the patient cannot understand most of this. All questions were answered. Patient's family was also contacted, as patient does have known dementia. The patient was not remained on her oral antibiotics as previously discussed at the last office visit. For this cause, she will likely require IV antibiotics to follow the procedure. It was originally discussed to possibly hold off on surgery for IV antibiotics however, due to the significant nature of the chronic ulcer down to bone and worsening, it was felt best to proceed with procedure and follow with IV antibiotics postoperatively. This will be arranged for the skilled facility where the patient lives. Coding Level of Care Code Acute Code for Francoise Jacome
--- NOTE | 2025-02-13 11:12 | W.PM.OPSUD ---
Surgery/Procedure H&P Update DATE OF PROCEDURE: February 13, 2025 DATE H&P PERFORMED: 02/13/25 H&P UPDATE INFORMATION: I have reviewed H&P completed within last 30 days, I have examined patient prior to procedure and No changes to prior documentation PREOP DIAGNOSIS: Left hand nonhealing ulcer, with osteomyelitis. PLANNED PROCEDURE: Operation Date: 02/13/25 11:55 Proposed Procedures p LEFT Midde Finger Amputation(Left) - Rufino Topete MD
[2025-02-13] MEDS: ceFAZolin 2,000 mg SDV 2000 MG IVP (13:39)
--- NOTE | 2025-02-13 14:19 | P.OP_ITS ---
Operative Report Date of procedure: February 13, 2025 Surgeon: Rufino Topete MD Procedure: Preoperative diagnosis: Chronic left long finger ulceration with infection and osteomyelitis Postoperative diagnosis: Same Procedure: Partial amputation of left long finger Surgeon: Rufino Topete MD Electronic Field Service Engineer: CESILIA Tipton Assistance was necessary for assistance during the procedure, wound closure, dressing placement Anesthesia: General Tourniquet time: 30 minutes at 250mmhg Specimens: Distal left long finger, remnants of middle phalanx of left long finger, cultures of purulent material from left long finger Indications: Candis is a 75-year-old white female who has significant dementia also history of type 2 diabetes has been difficult to control. She began having ulceration on her finger and nursing staff at her facility indicated she continue to pick at it to the point that it became quite infected and loss of tissue all the way down to bone. X-rays demonstrate osteomyelitis with destruction of the distal and middle phalanx of her long finger left hand. After orthopedic evaluation is felt patient would most benefit from amputation of the finger through the PIP joint or distal portion of the proximal phalanx of the left long finger. All risks benefits treatment alternatives discussed with her power of real estate attorney and they are agreeable to this at this time. Procedure: After TAVR consent patient was taken to the operating room placed on table supine position general anesthetic administered. Once good anesthesia was achieved left upper extremity prepped and draped usual fashion. After surgical timeout sterile tourniquet was applied to the forearm and pneumatic cuff inflated 2 and 50 mmHg. Left hand demonstrated a very swollen and erythematous middle finger. With dry ulcer just posterior to the nailbed on the dorsal surface. With compression of the finger purulent material could be expressed off this distal area and cultures were obtained from this. Incision was then made in a fishmouth type incision at the level of the PIP joint hearing dissection all the way down to the joint into the tendons. Extensor cook was spared on the dorsal aspect the finger as well as portion of the flexor tendon past this joint was also divided. Remainder the soft tissue was sharply divided and then distal finger was removed. During this process proximal portion of the middle phalanx was dissected out showed quite a bit of distraction and this was sent as a sample for cultures and evaluation. Distal fingertip is also sent to pathology for review. At this point nonviable tissue was sharply debrided from the finger and. Subsequently distal portion of the proximal phalanx was removed, primarily the condyles, with a microsagittal saw. 3-0 Prolene in a weave type suturing was then used to suture the extensor tendon to the flexor tendon over the end of the proximal phalanx. [id number] sutures of 3-0 Prolene were also used. Finger was then washed as aerofix irrigation. Skin edges were then repaired with 3-0 Vicryl [id number] sutures until wound is completely closed. At this point pneumatic cuff is deflated after 30 minutes total tourniquet time. Hand and surgical site were cleaned and dried. Xeroform gauze placed over this and then gauze dressing and Kerlix wrap. Ck was then wrapped around the hand and wrist. Patient awakened transferred to cover room in stable condition.
--- NOTE | 2025-02-13 14:55 | ANE.PACU2 ---
Inpatient post-anesthesia follow up: Airway intact: Yes Vital signs: Temperature 97.2 F Pulse Rate 86 Respiratory Rate 18 Blood Pressure 134/94 Pulse Oximetry 96 Oxygen Delivery Me thod Room Air Oxygen Flow Rate 8 Fraction of Inspir ed Oxygen Hydration adequate: Yes Nausea and vomiting: No Pain level: 1 Mental status: Baseline
== END 2025-02-13 14:40 | disposition home or self-care (01) ==
PROVIDERS: PCP Family Medicine; Visit Provider Orthopaedic Surgery
PROC: (CPT 26951; principal; 2025-02-13 11:55)
DX: M86.8X4 Other osteomyelitis, hand (principal); L98.498 Non-pressure chronic ulcer of skin of other sites with other specified severity; I10 Essential (primary) hypertension; E11.9 Type 2 diabetes mellitus without complications; K21.9 Gastro-esophageal reflux disease without esophagitis; I25.10 Atherosclerotic heart disease of native coronary artery without angina pectoris; G47.33 Obstructive sleep apnea (adult) (pediatric); Z79.891 Long term (current) use of opiate analgesic; Z79.4 Long term (current) use of insulin; Z87.891 Personal history of nicotine dependence
CPT/HCPCS: 26951; 36416; 82962; 87070; 87075; 87186; 87205; 88305; 88307; 88311; J0690; J2250; J2704; J3010; J3373; J7030; J7050

== ENCOUNTER → 2025-02-25 12:41 | Outpatient (BNVA) | payer MEDICARE, MEDICAID, SELFPAY | PROVIDERS: PCP Family Medicine; Visit Provider Orthopaedic Surgery | DX: M86.042 Acute hematogenous osteomyelitis, left hand (principal) | CPT/HCPCS: 99024 ==

== ENCOUNTER → 2025-03-10 13:55 | Outpatient (BNVA) | payer MEDICARE, MEDICAID, SELFPAY | PROVIDERS: PCP Family Medicine; Visit Provider Orthopaedic Surgery | DX: M86.142 Other acute osteomyelitis, left hand (principal) | CPT/HCPCS: 99024 ==

== ENCOUNTER 2025-03-23 03:01 | Emergency (ER) | payer MEDICARE, MEDICAID, SELFPAY ==
--- OUTSIDE RECORDS SUMMARY | 2025-03-17 15:05 | XMS_ITS | Encounter Summary ---
Author Organization [facility] Address [address] [place] [address] Care Team Providers Care Internal Corrosion Specialist Name Role Phone Anshu Ames MD Primary Care Provider Reason for Visit * Reason Comments Skilled Nursing Visit Encounter Details Date Type Department Care Team ([facility] st Contact Info) Description 03/17/2025 3:05 PM FINISHING DEPARTMENT SUPERVISOR Telemedicine [facility] Emergency Department [place] - Primary Care [address] [place] [address] Anshu Ames MD [address] [place] [address] Type 2 diabetes mellitus with diabetic neuropathy, with long-term current use of insulin (HCC) (Primary Dx); Chronic diastolic CHF (congestive heart failure) (HCC); Pancytopenia (HCC); Other emphysema (HCC); Hx of AKA (above knee amputation), right (HCC) Social History Tobacco Use Types Packs/Day Years Used Date Smoking Tobacco: Never Smokeless Tobacco: Never Tobacco Cessation:Counseling Given: Not Answered PHQ-2 Answer Date Recorded PHQ-2 Score 0 04/29/2024 Comments Unknown Sex and Gender Information Value Date Recorded Sex Assigned at Not on file Legal Sex Female 9:13 PM FINISHING DEPARTMENT SUPERVISOR Gender Identity Not on file Sexual Orientation Not on file documented as of this encounter Last Filed Vital Signs Vital Sign Reading Time Taken Comments Blood Pressure 112/60 03/17/2025 9:55 AM FINISHING DEPARTMENT SUPERVISOR Pulse 86 03/17/2025 9:55 AM FINISHING DEPARTMENT SUPERVISOR Temperature 36.6 C (97.9 F) 03/17/2025 9:55 AM FINISHING DEPARTMENT SUPERVISOR Respiratory Rate 20 03/17/2025 9:55 AM FINISHING DEPARTMENT SUPERVISOR Oxygen Saturation 96% 03/17/2025 9:55 AM FINISHING DEPARTMENT SUPERVISOR Inhaled Oxygen Concentration - - Weight 75.8 kg (167 lb) 03/17/2025 9:55 AM FINISHING DEPARTMENT SUPERVISOR Height 144.8 cm (4' 9 ) 03/17/2025 9:55 AM FINISHING DEPARTMENT SUPERVISOR Body Mass Index 36.14 03/17/2025 9:55 AM FINISHING DEPARTMENT SUPERVISOR documented in this encounter Patient Instructions * Patient Instructions* Kevin Mon - 03/17/2025 9:57 AM FINISHING DEPARTMENT SUPERVISOR REDUCING YOUR BODY MASS INDEX Through Healthy Eating & Regular Exercise Body Mass Index (BMI) is a common measure of body fat based on weight and height to determine if you are underweight, normal weight, overweight or obese. Your BMI can help identify if you are at riskfor certain health conditions and even . Your weight affects your body and health in many ways. A high BMI puts you at risk for chronic diseases such as diabetes, heart disease, high blood pressure, stroke, arthritis and some cancers. Other conditions that may result from a high BMI include sleep apnea, osteoarthritis, infertility and gastroesophageal reflux disease (GERD). To maintain a healthy weight, a balance of the energy taken in must equal the energy spent on activity to keep your body functioning. By using more energy than you are eating, weight loss will occur.This can be done by increasing your physical activity or by taking in less calories; however, too little food (by skipping meals, crash diets) can negatively affect your metabolism. Nutrition Tips Eat more fresh fruits and vegetables, whole grains, low fat diary and lean proteins such as fish, turkey, chicken and beans. Eat fewer foods higher in calories and fat such as fast food, desserts, snack foods, sweetened beverages, soft drinks including diet sodas, etc. Eating smaller portions can help you lose weight and keep it off. Crash diets may help you lose weight quickly but typically do not result in the ability to keep weight off. Physical Activity Tips Engage in regular physical activity while eating a balanced diet to lose weight and keep it off. Exercise walton calories and fat as well as reduces your risk for chronic diseases. No matter your weight or weight loss goals, regular exercise will improve your health. Be sure to choose activities that you enjoy so that you will want to continue your weight loss journey. Aim for at least 150 minutes a week of moderate aerobic activity, 75 minutes a week of vigorous aerobic activity or a combination of moderate and vigorous activity for overall health benefits. Start with short sessions (10-15 minutes) if you have been inactive for a long time. Try adding 5 minutes to each session until you gradually build up to 30 minutes of exercise most days of the week. Swimming and water-based exercise can be a good alternative if other activities cause joint discomfort. Donot forget to drink plenty of fluids before, during and after exercise. Set a weight loss goal of 1-2 pounds per week. A long-term goal should also be set for 5-7 percent of total body weight but focusing on 1-2 pounds per week will get you on your way for a healthier you. Losing weight may cause muscle loss. Resistance training helps increase or maintain muscle mass. Becautious lifting heavy weights if you have high blood pressure and avoid holding your breath. Increasing muscle mass helps you lose weight faster. Check with your doctor before starting a new exercise program, especially if you have any concerns about your fitness, have not exercised for a long time or have chronic health problems, such as heart disease, diabetes or arthritis. Ask about any changes to your medications or any concerns in becoming more active. A Few Tips to Keep You Motivated Weight control is one of many great benefits of healthy eating and regular exercise. You can also improve your mood, increase your energy levels, sleep better and improve your cholesterol and blood sugar levels. Schedule your physical activity into your day just like you would with brushing your teeth Try exercising with a friend or family member to make it more fun Try replacing some screen time (TV, computer, phone) with physical activity Start slow and work your way up to more challenging activities Change up your scenery - try walking in the park, on the trail, downtown or at the mall Break your workouts into small chunks - 10 minutes in the morning, 10 during your lunch break and 10 in the evening. Eat smaller more frequent meals and snacks with each including a fruit and lean protein Use smaller plates to help control portion sizes Drink water in place of sweetened beverages Look for healthy options at fast food restaurants (yogurt, fruit, salad, etc.) Choose skim milk and low-fat cheese and yogurts A Registered Dietitian with [facility] Department can provide individual nutritional counseling for adults with a variety of conditions. Patients are seen by appointment only and a physician referral is required. Health insurance plans vary on their coverage of nutrition counseling. There is a fee if the service is not covered by the insurance policy. We recommendcontacting your insurance or our Financial Counselors for coverage and cost estimates at [phone] or toll free at . For more information or to schedule an appointment, please contact the Scheduling Department at [phone]. To schedule an appointment with a dietitian in [place], please call [phone]. SHING DEPARTMENT SUPERVISOR documented in this encounter Plan of Treatment Not on file documented as of this encounter Visit Diagnoses Diagnosis Type 2 diabetes mellitus with diabetic neuropathy, with long-term current use of insulin (HCC)- Primary Chronic diastolic CHF (congestive heart failure) (HCC) Pancytopenia (HCC) Other emphysema (HCC) Other emphysema Hx of AKA (above knee amputation), right (HCC) documented in this encounter Additional Health Concerns Assessment Noted Time PHQ-9 Depression Total Score: 0 04/29/19 25 1:39 PM FINISHING DEPARTMENT SUPERVISOR A fall risk assessment has been complete d for the patient 03/17/2025 9:57 AM FINISHING DEPARTMENT SUPERVISOR documented as of this encounter Care Teams Internal Corrosion Specialist Relationship Specialty Start Date End Date Anshu Ames MD [address] [place] [address] PCP - General Family Medicine 03/08/22 documented as of this encounter
--- OUTSIDE RECORDS SUMMARY | 2025-03-19 14:30 | XMS_ITS | Encounter Summary ---
Author Organization [facility] Address [address] [place] [address] Care Team Providers Care Progress Developer Name Role Phone Anshu Ames MD Primary Care Provider Encounter Details Date Type Department Care Team (Late st Contact Info) Description 03/19/2025 2:30 PM SMALL PACKAGE AND BUNDLE SORTER CLERK Telemedicine [facility] [place] - Primary Care 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, sequela Social History Tobacco Use Types Packs/Day Years Used Date Smoking Tobacco: Never Smokeless Tobacco: Never PHQ-2 Answer Date Recorded PHQ-2 Score 0 04/29/2024 Comments Unknown Sex and Gender Information Value Date Recorded Sex Assigned at Not on file Legal Sex Female 9:13 PM SMALL PACKAGE AND BUNDLE SORTER CLERK Gender Identity Not on file Sexual Orientation Not on file documented as of this encounter Plan of Treatment Not on file documented as of this encounter Visit Diagnoses Diagnosis Compulsive skin picking- Primary 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
[2025-03-23 03:03] VITALS: BP 147/74; PULSE 85; RESP 18; TEMP 37.1; O2SAT 99; BMI 29.9
--- OUTSIDE RECORDS SUMMARY | 2025-03-23 03:11 | XMS_ITS | Encounter Summary ---
Author Organization [facility] Address [address] [place] [address] Care Team Providers Care Student Outreach Coordinator Name Role Phone Non-Staff, Physician Primary Care Provider Unava ilable Encounter Details Date Type Department Care Team (Latest Contact Info) Description 08/07/2002 Outpatient Historical [facility] Family Medicine- [address] [place] [phone] Edmond Machado DO NO ADDRESS ON FILE CHRONIC AIRWAY OBSTRUCTION NEC (CMS/[facility]) (Primary Dx); DIABETES UNCOMPL ADULT-TYPE II (CMS/[facility]); SPASM OF MUSCLE Social History Tobacco Use Types Packs/Day Years Used Date Smoking Tobacco: Never Assessed Comments Unknown Sex and Gender Information Value Date Recorded Sex Assigned at Not on file Legal Sex Female 2:45 AM REGISTERED NURSE CARDIAC Gender Identity Not on file Sexual Orientation [...] documented as of this encounter Care Teams Student Outreach Coordinator Relationship Specialty Start Date End Date Non-Staff, Physician NO ADDRESS ON FILE PCP - General 01/10/20 documented as of this encounter
--- OUTSIDE RECORDS SUMMARY | 2025-03-23 03:11 | XMS_ITS | Encounter Summary ---
Author Organization [facility] Address [address] [place] [facility] [place] [address] Care Team Providers Care Cash Grain Grower Name Role Phone Non-Staff, Physician Primary Care Provider Unava ilable Encounter Details Date Type Department Care Team (Latest Contact Info) Description 09/20/2002 Outpatient Historical [facility] Family Medicine- [address]mit[address] [place] [phone] Nell Verde MD NO ADDRESS ON FILE LUMBAGO (Primary Dx); DIABETES UNCOMPL ADULT-TYPE II ([facility]) Social History Tobacco Use Types Packs/Day Years Used Date Smoking Tobacco: Never Assessed Comments Unknown Sex and Gender Information Value Date Recorded Sex Assigned at Not on file Legal Sex Female 2:45 AM OTR OWNER OPERATOR Gender Identity Not on file Sexual [...] documented as of this encounter Care Teams Cash Grain Grower Relationship Specialty Start Date End Date Non-Staff, Physician NO ADDRESS ON FILE PCP - General 01/10/20 documented as of this encounter
--- OUTSIDE RECORDS SUMMARY | 2025-03-23 03:11 | XMS_ITS | Encounter Summary ---
Author Organization [facility] Address [address] [facility] [place] [place] [address] Care Team Providers Care Structural Shop Helper Name Role Phone Non-Staff, Physician Primary Care Provider Unava ilable Encounter Details Date Type Department Care Team (Latest Contact Info) Description 02/25/2002 Outpatient Historical [facility] Family Medicine- [address] [place] [phone] Nell Verde MD NO ADDRESS ON FILE DIABETES UNCOMPL ADULT-TYPE II (CMS/[facility]) (Primary Dx); DYSURIA Social History Tobacco Use Types Packs/Day Years Used Date Smoking Tobacco: Never Assessed Comments Unknown Sex and Gender Information Value Date Recorded Sex Assigned at Not on file Legal Sex Female 2:45 AM CLEANER TOUCH UP WORKER Gender Identity Not on file Sexual [...] documented as of this encounter Care Teams Structural Shop Helper Relationship Specialty Start Date End Date Non-Staff, Physician NO ADDRESS ON FILE PCP - General 01/10/20 documented as of this encounter
--- OUTSIDE RECORDS SUMMARY | 2025-03-23 03:11 | XMS_ITS | Encounter Summary ---
Author Organization [facility] Address [address] [facility] Attn: Epic Prelude ADT [place] [address] Care Team Providers Care Community Fundraiser Name Role Phone Non-Staff, Physician Primary Care Provider Unava ilable Encounter Details Date Type Department Care Team (Late st Contact Info) Description 02/04/2002 Outpatient [place] [id number] [address] Social History Tobacco Use Types Packs/Day Years Used Date Smoking Tobacco: Never Assessed Comments Unknown Sex and Gender Information Value Date Recorded Sex Assigned at Not on file Legal Sex Female 2:45 AM RETORT OR CONDENSER PRESS OPERATOR Gender Identity Not on file Sexual [...] documented as of this encounter Care Teams Community Fundraiser Relationship Specialty Start Date End Date Non-Staff, Physician NO ADDRESS ON FILE PCP - General 01/10/20 documented as of this encounter
--- OUTSIDE RECORDS SUMMARY | 2025-03-23 03:11 | XMS_ITS | Encounter Summary ---
Author Organization [facility] Address [address] [place] [facility] [place] [address] Care Team Providers Care Guardian Family Member Name Role Phone Non-Staff, Physician Primary Care Provider Unava ilable Encounter Details Date Type Department Care Team (Latest Contact Info) Description 05/13/2002 Outpatient Historical [facility] Family Medicine- [address] [place] [phone] Nell Verde MD NO ADDRESS ON FILE DERMATITIS NOS (Primary Dx) Social History Tobacco Use Types Packs/Day Years Used Date Smoking Tobacco: Never Assessed Comments Unknown Sex and Gender Information Value Date Recorded Sex Assigned at Not on file Legal Sex Female 2:45 AM NUCLEAR AUXILIARY OPERATOR Gender Identity Not on file Sexual [...] documented as of this encounter Care Teams Guardian Family Member Relationship Specialty Start Date End Date Non-Staff, Physician NO ADDRESS ON FILE PCP - General 01/10/20 documented as of this encounter
--- OUTSIDE RECORDS SUMMARY | 2025-03-23 03:11 | XMS_ITS | Encounter Summary ---
Author Organization [facility] Address [address] [place] [facility] [place] [address] Care Team Providers Care Manager Construction Name Role Phone Non-Staff, Physician Primary Care Provider Unava ilable Encounter Details Date Type Department Care Team (Latest Contact Info) Description 05/07/2002 Outpatient Historical [facility] Family Medicine- [address] [place] [phone] Edmond Machado DO NO ADDRESS ON FILE DIABETES UNCOMPL ADULT-TYPE II (CMS/HCC) (Primary Dx); CERVICALGIA; ACUTE URI NOS; HYPERTENSION NOS Social History Tobacco Use Types Packs/Day Years Used Date Smoking Tobacco: Never Assessed Comments Unknown Sex and Gender Information Value Date Recorded Sex Assigned at Not on file Legal Sex Female 2:45 AM GENERAL HANDLING SUPERVISOR Gender Identity Not on file Sexual [...] (Serratia) 07/09/2018 07/09/2018 MRSA 10/12/2018 12/25/2018 12/26/2019 8:0 8 PM CDT documented as of this encounter Care Teams Manager Construction Relationship Specialty Start Date End Date Non-Staff, Physician NO ADDRESS ON FILE PCP - General 01/10/20 documented as of this encounter
--- OUTSIDE RECORDS SUMMARY | 2025-03-23 03:11 | XMS_ITS | Encounter Summary ---
Author Organization [facility] Address [address] [place] [facility] [place] [address] Care Team Providers Care Manager Electronic Name Role Phone Non-Staff, Physician Primary Care Provider Unava ilable Encounter Details Date Type Department Care Team (Latest Contact Info) Description 07/15/2002 Outpatient Historical [facility] Family Medicine- [address] [place] [phone] Nell Verde MD NO ADDRESS ON FILE CERVICALGIA (Primary Dx) Social History Tobacco Use Types Packs/Day Years Used Date Smoking Tobacco: Never Assessed Comments Unknown Sex and Gender Information Value Date Recorded Sex Assigned at Not on file Legal Sex Female 2:45 AM REFRIGERATION PLANT CORK INSULATOR Gender Identity Not on file Sexual Orientation [...] as of this encounter Care Teams Manager Electronic Relationship Specialty Start Date End Date Non-Staff, Physician NO ADDRESS ON FILE PCP - General 01/10/20 documented as of this encounter
--- OUTSIDE RECORDS SUMMARY | 2025-03-23 03:11 | XMS_ITS | Encounter Summary ---
Author Organization [facility] Address [address] [place] [facility] [address] Care Team Providers Care Smocking Machine Operator Name Role Phone Non-Staff, Physician Primary Care Provider Unava ilable Encounter Details Date Type Department Care Team (Latest Contact Info) Description 08/19/2002 Outpatient Historical [facility] Family Medicine- [address] [place] [phone] Nell Verde MD NO ADDRESS ON FILE CERVICALGIA (Primary Dx); LUMBAGO; NEURALGIA/NEURITIS NOS Social History Tobacco Use Types Packs/Day Years Used Date Smoking Tobacco: Never Assessed Comments Unknown Sex and Gender Information Value Date Recorded Sex Assigned at Not on file Legal Sex Female 2:45 AM DIRECTOR OF EMPLOYER SERVICES Gender Identity Not on file Sexual Orientation [...] documented as of this encounter Care Teams Smocking Machine Operator Relationship Specialty Start Date End Date Non-Staff, Physician NO ADDRESS ON FILE PCP - General 01/10/20 documented as of this encounter
--- OUTSIDE RECORDS SUMMARY | 2025-03-23 03:11 | XMS_ITS | Encounter Summary ---
Author Organization [facility] Address [address] [place] [address] Care Team Providers Care Manager Online Name Role Phone Non-Staff, Physician Primary Care Provider Unava ilable Encounter Details Date Type Department Care Team (Latest Contact Info) Description 10/28/2002 Outpatient Historical [facility] Family Medicine- [address] [place] [phone] Nell Verde MD NO ADDRESS ON FILE URIN TRACT INFECTION NOS (Primary Dx); CYST KIDNEY DIS, UNSPEC; ABDOMINAL PAIN RLQ; DIABETES UNCOMPL ADULT-TYPE II ([facility]) Social History Tobacco Use Types Packs/Day Years Used Date Smoking Tobacco: Never Assessed Comments Unknown Sex and Gender Information Value Date Recorded Sex Assigned at Not on file Legal Sex Female 2:45 AM MOLD RELEASE WORKER Gender Identity Not on file Sexual [...] as of this encounter Care Teams Manager Online Relationship Specialty Start Date End Date Non-Staff, Physician NO ADDRESS ON FILE PCP - General 01/10/20 documented as of this encounter
--- OUTSIDE RECORDS SUMMARY | 2025-03-23 03:11 | XMS_ITS | Encounter Summary ---
Author Organization [facility] Address [address] [place] [address] Care Team Providers Care Rn Provider Relations Name Role Phone Anshu Ames MD Primary Care Provider Reason for Visit * Reason Onset Date Comments Med Refill 03/18/2025 Encounter Details Date Type Department Care Team (Late st Contact Info) Description 03/18/2025 Refill [facility] - Primary Care [address] [place], [place] [id number] Alia Landeros LPN Pain Social History Tobacco Use Types Packs/Day Years Used Date Smoking Tobacco: Never Smokeless Tobacco: Never PHQ-2 Answer Date Recorded PHQ-2 Score 0 04/29/2024 Comments Unknown Sex and Gender Information Value Date Recorded Sex Assigned at Not on file Legal Sex Female 9:13 PM SUPERVISOR CLAM BED Gender Identity Not on file Sexual Orientation Not on file documented as of this encounter Miscellaneous Notes * Telephone Encounter - Alia Landeros LPN - 03/18/2025 3:36 PM SUPERVISOR CLAM BED [place] RVISOR CLAM BED documented in this encounter Plan of Treatment Not on file documented as of this encounter Visit Diagnoses Diagnosis Pain Generalized pain documented in this encounter Additional Health Concerns Assessment Noted Time PHQ-9 Depression Total Score: 0 04/29/19 25 1:39 PM SUPERVISOR CLAM BED A fall risk assessment has been complete d for the patient 03/17/2025 9:57 AM SUPERVISOR CLAM BED documented as of this encounter Care Teams Rn Provider Relations Relationship Specialty Start Date End Date Anshu Ames MD [address] [place] [address] PCP - General Family Medicine 03/08/22 documented as of this encounter
--- OUTSIDE RECORDS SUMMARY | 2025-03-23 03:11 | XMS_ITS | Encounter Summary ---
Author Organization [facility] Address [address] [place] [address] Care Team Providers Care Hauling Contractor Name Role Phone Non-Staff, Physician Primary Care Provider Unava ilable Encounter Details Date Type Department Care Team (Late st Contact Info) Description 07/07/2020 Lab Requisition [facility] Services [address] [place] [address] Nomi White, [address] [facility] [address] [place] [address] Social History Tobacco Use Types Packs/Day Years Used Date Smoking Tobacco: Former Cigarettes 2.5 9 0 04/10/2003 - 04/10/2012 Smokeless Tobacco: Never Alcohol Use Standard Drinks/Week Comments No 0 (1 standard drink = 0.6 oz pur e alcohol) Comments No Sex and Gender Information Value Date Recorded Sex Assigned at Not on file Legal Sex Female 2:45 AM FIRER POWERHOUSE Gender Identity Not on file Sexual Orientation [...] - 2.00 ng/mL 07/07/2020 6:18 PM CDT [facility] Blood 07/07/2020 8:50 AM CDT 07/07/2020 5:22 PM CDT Nomi White DO CHEMISTRY ORDERABLES Final Result [facility] [address] [place] [address] documented in this encounter Visit Diagnoses Not on filedocumented in this encounter Additional Health Concerns Infection Onset Date Last Indicated Resolved Time CRE-CP Comment:Sputum 07/09/18 (Serratia) 07/09/2018 07/09/2018 Assessment Noted Time PHQ-9 Depression Total Score: 1 07/20/19 18 11:00 AM CDT documented as of this encounter Care Teams Hauling Contractor Relationship Specialty Start Date End Date Non-Staff, Physician NO ADDRESS ON FILE PCP - General 01/10/20 documented as of this encounter
--- OUTSIDE RECORDS SUMMARY | 2025-03-23 03:11 | XMS_ITS | Encounter Summary ---
Author Organization [facility] Address [address] [place] [address] Care Team Providers Care Hide Mill Worker Name Role Phone Non-Staff, Physician Primary Care Provider Unava ilable Encounter Details Date Type Department Care Team (Late st Contact Info) Description 03/14/2019 Ancillary Orders [facility] [address] [place] [address] Edmond Machado, NO ADDRESS ON [...] on file Legal Sex Female 2:45 AM LANG INTERPRETER Gender Identity Not on file Sexual Orientation [...] documented as of this encounter Care Teams Hide Mill Worker Relationship Specialty Start Date End Date Non-Staff, Physician NO ADDRESS ON FILE PCP - General 01/10/20 documented as of this encounter
--- OUTSIDE RECORDS SUMMARY | 2025-03-23 03:11 | XMS_ITS | Encounter Summary ---
Author Organization [facility] Address [address] [place] [place] [address] Care Team Providers Care Bookkeeper Name Role Phone Non-Staff, Physician Primary Care Provider Unava ilable Encounter Details Date Type Department Care Team (Latest Contact Info) Description 07/05/2002 Outpatient Historical [facility] Family Medicine- [address] [place] [address] Nell Verde MD NO ADDRESS ON FILE ACUTE SINUSITIS NOS (Primary Dx); ALLERGIC RHINITIS NOS; DIABETES UNCOMPL ADULT-TYPE II ([facility]) Social History Tobacco Use Types Packs/Day Years Used Date Smoking Tobacco: Never Assessed Comments Unknown Sex and Gender Information Value Date Recorded Sex Assigned at Not on file Legal Sex Female 2:45 AM STATE AUDITOR Gender Identity Not on file Sexual Orientation [...] documented as of this encounter Care Teams Bookkeeper Relationship Specialty Start Date End Date Non-Staff, Physician NO ADDRESS ON FILE PCP - General 01/10/20 documented as of this encounter
--- OUTSIDE RECORDS SUMMARY | 2025-03-23 03:11 | XMS_ITS | Encounter Summary ---
Author Organization [facility] Address [address] [place] [address] Care Team Providers Care Director Speech And Hearing Name Role Phone Non-Staff, Physician Primary Care Provider Unava ilable Encounter Details Date Type Department Care Team (Latest Contact Info) Description 06/10/2002 Outpatient Historical [employer] [facility] [employer] [facility] [address] [place] [address] Nell Verde MD NO ADDRESS ON FILE DIABETES UNCOMPL ADULT-TYPE II (CMS/HCC) (Primary Dx) Social History Tobacco Use Types Packs/Day Years Used Date Smoking Tobacco: Never Assessed Comments Unknown Sex and Gender Information Value Date Recorded Sex Assigned at Not on file Legal Sex Female 2:45 AM SHREDDED FILLER HOPPER FEEDER Gender Identity Not on file Sexual Orientation [...] as of this encounter Care Teams Director Speech And Hearing Relationship Specialty Start Date End Date Non-Staff, Physician NO ADDRESS ON FILE PCP - General 01/10/20 documented as of this encounter
--- OUTSIDE RECORDS SUMMARY | 2025-03-23 03:11 | XMS_ITS | Encounter Summary ---
Author Organization [facility] Address [address] [place] [address] Care Team Providers Care Corrugator Supervisor Name Role Phone Non-Staff, Physician Primary Care Provider Unava ilable Encounter Details Date Type Department Care Team (Latest Contact Info) Description 02/19/2002 Outpatient Historical [facility] Family Medicine- [address] [place] [phone] Edmond Machado DO NO ADDRESS ON FILE HEADACHE (Primary Dx); CERVICALGIA; ABN BLOOD CHEMISTRY NEC Social History Tobacco Use Types Packs/Day Years Used Date Smoking Tobacco: Never Assessed Comments Unknown Sex and Gender Information Value Date Recorded Sex Assigned at Not on file Legal Sex Female 2:45 AM SHOP FITTER Gender Identity Not on file Sexual Orientation [...] documented as of this encounter Care Teams Corrugator Supervisor Relationship Specialty Start Date End Date Non-Staff, Physician NO ADDRESS ON FILE PCP - General 01/10/20 documented as of this encounter
--- OUTSIDE RECORDS SUMMARY | 2025-03-23 03:11 | XMS_ITS | Encounter Summary ---
Author Organization [facility] Address [address] [place] [address] Care Team Providers Care Chiseler Head Name Role Phone Non-Staff, Physician Primary Care Provider Unava ilable Encounter Details Date Type Department Care Team (Late st Contact Info) Description 02/06/2002 Outpatient Historical [facility] General Surgery [address] [address] [address] [place] [address] Social History Tobacco Use Types Packs/Day Years Used Date Smoking Tobacco: Never Assessed Comments Unknown Sex and Gender Information Value Date Recorded Sex Assigned at Not on file Legal Sex Female 2:45 AM PHOTOENGRAVING SKETCH MAKER Gender Identity Not on file Sexual Orientation [...] documented as of this encounter Care Teams Chiseler Head Relationship Specialty Start Date End Date Non-Staff, Physician NO ADDRESS ON FILE PCP - General 01/10/20 documented as of this encounter
--- OUTSIDE RECORDS SUMMARY | 2025-03-23 03:11 | XMS_ITS | Encounter Summary ---
Author Organization [facility] Address [address] [place] [facility] [place] [address] Care Team Providers Care Tape Librarian Name Role Phone Non-Staff, Physician Primary Care Provider Unava ilable Encounter Details Date Type Department Care Team (Late st Contact Info) Description 06/10/2002 Outpatient Historical [facility] Family Medicine- [place] [address] [place] [address] Nell Verde MD NO ADDRESS ON FILE Social History Tobacco Use Types Packs/Day Years Used Date Smoking Tobacco: Never Assessed Comments Unknown Sex and Gender Information Value Date Recorded Sex Assigned at Not on file Legal Sex Female 2:45 AM DEVELOPMENTAL EDUCATION INSTRUCTOR Gender Identity Not on file Sexual Orientation [...] documented as of this encounter Care Teams Tape Librarian Relationship Specialty Start Date End Date Non-Staff, Physician NO ADDRESS ON FILE PCP - General 01/10/20 documented as of this encounter
--- OUTSIDE RECORDS SUMMARY | 2025-03-23 03:11 | XMS_ITS | Encounter Summary ---
Author Organization [facility] Address [address] [place] [address] Care Team Providers Care Apple Peeler Operator Name Role Phone Non-Staff, Physician Primary Care Provider Unava ilable Encounter Details Date Type Department Care Team (Latest Contact Info) Description 02/21/2002 Outpatient Historical [facility] [place] [address] [facility] [address] [place] [address] Nell Verde MD NO ADDRESS ON FILE DIABETES UNCOMPL ADULT-TYPE II (CMS/HCC) (Primary Dx); HYPERTENSION NOS; ADJ REACT-ANXIOUS MOOD Social History Tobacco Use Types Packs/Day Years Used Date Smoking Tobacco: Never Assessed Comments Unknown Sex and Gender Information Value Date Recorded Sex Assigned at Not on file Legal Sex Female 2:45 AM MULTI MISSION HELICOPTER 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
--- OUTSIDE RECORDS SUMMARY | 2025-03-23 03:11 | XMS_ITS | Encounter Summary ---
Author Organization [facility] Address [address] [place] [address] Care Team Providers Care Boardinghouse Keeper Name Role Phone Non-Staff, Physician Primary Care Provider Unava ilable Encounter Details Date Type Department Care Team (Latest Contact Info) Description 07/01/2002 Outpatient Historical [facility] Family Medicine- [place] [address] [place] [address] Nell Verde MD NO ADDRESS ON FILE ACUTE SINUSITIS NOS (Primary Dx); Plantar fibromatosis; DIABETES UNCOMPL ADULT-TYPE II ([facility]) Social History Tobacco Use Types Packs/Day Years Used Date Smoking Tobacco: Never Assessed Comments Unknown Sex and Gender Information Value Date Recorded Sex Assigned at Not on file Legal Sex Female 2:45 AM BUSINESS SERVICES ASSISTANT Gender Identity Not on file Sexual [...] documented as of this encounter Care Teams Boardinghouse Keeper Relationship Specialty Start Date End Date Non-Staff, Physician NO ADDRESS ON FILE PCP - General 01/10/20 documented as of this encounter
--- OUTSIDE RECORDS SUMMARY | 2025-03-23 03:11 | XMS_ITS | Encounter Summary ---
Author Organization [facility] Address [address] [facility] [place] [address] Care Team Providers Care Treating Engineer Helper Name Role Phone Non-Staff, Physician Primary Care Provider Unava ilable Encounter Details Date Type Department Care Team (Latest Contact Info) Description 11/22/2002 Outpatient Historical [facility] Family Medicine- [address] [place] [address] Nell Verde MD NO ADDRESS ON FILE BACKACHE NOS (Primary Dx) Social History Tobacco Use Types Packs/Day Years Used Date Smoking Tobacco: Never Assessed Comments Unknown Sex and Gender Information Value Date Recorded Sex Assigned at Not on file Legal Sex Female 2:45 AM LEATHER TOGGLER Gender Identity Not on file Sexual Orientation [...] documented as of this encounter Care Teams Treating Engineer Helper Relationship Specialty Start Date End Date Non-Staff, Physician NO ADDRESS ON FILE PCP - General 01/10/20 documented as of this encounter
--- OUTSIDE RECORDS SUMMARY | 2025-03-23 03:11 | XMS_ITS | Encounter Summary ---
Author Organization [facility] Address [address] [place] [address] Care Team Providers Care Yarn Finisher Name Role Phone Non-Staff, Physician Primary Care Provider Unava ilable Reason for Referral * Outpatient Services (Routine) - Closed Specialty Diagnoses / Procedures Referred By Jose t Referred To Contact Diagnoses Well woman exam Procedures MAMMO DIGITIZED STUDY Mary Kate Abbasi APRN NO ADDRESS ON FILE Referral ID Status Reason Start Date Expiration Date Visits Re quested Visits Authorized [id number] Closed 07/05/2011 07/04/2012 1 1 * Outpatient Services (Routine) - Closed Specialty Diagnoses / Procedures Referred By Jose arriola Referred To Contact Diagnoses Well woman exam Procedures MAMMO DIGITIZED STUDY Mary Kate Abbasi APRN NO ADDRESS ON FILE Referral ID Status Reason Start Date Expiration Date Visits Re quested Visits Authorized [id number] Closed 07/05/2011 07/04/2012 1 1 Encounter Details Date Type Department Care Team (Late st Contact Info) Description 07/05/2011 Ancillary Orders [facility] Family Medicine- [address] [place] [phone] Mary Kate Abbasi APRN NO ADDRESS ON FILE Well woman exam Social History Tobacco Use Types Packs/Day Years Used Date Smoking Tobacco: Former Cigarettes 0 Q uit: 04/10/2006 Smokeless Tobacco: Never Alcohol Use Standard Drinks/Week Comments No 0 (1 standard drink = 0.6 oz pur e alcohol) Comments No Sex and Gender Information Value Date Recorded Sex Assigned at Not on file Legal Sex Female 2:45 AM INFORMATION TECHNOLOGY AUDITOR Gender Identity Not on file Sexual Orientation Not on file documented as of this encounter Plan of Treatment Not on file documented as of this encounter Results * MAMMO DIGITIZED STUDY (03/11/2009 11:46 AM INFORMATION TECHNOLOGY AUDITOR) Narrative Emily Hairston, RT - 07/05/2011 11:46 AM CDT Order information only. Exam was auto-finalized. Procedure Note Emily Hairston, RT - 07/05/2011 Order information only. Exam was [facility]finalized. [facility]ST[facility] G ORDERABLES Final Result * MAMMO DIGITIZED STUDY (03/15/2007 11:45 AM INFORMATION TECHNOLOGY AUDITOR) Narrative Emily Hairston, RT - 07/05/2011 11:46 AM CDT Order information only. Exam was auto-finalized. Procedure Note Emily Hairston, RT - 07/05/2011 Order information only. Exam was [facility]-finalized. [facility]N DIAGNOSTIC IMAGIN G ORDERABLES [...] documented as of this encounter Care Teams Yarn Finisher Relationship Specialty Start Date End Date Non-Staff, Physician NO ADDRESS ON FILE PCP - General 01/10/20 documented as of this encounter
--- OUTSIDE RECORDS SUMMARY | 2025-03-23 03:11 | XMS_ITS | Encounter Summary ---
Author Organization [facility] Address [address] [place] [address] Care Team Providers Care Curing Pickling Packer Name Role Phone Non-Staff, Physician Primary Care Provider Unava ilable Encounter Details Date Type Department Care Team (Latest Contact Info) Description 06/10/2002 Outpatient Historical [facility] Family Medicine- [address] [place] [address] Nell Verde MD NO ADDRESS ON FILE ACUTE SINUSITIS NOS (Primary Dx); HYPERTENSION NOS; HYPOTHYROIDISM NOS; DIABETES UNCOMPL ADULT-TYPE II ([facility]) Social History Tobacco Use Types Packs/Day Years Used Date Smoking Tobacco: Never Assessed Comments Unknown Sex and Gender Information Value Date Recorded Sex Assigned at Not on file Legal Sex Female 2:45 AM CUSTOMS IMPORT SPECIALIST Gender Identity Not on file Sexual [...] documented as of this encounter Care Teams Curing Pickling Packer Relationship Specialty Start Date End Date Non-Staff, Physician NO ADDRESS ON FILE PCP - General 01/10/20 documented as of this encounter
--- OUTSIDE RECORDS SUMMARY | 2025-03-23 03:11 | XMS_ITS | Encounter Summary ---
Author Organization [facility] Address [address] [place] [address] Care Team Providers Care Nibbler Operator Name Role Phone Non-Staff, Physician Primary [...] on file Legal Sex Female 2:45 AM THERMOFORMING 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 Gender Identity Not on file [...] documented as of this encounter Care Teams Nibbler Operator Relationship Specialty Start Date End Date Non-Staff, Physician NO ADDRESS ON FILE PCP - General 01/10/20 documented as of this encounter
--- OUTSIDE RECORDS SUMMARY | 2025-03-23 03:11 | XMS_ITS | Encounter Summary ---
Author Organization [facility] Address [address] [place] [address] Care Team Providers Care Financial Services Assistant Name Role Phone Non-Staff, Physician Primary Care Provider Unava ilable Encounter Details Date Type Department Care Team (Latest Contact Info) Description 10/28/2002 Outpatient Historical [facility] Family Medicine- [address] [place] [phone] Nell Verde MD NO ADDRESS ON FILE DIABETES UNCOMPL ADULT-TYPE II (CMS/HCC) (Primary Dx) Social History Tobacco Use Types Packs/Day Years Used Date Smoking Tobacco: Never Assessed Comments Unknown Sex and Gender Information Value Date Recorded Sex Assigned at Not on file Legal Sex Female 2:45 AM CARPET RENOVATOR Gender Identity Not on file Sexual Orientation [...] documented as of this encounter Care Teams Financial Services Assistant Relationship Specialty Start Date End Date Non-Staff, Physician NO ADDRESS ON FILE PCP - General 01/10/20 documented as of this encounter
--- OUTSIDE RECORDS SUMMARY | 2025-03-23 03:12 | XMS_ITS | Encounter Summary ---
Author Organization [facility] Address [address] [facility] [address] Care Team Providers Care Pattern Painter Name Role Phone Non-Staff, Physician Primary Care Provider Unava ilable Encounter Details Date Type Department Care Team (Latest Contact Info) Description 02/25/2004 Outpatient Historical [facility] Family Medicine- [address] [place] [address] Abel Fields NP NO ADDRESS ON FILE ROUTINE TOOL MACHINE SETUP OPERATOR EXAMINATION (Primary Dx) Social History Tobacco Use Types Packs/Day Years Used Date Smoking Tobacco: Never Assessed Comments Unknown Sex and Gender Information Value Date Recorded Sex Assigned at Not on file Legal Sex Female 2:45 AM EXPANSION JOINT FINISHER Gender Identity Not on file Sexual [...] documented as of this encounter Care Teams Pattern Painter Relationship Specialty Start Date End Date Non-Staff, Physician NO ADDRESS ON FILE PCP - General 01/10/20 documented as of this encounter
--- OUTSIDE RECORDS SUMMARY | 2025-03-23 03:12 | XMS_ITS | Encounter Summary ---
Author Organization [facility] Address [address] [place] [address] Care Team Providers Care Leaf Stamper Name Role Phone Non-Staff, Physician Primary Care Provider Unava ilable Encounter Details Date Type Department Care Team (Latest Contact Info) Description 02/13/2006 Outpatient Historical [facility] [address] [place] [address] Nell Verde MD NO ADDRESS ON FILE Other Screening Mammogram (Primary Dx) Social History Tobacco Use Types Packs/Day Years Used Date Smoking Tobacco: Never Assessed Comments Unknown Sex and Gender Information Value Date Recorded Sex Assigned at Not on file Legal Sex Female 2:45 AM CAKE BATTER MIXER Gender Identity Not on file Sexual Orientation [...] documented as of this encounter Care Teams Leaf Stamper Relationship Specialty Start Date End Date Non-Staff, Physician NO ADDRESS ON FILE PCP - General 01/10/20 documented as of this encounter
--- OUTSIDE RECORDS SUMMARY | 2025-03-23 03:12 | XMS_ITS | Encounter Summary ---
Author Organization [facility] Address [address] [place] [address] Care Team Providers Care Colored Liquid Plastic Applier Name Role Phone Non-Staff, Physician Primary Care Provider Unava ilable Encounter Details Date Type Department Care Team (Latest Contact Info) Description 12/05/2003 Outpatient Historical [facility] Family Medicine- [address] [place] [phone] Nell Verde MD NO ADDRESS ON FILE LUMBAGO (Primary Dx); URIN TRACT INFECTION NOS Social History Tobacco Use Types Packs/Day Years Used Date Smoking Tobacco: Never Assessed Comments Unknown Sex and Gender Information Value Date Recorded Sex Assigned at Not on file Legal Sex Female 2:45 AM POLICE PATROL LIEUTENANT Gender Identity Not on file Sexual Orientation [...] documented as of this encounter Care Teams Colored Liquid Plastic Applier Relationship Specialty Start Date End Date Non-Staff, Physician NO ADDRESS ON FILE PCP - General 01/10/20 documented as of this encounter
--- OUTSIDE RECORDS SUMMARY | 2025-03-23 03:12 | XMS_ITS | Encounter Summary ---
Author Organization [facility] Address [address] [place] [address] Care Team Providers Care Antisqueak Applier Name Role Phone Non-Staff, Physician Primary Care Provider Unava ilable Encounter Details Date Type Department Care Team (Latest Contact Info) Description 08/23/2006 Outpatient Historical [facility] Pain Management Procedures [address] [place] [phone] Cristiano Nunez Thoracic or Lumbosacral Neuritis or Radiculitis, Unspecified (Primary Dx) Social History Tobacco Use Types Packs/Day Years Used Date Smoking Tobacco: Never Assessed Comments Unknown Sex and Gender Information Value Date Recorded Sex Assigned at Not on file Legal Sex Female 2:45 AM EQUIPMENT VALIDATION ENGINEER Gender Identity Not on file Sexual [...] documented as of this encounter Care Teams Antisqueak Applier Relationship Specialty Start Date End Date Non-Staff, Physician NO ADDRESS ON FILE PCP - General 01/10/20 documented as of this encounter
--- OUTSIDE RECORDS SUMMARY | 2025-03-23 03:12 | XMS_ITS | Encounter Summary ---
Author Organization [facility] Address [address] [place] [address] Care Team Providers Care Diagnostics Tech Name Role Phone Non-Staff, Physician Primary Care Provider Unava ilable Encounter Details Date Type Department Care Team (Latest Contact Info) Description 09/06/2006 Outpatient Historical [facility] Family Medicine- [address] [place] [address] Abel Fields NP NO ADDRESS ON FILE Acute Sinusitis, Unspecified (Primary Dx); Acute Bronchitis; Unspecified Vaginitis and Vulvovaginitis; DM w/o Complication Type II (CMS/HCC) Social History Tobacco Use Types Packs/Day Years Used Date Smoking Tobacco: Never Assessed Comments Unknown Sex and Gender Information Value Date Recorded Sex Assigned at Not on file Legal Sex Female 2:45 AM AGRONOMY ADVISOR Gender Identity Not on file Sexual [...] documented as of this encounter Care Teams Diagnostics Tech Relationship Specialty Start Date End Date Non-Staff, Physician NO ADDRESS ON FILE PCP - General 01/10/20 documented as of this encounter
--- OUTSIDE RECORDS SUMMARY | 2025-03-23 03:12 | XMS_ITS | Encounter Summary ---
Author Organization [facility] Address [address] [place] [address] Care Team Providers Care Take Up Operator Name Role Phone Non-Staff, Physician Primary Care Provider Unava ilable Encounter Details Date Type Department Care Team (Late st Contact Info) Description 03/27/2007 Outpatient Historical [facility] Family Medicine- [address] [place] [address] Jim Aquino, PA NO ADDRESS ON FILE Social History Tobacco Use Types Packs/Day Years Used Date Smoking Tobacco: Never Assessed Comments Unknown Sex and Gender Information Value Date Recorded Sex Assigned at Not on file Legal Sex Female 2:45 AM TRAINING PROGRAM DEVELOPER Gender Identity Not on file Sexual Orientation [...] documented as of this encounter Care Teams Take Up Operator Relationship Specialty Start Date End Date Non-Staff, Physician NO ADDRESS ON FILE PCP - General 01/10/20 documented as of this encounter
--- OUTSIDE RECORDS SUMMARY | 2025-03-23 03:12 | XMS_ITS | Encounter Summary ---
Author Organization [facility] Address [address] [place] [facility] [place] [address] Care Team Providers Care Biology Specialist Name Role Phone Non-Staff, Physician Primary Care Provider Unava ilable Encounter Details Date Type Department Care Team (Latest Contact Info) Description 07/30/[address] [facility] Family Medicine- [address] [place] [address] Edmond Machado DO NO ADDRESS ON FILE ACUTE PHARYNGITIS (Primary Dx); ACUTE SINUSITIS NOS; ACUTE BRONCHITIS; LUMBAGO Social History Tobacco Use Types Packs/Day Years Used Date Smoking Tobacco: Never Assessed Comments Unknown Sex and Gender Information Value Date Recorded Sex Assigned at Not on file Legal Sex Female 2:45 AM BOARD MIXER TENDER Gender Identity Not on file Sexual Orientation [...] documented as of this encounter Care Teams Biology Specialist Relationship Specialty Start Date End Date Non-Staff, Physician NO ADDRESS ON FILE PCP - General 01/10/20 documented as of this encounter
--- OUTSIDE RECORDS SUMMARY | 2025-03-23 03:12 | XMS_ITS | Encounter Summary ---
Author Organization [facility] Address [address] [place] [address] Care Team Providers Care Labor Relations Analyst Name Role Phone Non-Staff, Physician Primary Care Provider Unava ilable Encounter Details Date Type Department Care Team (Latest Contact Info) Description 09/12/2006 Outpatient [facility] [address] [place] [phone] Cristiano Nunez Thoracic or Lumbosacral Neuritis or Radiculitis, Unspecified (Primary Dx) Social History Tobacco Use Types Packs/Day Years Used Date Smoking Tobacco: Never Assessed Comments Unknown Sex and Gender Information Value Date Recorded Sex Assigned at Not on file Legal Sex Female 2:45 AM BOOM MAN Gender Identity Not on file Sexual Orientation [...] documented as of this encounter Care Teams Labor Relations Analyst Relationship Specialty Start Date End Date Non-Staff, Physician NO ADDRESS ON FILE PCP - General 01/10/20 documented as of this encounter
--- OUTSIDE RECORDS SUMMARY | 2025-03-23 03:12 | XMS_ITS | Encounter Summary ---
Author Organization [facility] Address [address] [place] [address] Care Team Providers Care Watch Train Inspector Name Role Phone Non-Staff, Physician Primary Care Provider Unava ilable Encounter Details Date Type Department Care Team (Latest Contact Info) Description 08/07/2003 Outpatient Historical [facility] Medicine [place] [address] [facility] [address] [place] [phone] Abel Fields, [place] NO ADDRESS ON FILE Diverticulosis of colon (Primary Dx); CHRONIC SINUSITIS NOS Social History Tobacco Use Types Packs/Day Years Used Date Smoking Tobacco: Never Assessed Comments Unknown Sex and Gender Information Value Date Recorded Sex Assigned at Not on file Legal Sex Female 2:45 AM SHIP PILOT DISPATCHER Gender Identity Not on file Sexual Orientation [...] documented as of this encounter Care Teams Watch Train Inspector Relationship Specialty Start Date End Date Non-Staff, Physician NO ADDRESS ON FILE PCP - General 01/10/20 documented as of this encounter
--- OUTSIDE RECORDS SUMMARY | 2025-03-23 03:12 | XMS_ITS | Encounter Summary ---
Author Organization [facility] Address [address] [place] [address] Care Team Providers Care Acoustic Intelligence Specialist Name Role Phone Non-Staff, Physician Primary Care Provider Unava ilable Encounter Details Date Type Department Care Team (Latest Contact Info) Description 08/01/2017 Ancillary Orders [facility] [address] [place] [phone] Gwendolyn Pitts, [place] [address] [place] [address] Visit for screening mammogram Social History Tobacco [...] Legal Sex Female 2:45 AM DIRECTOR OF LABORATORY OPERATIONS Gender Identity Not on file Sexual Orientation Not on file Occupation Industry Job Start Date Job End Date Not on file Not on file Not on file Not on file documented as of this encounter Plan of Treatment Not on file documented as of this encounter Results * MAMMO PRIOR STUDY (03/18/2008 1:30 PM DIRECTOR OF LABORATORY OPERATIONS) Narrative 08/01/2017 1:39 PM CDT This exam was auto finalized to allow images to be scanned to PACS. Gwendolyn Lavee Hong [facility] ORDCesar PEREZ Final Result documented [...] documented as of this encounter Care Teams Acoustic Intelligence Specialist Relationship Specialty Start Date End Date Non-Staff, Physician NO ADDRESS ON FILE PCP - General 01/10/20 documented as of this encounter
--- OUTSIDE RECORDS SUMMARY | 2025-03-23 03:12 | XMS_ITS | Encounter Summary ---
Author Organization [facility] Address [address] [facility] [place] [address] Care Team Providers Care Email Campaign Manager Name Role Phone Non-Staff, Physician Primary Care Provider Unava ilable Encounter Details Date Type Department Care Team (Latest Contact Info) Description 02/18/2003 Outpatient Historical [facility] Family Medicine- [address] [place] [address] Edmond Machado DO NO ADDRESS ON FILE BACKACHE NOS (Primary Dx); HYPOTHYROIDISM NOS Social History Tobacco Use Types Packs/Day Years Used Date Smoking Tobacco: Never Assessed Comments Unknown Sex and Gender Information Value Date Recorded Sex Assigned at Not on file Legal Sex Female 2:45 AM COUNTY ASSESSOR Gender Identity Not on file Sexual Orientation [...] documented as of this encounter Care Teams Email Campaign Manager Relationship Specialty Start Date End Date Non-Staff, Physician NO ADDRESS ON FILE PCP - General 01/10/20 documented as of this encounter
--- OUTSIDE RECORDS SUMMARY | 2025-03-23 03:12 | XMS_ITS | Encounter Summary ---
Author Organization [facility] Address [address] [place] [address] Care Team Providers Care Footwear Machinery Instructor Name Role Phone Non-Staff, Physician Primary Care Provider Unava ilable Encounter Details Date Type Department Care Team (Latest Contact Info) Description 09/12/2006 Outpatient Historical [facility] [address] [place] [phone] Cristiano Nunez Thoracic or Lumbosacral Neuritis or Radiculitis, Unspecified (Primary Dx); Lumbosacral Spondylosis Social History Tobacco Use Types Packs/Day Years Used Date Smoking Tobacco: Never Assessed Comments Unknown Sex and Gender Information Value Date Recorded Sex Assigned at Not on file Legal Sex Female 2:45 AM AUTOMATION TESTER Gender Identity Not on file Sexual Orientation [...] documented as of this encounter Care Teams Footwear Machinery Instructor Relationship Specialty Start Date End Date Non-Staff, Physician NO ADDRESS ON FILE PCP - General 01/10/20 documented as of this encounter
--- OUTSIDE RECORDS SUMMARY | 2025-03-23 03:12 | XMS_ITS | Encounter Summary ---
Author Organization [facility] Address [address] [place] [address] Care Team Providers Care Oil Analyst Name Role Phone Non-Staff, Physician Primary Care Provider Unava ilable Encounter Details Date Type Department Care Team (Latest Contact Info) Description 08/22/2003 Outpatient Historical [facility] Family Medicine- [address] [place] [address] Nell Verde MD NO ADDRESS ON FILE HYPERTENSION NOS (Primary Dx) Social History Tobacco Use Types Packs/Day Years Used Date Smoking Tobacco: Never Assessed Comments Unknown Sex and Gender Information Value Date Recorded Sex Assigned at Not on file Legal Sex Female 2:45 AM SOLID WASTE FACILITY OPERATOR Gender Identity Not on file Sexual [...] documented as of this encounter Care Teams Oil Analyst Relationship Specialty Start Date End Date Non-Staff, Physician NO ADDRESS ON FILE PCP - General 01/10/20 documented as of this encounter
--- OUTSIDE RECORDS SUMMARY | 2025-03-23 03:12 | XMS_ITS | Encounter Summary ---
Author Organization [facility] Address [address] [place] [address] Care Team Providers Care Gravity Prospecting Operator Helper Name Role Phone Non-Staff, Physician Primary Care Provider Unava ilable Encounter Details Date Type Department Care Team (Latest Contact Info) Description 08/11/2006 Outpatient Historical [facility] Pain Management Procedures [address] [place] [phone] Cristiano Nunez Thoracic or Lumbosacral Neuritis or Radiculitis, Unspecified (Primary Dx) Social History Tobacco Use Types Packs/Day Years Used Date Smoking Tobacco: Never Assessed Comments Unknown Sex and Gender Information Value Date Recorded Sex Assigned at Not on file Legal Sex Female 2:45 AM SUPERVISOR COOK ROOM Gender Identity Not on file Sexual Orientation [...] documented as of this encounter Care Teams Gravity Prospecting Operator Helper Relationship Specialty Start Date End Date Non-Staff, Physician NO ADDRESS ON FILE PCP - General 01/10/20 documented as of this encounter
--- OUTSIDE RECORDS SUMMARY | 2025-03-23 03:12 | XMS_ITS | Encounter Summary ---
Author Organization [facility] Address [address] [place] [address] Care Team Providers Care Take Away Man Name Role Phone Non-Staff, Physician Primary Care Provider Unava ilable Encounter Details Date Type Department Care Team (Latest Contact Info) Description 06/20/2003 Outpatient Historical [facility] General Surgery [address] [address] [address] [place] [address] [place] [address] [facility] [address] [place] [address] ABDOMINAL PAIN OTHER SPEC SITE (Primary Dx) Social History Tobacco Use Types Packs/Day Years Used Date Smoking Tobacco: Never Assessed Comments Unknown Sex and Gender Information Value Date Recorded Sex Assigned at Not on file Legal Sex Female 2:45 AM OFFICE MACHINE MECHANIC Gender Identity Not on file Sexual Orientation [...] as of this encounter Care Teams Take Away Man Relationship Specialty Start Date End Date Non-Staff, Physician NO ADDRESS ON FILE PCP - General 01/10/20 documented as of this encounter
--- OUTSIDE RECORDS SUMMARY | 2025-03-23 03:12 | XMS_ITS | Encounter Summary ---
Author Organization [facility] Address [address] [place] [address] Care Team Providers Care Bias Machine Operator Helper Name Role Phone Non-Staff, Physician Primary Care Provider Unava ilable Encounter Details Date Type Department Care Team (Latest Contact Info) Description 07/04/[address] [facility] General Surgery [address] [address] [place] [address] [place] [address] [facility] [address] [place] [address] SURGERY FOLLOWUP, UNSPEC (Primary Dx) Social History Tobacco Use Types Packs/Day Years Used Date Smoking Tobacco: Never Assessed Comments Unknown Sex and Gender Information Value Date Recorded Sex Assigned at Not on file Legal Sex Female 2:45 AM HEAT WELDER PLASTICS Gender Identity Not on file Sexual Orientation [...] documented as of this encounter Care Teams Bias Machine Operator Helper Relationship Specialty Start Date End Date Non-Staff, Physician NO ADDRESS ON FILE PCP - General 01/10/20 documented as of this encounter
--- OUTSIDE RECORDS SUMMARY | 2025-03-23 03:12 | XMS_ITS | Encounter Summary ---
Author Organization [facility] Address [address] [facility] [place] [address] Care Team Providers Care Travel Counselor Automobile Club Name Role Phone Non-Staff, Physician Primary Care [...] on file Legal Sex Female 2:45 AM NEWSPAPER PEDDLER Gender Identity Not on file Sexual Orientation [...] documented as of this encounter Care Teams Travel Counselor Automobile Club Relationship Specialty Start Date End Date Non-Staff, Physician NO ADDRESS ON FILE PCP - General 01/10/20 documented as of this encounter
--- OUTSIDE RECORDS SUMMARY | 2025-03-23 03:12 | XMS_ITS | Encounter Summary ---
Author Organization [facility] Address [address] [place] [address] Care Team Providers Care Retail Interior Designer Name Role Phone Non-Staff, Physician Primary Care Provider Unava ilable Encounter Details Date Type Department Care Team (Latest Contact Info) Description 01/30/2007 Outpatient Historical [facility] Family Medicine- [place] [address] [place] [address] Jim Aquino PA NO ADDRESS ON FILE Edema (Primary Dx); Pain in Joint, Site Unspecified; DM w/o Complication Type II (CMS/HCC); Vaccine for Influenza Social History Tobacco Use Types Packs/Day Years Used Date Smoking Tobacco: Never Assessed Comments Unknown Sex and Gender Information Value Date Recorded Sex Assigned at Not on file Legal Sex Female 2:45 AM DENTAL TECHNICIAN APPRENTICE Gender Identity Not on file Sexual Orientation [...] documented as of this encounter Care Teams Retail Interior Designer Relationship Specialty Start Date End Date Non-Staff, Physician NO ADDRESS ON FILE PCP - General 01/10/20 documented as of this encounter
--- OUTSIDE RECORDS SUMMARY | 2025-03-23 03:12 | XMS_ITS | Encounter Summary ---
Author Organization [facility] Address [address] [place] [address] Care Team Providers Care Oil Heat Technician Name Role Phone Non-Staff, Physician Primary Care Provider Unava ilable Encounter Details Date Type Department Care Team (Late st Contact Info) Description 05/29/2007 Outpatient Historical [facility] Family Medicine [place] [address] [facility] [address] [place] [address] Jim Aquino PA NO ADDRESS ON FILE Social History Tobacco Use Types Packs/Day Years Used Date Smoking Tobacco: Never Assessed Comments Unknown Sex and Gender Information Value Date Recorded Sex Assigned at Not on file Legal Sex Female 2:45 AM BUILDING CONSTRUCTION ENGINEER Gender Identity Not on file Sexual [...] sugar status is known. JESS 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
--- OUTSIDE RECORDS SUMMARY | 2025-03-23 03:12 | XMS_ITS | Encounter Summary ---
Author Organization [facility] Address [address] [place] [address] Care Team Providers Care Joiner Apprentice Name Role Phone Non-Staff, Physician Primary Care Provider Unava ilable Encounter Details Date Type Department Care Team (Latest Contact Info) Description 02/26/2003 Outpatient Historical [facility] Family Medicine- [address] [place] [address] Nell Verde MD NO ADDRESS ON FILE HERPANGINA (Primary Dx) Social History Tobacco Use Types Packs/Day Years Used Date Smoking Tobacco: Never Assessed Comments Unknown Sex and Gender Information Value Date Recorded Sex Assigned at Not on file Legal Sex Female 2:45 AM DROP HAMMER SETTER UP Gender Identity Not on file Sexual [...] documented as of this encounter Care Teams Joiner Apprentice Relationship Specialty Start Date End Date Non-Staff, Physician NO ADDRESS ON FILE PCP - General 01/10/20 documented as of this encounter
--- OUTSIDE RECORDS SUMMARY | 2025-03-23 03:12 | XMS_ITS | Encounter Summary ---
Author Organization [facility] Address [address] [place] [address] Care Team Providers Care Compress Machine Operator Name Role Phone Non-Staff, Physician Primary Care Provider Unava ilable Reason for Referral * CT Scan (Routine) - Closed Specialty Diagnoses / Procedures Referred By Contac t Referred To Contact Radiology Diagnoses Cephalgia Procedures CT HEAD WO CONTRAST Edmond Machado DO [facility] Scan [place] [address] [place] [address] Phone: tel: fax: Referral ID Status Reason Start Date Expiration Date Visits Re quested Visits Authorized [id number] Closed 03/13/2019 04/12/2020 1 1 MANAGER Encounter Details Date Type Department Care Team (Late st Contact Info) Description 03/13/[address] [facility] Centralized Scheduling [address] [place] [address] Edmond Machado DO NO ADDRESS [...] on file Legal Sex Female 2:45 AM CAFE MANAGER Gender Identity Not on file Sexual Orientation Not on file Occupation Industry Job Start Date Job End Date Not on file Not on file Not on file Not on file documented as of this encounter Plan of Treatment Not on file documented as of this encounter Results * CT HEAD WO CONTRAST (03/14/2019 3:14 PM CAFE MANAGER) Anatomical Region Laterality Modality Head Computed Tomogra phy 03/14/2019 3:15 PM CAFE MANAGER Impressions 03/16/2019 10:20 AM CAFE MANAGER IMPRESSION: Please see below. Exam: CT HEAD [...] mucosal thickening. IMPRESSION: 1. No significant abnormality. [id number] Narrative Procedure Note Tex Murrieta MD - [...] mucosal thickening. IMPRESSION: 1. No significant abnormality. [id number] ORDERABLES Final Result [...] documented as of this encounter Care Teams Compress Machine Operator Relationship Specialty Start Date End Date Non-Staff, Physician NO ADDRESS ON FILE PCP - General 01/10/20 documented as of this encounter
--- OUTSIDE RECORDS SUMMARY | 2025-03-23 03:12 | XMS_ITS | Encounter Summary ---
Author Organization [facility] Address [address] [facility] [place] [place] [address] Care Team Providers Care Language Tutor Name Role Phone Non-Staff, Physician Primary Care Provider Unava ilable Encounter Details Date Type Department Care Team (Late st Contact Info) Description 03/20/2007 Outpatient Historical [facility] Family Medicine- [place] [address] [place] [address] Jim Aquino, PA NO ADDRESS ON FILE Social History Tobacco Use Types Packs/Day Years Used Date Smoking Tobacco: Never Assessed Comments Unknown Sex and Gender Information Value Date Recorded Sex Assigned at Not on file Legal Sex Female 2:45 AM ROPE MACHINE SETTER Gender Identity Not on file Sexual Orientation [...] documented as of this encounter Care Teams Language Tutor Relationship Specialty Start Date End Date Non-Staff, Physician NO ADDRESS ON FILE PCP - General 01/10/20 documented as of this encounter
--- OUTSIDE RECORDS SUMMARY | 2025-03-23 03:12 | XMS_ITS | Encounter Summary ---
Author Organization [facility] Address [address] [facility] [place] [address] Care Team Providers Care Dairy Frozen Manager Name Role Phone Non-Staff, Physician Primary Care Provider Unava ilable Encounter Details Date Type Department Care Team (Latest Contact Info) Description 01/07/2004 Outpatient Historical [facility] Family Medicine- [address] [place] [address] Abel Fields NP NO ADDRESS ON FILE ABDOMINAL PAIN RLQ (Primary Dx); BACKACHE NOS; CERVICALGIA; ACUTE PHARYNGITIS Social History Tobacco Use Types Packs/Day Years Used Date Smoking Tobacco: Never Assessed Comments Unknown Sex and Gender Information Value Date Recorded Sex Assigned at Not on file Legal Sex Female 2:45 AM SCIENTIFIC ILLUSTRATOR Gender Identity Not on file Sexual Orientation [...] as of this encounter Care Teams Dairy Frozen Manager Relationship Specialty Start Date End Date Non-Staff, Physician NO ADDRESS ON FILE PCP - General 01/10/20 documented as of this encounter
--- OUTSIDE RECORDS SUMMARY | 2025-03-23 03:12 | XMS_ITS | Encounter Summary ---
Author Organization [facility] Address [address] [place] [place] [address] Care Team Providers Care Oracle Database Administrator Name Role Phone Non-Staff, Physician Primary Care Provider Unava ilable Encounter Details Date Type Department Care Team (Latest Contact Info) Description 08/01/2006 Outpatient Historical [facility] Family Medicine- Amita [address] [place] [address] Abel Fields NP NO ADDRESS ON FILE Routine Gynecological Examination (Primary Dx); Unspecified Vaginitis and Vulvovaginitis; Unspecified Constipation; Lumbago Social History Tobacco Use Types Packs/Day Years Used Date Smoking Tobacco: Never Assessed Comments Unknown Sex and Gender Information Value Date Recorded Sex Assigned at Not on file Legal Sex Female 2:45 AM QUALITY TECHNICIAN Gender Identity Not on file Sexual [...] documented as of this encounter Care Teams Oracle Database Administrator Relationship Specialty Start Date End Date Non-Staff, Physician NO ADDRESS ON FILE PCP - General 01/10/20 documented as of this encounter
--- OUTSIDE RECORDS SUMMARY | 2025-03-23 03:12 | XMS_ITS | Encounter Summary ---
Author Organization [facility] Address [address] [facility] [place] [address] Care Team Providers Care Sales Department Supervisor Name Role Phone Non-Staff, Physician Primary Care Provider Unava ilable Encounter Details Date Type Department Care Team (Latest Contact Info) Description 08/01/2006 Outpatient Historical [facility] Family Medicine- [address]mit[address] [place] [phone] Abel Fields NP NO ADDRESS ON FILE Screening for Malignant Neoplasm of the Cervix (Primary Dx) Social History Tobacco Use Types Packs/Day Years Used Date Smoking Tobacco: Never Assessed Comments Unknown Sex and Gender Information Value Date Recorded Sex Assigned at Not on file Legal Sex Female 2:45 AM MYSQL DATABASE DEVELOPER Gender Identity Not on file Sexual [...] as of this encounter Care Teams Sales Department Supervisor Relationship Specialty Start Date End Date Non-Staff, Physician NO ADDRESS ON FILE PCP - General 01/10/20 documented as of this encounter
--- OUTSIDE RECORDS SUMMARY | 2025-03-23 03:12 | XMS_ITS | Encounter Summary ---
Author Organization [facility] Address [address] [place] [address] Care Team Providers Care Plumbers And Top Helpers Name Role Phone Non-Staff, Physician Primary Care Provider Unava ilable Encounter Details Date Type Department Care Team (Latest Contact Info) Description 08/18/2006 Outpatient Historical [facility] Pain Management Procedures [address] [place] [phone] Cristiano Nunez Thoracic or Lumbosacral Neuritis or Radiculitis, Unspecified (Primary Dx) Social History Tobacco Use Types Packs/Day Years Used Date Smoking Tobacco: Never Assessed Comments Unknown Sex and Gender Information Value Date Recorded Sex Assigned at Not on file Legal Sex Female 2:45 AM UTILITY PLANT OPERATIVE Gender Identity Not on file Sexual Orientation [...] documented as of this encounter Care Teams Plumbers And Top Helpers Relationship Specialty Start Date End Date Non-Staff, Physician NO ADDRESS ON FILE PCP - General 01/10/20 documented as of this encounter
--- OUTSIDE RECORDS SUMMARY | 2025-03-23 03:12 | XMS_ITS | Encounter Summary ---
Author Organization [facility] Address [address] [place] [address] Care Team Providers Care Shipping Technician Name Role Phone Non-Staff, Physician Primary Care Provider Unava ilable Encounter Details Date Type Department Care Team (Latest Contact Info) Description 08/08/2006 Outpatient [facility] [address] [place] [phone] Cristiano Nunez Thoracic or Lumbosacral Neuritis or Radiculitis, Unspecified (Primary Dx) Social History Tobacco Use Types Packs/Day Years Used Date Smoking Tobacco: Never Assessed Comments Unknown Sex and Gender Information Value Date Recorded Sex Assigned at Not on file Legal Sex Female 2:45 AM ONCOLOGY RADIATION PHYSICIAN Gender Identity Not on file Sexual Orientation [...] as of this encounter Care Teams Shipping Technician Relationship Specialty Start Date End Date Non-Staff, Physician NO ADDRESS ON FILE PCP - General 01/10/20 documented as of this encounter
--- OUTSIDE RECORDS SUMMARY | 2025-03-23 03:12 | XMS_ITS | Encounter Summary ---
Author Organization [facility] Address [address] [place] [facility] [place] [address] Care Team Providers Care Dietary Aide Teacher Name Role Phone Non-Staff, Physician Primary Care Provider Unava ilable Encounter Details Date Type Department Care Team (Latest Contact Info) Description 08/16/2006 Outpatient Historical [facility] Family Medicine- Amita [address] [place] [phone] Abel Fields NP NO ADDRESS ON FILE Shortness of Breath (Primary Dx); Lumbago Social History Tobacco Use Types Packs/Day Years Used Date Smoking Tobacco: Never Assessed Comments Unknown Sex and Gender Information Value Date Recorded Sex Assigned at Not on file Legal Sex Female 2:45 AM EXTERN Gender Identity Not on file Sexual Orientation [...] documented as of this encounter Care Teams Dietary Aide Teacher Relationship Specialty Start Date End Date Non-Staff, Physician NO ADDRESS ON FILE PCP - General 01/10/20 documented as of this encounter
--- OUTSIDE RECORDS SUMMARY | 2025-03-23 03:12 | XMS_ITS | Encounter Summary ---
Author Organization [facility] Address [address] [place] [address] Care Team Providers Care Journeyman Glazier Name Role Phone Non-Staff, Physician Primary Care Provider Unava ilable Encounter Details Date Type Department Care Team (Latest Contact Info) Description 03/06/2007 Outpatient Historical [facility] Family Medicine- [address] [place] [address] Jim Aquino, [place] NO ADDRESS ON FILE Pain in Joint, Multiple Sites (Primary Dx); DM w/o Complication Type II (CMS/HCC); Nausea with Vomiting; Abdominal Pain, Unspecified Site Social History Tobacco Use Types Packs/Day Years Used Date Smoking Tobacco: Never Assessed Comments Unknown Sex and Gender Information Value Date Recorded Sex Assigned at Not on file Legal Sex Female 2:45 AM NEWSPAPER EDITOR MANAGING Gender Identity Not on file Sexual Orientation [...] documented as of this encounter Care Teams Journeyman Glazier Relationship Specialty Start Date End Date Non-Staff, Physician NO ADDRESS ON FILE PCP - General 01/10/20 documented as of this encounter
--- OUTSIDE RECORDS SUMMARY | 2025-03-23 03:12 | XMS_ITS | Encounter Summary ---
Author Organization [facility] Address [address] [place] [address] Care Team Providers Care Compotype Operator Name Role Phone Non-Staff, Physician Primary Care Provider Unava ilable Encounter Details Date Type Department Care Team (Latest Contact Info) Description 08/18/2006 Outpatient Historical [facility] Pain [facility] [address] [place] [phone] Cristiano Nunez Thoracic or Lumbosacral Neuritis or Radiculitis, Unspecified (Primary Dx) Social History Tobacco Use Types Packs/Day Years Used Date Smoking Tobacco: Never Assessed Comments Unknown Sex and Gender Information Value Date Recorded Sex Assigned at Not on file Legal Sex Female 2:45 AM CORD SPLICER Gender Identity Not on file Sexual Orientation [...] documented as of this encounter Care Teams Compotype Operator Relationship Specialty Start Date End Date Non-Staff, Physician NO ADDRESS ON FILE PCP - General 01/10/20 documented as of this encounter
--- OUTSIDE RECORDS SUMMARY | 2025-03-23 03:12 | XMS_ITS | Encounter Summary ---
Author Organization [facility] Address [address] [place] [address] Care Team Providers Care Napper Fixer Name Role Phone Non-Staff, Physician Primary Care Provider Unava ilable Encounter Details Date Type Department Care Team (Latest Contact Info) Description 08/22/2003 Outpatient Historical [facility] Family Medicine- [address] [place] [phone] Nell Verde MD NO ADDRESS ON FILE DIABETES UNCOMPL ADULT-TYPE II (CMS/HCC) (Primary Dx); HYPOTHYROIDISM NOS; HYPERTENSION NOS Social History Tobacco Use Types Packs/Day Years Used Date Smoking Tobacco: Never Assessed Comments Unknown Sex and Gender Information Value Date Recorded Sex Assigned at Not on file Legal Sex Female 2:45 AM CANDY DECORATOR Gender Identity Not on file Sexual Orientation [...] documented as of this encounter Care Teams Napper Fixer Relationship Specialty Start Date End Date Non-Staff, Physician NO ADDRESS ON FILE PCP - General 01/10/20 documented as of this encounter
--- OUTSIDE RECORDS SUMMARY | 2025-03-23 03:12 | XMS_ITS | Encounter Summary ---
Author Organization [facility] Address [address] [place] [address] Care Team Providers Care Application Technician Name Role Phone Non-Staff, Physician Primary Care Provider Unava ilable Encounter Details Date Type Department Care Team (Latest Contact Info) Description 02/25/2004 Outpatient Historical [facility] Family Medicine- [address]mit[address] [place] [phone] Abel Fields NP NO ADDRESS ON FILE VAGINITIS NOS (Primary Dx) Social History Tobacco Use Types Packs/Day Years Used Date Smoking Tobacco: Never Assessed Comments Unknown Sex and Gender Information Value Date Recorded Sex Assigned at Not on file Legal Sex Female 2:45 AM PRECISION 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 Gender Identity Not on file [...] as of this encounter Care Teams Application Technician Relationship Specialty Start Date End Date Non-Staff, Physician NO ADDRESS ON FILE PCP - General 01/10/20 documented as of this encounter
--- OUTSIDE RECORDS SUMMARY | 2025-03-23 03:12 | XMS_ITS | Encounter Summary ---
Author Organization [facility] Address [address] [facility] [place] [address] Care Team Providers Care Sericulturist Name Role Phone Non-Staff, Physician Primary Care Provider Unava ilable Encounter Details Date Type Department Care Team (Latest Contact Info) Description 02/11/2004 Outpatient Historical [facility] Family Medicine- [address] [place] [phone] Abel Fields NP NO ADDRESS ON FILE Lichenification (Primary Dx); CALCULUS OF KIDNEY; LUMBAGO Social History Tobacco Use Types Packs/Day Years Used Date Smoking Tobacco: Never Assessed Comments Unknown Sex and Gender Information Value Date Recorded Sex Assigned at Not on file Legal Sex Female 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
--- OUTSIDE RECORDS SUMMARY | 2025-03-23 03:12 | XMS_ITS | Encounter Summary ---
Author Organization [facility] Address [address] [place] [address] Care Team Providers Care It Software Engineer Name Role Phone Non-Staff, Physician Primary Care Provider Unava ilable Encounter Details Date Type Department Care Team (Latest Contact Info) Description 02/18/2004 Outpatient Historical [facility] Family Medicine- [address] [place] [phone] Edmond Machado DO NO ADDRESS ON FILE ABDOMINAL PAIN UNSPEC SITE (Primary Dx); FEMALE GENITAL SYMPTOMS NOS; LUMBAGO; DIABETES MELLITUS TYPE II-UNCOMPL (CMS/HCC) Social History Tobacco Use Types Packs/Day Years Used Date Smoking Tobacco: Never Assessed Comments Unknown Sex and Gender Information Value Date Recorded Sex Assigned at Not on file Legal Sex 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
--- OUTSIDE RECORDS SUMMARY | 2025-03-23 03:12 | XMS_ITS | Clinical Summary ---
Author Organization [facility] Address [address] [place] [address] Care Team Providers Care Boat Assembler Name Role Phone Non-Staff, Physician Primary [...] complication, with long-term current use of insulin (CMS/HCC),Hypergl ycemia Test blood sugar 3 times per day DX: E11.43. 1 Kit 01/20/20 17 Active Insulin Granby, Disposable, (BD ULTRA-FINE MINI PEN NEEDLE) 31 gauge x 3/16 NeedleIndications :Type 2 diabetes mellitus with hyperglycemia, with long-term current use of insulin (CMS/HCC) Use 4 times per day Dx: E11.8. 300 Each 3 01/31/20 18 Active donepezil (ARICEPT) 5 mg tabletIndications :Short-term memory loss TAKE 1 TABLET BY MOUTH DAILY 90 Tablet 3 02/10/20 Active Additional Information Patient taking differently: DAILY LATE, Reported on 12/25/2018 lidocaine (LIDODERM) 5 % Adhesive Patch, MedicatedIndicati ons:Primary osteoarthritis of right knee Apply 1 Patch to affected area every 24 hours. 90 Each 3 04/17/19 Active lancets (One Touch Delica) 33 gaugeIndications: Type 2 diabetes mellitus with hyperglycemia, with long-term current use of insulin (CMS/[facility]) Test blood sugar 3 times per day. DX E11.43. 300 Each 3 04/17/19 Active fluticasone (FLOVENT HFA) 110 mcg/actuation HFA Aerosol InhalerIndication s:Mild intermittent asthma without complication,Panl obular emphysema (CMS/HCC) Take 2 Puffs by inhalation 2 times daily. 36 Gram 3 04/17/19 Active blood sugar diagnostic (SolarmassTOUCH ULTRA TEST) StripIndications: Type 2 diabetes mellitus with hyperglycemia, with long-term current use of insulin ([facility]) Test blood sugar three time per day. [...] complication, with long-term current use of insulin ([facility]) INJECT 15 UNITS SUBCUTANEOUSLY THREE TIMES DAILY BEFORE MEALS IF GLUCOSE GREATER THAN 160 45 mL 2 06/19/19 Active Additional Information Patient taking differently: Inject per sliding scale, Reported on 12/25/2018 insulin detemir U-100 (LEVEMIR FLEXTOUCH U-100 INSULN) 100 unit/mL pen syringeIndication s:Type 2 diabetes mellitus with complication, with long-term current use of insulin (CMS/HCC),Hypergl ycemia Inject 20 Units by subcutaneous injection daily [...] tablet Take 100 mcg by mouth daily opal miner. Active docusate sodium (COLACE) 100 mg capsule [...] :Infection of total knee replacement, subsequent encounter Shift Superintendent Caustic Cresylate Socks 1 Each 01/15/20 Active amLODIPine (NORVASC) [...] on file Legal Sex Female 2:45 AM INFANT NANNY Gender Identity Not on file Sexual Orientation Not on file Occupation Industry Job Start Date Job End Date Not on file Not on file Not on file Not on file Last Filed Vital Signs Vital Sign Reading Time Taken Comments Blood Pressure 140/80 04/24/2019 10:00 PM INFANT NANNY Pulse 92 04/24/2019 10:00 PM INFANT NANNY Temperature 36.6 C (97.8 F) 04/24/2019 10:00 PM INFANT NANNY Respiratory Rate 18 04/24/2019 10:00 PM INFANT NANNY Oxygen Saturation 97% 02/15/2019 5:43 PM INFANT NANNY Inhaled Oxygen Concentration - - Weight 69.4 kg (153 lb) 02/15/2019 12:49 PM INFANT NANNY Height 147.3 cm (4' 10 ) 01/14/2019 [...] EXAM 05/19/201812/2017, 05/19/2017, 12/26/2012 LDL CHOLESTEROL ANNUAL 10/26/201810/26/ 8, 07/19/2017, 12/09/2015, Additional history exists DIABETES [...] years Discontinued Medical Devices Implanted Type Area Chain Carrier Device Identifier Shelf Expiration Date Model / Serial / Lot Log 37916 - Cement - 1 - Cement Palacos Sgl [id number] Implanted:Qty: 1 on 11/11/2008 at [facility] Cement Left: Knee [employer] 05/11/2013 [id number] 1 / NA / [id number] Cement Palacos Sgl [id number] Implanted:Qty: 1 on 09/15/2009 at [facility] Cement Right: Knee [employer] 09/08/[id number] 1 / / [id number] Log 69490 - Julee Total Knee - 1 - Comp Fem Nkii Gsf [id number] Implanted:Qty: 1 on 11/11/2008 at [facility] Knee Left: Knee [employer] 10/08/2017 [id number] 1 / NA / [id number] Log 01751 - Julee Total Knee - 1 - Patella Nk Gs Poly 8mm [id number] Implanted:Qty: 1 on 11/11/2008 at [facility] Knee Left: Knee [employer] 09/08/2012 [id number] / NA / [id number] Log 46935 - Julee Total Knee - 1 - Comp Tib Nkii Benefit Director Stmd [id number] Implanted:Qty: 1 on 11/11/2008 at [facility] Knee Left: Knee [employer] [id number] / NA / [id number] Log 10985 - Julee Total Knee - 1 - Art Surface Nk Gs [id number] Implanted:Qty: 1 on 11/11/2008 at [facility] Knee Left: Knee [employer] 05/11/2012 [id number] / NA / [id number] Log 16455 - Depuy Total Knee - 1 - Comp Fem Sigma Cr Npor Sz2.5 Rt 96-0018 Implanted:Qty: 1 on 09/15/2009 at [facility] Knee Right: Knee J[employer]J- [employer] 07/09/2014 96-0018 / / [id number] Tibial Tray Implanted:Qty: 1 on 09/15/2009 at [facility] Knee Right: Knee J[employer]- [employer] 07/10/2019 [id number] / / [id number] Description:Napoleon RIVERA AL TRAY FIXED BEARINGMODULAR COCR 2 Patella Implanted:Qty: 1 on 09/15/2009 at [facility] Knee Right: Knee J[employer]J- [employer] 07/09/2014 96-0018 / / [id number] Description:3-Post Round Dom e Hsauemc24 MM Mesh Ventralex Patch Med [id number] - [id number] Implanted:Qty: 1 on 09/10/2012 at [facility] Mesh N/A: Abdomen CR BARD- [employer] 06/10/2016 [id number] / / [id number] Cross-Linked Curved Insert Implanted:Qty: 1 on 09/15/2009 at [facility] Right: Knee [employer] 02/08/2014 [id number] / / [id number] Description:Napoleon HOLLOWAY S-LINKED CURVED INSERT Procedures Procedure Name Priority [...] complication, with long-term current use of insulin ([facility]) Hyperglycemia ENDOSCOPY, COLON, DIAGNOSTIC Routine 10/15/2008 from Last 3 Months or Most Recently Relevant to Health Maintenance Results * (ABNORMAL) HEMOGLOBIN A1C (12/25/2018 8:21 AM CDT) HEMOGLOBIN A1C 7.4(H) <=5.6 % 12/25/2018 9:10 AM CDT [facility] EST. AVG GLUCOSE, A1C 166 mg/dL 12/25/2018 9:10 AM CDT [facility] Blood Venipuncture / Unknown 12/25/2018 8:21 AM CDT 12/25/2018 8:40 AM CDT [facility] - 12/25/2018 9:10 AM CDT HGB A1C INTERPRETATION NORMAL: <5.7% PRE-DIABETES: 5.7 - 6.4% DIABETES: 6.5% OR GREATER us David Levy MD CHEMISTRY ORDERABLES Final Resu lt [facility] CLIA #[id number] [facility] [place] [address] * (ABNORMAL) LIPID PANEL (10/26/2017 12:21 PM CDT) CHOLESTEROL 169 <200 mg/dL 10/26/2017 9:39 PM CDT [facility]3] LABORATORY SERVICES-[facility] TRIGLYCERIDE 61 <150 mg/dL 10/26/2017 9:39 PM CDT [facility]3] LABORATORY SERVICES[facility] HDL 63(H) 40 - 59 mg/dL 10/26/2017 9:39 PM CDT [facility]3] LABORATORY SERVICES[facility] LDL CALCULATED 94 <100 mg/dL 10/26/2017 9:39 PM CDT [facility]3] LABORATORY SERVICES-[facility] NON-HDL CHOLESTEROL 106 <130 mg/dL 10/26/2017 9:39 PM CDT [facility]3] LABORATORY SERVICES[facility] Blood Collection / Unknown 10/26/2017 12:21 PM CDT 10/26/2017 8:19 PM CDT Narrative [facility]3] LABORATORY SERVICES[facility] - 10/26/2017 9:39 [...] Ranges for Lipid Panels (NCEP/AMA) Gwendolyn Pitts PRINT SHOP STENOGRAPHER CHEMISTRY ORDERABLES Fi nal Result [facility]3] LABORATORY SERVICES-[facility] IA# [id number] [address] [place] [address] * XR DEXA BONE DENSITY AXIAL 1 [...] clinical management available online at [email or web address]/[email or web address]/. Enter [employer] for Select DXA and the Femoral Neck BMD value. [id number] Narrative 08/01/2017 11:47 PM CDT DEXA Evaluation [...] clinical management available online at [email or web address]/[email or web address]/. Enter [employer] for Select DXA and the Femoral Neck BMD value. [id number] us Gwendolyn Smitheling PRINT SHOP STENOGRAPHER DIAGNOSTIC IMAGING BARBARA PEREZ Final Result * HM DIABETES EYE EXAM (05/19/2017) us Abstract Spg Provider HEALTH MAINTENANCE Final R esult * MICROALBUMIN/CREATININE RATIO, RANDOM UR (01/19/2017 9:43 AM CDT) MICROALBUMIN, URINE <1.2 No Reference Range mg/dL 01/19/2017 9:27 PM CDT [facility]3] LABORATORY SERVICES[facility] CREATININE, URINE 85.1 29.0 - 226.0 mg/dL 01/19/2017 9:27 PM CDT [facility]3] LABORATORY SERVICES[facility] Comment: Reference Range varies with fluid intake and diet. MICROALBUMIN/C REAT RATIO, UR <14.1 <25.0 mg/g Creatinine 01/19/2017 9:27 PM CDT [facility]3] LABORATORY SERVICESTIMBO LARKIN Urine URINE SPECIMEN OBTAINED BY CLEAN CATCH PROCEDURE / Unknown Collection / Unknown 01/19/2017 9:43 AM CDT 01/19/2017 8:39 PM CDT Narrative [facility]3] LABORATORY SERVICES-[facility] - 01/19/2017 9:27 PM CDT Condition Microalbumin/Creat ratio Normal Males <17 Normal Females <25 Microalbuminuria Males 17-299 Microalbuminuria Females 25-299 Overt proteinuria >=300 us Mary Kate Abbasi APRN URINE ORDERABLES Final Result [facility]3] [facility]ORY [facility] CLIA# [id number] [address] [place] [address] * ENDOSCOPY, COLON, DIAGNOSTIC (10/15/2008) Abstract Spg Provider GI PROCEDURE ORDERABLES Fi nal Result [facility] from Last 3 Months or Most Recently Relevant to Health Maintenance Additional Health Concerns Infection Onset Date Last Indicated CRE-CP Comment:Sputum 07/09/18 ([place]) 07/09/2018 07/09/[address] [place] [address] MEDICAID [place] PART [place] B Advance Directives For more information, please contact: [phone] Documents on File Type Date Recorded Patient Dietetics Director Expl anation Advance Directive POA 07/07/2018 7:27 [...] 10:49 AM 07/21/2015 1:34 PM Care Teams Boat Assembler Relationship Specialty Start Date End Date Non-Staff, Physician NO ADDRESS ON FILE PCP - General 01/10/20
--- OUTSIDE RECORDS SUMMARY | 2025-03-23 03:12 | XMS_ITS | Encounter Summary ---
Author Organization [facility] Address [address] [place] [address] Care Team Providers Care Nuclear Physicist Name Role Phone Non-Staff, Physician Primary Care Provider Unava ilable Encounter Details Date Type Department Care Team (Latest Contact Info) Description 12/20/2006 Outpatient Historical [facility] [address] 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
--- OUTSIDE RECORDS SUMMARY | 2025-03-23 03:12 | XMS_ITS | Encounter Summary ---
Author Organization [facility] Address [address] [place] [place] [address] Care Team Providers Care Performance Manager Name Role Phone Non-Staff, Physician Primary Care Provider Unava ilable Encounter Details Date Type Department Care Team (Latest Contact Info) Description 08/06/2003 Outpatient Historical [facility] Family Medicine- [address]mita [address] [place] [address] Abel Fields NP NO ADDRESS ON FILE OBST CHRON BRONCHITIS WITH EXAC (CMS/HCC) (Primary Dx); ABDOMINAL PAIN RLQ Social History Tobacco Use Types Packs/Day Years Used Date Smoking Tobacco: Never Assessed Comments Unknown Sex and Gender Information Value Date Recorded Sex Assigned at Not on file Legal 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
--- OUTSIDE RECORDS SUMMARY | 2025-03-23 03:12 | XMS_ITS | Encounter Summary ---
Author Organization [facility] Address [address] [place] [address] Care Team Providers Care City Solicitor Name Role Phone Non-Staff, Physician Primary Care Provider Unava ilable Encounter Details Date Type Department Care Team (Late st Contact Info) Description 05/15/2007 Outpatient Historical [facility] Family Medicine [place] [address] [facility] [address] [place] [address] Jim Aquino PA NO ADDRESS ON FILE Social History Tobacco Use Types Packs/Day Years Used Date Smoking Tobacco: Never Assessed Comments Unknown Sex and Gender Information Value Date Recorded Sex Assigned at Not on file Legal Sex Female 2:45 AM TRIAGE RN Gender Identity Not on file Sexual Orientation Not on file documented as of this encounter Progress Notes * Jim Aquino PA - 05/15/2007 12:00 AM CST Patient Name: Cnadis Almonte DOS: 05/15/2007 : 1950 SUBJECTIVE: The [...] be given this date. Jim Aquino PA-C [facility] Electronically Signed by Jim Aquino PA-C 05/18/2007 16:42 , A, mdjoel Job #: Document #: [id number] cc: GE RN documented in this encounter Plan of Treatment Not on file documented as of this encounter Visit Diagnoses Not on filedocumented in this encounter Additional Health Concerns Infection Onset Date Last Indicated Resolved Time CRE-CP Comment:Sputum 07/09/18 (Serratia) 07/09/2018 07/09/2018 MRSA 10/12/2018 12/25/2018 12/26/2019 8:08 PM CDT documented as of this encounter Care Teams City Solicitor Relationship Specialty Start Date End Date Non-Staff, Physician NO ADDRESS ON FILE PCP - General 01/10/20 documented as of this encounter
--- OUTSIDE RECORDS SUMMARY | 2025-03-23 03:12 | XMS_ITS | Encounter Summary ---
Author Organization [facility] Address [address] [place] [address] Care Team Providers Care Svp Of Digital Name Role Phone Non-Staff, Physician Primary Care Provider Unava ilable Encounter Details Date Type Department Care Team (Latest Contact Info) Description 06/25/2003 Outpatient Historical [facility] General Surgery [address] [address] [address] [place] [address] [place] [address] [facility] [address] [place] [address] PERS HX COLONIC POLYPS (Primary Dx) Social History Tobacco Use Types Packs/Day Years Used Date Smoking Tobacco: Never Assessed Comments Unknown Sex and Gender Information Value Date Recorded Sex Assigned at Not on file 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
--- OUTSIDE RECORDS SUMMARY | 2025-03-23 03:12 | XMS_ITS | Encounter Summary ---
Author Organization [facility] Address [address] [place] [facility] [place] [address] Care Team Providers Care Tower Observer Name Role Phone Non-Staff, Physician Primary Care Provider Unava ilable Encounter Details Date Type Department Care Team (Latest Contact Info) Description 02/25/2004 Outpatient Historical [facility] Family Medicine- Amita [address] [place] [address] Abel Fields NP NO ADDRESS ON FILE ABDOMINAL PAIN RLQ (Primary Dx); VAGINITIS NOS; ROUTINE MAGISTRATE EXAMINATION Social History Tobacco Use Types Packs/Day Years Used Date Smoking Tobacco: Never Assessed Comments Unknown Sex and Gender Information Value Date Recorded Sex Assigned at Not on file Legal 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
--- OUTSIDE RECORDS SUMMARY | 2025-03-23 03:12 | XMS_ITS | Encounter Summary ---
Author Organization [facility] Address [address] [place] [address] Care Team Providers Care Hatchery Man Name Role Phone Non-Staff, Physician Primary Care Provider Unava ilable Encounter Details Date Type Department Care Team (Latest Contact Info) Description 08/08/2006 Outpatient Historical [facility] [address] 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
--- OUTSIDE RECORDS SUMMARY | 2025-03-23 03:12 | XMS_ITS | Encounter Summary ---
Author Organization [facility] Address [address] [place] [address] Care Team Providers Care Electrifier Operator Name Role Phone Non-Staff, Physician Primary Care Provider Unava ilable Encounter Details Date Type Department Care Team (Latest Contact Info) Description 08/23/2006 Outpatient Historical [facility] Pain [facility] [address] 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
--- OUTSIDE RECORDS SUMMARY | 2025-03-23 03:16 | XMS_ITS | Encounter Summary ---
Author Organization [facility] Address [address] [place] [address] Care Team Providers Care Quality Control Projectionist Name Role Phone Non-Staff, Physician Primary Care Provider Unava ilable Encounter Details Date Type Department Care Team (Latest Contact Info) Description 09/09/2004 Outpatient Historical [facility] Medicine [place] [address] [facility] [address] [place] [address] Nell Verde MD NO ADDRESS ON FILE HYPERTENSION NOS (Primary Dx); DIABETES MELLITUS TYPE II-UNCOMPL (CMS/HCC); HYPOTHYROIDISM NOS; MYOCLONUS Social History Tobacco Use Types Packs/Day Years Used Date Smoking Tobacco: Never Assessed Comments Unknown Sex and Gender Information Value Date Recorded Sex Assigned at Not on file Legal Sex Female 2:45 AM RN FIRST ASSIST Gender Identity Not on file Sexual Orientation [...] as of this encounter Care Teams Quality Control Projectionist Relationship Specialty Start Date End Date Non-Staff, Physician NO ADDRESS ON FILE PCP - General 01/10/20 documented as of this encounter
--- OUTSIDE RECORDS SUMMARY | 2025-03-23 03:16 | XMS_ITS | Encounter Summary ---
Author Organization [facility] Address [address] [place] [address] Care Team Providers Care Research Center Director Name Role Phone Non-Staff, Physician Primary Care Provider Unava ilable Encounter Details Date Type Department Care Team (Latest Contact Info) Description 03/18/2005 Outpatient Historical [facility] Family Medicine- [place] [address] [place] [address] Nell Verde MD NO ADDRESS ON FILE HYPERTENSION NOS (Primary Dx); DIABETES MELLITUS TYPE II-UNCOMPL (CMS/HCC); ACUTE URI NOS; VACCINE FOR STREP PNEUMONIAE Social History Tobacco Use Types Packs/Day Years Used Date Smoking Tobacco: Never Assessed Comments Unknown Sex and Gender Information Value Date Recorded Sex Assigned at Not on file Legal Sex Female 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
--- OUTSIDE RECORDS SUMMARY | 2025-03-23 03:16 | XMS_ITS | Encounter Summary ---
Author Organization [facility] Address [address] [place] [address] Care Team Providers Care Credit Professional Name Role Phone Non-Staff, Physician Primary Care Provider Unava ilable Encounter Details Date Type Department Care Team (Latest Contact Info) Description 10/26/2001 Outpatient Historical [facility] Medicine [place] [address] [facility] [address] [place] [address] Nell Verde MD NO ADDRESS ON FILE URIN TRACT INFECTION NOS (Primary Dx); VAGINITIS NOS Social History Tobacco Use Types Packs/Day Years Used Date Smoking Tobacco: Never Assessed Comments Unknown Sex and Gender Information Value Date Recorded Sex Assigned at Not on file Legal Sex Female 2:45 AM DISPLAY 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
--- OUTSIDE RECORDS SUMMARY | 2025-03-23 03:16 | XMS_ITS | Encounter Summary ---
Author Organization [facility] Address [address] [place] [address] Care Team Providers Care Hand Molder Meat Name Role Phone Non-Staff, Physician Primary [...] on file Legal Sex Female 2:45 AM FAMILY SERVICE ASSISTANT Gender Identity Not on file Sexual [...] at L5-S1 which may compress the left [id number] root. 2. Small right foraminal disc protrusion at L3-4 which comes in closeproximity to the exiting right L3 nerve root. ama / Dictated By: Robert Barbra, M.D. Electronically Signed By: Robert Belle M.D. Date Signed: 01/05/06 AMA us Historical Provider MR ORDERABLES Final Result documented in this encounter Visit Diagnoses Not on filedocumented in this encounter Additional Health Concerns Infection Onset Date Last Indicated Resolved Time CRE-CP Comment:Sputum 07/09/18 (Serratia) 07/09/2018 07/09/2018 MRSA 10/12/2018 12/25/2018 12/26/2019 8:08 PM CDT documented as of this encounter Care Teams Hand Molder Meat Relationship Specialty Start Date End Date Non-Staff, Physician NO ADDRESS ON FILE PCP - General 01/10/20 documented as of this encounter
--- OUTSIDE RECORDS SUMMARY | 2025-03-23 03:16 | XMS_ITS | Encounter Summary ---
Author Organization [facility] Address [address] [facility] Attn: Epic Prelude ADT [place] [address] Care Team Providers Care Sales Service Manager Name Role Phone Non-Staff, Physician Primary Care Provider Unava ilable Encounter Details Date Type Department Care Team (Late st Contact Info) Description 01/31/2002 [place] [address] [address] Social History Tobacco Use Types Packs/Day Years Used Date Smoking Tobacco: Never Assessed Comments Unknown Sex and Gender Information Value Date Recorded Sex Assigned at Not on file Legal Sex Female 2:45 AM FLAKING ROLL OPERATOR Gender Identity Not on file Sexual [...] as of this encounter Care Teams Sales Service Manager Relationship Specialty Start Date End Date Non-Staff, Physician NO ADDRESS ON FILE PCP - General 01/10/20 documented as of this encounter
--- OUTSIDE RECORDS SUMMARY | 2025-03-23 03:16 | XMS_ITS | Encounter Summary ---
Author Organization [facility] Address [address] [facility] [place] [address] Care Team Providers Care Transport Driver Name Role Phone Non-Staff, Physician Primary Care Provider Unava ilable Encounter Details Date Type Department Care Team (Latest Contact Info) Description 04/06/2001 Outpatient Historical [facility] Family Medicine- [address]mit[address] [place] [address] Nell Verde MD NO ADDRESS ON FILE FLU W MANIFESTATION NEC (Primary Dx); URINARY FREQUENCY Social History Tobacco Use Types Packs/Day Years Used Date Smoking Tobacco: Never Assessed Comments Unknown Sex and Gender Information Value Date Recorded Sex Assigned at Not on file Legal Sex Female 2:45 AM AMBULATORY SERVICES REPRESENTATIVE Gender Identity Not on file Sexual [...] documented as of this encounter Care Teams Transport Driver Relationship Specialty Start Date End Date Non-Staff, Physician NO ADDRESS ON FILE PCP - General 01/10/20 documented as of this encounter
--- OUTSIDE RECORDS SUMMARY | 2025-03-23 03:16 | XMS_ITS | Encounter Summary ---
Author Organization [facility] Address [address] [place] [address] Care Team Providers Care Vocational Nurse Name Role Phone Non-Staff, Physician Primary Care Provider Unava ilable Encounter Details Date Type Department Care Team (Latest Contact Info) Description 01/29/2002 Outpatient Historical [facility] Family Medicine- [address]mit[address] [place] [address] Jaime Frausto MD [address] [facility] [address] [place] [address] LOCAL SKIN INFECTION NOS (Primary Dx); Dermatitis due to plant; FLUID OVERLOAD Social History Tobacco Use Types Packs/Day Years Used Date Smoking Tobacco: Never Assessed Comments Unknown Sex and Gender Information Value Date Recorded Sex Assigned at Not on file Legal Sex Female 2:45 AM PUBLIC TRANSPORTATION INSPECTOR Gender Identity Not on file Sexual [...] documented as of this encounter Care Teams Vocational Nurse Relationship Specialty Start Date End Date Non-Staff, Physician NO ADDRESS ON FILE PCP - General 01/10/20 documented as of this encounter
--- OUTSIDE RECORDS SUMMARY | 2025-03-23 03:16 | XMS_ITS | Encounter Summary ---
Author Organization [facility] Address [address] [place] [address] Care Team Providers Care Jewish Thought Professor Name Role Phone Non-Staff, Physician Primary Care Provider Unava ilable Encounter Details Date Type Department Care Team (Latest Contact Info) Description 12/21/2005 Outpatient Historical [facility] Medicine [place] [address] [facility] [address] [place] [address] Nell Verde MD NO ADDRESS ON FILE Urinary Tract Infection, Site not Specified (Primary Dx); Unspecified Backache; Dermatophytosis of Nail; DM w/o Complication Type II (CMS/HCC) Social History Tobacco Use Types Packs/Day Years Used Date Smoking Tobacco: Never Assessed Comments Unknown Sex and Gender Information Value Date Recorded Sex Assigned at Not on file Legal Sex Female 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
--- OUTSIDE RECORDS SUMMARY | 2025-03-23 03:16 | XMS_ITS | Encounter Summary ---
Author Organization [facility] Address [address] [facility] [place] [address] Care Team Providers Care Tractor Operator Battery Name Role Phone Non-Staff, Physician Primary Care Provider Unava ilable Encounter Details Date Type Department Care Team (Latest Contact Info) Description 10/25/2000 Outpatient Historical [facility] Family Medicine- [address] [place] [address] Edmond Machado DO NO ADDRESS ON FILE Unspecified essential hypertension (Primary Dx); Unspecified hypothyroidism; Obesity, unspecified Social History Tobacco Use Types Packs/Day Years Used Date Smoking Tobacco: Never Assessed Comments Unknown Sex and Gender Information Value Date Recorded Sex Assigned at Not on file Legal Sex Female 2:45 AM VERIFYING SPECIALIST Gender Identity Not on file Sexual [...] documented as of this encounter Care Teams Tractor Operator Battery Relationship Specialty Start Date End Date Non-Staff, Physician NO ADDRESS ON FILE PCP - General 01/10/20 documented as of this encounter
--- OUTSIDE RECORDS SUMMARY | 2025-03-23 03:16 | XMS_ITS | Encounter Summary ---
Author Organization [facility] Address [address] [place] [address] Care Team Providers Care Crisis Manager Name Role Phone Non-Staff, Physician Primary Care Provider Unava ilable Encounter Details Date Type Department Care Team (Latest Contact Info) Description 02/21/2000 Outpatient Historical [facility] Family Medicine- [address] [place] [address] Eliz Echevarria NO ADDRESS ON FILE Acute sinusitis, unspecified (Primary Dx); Headache(784.0); Cough Social History Tobacco Use Types Packs/Day Years Used Date Smoking Tobacco: Never Assessed Comments Unknown Sex and Gender Information Value Date Recorded Sex Assigned at Not on file Legal Sex Female 2:45 AM SOILS ANALYST Gender Identity Not on file Sexual [...] documented as of this encounter Care Teams Crisis Manager Relationship Specialty Start Date End Date Non-Staff, Physician NO ADDRESS ON FILE PCP - General 01/10/20 documented as of this encounter
--- OUTSIDE RECORDS SUMMARY | 2025-03-23 03:16 | XMS_ITS | Encounter Summary ---
Author Organization [facility] Address [address] [facility] [place] [address] Care Team Providers Care Jigger Artisan Name Role Phone Non-Staff, Physician Primary Care Provider Unava ilable Encounter Details Date Type Department Care Team (Latest Contact Info) Description 03/12/2001 Outpatient Historical [facility] Family Medicine- [address] [place] [address] Nell Verde MD NO ADDRESS ON FILE JOINT PAIN-PELVIS (Primary Dx) Social History Tobacco Use Types Packs/Day Years Used Date Smoking Tobacco: Never Assessed Comments Unknown Sex and Gender Information Value Date Recorded Sex Assigned at Not on file Legal Sex Female 2:45 AM FOOD DEMONSTRATOR Gender Identity Not on file Sexual Orientation [...] documented as of this encounter Care Teams Jigger Artisan Relationship Specialty Start Date End Date Non-Staff, Physician NO ADDRESS ON FILE PCP - General 01/10/20 documented as of this encounter
--- OUTSIDE RECORDS SUMMARY | 2025-03-23 03:16 | XMS_ITS | Encounter Summary ---
Author Organization [facility] Address [address] [place] [address] Care Team Providers Care Special Forces Officer Name Role Phone Non-Staff, Physician Primary Care Provider Unava ilable Encounter Details Date Type Department Care Team (Latest Contact Info) Description 12/17/2018 Ancillary Orders [facility] Orthopedics - Orthopedic [facility] [address] [place] [address] Lance Mon PA-C [address] [place] [phone] Arthritis of right knee Social History Tobacco Use Types Packs/Day Years Used Date Smoking Tobacco: Former Cigarettes 2.5 9 0 04/10/2003 - 04/10/2012 Smokeless Tobacco: Never Alcohol Use Standard Drinks/Week Comments No 0 (1 standard drink = 0.6 oz pur e alcohol) Comments No Sex and Gender Information Value Date Recorded Sex Assigned at Not on file Legal Sex Female 2:45 AM HARDWARE TEST ENGINEER Gender Identity Not on file Sexual [...] as of this encounter Care Teams Special Forces Officer Relationship Specialty Start Date End Date Non-Staff, Physician NO ADDRESS ON FILE PCP - General 01/10/20 documented as of this encounter
--- OUTSIDE RECORDS SUMMARY | 2025-03-23 03:16 | XMS_ITS | Encounter Summary ---
Author Organization [facility] Address [address] [facility] [place] [address] Care Team Providers Care Surgery Teacher Name Role Phone Non-Staff, Physician Primary Care Provider Unava ilable Encounter Details Date Type Department Care Team (Latest Contact Info) Description 10/29/1999 Outpatient Historical [facility] Family Medicine- [address] [place] [address] Eliz Echevarria NO ADDRESS ON FILE Other specified disorder of bladder (Primary Dx); Dysuria Social History Tobacco Use Types Packs/Day Years Used Date Smoking Tobacco: Never Assessed Comments Unknown Sex and Gender Information Value Date Recorded Sex Assigned at Not on file Legal Sex Female 2:45 AM FLATWORK IRONER Gender Identity Not on file Sexual Orientation [...] documented as of this encounter Care Teams Surgery Teacher Relationship Specialty Start Date End Date Non-Staff, Physician NO ADDRESS ON FILE PCP - General 01/10/20 documented as of this encounter
--- OUTSIDE RECORDS SUMMARY | 2025-03-23 03:16 | XMS_ITS | Encounter Summary ---
Author Organization [facility] Address [address] [facility] Attn: Epic Prelude ADT [place] [address] Care Team Providers Care Speech And Hearing Clinic Director Name Role Phone Non-Staff, Physician Primary [...] on file Legal Sex Female 2:45 AM COLLIERY CLERK Gender Identity Not on file Sexual [...] documented as of this encounter Care Teams Speech And Hearing Clinic Director Relationship Specialty Start Date End Date Non-Staff, Physician NO ADDRESS ON FILE PCP - General 01/10/20 documented as of this encounter
--- OUTSIDE RECORDS SUMMARY | 2025-03-23 03:16 | XMS_ITS | Encounter Summary ---
Author Organization [facility] Address [address] [facility] [place] [address] Care Team Providers Care Umbrella Frame Maker Name Role Phone Non-Staff, Physician Primary Care Provider Unava ilable Encounter Details Date Type Department Care Team (Latest Contact Info) Description 05/22/2001 Outpatient Historical [facility] Family Medicine- [address] [place] [address] Edmond Machado DO NO ADDRESS ON FILE HEADACHE (Primary Dx); CERVICALGIA; HYPERTENSION NOS Social History Tobacco Use Types Packs/Day Years Used Date Smoking Tobacco: Never Assessed Comments Unknown Sex and Gender Information Value Date Recorded Sex Assigned at Not on file Legal Sex Female 2:45 AM NAILER HAND Gender Identity Not on file Sexual Orientation [...] documented as of this encounter Care Teams Umbrella Frame Maker Relationship Specialty Start Date End Date Non-Staff, Physician NO ADDRESS ON FILE PCP - General 01/10/20 documented as of this encounter
--- OUTSIDE RECORDS SUMMARY | 2025-03-23 03:16 | XMS_ITS | Encounter Summary ---
Author Organization [facility] Address [address] [place] [place] [address] Care Team Providers Care Casting Sorter Name Role Phone Non-Staff, Physician Primary Care Provider Unava ilable Encounter Details Date Type Department Care Team (Latest Contact Info) Description 07/25/[address] [facility] Family Medicine- [address] [place] [phone] Edmond Machado DO NO ADDRESS ON FILE Contact dermatitis and other eczema, due to unspecified cause (Primary Dx); Backache, unspecified; Abdominal pain, unspecified site Social History Tobacco Use Types Packs/Day Years Used Date Smoking Tobacco: Never Assessed Comments Unknown Sex and Gender Information Value Date Recorded Sex Assigned at Not on file Legal Sex Female 2:45 AM ELECTRICIAN RESEARCH Gender Identity Not on file Sexual Orientation [...] documented as of this encounter Care Teams Casting Sorter Relationship Specialty Start Date End Date Non-Staff, Physician NO ADDRESS ON FILE PCP - General 01/10/20 documented as of this encounter
--- OUTSIDE RECORDS SUMMARY | 2025-03-23 03:16 | XMS_ITS | Encounter Summary ---
Author Organization [facility] Address [address] [facility] [place] [address] Care Team Providers Care Mold Yard Crane Operator Name Role Phone Non-Staff, Physician Primary Care Provider Unava ilable Encounter Details Date Type Department Care Team (Latest Contact Info) Description 04/21/1998 Outpatient Historical [facility] Family Medicine- [address]mita [address] [place] [phone] Edmond Machado DO NO ADDRESS ON FILE Scabies (Primary Dx); Allergy, unspecified not elsewhere classified Social History Tobacco Use Types Packs/Day Years Used Date Smoking Tobacco: Never Assessed Comments Unknown Sex and Gender Information Value Date Recorded Sex Assigned at Not on file Legal Sex Female 2:[address]PARTMENT DISPATCHER Gender Identity Not on file Sexual [...] documented as of this encounter Care Teams Mold Yard Crane Operator Relationship Specialty Start Date End Date Non-Staff, Physician NO ADDRESS ON FILE PCP - General 01/10/20 documented as of this encounter
--- OUTSIDE RECORDS SUMMARY | 2025-03-23 03:16 | XMS_ITS | Encounter Summary ---
Author Organization [facility] Address [address] [place] [address] Care Team Providers Care Software Client Architect Name Role Phone Non-Staff, Physician Primary Care Provider Unava ilable Encounter Details Date Type Department Care Team (Latest Contact Info) Description 01/09/2002 Outpatient Historical [facility] General Surgery [address] [address] [address] [place] [address] [place] [address] [facility] [address] [place] [address] ABDOMINAL PAIN EPIGASTRIC (Primary Dx) Social History Tobacco Use Types Packs/Day Years Used Date Smoking Tobacco: Never Assessed Comments Unknown Sex and Gender Information Value Date Recorded Sex Assigned at Not on file Legal Sex Female 2:45 AM NEGATIVE ASSEMBLER Gender Identity Not on file Sexual [...] documented as of this encounter Care Teams Software Client Architect Relationship Specialty Start Date End Date Non-Staff, Physician NO ADDRESS ON FILE PCP - General 01/10/20 documented as of this encounter
--- OUTSIDE RECORDS SUMMARY | 2025-03-23 03:16 | XMS_ITS | Encounter Summary ---
Author Organization [facility] Address [address] [place] [address] Care Team Providers Care Farmworker Chicken Farm Name Role Phone Non-Staff, Physician Primary Care Provider Unava ilable Encounter Details Date Type Department Care Team (Latest Contact Info) Description 03/24/2000 Outpatient Historical [facility] Family Medicine- [address] [place] [phone] Eliz Echevarria NO ADDRESS ON FILE Generalized osteoarthrosis, involving multiple sites (Primary Dx); Abdominal pain, unspecified site; Need vaccination-viral disease Social History Tobacco Use Types Packs/Day Years Used Date Smoking Tobacco: Never Assessed Comments Unknown Sex and Gender Information Value Date Recorded Sex Assigned at Not on file Legal Sex Female 2:45 AM SAMPLE HAND Gender Identity Not on file Sexual [...] documented as of this encounter Care Teams Farmworker Chicken Farm Relationship Specialty Start Date End Date Non-Staff, Physician NO ADDRESS ON FILE PCP - General 01/10/20 documented as of this encounter
--- OUTSIDE RECORDS SUMMARY | 2025-03-23 03:16 | XMS_ITS | Encounter Summary ---
Author Organization [facility] Address [address] [place] [facility] [place] [place] [address] Care Team Providers Care Cephalometric Technician Name Role Phone Non-Staff, Physician Primary Care Provider Unava ilable Encounter Details Date Type Department Care Team (Latest Contact Info) Description 11/20/2001 Outpatient Historical [facility] Family Medicine- [address] [place] [phone] Edmond Machado DO NO ADDRESS ON FILE CUTANEOUS CANDIDIASIS (Primary Dx) Social History Tobacco Use Types Packs/Day Years Used Date Smoking Tobacco: Never Assessed Comments Unknown Sex and Gender Information Value Date Recorded Sex Assigned at Not on file Legal Sex Female 2:45 AM ELECTRONIC MASKING SYSTEM OPERATOR Gender Identity Not on file Sexual [...] documented as of this encounter Care Teams Cephalometric Technician Relationship Specialty Start Date End Date Non-Staff, Physician NO ADDRESS ON FILE PCP - General 01/10/20 documented as of this encounter
--- OUTSIDE RECORDS SUMMARY | 2025-03-23 03:16 | XMS_ITS | Encounter Summary ---
Author Organization [facility] Address [address] [place] [address] Care Team Providers Care Blueprint Reproducer Name Role Phone Non-Staff, Physician Primary Care Provider Unava ilable Encounter Details Date Type Department Care Team (Latest Contact Info) Description 12/08/1999 Outpatient Historical [facility] Family Medicine- [address] [place] [address] Eliz Echevarria NO ADDRESS ON FILE Vaginitis and vulvovaginitis, unspecified (Primary Dx); Ventral hernia, unspecified, without mention of obstruction or gangrene; Screening for malignant neoplasm of the rectum; Gynecologic examination Social History Tobacco Use Types Packs/Day Years Used Date Smoking Tobacco: Never Assessed Comments Unknown Sex and Gender Information Value Date Recorded Sex Assigned at Not on file Legal Sex Female 2:45 AM RUG SETTER VELVET Gender Identity Not on file Sexual Orientation [...] documented as of this encounter Care Teams Blueprint Reproducer Relationship Specialty Start Date End Date Non-Staff, Physician NO ADDRESS ON FILE PCP - General 01/10/20 documented as of this encounter
--- OUTSIDE RECORDS SUMMARY | 2025-03-23 03:16 | XMS_ITS | Encounter Summary ---
Author Organization [facility] Address [address] [place] [address] Care Team Providers Care Mechanical Spreader Operator Name Role Phone Non-Staff, Physician Primary Care Provider Unava ilable Encounter Details Date Type Department Care Team (Latest Contact Info) Description 12/14/1999 Outpatient Historical [facility] Medicine [place] [address] [facility] [address] [place] [phone] Yuan Barros MD Abdominal pain, right upper quadrant (Primary Dx) Social History Tobacco Use Types Packs/Day Years Used Date Smoking Tobacco: Never Assessed Comments Unknown Sex and Gender Information Value Date Recorded Sex Assigned at Not on file Legal Sex Female 2:45 AM TRAFFIC SIGN SUPERVISOR Gender Identity Not on file Sexual [...] as of this encounter Care Teams Mechanical Spreader Operator Relationship Specialty Start Date End Date Non-Staff, Physician NO ADDRESS ON FILE PCP - General 01/10/20 documented as of this encounter
--- OUTSIDE RECORDS SUMMARY | 2025-03-23 03:16 | XMS_ITS | Encounter Summary ---
Author Organization [facility] Address [address] [facility] [place] [address] Care Team Providers Care Planning Advisor Name Role Phone Non-Staff, Physician Primary Care Provider Unava ilable Encounter Details Date Type Department Care Team (Latest Contact Info) Description 09/29/1999 Outpatient Historical [facility] Family Medicine- [address] [place] [phone] Eliz Echevarria NO ADDRESS ON FILE Benign murali lg bowel (Primary Dx); Rectal/anal hemorrhage; Obesity, unspecified Social History Tobacco Use Types Packs/Day Years Used Date Smoking Tobacco: Never Assessed Comments Unknown Sex and Gender Information Value Date Recorded Sex Assigned at Not on file Legal Sex Female 2:45 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
--- OUTSIDE RECORDS SUMMARY | 2025-03-23 03:16 | XMS_ITS | Encounter Summary ---
Author Organization [facility] Address [address] [place] [address] Care Team Providers Care Road Consultant Name Role Phone Non-Staff, Physician Primary Care Provider Unava ilable Encounter Details Date Type Department Care Team (Latest Contact Info) Description 10/23/1998 Outpatient Historical [facility]- [address] [phone] Edmond Machado, NO ADDRESS ON FILE Other abnormal blood chemistry (Primary Dx); Backache, unspecified; Other malaise and fatigue Social History Tobacco Use Types Packs/Day Years Used Date Smoking Tobacco: Never Assessed Comments Unknown Sex and Gender Information Value Date Recorded Sex Assigned at Not on file Legal Sex Female 2:45 AM GENERAL SURGEON Gender Identity Not on file Sexual Orientation [...] documented as of this encounter Care Teams Road Consultant Relationship Specialty Start Date End Date Non-Staff, Physician NO ADDRESS ON FILE PCP - General 01/10/20 documented as of this encounter
--- OUTSIDE RECORDS SUMMARY | 2025-03-23 03:16 | XMS_ITS | Encounter Summary ---
Author Organization [facility] Address [address] [facility] [place] [address] Care Team Providers Care Rheumatologist Name Role Phone Non-Staff, Physician Primary Care Provider Unava ilable Encounter Details Date Type Department Care Team (Latest Contact Info) Description 02/10/1998 Outpatient Historical [facility] Family Medicine- [address] [place] [phone] Edmond Machado DO NO ADDRESS ON FILE Pain in limb (Primary Dx); Other, multiple, and unspecified sites, insect bite, nonvenomous, infected(919.5) Social History Tobacco Use Types Packs/Day Years Used Date Smoking Tobacco: Never Assessed Comments Unknown Sex and Gender Information Value Date Recorded Sex Assigned at Not on file Legal Sex Female 2:45 AM SPINDRAW OPERATOR Gender Identity Not on file Sexual [...] documented as of this encounter Care Teams Rheumatologist Relationship Specialty Start Date End Date Non-Staff, Physician NO ADDRESS ON FILE PCP - General 01/10/20 documented as of this encounter
--- OUTSIDE RECORDS SUMMARY | 2025-03-23 03:16 | XMS_ITS | Encounter Summary ---
Author Organization [facility] Address [address] [place] [address] Care Team Providers Care Senior Geotechnical Engineer Name Role Phone Non-Staff, Physician Primary Care Provider Unava ilable Encounter Details Date Type Department Care Team (Latest Contact Info) Description 11/27/2000 Outpatient Historical [facility] Family Medicine- [address] [place] [phone] Edmond Machado, NO ADDRESS ON FILE Toxic effect venom (Primary Dx); Cervicalgia; Impetigo; Dermatophytosis of groin and perianal area Social History Tobacco Use Types Packs/Day Years Used Date Smoking Tobacco: Never Assessed Comments Unknown Sex and Gender Information Value Date Recorded Sex Assigned at Not on file Legal Sex Female 2:45 AM ROTARY RIG ENGINE OPERATOR Gender Identity Not on file Sexual [...] as of this encounter Care Teams Senior Geotechnical Engineer Relationship Specialty Start Date End Date Non-Staff, Physician NO ADDRESS ON FILE PCP - General 01/10/20 documented as of this encounter
--- OUTSIDE RECORDS SUMMARY | 2025-03-23 03:16 | XMS_ITS | Clinical Summary ---
Author Organization [facility] Address [address] [place] [address] Care Team Providers Care Joint Terminal Attack Controller Name Role Phone Anshu Ames MD Primary [...] Daily Amount: 4 tablets 120 tablet 5 03/18/20 25 Discontinu ed(Reorder ) Active Problems Problem Noted Date Diagnosed Date Osteoarthritis 03/19/2025 H/O: hysterectomy 03/19/2025 H/O umbilical hernia repair 03/19/2025 Globus sensation 08/07/2023 Pancytopenia 06/07/2023 Moderate dementia with mood disturbance 03/25/20 ASHD (arteriosclerotic heart disease) 03/25/2022 Status post bilateral knee replacements 03/25/20 22 Tachycardia 03/25/2022 Anemia 03/25/2022 Restless leg syndrome [...] Problem Noted Date Diagnosed Date Resolved Date H/O tubal ligation 03/19/2025 Previous section 03/19/2025 Osteomyelitis of finger of left hand 03/19/2025 03/19/2025 Pressure injury of left heel, unstageable 05/24/2024 06/24/2024 Alcoholic hepatitis without ascites 02/02/2024 02/02/2024 Infection of total knee replacement 12/24/2018 02/02/2024 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 02/02/2024 Encounters Date Type Department Care Team Description 03/19/2025 2:30 PM HISTORIC SITE ADMINISTRATOR Telemedicine [facility] [place] - Primary Care [address] [place] [address] Fabby Green, BARKER PEELER Compulsive skin picking (Primary Dx); 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, sequela 03/18/2025 Refill [facility] - Primary Care [address] [place] [address] [address] [place] [address] Alia Landeros LPN Pain 03/17/2025 3:05 PM HISTORIC SITE ADMINISTRATOR Telemedicine [facility] [place] - Primary Care [address] [place] [address] Anshu Ames MD Type 2 diabetes mellitus with diabetic neuropathy, with long-term current use of insulin (HCC) (Primary Dx); Chronic diastolic CHF (congestive heart failure) (HCC); Pancytopenia (HCC); Other emphysema (HCC); Hx of AKA (above knee amputation), right (HCC) 02/10/2025 Refill [facility] [place] - Primary Care [address] [place] [address] Alia Landeros LPN Pain 01/16/2025 Refill [facility] [place] - Primary Care [address] [place] [address] Vanessa Dominguez, DANA Pain from Last 3 [...] on file Legal Sex Female 9:13 PM HISTORIC SITE ADMINISTRATOR Gender Identity Not on file Sexual Orientation Not on file Last Filed Vital Signs Vital Sign Reading Time Taken Comments Blood Pressure 112/60 03/17/2025 9:55 AM HISTORIC SITE ADMINISTRATOR Pulse 86 03/17/2025 9:55 AM HISTORIC SITE ADMINISTRATOR Temperature 36.6 C (97.9 F) 03/17/2025 9:55 AM HISTORIC SITE ADMINISTRATOR Respiratory Rate 20 03/17/2025 9:55 AM HISTORIC SITE ADMINISTRATOR Oxygen Saturation 96% 03/17/2025 9:55 AM HISTORIC SITE ADMINISTRATOR Inhaled Oxygen Concentration - - Weight 75.8 kg (167 lb) 03/17/2025 9:55 AM HISTORIC SITE ADMINISTRATOR Height 144.8 cm (4' 9 ) 03/17/2025 9:55 AM HISTORIC SITE ADMINISTRATOR Body Mass Index 36.14 03/17/2025 9:55 AM HISTORIC SITE ADMINISTRATOR Plan of Treatment Health Maintenance Due Date Last Done Comments Foot Exam 1950 Ophthalmology Exam 01/16/1958 Urine Microalbumin 01/16/1958 Shingrix (ZOSTER RECOMBINANT) (1 of 2) 01/16/1998 Mammogram 08/29/2018 08/29/2017, 08/01/2017 Colonoscopy 10/15/2018 10/15/2008 Hemoglobin A1C 03/25/2019 12/25/2018 Bone Density Scan (DXA Scan) 08/01/2020 08/01/2017, 08/01/2017 RSV 60+ (1 - 1-dose 75+ series) 01/16/2023 Influenza Vaccination (#1) 11/08/202401/30, 02/27/2023, 05/26/2022, Additional history exists COVID-19 Vaccine ( season) 2024 07/04/2024, 05/05/2023, 04/28/2020 Medicare Annual Wellness 09/13/2025 025, 09/13/2024, 06/30/2023 Td, Tdap Vaccines Adult 01/16/2028 01/16/20 18, 06/08/2014, 09/14/2010, Additional history exists Pneumococcal Vaccine: 50+ Years Completed 02/02/2017, 02/15/2016, 03/18/2005 HIB Vaccines Aged Out No longer eligi ble based on patient's age to complete this topic HPV Vaccines (No Doses Required) Completed Hepatitis A Vaccines Aged Out No long [...] age to complete this topic Insurance [place]ARE [place] [employer] [facility] Care Teams Joint Terminal Attack Controller Relationship Specialty Start Date End Date Anshu Ames MD [address] [place] [id number] PCP - General Family Medicine 03/08/22
--- OUTSIDE RECORDS SUMMARY | 2025-03-23 03:16 | XMS_ITS | Encounter Summary ---
Author Organization [facility] Address [address] [place] [address] Care Team Providers Care Background Investigator Name Role Phone Non-Staff, Physician Primary Care Provider Unava ilable Encounter Details Date Type Department Care Team (Latest Contact Info) Description 02/26/2001 Outpatient Historical [facility] Family Medicine- [address] [place] [phone] Nell Verde MD NO ADDRESS ON FILE HYPOTHYROIDISM NOS (Primary Dx); HEADACHE; ACUTE SINUSITIS NOS Social History Tobacco Use Types Packs/Day Years Used Date Smoking Tobacco: Never Assessed Comments Unknown Sex and Gender Information Value Date Recorded Sex Assigned at Not on file Legal Sex Female 2:45 AM DIRECTOR OF PRODUCT MANAGEMENT Gender Identity Not on file Sexual Orientation [...] documented as of this encounter Care Teams Background Investigator Relationship Specialty Start Date End Date Non-Staff, Physician NO ADDRESS ON FILE PCP - General 01/10/20 documented as of this encounter
--- OUTSIDE RECORDS SUMMARY | 2025-03-23 03:16 | XMS_ITS | Encounter Summary ---
Author Organization [facility] Address [address] [place] [address] Care Team Providers Care Master Plumber Name Role Phone Non-Staff, Physician Primary Care Provider Unava ilable Encounter Details Date Type Department Care Team (Late st Contact Info) Description 11/19/2013 Ancillary Orders [facility] Admitting [address] [place] [address] Rodolfo Zendejas MD NO ADDRESS [...] file Legal Sex Female 2:45 AM QUALITY ANALYST Gender Identity Not on file Sexual [...] documented as of this encounter Care Teams Master Plumber Relationship Specialty Start Date End Date Non-Staff, Physician NO ADDRESS ON FILE PCP - General 01/10/20 documented as of this encounter
--- OUTSIDE RECORDS SUMMARY | 2025-03-23 03:16 | XMS_ITS | Encounter Summary ---
Author Organization [facility] Address [address] Attn: Epic Prelude ADT [place] [address] Care Team Providers Care In House Cra Name Role Phone Non-Staff, Physician Primary Care [...] on file Legal Sex Female 2:45 AM CANE FLUME CHUTE OPERATOR Gender Identity Not on file Sexual [...] documented as of this encounter Care Teams In House Cra Relationship Specialty Start Date End Date Non-Staff, Physician NO ADDRESS ON FILE PCP - General 01/10/20 documented as of this encounter
--- OUTSIDE RECORDS SUMMARY | 2025-03-23 03:16 | XMS_ITS | Encounter Summary ---
Author Organization [facility] Address [address] [facility] Attn: Epic Prelude ADT [place] [address] Care Team Providers Care Transitions Manager Name Role Phone Non-Staff, Physician Primary [...] on file Legal Sex Female 2:45 AM MINIATURE SET CONSTRUCTOR Gender Identity Not on file Sexual Orientation [...] documented as of this encounter Care Teams Transitions Manager Relationship Specialty Start Date End Date Non-Staff, Physician NO ADDRESS ON FILE PCP - General 01/10/20 documented as of this encounter
--- OUTSIDE RECORDS SUMMARY | 2025-03-23 03:16 | XMS_ITS | Encounter Summary ---
Author Organization [facility] Address [address] [place] [address] Care Team Providers Care System Support Developer Name Role Phone Non-Staff, Physician Primary Care Provider Unava ilable Encounter Details Date Type Department Care Team (Latest Contact Info) Description 08/09/2000 Outpatient Historical [facility] General Surgery [address] [address] [address] [place] [address] [place] [address] [facility] [place] [place] [address] [place] [address] Abdominal pain, epigastric (Primary Dx) Social History Tobacco Use Types Packs/Day Years Used Date Smoking Tobacco: Never Assessed Comments Unknown Sex and Gender Information Value Date Recorded Sex Assigned at Not on file Legal Sex Female 2:45 AM FISH MACHINE FEEDER Gender Identity Not on file Sexual [...] documented as of this encounter Care Teams System Support Developer Relationship Specialty Start Date End Date Non-Staff, Physician NO ADDRESS ON FILE PCP - General 01/10/20 documented as of this encounter
--- OUTSIDE RECORDS SUMMARY | 2025-03-23 03:16 | XMS_ITS | Encounter Summary ---
Author Organization [facility] Address [address] [place] [facility] [place] [address] Care Team Providers Care Gristmiller Name Role Phone Non-Staff, Physician Primary Care Provider Unava ilable Encounter Details Date Type Department Care Team (Latest Contact Info) Description 06/03/2005 Outpatient Historical [facility] Family Medicine- [address] [place] [phone] Nell Verde MD NO ADDRESS ON FILE ACUTE BRONCHITIS (Primary Dx); MORBID OBESITY (CMS/HCC); DIABETES MELLITUS TYPE II-UNCOMPL (CMS/HCC) Social History Tobacco Use Types Packs/Day Years Used Date Smoking Tobacco: Never Assessed Comments Unknown Sex and Gender Information Value Date Recorded Sex Assigned at Not on file Legal Sex Female 2:45 AM FLIGHT COMMUNICATIONS OPERATOR Gender Identity Not on file Sexual [...] documented as of this encounter Care Teams Gristmiller Relationship Specialty Start Date End Date Non-Staff, Physician NO ADDRESS ON FILE PCP - General 01/10/20 documented as of this encounter
--- OUTSIDE RECORDS SUMMARY | 2025-03-23 03:16 | XMS_ITS | Encounter Summary ---
Author Organization [facility] Address [address] [place] [address] Care Team Providers Care Digital Printer Name Role Phone Non-Staff, Physician Primary Care Provider Unava ilable Encounter Details Date Type Department Care Team (Late st Contact Info) Description 10/20/2017 Ancillary Orders [facility] [address] [facility] [address] [place] [address] Gwendolyn Pitts, [facility] [address] [place] [phone] Abnormal mammogram Social History Tobacco Use Types Packs/Day Years Used Date Smoking Tobacco: Former Cigarettes 2.5 9 0 04/10/2003 - 04/10/2012 Smokeless Tobacco: Never Alcohol Use Standard Drinks/Week Comments No 0 (1 standard drink = 0.6 oz pur e alcohol) Comments No Sex and Gender Information Value Date Recorded Sex Assigned at Not on file Legal Sex Female 2:45 AM DICTAPHONE OPERATOR Gender Identity Not on file Sexual [...] to be scanned to PACS. Gwendolyn Smitheling PARACHUTIST/COMBATANT DIVER QUALIFIED DIAGNOSTIC IMAGING ORDE RABLES Final Result * MAMMO PRIOR STUDY (08/29/2017 11:40 AM CDT) Narrative 10/20/2017 11:40 AM CDT This exam was auto finalized to allow images to be scanned to PACS. us Gwendolyn Smitheling PARACHUTIST/COMBATANT DIVER QUALIFIED DIAGNOSTIC IMAGING ORDE RABLES Final Result * MAMMO PRIOR STUDY (08/01/2017 11:40 AM CDT) Narrative 10/20/2017 11:40 AM CDT This exam was auto finalized to allow images to be scanned to PACS. us Gwendolyn Pitts PARACHUTIST/COMBATANT DIVER QUALIFIED DIAGNOSTIC IMAGING ORDE RABLES Final Result documented [...] as of this encounter Care Teams Digital Printer Relationship Specialty Start Date End Date Non-Staff, Physician NO ADDRESS ON FILE PCP - General 01/10/20 documented as of this encounter
--- OUTSIDE RECORDS SUMMARY | 2025-03-23 03:16 | XMS_ITS | Encounter Summary ---
Author Organization [facility] Address [address] [place] [address] Care Team Providers Care Head Refrigerating Engineer Name Role Phone Non-Staff, Physician Primary Care Provider Unava ilable Encounter Details Date Type Department Care Team (Latest Contact Info) Description 12/16/1999 Outpatient Historical [facility] Medicine [place] [address] [facility] [facility] [place] [phone] Yuan Barros MD Abdominal pain, epigastric (Primary Dx); Abdominal pain, right upper quadrant Social History Tobacco Use Types Packs/Day Years Used Date Smoking Tobacco: Never Assessed Comments Unknown Sex and Gender Information Value Date Recorded Sex Assigned at Not on file Legal Sex Female 2:45 AM EMERGENCY PREPAREDNESS COORDINATOR Gender Identity Not on file Sexual [...] documented as of this encounter Care Teams Head Refrigerating Engineer Relationship Specialty Start Date End Date Non-Staff, Physician NO ADDRESS ON FILE PCP - General 01/10/20 documented as of this encounter
--- OUTSIDE RECORDS SUMMARY | 2025-03-23 03:16 | XMS_ITS | Encounter Summary ---
Author Organization [facility] Address [address] [facility] [place] [address] Care Team Providers Care Clinical Project Leader Name Role Phone Non-Staff, Physician Primary Care Provider Unava ilable Encounter Details Date Type Department Care Team (Latest Contact Info) Description 10/02/[address] [facility] Family Medicine- [address] [place] [phone] Edmodn Machado DO NO ADDRESS ON FILE HELICOBACTER PYLORI INFECTION (Primary Dx); SPASM OF MUSCLE Social History Tobacco Use Types Packs/Day Years Used Date Smoking Tobacco: Never Assessed Comments Unknown Sex and Gender Information Value Date Recorded Sex Assigned at Not on file Legal Sex Female 2:45 AM POLITICAL SCIENTIST Gender Identity Not on file Sexual Orientation [...] documented as of this encounter Care Teams Clinical Project Leader Relationship Specialty Start Date End Date Non-Staff, Physician NO ADDRESS ON FILE PCP - General 01/10/20 documented as of this encounter
--- OUTSIDE RECORDS SUMMARY | 2025-03-23 03:16 | XMS_ITS | Encounter Summary ---
Author Organization [facility] Address [address] [place] [address] Care Team Providers Care Pipe Line Maintenance Supervisor Name Role Phone Non-Staff, Physician Primary Care Provider Unava ilable Reason for Referral * CT Scan (Routine) - Closed Specialty Diagnoses / Procedures Referred By Contac t Referred To Contact Radiology Diagnoses Headache Procedures CT HEAD WO CONTRAST Edmond Machado DO [facility] CT Scan [place] [address] [facility] [address] [place] [address] Phone: tel: fax: Referral ID Status Reason Start Date Expiration Date V isits Requested Visits Authorized [id number] Closed PRN View CTS to Schedule (SGF) 09/11/2018 10/12/2019 1 1 Encounter Details Date Type Department Care Team (Late st Contact Info) Description 09/11/2018 Ancillary Orders [facility] Centralized Scheduling [address] [facility] [address] [place] [address] Edmond Machado DO NO ADDRESS [...] on file Legal Sex Female 2:45 AM TEST CONSULTANT Gender Identity Not on file Sexual [...] documented as of this encounter Care Teams Pipe Line Maintenance Supervisor Relationship Specialty Start Date End Date Non-Staff, Physician NO ADDRESS ON FILE PCP - General 01/10/20 documented as of this encounter
--- OUTSIDE RECORDS SUMMARY | 2025-03-23 03:16 | XMS_ITS | Encounter Summary ---
Author Organization [facility] Address [address] [facility] [place] [address] Care Team Providers Care Proteomics Scientist Name Role Phone Non-Staff, Physician Primary Care Provider Unava ilable Encounter Details Date Type Department Care Team (Latest Contact Info) Description 04/23/2004 Outpatient Historical [facility] Family Medicine- [address] [place] [phone] Nell Verde MD NO ADDRESS ON FILE ACUTE BRONCHITIS (Primary Dx); ACUTE URI NOS; DIABETES MELLITUS TYPE II-UNCOMPL ([facility]) Social History Tobacco Use Types Packs/Day Years Used Date Smoking Tobacco: Never Assessed Comments Unknown Sex and Gender Information Value Date Recorded Sex Assigned at Not on file Legal Sex Female 2:45 AM CARDIOLOGY CLINICAL CONSULTANT Gender Identity Not on file Sexual [...] documented as of this encounter Care Teams Proteomics Scientist Relationship Specialty Start Date End Date Non-Staff, Physician NO ADDRESS ON FILE PCP - General 01/10/20 documented as of this encounter
--- OUTSIDE RECORDS SUMMARY | 2025-03-23 03:16 | XMS_ITS | Encounter Summary ---
Author Organization [facility] Address [address] [place] [address] Care Team Providers Care Six Horse Hitch Driver Name Role Phone Non-Staff, Physician Primary Care Provider Unava ilable Encounter Details Date Type Department Care Team (Late st Contact Info) Description 10/28/2009 Ancillary Orders [facility] Orthoped[facility] [address] [place] [address] Matthew Levy MD NO ADDRESS ON FILE Knee Pain Social History Tobacco Use Types Packs/Day Years Used Date Smoking Tobacco: Former Cigarettes Alcohol Use Standard Drinks/Week Comments No 0 (1 standard drink = 0.6 oz pur e alcohol) Comments No Sex and Gender Information Value Date Recorded Sex Assigned at Not on file Legal Sex Female 2:45 AM ELECTROSTATIC PAINT OPERATOR Gender Identity Not on file Sexual [...] documented as of this encounter Care Teams Six Horse Hitch Driver Relationship Specialty Start Date End Date Non-Staff, Physician NO ADDRESS ON FILE PCP - General 01/10/20 documented as of this encounter
--- OUTSIDE RECORDS SUMMARY | 2025-03-23 03:16 | XMS_ITS | Encounter Summary ---
Author Organization [facility] Address [address] [place] [address] Care Team Providers Care Photographer'S Model Name Role Phone Non-Staff, Physician Primary Care Provider Unava ilable Encounter Details Date Type Department Care Team (Latest Contact Info) Description 01/02/2002 Outpatient Historical [facility] Family Medicine- [place] [address] [place] [phone] Jaime Frausto MD [address] [facility] [address] [place] [address] ABDOMINAL PAIN RUQ (Primary Dx); Gynecologic examination; POSTMENOPAUSAL HORMONAL REPLACMT Social History Tobacco Use Types Packs/Day Years Used Date Smoking Tobacco: Never Assessed Comments Unknown Sex and Gender Information Value Date Recorded Sex Assigned at Not on file Legal Sex Female 2:45 AM GRAVES REGISTRATION SPECIALIST Gender Identity Not on file Sexual [...] documented as of this encounter Care Teams Photographer'S Model Relationship Specialty Start Date End Date Non-Staff, Physician NO ADDRESS ON FILE PCP - General 01/10/20 documented as of this encounter
--- OUTSIDE RECORDS SUMMARY | 2025-03-23 03:16 | XMS_ITS | Encounter Summary ---
Author Organization [facility] Address [address] [place] [address] Care Team Providers Care Director Experimental Medicine Name Role Phone Non-Staff, Physician Primary Care Provider Unava ilable Encounter Details Date Type Department Care Team (Latest Contact Info) Description 04/24/2001 Outpatient Historical [facility] Family Medicine- [address] [place] [phone] Edmond Machado DO NO ADDRESS ON FILE HEADACHE (Primary Dx); ACUTE URI NOS; KERATODERMA, ACQUIRED Social History Tobacco Use Types Packs/Day Years Used Date Smoking Tobacco: Never Assessed Comments Unknown Sex and Gender Information Value Date Recorded Sex Assigned at Not on file Legal Sex Female 2:45 AM CLINICAL MASSAGE THERAPIST Gender Identity Not on file Sexual Orientation [...] as of this encounter Care Teams Director Experimental Medicine Relationship Specialty Start Date End Date Non-Staff, Physician NO ADDRESS ON FILE PCP - General 01/10/20 documented as of this encounter
--- OUTSIDE RECORDS SUMMARY | 2025-03-23 03:16 | XMS_ITS | Encounter Summary ---
Author Organization [facility] Address [address] [place] [address] Care Team Providers Care Toll Settlement Clerk Name Role Phone Non-Staff, Physician Primary Care Provider Unava ilable Encounter Details Date Type Department Care Team (Latest Contact Info) Description 05/03/2000 Outpatient Historical [facility] Family Medicine- [address] [place] [phone] Edmond Machado, NO ADDRESS ON FILE Unspecified viral infection, in conditions classified elsewhere and of unspecified site (Primary Dx); Need for prophylactic vaccination with tetanus-diphtheria (Td) Social History Tobacco Use Types Packs/Day Years Used Date Smoking Tobacco: Never Assessed Comments Unknown Sex and Gender Information Value Date Recorded Sex Assigned at Not on file Legal Sex Female 2:45 AM OVERLAY PLASTICIAN Gender Identity Not on file Sexual Orientation [...] documented as of this encounter Care Teams Toll Settlement Clerk Relationship Specialty Start Date End Date Non-Staff, Physician NO ADDRESS ON FILE PCP - General 01/10/20 documented as of this encounter
--- OUTSIDE RECORDS SUMMARY | 2025-03-23 03:16 | XMS_ITS | Encounter Summary ---
Author Organization [facility] Address [address] [facility] Attn: Epic Prelude ADT [place] [address] Care Team Providers Care Aquaculture Farm Manager Name Role Phone Non-Staff, Physician Primary [...] on file Legal Sex Female 2:45 AM METALLURGICAL ENGINEERING TEACHER Gender Identity Not on file Sexual [...] documented as of this encounter Care Teams Aquaculture Farm Manager Relationship Specialty Start Date End Date Non-Staff, Physician NO ADDRESS ON FILE PCP - General 01/10/20 documented as of this encounter
--- OUTSIDE RECORDS SUMMARY | 2025-03-23 03:16 | XMS_ITS | Clinical Summary ---
Author Organization [facility] Address [address] [facility] Attn: Epic Prelude ADT [place] [address] Care Team Providers Care Locksmith Helper Name Role Phone Non-Staff, Physician Primary Care Provider Unava ilable Allergies Active Allergy Reactions Criticality Noted Date Comments Aspirin Nausea and Vomiting Medium Codeine Rash,Nausea and Vomiting,Unknown High Morphine Swelling High Sulfa (Sulfonamide Antibiotics) Rash High Sulfamethoxazole-Trim ethoprim Other (See Comments) 12/25/2018 Unknown, per facility Medications blood sugar diagnostic StripIndications:T ype 2 diabetes mellitus with hyperglycemia, with long-term current use of insulin ([facility]) Test blood sugar three time per day. DX:E11.43. 300 Each 3 04/17/19 19 Active fluticasone propionate (FLOVENT HFA) 110 mcg/actuation HFA Aerosol InhalerIndications :Mild intermittent asthma without complication,Panlo bular emphysema ([facility]) Take 2 Puffs by inhalation 2 times daily. 36 Gram 3 04/17/19 19 Active ARIPiprazole (ABILIFY) 2 mg tabletIndications: Depression with anxiety TAKE 1 TABLET(2 MG) BY MOUTH DAILY 90 Tablet 1 04/27/19 19 Active insulin lispro (HumaLOG KwikPen Insulin) 100 unit/mL pen syringeIndications :Type 2 diabetes mellitus with complication, with long-term current use of insulin ([facility]) INJECT 15 UNITS SUBCUTANEOUSLY THREE TIMES DAILY BEFORE MEALS IF GLUCOSE GREATER THAN 160 45 mL 2 06/19/19 19 Active insulin detemir U-100 (LEVEMIR) 100 unit/mL pen syringeIndications :Type 2 diabetes mellitus with complication, with long-term current use of insulin ([facility]),Hypergly cemia Inject 20 Units by subcutaneous injection daily [...] tablet Take 100 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 12/26/19 Active MAGNESIUM HYDROXIDE ORAL Take 30 [...] 6 hours as needed. 12/26/19 Active Insulin Comptche, Disposable, 31 gauge x 06/23 NeedleIndications: Type 2 diabetes mellitus with hyperglycemia, with long-term current use of insulin ([facility]) Use 4 times per day Dx: E11.8. 300 Each 3 01/31/20 18 Active donepeziL (ARICEPT) 5 mg tabletIndications: Short-term memory loss TAKE 1 TABLET BY MOUTH DAILY 90 Tablet 3 02/10/20 Active lancets 33 gaugeIndications:T ype 2 diabetes mellitus with hyperglycemia, with long-term current use of insulin ([facility]) Test blood sugar 3 times per day. DX E11.43. 300 Each 3 04/17/19 19 Active lidocaine (LIDODERM) 5 % Adhesive Patch, [...] daily. Every morning and at bedtime. 02/16/20 19 Active Miscellaneous Medical SupplyIndications: Infection of total knee replacement, subsequent encounter Recycling Assistant Socks 1 Each 0 01/15/20 Active Miscellaneous Medical SupplyIndications: Infection of total knee replacement, subsequent encounter Temporary above the knee Prosthesis 1 Each 0 01/15/20 19 Active loperamide (IMODIUM) 2 mg Tablet Take 2 mg by mouth. 1 tab oral as needed for diarrhea then 1 tab after each loose stool not to exceed 6 tabs in 24 hours 02/16/20 Active acetaminophen (TYLENOL) 325 mg tablet Take 650 mg by mouth every 6 hours as needed for Pain. 02/16/20 Active Blood-Glucose Meter KitIndications:Typ e 2 diabetes mellitus with complication, with long-term current use of insulin ([facility]),Hypergly cemia Test blood sugar 3 times per day [...] Viral hepatitis A without hepatic coma 12/25/2018 Encounters Date Type Department Care Team Description 02/25/2025 External Device Data STL ABSTRACTION Provider, Abstract 02/05/2025 External Device Data ST[facility] ABSTRACTION Provider, Abstract 02/04/2025 External Device Data [facility] ABSTRACTION Provider, Abstract 02/04/2025 External Device Data [facility] ABSTRACTION Provider, Abstract 01/21/2025 7:15 AM CDT - 01/21/2025 11:59 PM CDT Hospital Encounter [facility] [place] [facility] [address] [place] [phone] Ambulance, Prn [facility] Discharge Disposition: Short [facility] from Last 3 Months Immunizations Immunization Administration Dates Next Due (ADACEL/BOOSTRIX)(10 [...] Used Date Smoking Tobacco: Former Cigarettes 2.5 Q uit: 04/10/2012 Smokeless Tobacco: Never Alcohol Use Standard Drinks/Week Comments No 0 (1 standard drink = 0.6 oz pur e alcohol) Feeling Safe Answer Date Recorded Are you in a relationship wi th someone who hurts you emotionally and/or physically? No 05/05/2023 Comments No Sex and Gender Information Value Date Recorded Sex Assigned at Not on file Legal Sex Female 10:52 AM FERRY HAND Gender Identity Not on file Sexual Orientation Not on file Last Filed Vital Signs Vital Sign Reading Time Taken Comments Blood Pressure 143/92 05/06/2023 12:00 AM FERRY HAND Pulse 94 05/06/2023 12:00 AM FERRY HAND Temperature 36.3 C (97.3 F) 05/05/2023 9:01 PM FERRY HAND Respiratory Rate 16 05/06/2023 12:00 AM FERRY HAND Oxygen Saturation 100% 05/06/2023 12:00 AM FERRY HAND Inhaled Oxygen Concentration - - Weight 68.1 kg (150 lb 3.2 oz) 05/05/2023 9:01 P M FERRY HAND Height 147.3 cm (4' 10 ) 05/05/2023 9:01 PM FERRY HAND Body Mass Index 31.39 05/05/2023 9:01 PM FERRY HAND Plan of Treatment Health Maintenance Due Date [...] 75+ series) 01/16/2023 INFLUENZA VACCINE (#1) 2024 3, 01/25/2019, 04/17/2018, Additional history exists COVID-19 Vaccine (4 - 2024-2 6 season) 2024 07/04/2024, 05/05/2023, 04/28/2020 DTAP/TDAP/TD VACCINES (4 - T d or Tdap) 01/16/2028 01/15/2018, 06/08/2014, 09/14/2010, Additional history exists COLORECTAL SCREENING Discontinued 07/21/2015, 10/16/19 09 Colorectal Cancer Screening Discontinued PNEUMOCOCCAL VACCINE 50+ YEARS Completed 1 , 02/15/2016, 03/18/2005 FIT-DNA Q 3 years Discontinued FIT/FOBT Q 1 year Discontinued Flex Sig/CT Colonography Q 5 years Discontinued Medical Devices Implanted Type Area Switchboard Manager Device Identifier Shelf Expiration Date Model / Serial / Lot Log 12913 - Cement - 1 - Cement Palacos Sgl [id number] Implanted:Qty: 1 on 11/11/2008 Cement Left: Knee KATHERINE [employer] 05/11/2013 [id number] / NA / [id number] Cement Palacos Sgl [id number] Implanted:Qty: 1 on 09/15/2009 Cement Right: Knee KATHERINE [employer] 09/08/[id number] 1 / / [id number] Log [id number] - Katherine Total Knee - 1 - Art Surface Nk Gs [id number] Implanted:Qty: 1 on 11/11/2008 Knee Left: Knee KATHERINE [employer] 05/11/2012 [id number] / NA / [id number] Log 24379 - Katherine Total Knee - 1 - Comp Fem Nkii Gsf [id number] Implanted:Qty: 1 on 11/11/2008 Knee Left: Knee KATHERINE [employer] 10/08/2017 [id number] / NA / [id number] Log 74473 - Katherine Total Knee - 1 - Comp Tib Nkii J2Ee Architect Stmd [id number] Implanted:Qty: 1 on 11/11/2008 Knee Left: Knee KATHERINE [employer] [id number] / NA / [id number] Log 50081 - Katherine Total Knee - 1 - Patella Nk Gs Poly 8mm [id number] Implanted:Qty: 1 on 11/11/2008 Knee Left: Knee KATHERINE [employer] 09/08/2012 [id number] / NA / [id number] Log 74711 - Depuy Total Knee - 1 - Comp Fem Sigma Cr Npor Sz2.5 Rt 96-0018 Implanted:Qty: 1 on 09/15/2009 Knee Right: Knee J[employer]J- [employer] 07/09/2014 96-0018 / / [id number] Patella Implanted:Qty: 1 on 09/15/2009 Knee Right: Knee [employer] 07/09/2014 96-0018 / / [id number] Description:3-Post Round Dom e [id number] MM Tibial Tray Implanted:Qty: 1 on 09/15/2009 Knee Right: Knee [employer] 07/10/2019 [id number] / / [id number] Description:Napoleon RIVERA AL TRAY FIXED BEARINGMODULAR COCR 2 Mesh Ventralex Patch Med 05512 - [id number] Implanted:Qty: 1 on 09/10/2012 Mesh N/A: Abdomen CR BARD- [employer] 06/10/2016 [id number] / / [id number] Cross-Linked Curved Insert Implanted:Qty: 1 on 09/15/2009 Right: Knee [employer] 02/08/2014 1581-11-108 / / [id number] Description:Napoleon HOLLOWAY S-LINKED CURVED INSERT Procedures Procedure Name Priority Date/Time Associated Diagnosis Comments HEMOGLOBIN A1C Routine 12/25/2018 8:21 AM CDT LIPID PANEL Routine 10/26/2017 12:21 PM CDT XR DEXA BONE DENSITY AXIAL 1 OR MORE SITES Routine 08/01/2017 1:30 PM CDT Encounter for screening for osteoporosis HM DIABETES EYE EXAM 05/19/2017 12:00 AM FERRY HAND MICROALBUMIN/CREATI NINE RATIO, RANDOM UR Routine 01/19/2017 9:43 AM CDT from Last 3 Months or Most Recently Relevant to Health Maintenance Results * (ABNORMAL) HEMOGLOBIN A1C (12/25/2018 8:21 AM CDT) HEMOGLOBIN A1C 7.4(H) <=5.6 % 12/25/2018 9:10 AM CDT [facility] EST. AVG GLUCOSE, A1C 166 mg/dL 12/25/2018 9:10 AM CDT [facility] Blood Venipuncture / Unknown 12/25/2018 8:21 AM CDT 12/25/2018 8:40 AM CDT [facility] - 12/25/2018 9:10 AM CDT HGB A1C INTERPRETATION NORMAL: <5.7% PRE-DIABETES: 5.7 - 6.4% DIABETES: 6.5% OR GREATER us David Levy MD CHEMISTRY ORDERABLES Final Resu lt [facility] #[id number] [address] [place] [address] [id number] [address] [place] [address] * (ABNORMAL) LIPID PANEL (10/26/2017 12:21 PM CDT) CHOLESTEROL 169 <200 mg/dL 10/26/2017 9:39 PM CDT [facility] TRIGLYCERIDE 61 <150 mg/dL 10/26/2017 9:39 PM CDT [facility] HDL 63(H) 40 - 59 mg/dL 10/26/2017 9:39 PM CDT [facility] LDL CALCULATED 94 <100 mg/dL 10/26/2017 9:39 PM CDT [facility] NON-HDL CHOLESTEROL 106 <130 mg/dL 10/26/2017 9:39 PM CDT [facility] Blood Collection / Unknown 10/26/2017 12:21 PM CDT 10/26/2017 8:19 PM CDT Narrative [facility] - 10/26/2017 9:39 PM CDT TOTAL CHOLESTEROL mg/dL Desirable<200 Borderline [id number] High>=240 TRIGLYCERIDES mg/dL Normal<150 Borderline [id number] Veqh836-261 Very high>=500 HDL CHOLESTEROL mg/dL Low<40 Tsowms36-53 Desirable>=60 NON HDL CHOLESTEROL mg/dL Optimal<130 Near [id number] Borderline Gpqi129-843 Very High>=190 Calculated LDL mg/dL Optimal<100 Near [id number] Borderline Wibc089-678 Oyvy504-537 Very High>=190 ATPIII Guidelines Reference Ranges for Lipid Panels (NCEP/AMA) us Gwendolyn Smitheling RATOPRINTER CHEMISTRY ORDERABLES Fi nal Result [facility]# [id number] [address] [place] [address] * XR DEXA BONE DENSITY AXIAL 1 [...] clinical management available online at [email or web address].[email or web address]/FRAX/. Enter [employer] for Select DXA and the Femoral Neck BMD value. [id number] Narrative 08/01/2017 11:47 PM CDT DEXA Evaluation [...] clinical management available online at [email or web address]/FRAX/. Enter [employer] for Select DXA and the Femoral Neck BMD value. [id number] Gwendolyn Pitts RATOPRINTER DIAGNOSTIC IMAGING BARBARA PEREZ Final Result * HM DIABETES EYE EXAM (05/19/2017 12:00 AM FERRY HAND) Sgf Scanning HEALTH MAINTENANCE Final Result * MICROALBUMIN/CREATININE RATIO, RANDOM UR (01/19/2017 9:43 AM CDT) MICROALBUMIN, URINE <1.2 No Reference Range mg/dL 01/19/2017 9:27 PM CDT [facility] CREATININE, URINE 85.1 29.0 - 226.0 mg/dL 01/19/2017 9:27 PM CDT [facility] Comment: Reference Range varies with fluid intake and diet. MICROALBUMIN/C REAT RATIO, UR <14.1 <25.0 mg/g Creatinine 01/19/2017 9:27 PM CDT [facility] Urine URINE SPECIMEN OBTAINED BY CLEAN CATCH PROCEDURE / Unknown Collection / Unknown 01/19/2017 9:43 AM CDT 01/19/2017 8:39 PM CDT Narrative [facility] - 01/19/2017 9:27 PM CDT Condition Microalbumin/Creat ratio Normal Males <17 Normal Females <25 Microalbuminuria Males 17-299 Microalbuminuria Females 25-299 Overt proteinuria >=300 Mary Kate Abbasi ENGINEER SECOND ASSISTANT URINE ORDERABLES Final Result Performing Organization Address City/State/[facility] Co de Phone Number [facility] CLIA# [id number] [address] [place] [address] from Last 3 Months or Most Recently Relevant to Health Maintenance Additional Health Concerns Infection Onset Date Last Indicated MANAGER DEMAND-CP Comment:Sputum 07/09/18 (Serratia) 07/09/2018 12/25/2023 Insurance [place]ICAID [place]ARE PART A AND B Advance Directives For more information, please contact: [phone] Documents on File Type Date Recorded Patient Computerized Mill Mill Recorder Expl anation Advance Directive POA 07/09/2018 5:19 AM Ad martines Directive POA Care Teams Locksmith Helper Relationship Specialty Start Date End Date Non-Staff, Physician NO ADDRESS ON FILE PCP - General 01/10/20
--- OUTSIDE RECORDS SUMMARY | 2025-03-23 03:16 | XMS_ITS | Encounter Summary ---
Author Organization [facility] Address [address] [facility] [place] [address] Care Team Providers Care Service Control Operator Name Role Phone Non-Staff, Physician Primary Care Provider Unava ilable Encounter Details Date Type Department Care Team (Late st Contact Info) Description 09/21/2004 Outpatient Historical [facility] Abel Fields, SUPPLY CRIB ATTENDANT NO ADDRESS ON FILE Social History Tobacco Use Types Packs/Day Years Used Date Smoking Tobacco: Never Assessed Comments Unknown Sex and Gender Information Value Date Recorded Sex Assigned at Not on file Legal Sex Female 2:45 AM FORCE ADJUSTMENT SUPERVISOR Gender Identity Not on file Sexual [...] documented as of this encounter Care Teams Service Control Operator Relationship Specialty Start Date End Date Non-Staff, Physician NO ADDRESS ON FILE PCP - General 01/10/20 documented as of this encounter
--- OUTSIDE RECORDS SUMMARY | 2025-03-23 03:16 | XMS_ITS | Encounter Summary ---
Author Organization [facility] Address [address] [facility] [place] [address] Care Team Providers Care Electrical Service Technician Name Role Phone Non-Staff, Physician Primary Care Provider Unava ilable Encounter Details Date Type Department Care Team (Latest Contact Info) Description 11/24/1999 Outpatient Historical [facility] Family Medicine- [address] [place] [phone] Edmond Machado DO NO ADDRESS ON FILE Backache, unspecified (Primary Dx); Pain in joint, shoulder region; Pain in joint, lower leg; Urinary tract infection, site not specified Social History Tobacco Use Types Packs/Day Years Used Date Smoking Tobacco: Never Assessed Comments Unknown Sex and Gender Information Value Date Recorded Sex Assigned at Not on file Legal Sex Female 2:45 AM SUPPLY CHAIN TECH Gender Identity Not on file Sexual Orientation [...] as of this encounter Care Teams Electrical Service Technician Relationship Specialty Start Date End Date Non-Staff, Physician NO ADDRESS ON FILE PCP - General 01/10/20 documented as of this encounter
--- OUTSIDE RECORDS SUMMARY | 2025-03-23 03:16 | XMS_ITS | Encounter Summary ---
Author Organization [facility] Address [address] [facility] [place] [address] Care Team Providers Care Tipple Engineer Name Role Phone Non-Staff, Physician Primary Care Provider Unava ilable Encounter Details Date Type Department Care Team (Latest Contact Info) Description 08/29/2000 Outpatient Historical [facility] Family Medicine- [address] [place] [phone] Edmond Machado DO NO ADDRESS ON FILE Unspecified hypothyroidism (Primary Dx); Cough; Fluid overload Social History Tobacco Use Types Packs/Day Years Used Date Smoking Tobacco: Never Assessed Comments Unknown Sex and Gender Information Value Date Recorded Sex Assigned at Not on file Legal Sex Female 2:45 AM MANAGER DISCOVERY Gender Identity Not on file Sexual Orientation [...] documented as of this encounter Care Teams Tipple Engineer Relationship Specialty Start Date End Date Non-Staff, Physician NO ADDRESS ON FILE PCP - General 01/10/20 documented as of this encounter
--- OUTSIDE RECORDS SUMMARY | 2025-03-23 03:16 | XMS_ITS | Encounter Summary ---
Author Organization [facility] Address [address] [place] [facility] [place] [address] Care Team Providers Care Archaeologist Name Role Phone Non-Staff, Physician Primary Care Provider Unava ilable Encounter Details Date Type Department Care Team (Latest Contact Info) Description 08/25/2004 Outpatient Historical [facility] Family Medicine- [address] [place] [phone] Abel Fields NP NO ADDRESS ON FILE HERPES ZOSTER NOS (Primary Dx); OTALGIA NOS; ACUTE PHARYNGITIS; JOINT PAIN-L/LEG Social History Tobacco Use Types Packs/Day Years Used Date Smoking Tobacco: Never Assessed Comments Unknown Sex and Gender Information Value Date Recorded Sex Assigned at Not on file Legal Sex Female 2:45 AM LAP GRINDER Gender Identity Not on file Sexual Orientation [...] documented as of this encounter Care Teams Archaeologist Relationship Specialty Start Date End Date Non-Staff, Physician NO ADDRESS ON FILE PCP - General 01/10/20 documented as of this encounter
--- OUTSIDE RECORDS SUMMARY | 2025-03-23 03:16 | XMS_ITS | Encounter Summary ---
Author Organization [facility] Address [address] [place] [facility] [place] [address] Care Team Providers Care Supplier Quality Engineering Manager Name Role Phone Non-Staff, Physician Primary Care Provider Unava ilable Encounter Details Date Type Department Care Team (Latest Contact Info) Description 06/12/2001 Outpatient Historical [facility] Family Medicine- [address] [place] [phone] Edmond Machado DO NO ADDRESS ON FILE HEADACHE (Primary Dx); LACK OF COORDINATION; DYSURIA Social History Tobacco Use Types Packs/Day Years Used Date Smoking Tobacco: Never Assessed Comments Unknown Sex and Gender Information Value Date Recorded Sex Assigned at Not on file Legal Sex Female 2:45 AM DREDGE PIPEMAN Gender Identity Not on file Sexual Orientation [...] documented as of this encounter Care Teams Supplier Quality Engineering Manager Relationship Specialty Start Date End Date Non-Staff, Physician NO ADDRESS ON FILE PCP - General 01/10/20 documented as of this encounter
--- OUTSIDE RECORDS SUMMARY | 2025-03-23 03:16 | XMS_ITS | Encounter Summary ---
Author Organization [facility] Address [address] [facility] [place] [address] Care Team Providers Care Assembler Handbags Name Role Phone Non-Staff, Physician Primary Care Provider Unava ilable Encounter Details Date Type Department Care Team (Latest Contact Info) Description 07/11/2000 Outpatient Historical [facility] Family Medicine- [address] [place] [phone] Edmond Machado DO NO ADDRESS ON FILE Other and unspecified noninfectious gastroenteritis and colitis(558.9) (Primary Dx) Social History Tobacco Use Types Packs/Day Years Used Date Smoking Tobacco: Never Assessed Comments Unknown Sex and Gender Information Value Date Recorded Sex Assigned at Not on file Legal Sex Female 2:45 AM DISTRIBUTION DISPATCHER Gender Identity Not on file Sexual [...] documented as of this encounter Care Teams Assembler Handbags Relationship Specialty Start Date End Date Non-Staff, Physician NO ADDRESS ON FILE PCP - General 01/10/20 documented as of this encounter
--- OUTSIDE RECORDS SUMMARY | 2025-03-23 03:16 | XMS_ITS | Encounter Summary ---
Author Organization [facility] Address [address] [place] [address] Care Team Providers Care Road Gang Supervisor Name Role Phone Non-Staff, Physician Primary Care Provider Unava ilable Encounter Details Date Type Department Care Team (Latest Contact Info) Description 11/07/2018 Ancillary Orders [facility] Centralized Scheduling [address] [place] [phone] Raeann Diehl MD NO ADDRESS ON FILE [...] on file Legal Sex Female 2:45 AM BACKROOM ASSOCIATE Gender Identity Not on file Sexual [...] as of this encounter Care Teams Road Gang Supervisor Relationship Specialty Start Date End Date Non-Staff, Physician NO ADDRESS ON FILE PCP - General 01/10/20 documented as of this encounter
--- OUTSIDE RECORDS SUMMARY | 2025-03-23 03:16 | XMS_ITS | Encounter Summary ---
Author Organization [facility] Address [address] [place] [facility] [place] [address] Care Team Providers Care Reference Test Clerk Name Role Phone Non-Staff, Physician Primary Care Provider Unava ilable Encounter Details Date Type Department Care Team (Latest Contact Info) Description 08/14/2001 Outpatient Historical [facility] Family Medicine- [address] [place] [phone] Edmond Machado DO NO ADDRESS ON FILE ANEMIA NOS (Primary Dx); HEMATURIA; BACKACHE NOS; MYALGIA AND MYOSITIS NOS Social History Tobacco Use Types Packs/Day Years Used Date Smoking Tobacco: Never Assessed Comments Unknown Sex and Gender Information Value Date Recorded Sex Assigned at Not on file Legal Sex Female 2:45 AM HAIR TINTER Gender Identity Not on file Sexual Orientation [...] documented as of this encounter Care Teams Reference Test Clerk Relationship Specialty Start Date End Date Non-Staff, Physician NO ADDRESS ON FILE PCP - General 01/10/20 documented as of this encounter
--- OUTSIDE RECORDS SUMMARY | 2025-03-23 03:16 | XMS_ITS | Encounter Summary ---
Author Organization [facility] Address [address] [place] [address] Care Team Providers Care Director Education Name Role Phone Non-Staff, Physician Primary Care Provider Unava ilable Encounter Details Date Type Department Care Team (Latest Contact Info) Description 01/30/2002 Outpatient Historical [facility] General Surgery [address] [address] [address] [place] [address] [place] [address] [facility] [address] [place] [address] Open wound of breast (Primary Dx) Social History Tobacco Use Types Packs/Day Years Used Date Smoking Tobacco: Never Assessed Comments Unknown Sex and Gender Information Value Date Recorded Sex Assigned at Not on file Legal Sex Female 2:45 AM ASBESTOS SHINGLE INSPECTOR Gender Identity Not on file Sexual [...] as of this encounter Care Teams Director Education Relationship Specialty Start Date End Date Non-Staff, Physician NO ADDRESS ON FILE PCP - General 01/10/20 documented as of this encounter
--- OUTSIDE RECORDS SUMMARY | 2025-03-23 03:16 | XMS_ITS | Encounter Summary ---
Author Organization [facility] Address [address] [place] [address] Care Team Providers Care Applied Marine Physics Professor Name Role Phone Non-Staff, Physician Primary Care Provider Unava ilable Encounter Details Date Type Department Care Team (Latest Contact Info) Description 01/21/2002 Outpatient Historical [facility] [place] [address] [facility] [address] [place] [phone] Yuan Barros MD ESOPHAGEAL REFLUX (Primary Dx) Social History Tobacco Use Types Packs/Day Years Used Date Smoking Tobacco: Never Assessed Comments Unknown Sex and Gender Information Value Date Recorded Sex Assigned at Not on file Legal Sex Female 2:45 AM FOUNDRY SUPERVISOR Gender Identity Not on file Sexual [...] documented as of this encounter Care Teams Applied Marine Physics Professor Relationship Specialty Start Date End Date Non-Staff, Physician NO ADDRESS ON FILE PCP - General 01/10/20 documented as of this encounter
--- OUTSIDE RECORDS SUMMARY | 2025-03-23 03:16 | XMS_ITS | Encounter Summary ---
Author Organization [facility] Address [address] [place] [facility] [address] Care Team Providers Care Medical Reimbursement Manager Name Role Phone Non-Staff, Physician Primary Care Provider Unava ilable Encounter Details Date Type Department Care Team (Latest Contact Info) Description 03/10/1998 Outpatient Historical [facility] Family Medicine- [address] [place] [phone] Edmond Machado DO NO ADDRESS ON FILE Pain in joint, lower leg (Primary Dx); Rash and other nonspecific skin eruption Social History Tobacco Use Types Packs/Day Years Used Date Smoking Tobacco: Never Assessed Comments Unknown Sex and Gender Information Value Date Recorded Sex Assigned at Not on file Legal Sex Female 2:45 AM AVIATION TACTICAL READINESS OFFICER Gender Identity Not on file Sexual [...] documented as of this encounter Care Teams Medical Reimbursement Manager Relationship Specialty Start Date End Date Non-Staff, Physician NO ADDRESS ON FILE PCP - General 01/10/20 documented as of this encounter
--- OUTSIDE RECORDS SUMMARY | 2025-03-23 03:16 | XMS_ITS | Encounter Summary ---
Author Organization [facility] Address [address] [place] [address] Care Team Providers Care Maintenance And Engineering Manager Name Role Phone Non-Staff, Physician Primary Care Provider Unava ilable Encounter Details Date Type Department Care Team (Latest Contact Info) Description 07/05/2000 Outpatient Historical [facility] Family Medicine- [address] [place] [phone] Edmond Machado DO NO ADDRESS ON FILE Lichenification (Primary Dx); Headache(784.0); Fluid overload Social History Tobacco Use Types Packs/Day Years Used Date Smoking Tobacco: Never Assessed Comments Unknown Sex and Gender Information Value Date Recorded Sex Assigned at Not on file Legal Sex Female 2:45 AM RN OFFICE Gender Identity Not on file Sexual Orientation [...] documented as of this encounter Care Teams Maintenance And Engineering Manager Relationship Specialty Start Date End Date Non-Staff, Physician NO ADDRESS ON FILE PCP - General 01/10/20 documented as of this encounter
--- OUTSIDE RECORDS SUMMARY | 2025-03-23 03:16 | XMS_ITS | Encounter Summary ---
Author Organization [facility] Address [address] [place] [address] Care Team Providers Care Nib Adjuster Name Role Phone Non-Staff, Physician Primary Care Provider Unava ilable Encounter Details Date Type Department Care Team (Latest Contact Info) Description 01/09/2001 Outpatient Historical [facility] Family Medicine- [address] [place] [phone] Edmond Machado DO NO ADDRESS ON FILE Acute upper respiratory infections of unspecified site (Primary Dx) Social History Tobacco Use Types Packs/Day Years Used Date Smoking Tobacco: Never Assessed Comments Unknown Sex and Gender Information Value Date Recorded Sex Assigned at Not on file 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
--- OUTSIDE RECORDS SUMMARY | 2025-03-23 03:16 | XMS_ITS | Encounter Summary ---
Author Organization [facility] Address [address] [place] [address] Care Team Providers Care Orchard Hand Name Role Phone Non-Staff, Physician Primary Care Provider Unava ilable Encounter Details Date Type Department Care Team (Latest Contact Info) Description 07/19/2000 Outpatient Historical [facility] Family Medicine- [address] [place] [address] Jaime Frausto MD [address] [facility] [address] [place] [address] Abdominal pain, unspecified site (Primary Dx); Flatulence, eructation, and gas pain Social History Tobacco Use Types Packs/Day Years Used Date Smoking Tobacco: Never Assessed Comments Unknown Sex and Gender Information Value Date Recorded Sex Assigned at Not on file 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
--- OUTSIDE RECORDS SUMMARY | 2025-03-23 03:16 | XMS_ITS | Encounter Summary ---
Author Organization [facility] Address [address] [place] [facility] [place] [address] Care Team Providers Care Roller Skate Assembler Name Role Phone Non-Staff, Physician Primary Care Provider Unava ilable Encounter Details Date Type Department Care Team (Latest Contact Info) Description 06/26/2001 Outpatient Historical [facility] Family Medicine- [address] [place] [phone] Edmond Machado DO NO ADDRESS ON FILE OSTEOARTHROS NOS-UNSPEC (Primary Dx); HEADACHE Social History Tobacco Use Types Packs/Day Years Used Date Smoking Tobacco: Never Assessed Comments Unknown Sex and Gender Information Value Date Recorded Sex Assigned at Not on file 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
--- OUTSIDE RECORDS SUMMARY | 2025-03-23 03:16 | XMS_ITS | Encounter Summary ---
Author Organization [facility] Address [address] [place] [address] Care Team Providers Care Service Developer Name Role Phone Non-Staff, Physician Primary Care Provider Unava ilable Encounter Details Date Type Department Care Team (Latest Contact Info) Description 02/03/1998 Outpatient Historical [facility] Family Medicine- [address] [place] [phone] Edmond Machado DO NO ADDRESS ON FILE Generalized osteoarthrosis, involving multiple sites (Primary Dx) Social History Tobacco Use Types Packs/Day Years Used Date Smoking Tobacco: Never Assessed Comments Unknown Sex and Gender Information Value Date Recorded Sex Assigned at Not on file 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
--- OUTSIDE RECORDS SUMMARY | 2025-03-23 03:16 | XMS_ITS | Encounter Summary ---
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
--- OUTSIDE RECORDS SUMMARY | 2025-03-23 03:17 | XMS_ITS | Encounter Summary ---
Author Organization [facility] Address [address] [place] [address] Care Team Providers Care Cloth Bleaching Range Back Tender Name Role Phone Non-Staff, Physician Primary Care Provider Unava ilable Encounter Details Date Type Department Care Team (Late st Contact Info) Description 03/18/2009 Ancillary Orders [facility] [address] [place] [address] Nikkie Arias, BRAID CUTTER [address] [place] [address] Screening Mammogram Social History Tobacco Use Types Packs/Day Years Used Date Smoking Tobacco: Former Cigarettes Alcohol Use Standard Drinks/Week Comments No 0 (1 standard drink = 0.6 oz pur e alcohol) Comments No Sex and Gender Information Value Date Recorded Sex Assigned at Not on file 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
--- NOTE | 2025-03-23 03:27 | XRR_ITS ---
PROCEDURE INFORMATION: Exam: XR Chest Exam date and time: 03/23/2025 3:28 AM Age: 75 years old Clinical indication: EMS arrival from senior care for lethargy. ; Additional info: AMS TECHNIQUE: Imaging protocol: Radiologic exam of the chest. Views: 1 view. COMPARISON: CT angio chest PE protcl [id number] 01/22/2020 6:01 AM FINDINGS: Lungs: Unremarkable. No consolidation. Pleural spaces: No focal consolidation, pleural effusion, or pneumothorax. Heart/Mediastinum: Cardiomegaly. Bones/joints: Possible fracture of the left 6th rib, correlate for pain in this location. XR/XR chest 1V portable [id number] IMPRESSION: 1. No focal consolidation, pleural effusion, or pneumothorax. 2. Possible fracture of the left 6th rib, correlate for pain in this location.
[2025-03-23 03:38] LABS: Hematocrit 31.4 % (36-47); Hemoglobin 9.60 g/dL (11.27-16.99); Mean Corpuscular HGB Conc 30.6 g/dL (30-55); Mean Corpuscular Hemoglobin 24.6 pg (27-33); Mean Corpuscular Volume 80.3 fl (85-98); Nucleated Red Blood Cells % 0 %; Platelet Count 140 10^3/cmm (157-399); Red Blood Count 3.91 10^6/uL (3.85-5.65); White Blood Count 6.19 10^3/uL (3.29-11.43)
[2025-03-23 03:52] LABS: Alanine Aminotransferase 30 U/L (0-33); Albumin Level 3.5 g/dL (3.5-5.2); Alkaline Phosphatase 163 U/L (35-105); Anion Gap 13.7 (5-19); Aspartate Amino Transferase 31 U/L (0-32); Blood Urea Nitrogen 12 mg/dL (8-23); Calcium 9.3 mg/dL (8.5-10.5); Carbon Dioxide 25 mmol/L (22-29); Chloride 101 mmol/L (98-107); Globulin 4.4 g/dL (1.3-4.6); Glucose 185 mg/dL (65-115); Osmolality Calculated 287 mOsm/kg (285-295); Potassium 3.7 mmol/L (3.5-5.1); Sodium 136 mmol/L (136-145); Total Protein 7.9 g/dL (6.6-8.7)
--- NOTE | 2025-03-23 03:53 | CTR_ITS ---
PROCEDURE INFORMATION: Exam: CT Cervical Spine Without Contrast Exam date and time: 03/23/2025 4:03 AM Age: 75 years old Clinical indication: Other: AMS; EMS arrival from skilled nursing for lethargy. Patient unresponsive to stimulus. Possible rib fracture noted on cxr. ; Additional info: AMS possible fall TECHNIQUE: Imaging protocol: Computed tomography of the cervical spine without contrast. Radiation optimization: All CT scans at this facility use at least one of these dose optimization techniques: automated exposure control; mA and/or kV adjustment per patient size (includes targeted exams where dose is matched to clinical indication); or iterative reconstruction. COMPARISON: CT head wo con* [id number] 03/23/2025 4:01 AM RADIATION DOSE METRICS: Total DLP (mGy-cm): 294.95 FINDINGS: Bones/joints: No acute fracture. Normal alignment. There is straightening of cervical lordosis. There is moderate to advanced degenerative disc disease at C6-C7 where there is mild stenosis secondary to disc osteophyte bulging. Lungs: Lung apices are normal. Soft tissues: Unremarkable. CT/CT cervical spin wo con* [id number] IMPRESSION: No acute cervical spine fracture.
--- NOTE | 2025-03-23 03:53 | CTR_ITS ---
PROCEDURE INFORMATION: Exam: CT Head Without Contrast Exam date and time: 03/23/2025 4:01 AM Age: 75 years old Clinical indication: Altered mental status/memory loss; EMS arrival from [facility] for lethargy. Patient unresponsive to stimulus. Possible rib fracture noted on cxr. ; Additional info: AMS TECHNIQUE: Imaging protocol: Computed tomography of the head without contrast. Radiation optimization: All CT scans at this facility use at least one of these dose optimization techniques: automated exposure control; mA and/or kV adjustment per patient size (includes targeted exams where dose is matched to clinical indication); or iterative reconstruction. COMPARISON: CT head wo con* [id number] 02/17/2019 11:01 AM RADIATION DOSE METRICS: Total DLP (mGy-cm): 1090.71 FINDINGS: Brain: There is disproportionate temporal lobe atrophy. There is mild small vessel disease. There is no evidence of acute parenchymal hemorrhage, extra-axial collection, or acute infarction. There is no mass effect, midline shift, or downward herniation. Cerebral ventricles: No ventriculomegaly. Paranasal sinuses: There is [id number] ethmoid sinus disease. Mastoid air cells: Visualized mastoid air cells are well aerated. Bones: Unremarkable. No acute fracture. Soft tissues: Unremarkable. CT/CT head wo con* [id number] IMPRESSION: 1. No evidence of acute intracranial process. 2. Disproportionate temporal lobe atrophy. 3. Mild small vessel disease.
[2025-03-23 03:54] LABS: Lactic Sepsis W/Reflex 1.2 mmol/L (0.5-2.2)
--- NOTE | 2025-03-23 03:55 | W.ED.WEAKNES ---
HPI - Weakness General: Chief complaint: Weakness Stated complaint: weakness Time Seen by Provider: 03/23/25 03:18 History of Present Illness: 75-year-old female presenting with altered mental status. Patient is minimally responsive during the encounter. She is not answering questions. She moves and moans to vocal stimuli. She does not open her eyes. She was evidently found in my rest home staff on a mattress pad on the floor in her room. There is no known fall or trauma. Related Data Home Medications ?Medication ?Instructions ?Recorded ?Confirmed acetaminophen 325 mg tablet 650 mg PO QID PRN Pain 01/22/20 03/10/25 (Tylenol) digoxin 125 mcg (0.125 mg) tablet 125 mcg PO DAILY 01/22/20 03/10/25 duloxetine 30 mg capsule,delayed 30 mg PO QAM 01/22/20 03/10/25 release (Cymbalta) fluticasone propionate 110 2 puff inhalation DAILY 01/22/20 03/10/25 mcg/actuation HFA aerosol inhaler furosemide 40 mg tablet (Lasix) 40 mg PO DAILY 01/22/20 03/10/25 hydrocodone 5 mg-acetaminophen 300 1 tab PO Q6H PRN Pain 01/22/20 03/10/25 mg tablet insulin glargine 100 unit/mL (3 65 unit SUBCUT BID 01/22/20 03/10/25 mL) subcutaneous pen magnesium hydroxide 400 mg/5 mL 30 ml PO DAILY 01/22/20 03/10/25 oral suspension (Milk of Magnesia) omeprazole magnesium 20 mg 40 mg PO BID 01/22/20 03/10/25 tablet,delayed release (Prilosec OTC) sennosides 8.6 mg-docusate sodium 2 tab-cap PO BID 01/22/20 03/10/25 50 mg tablet (Senna-S) trospium 20 mg tablet 20 mg PO BID 01/22/20 03/10/25 amitriptyline 100 mg tablet 100 mg PO BEDTIME 01/24/25 03/10/25 aluminum-mag hydroxide-simethicone 30 ml PO QID PRN Indigestion 02/12/25 03/10/25 200 mg-200 mg-20 mg/5 mL oral susp amitriptyline 50 mg tablet 50 mg PO DAILY 02/12/25 03/10/25 docusate sodium 100 mg tablet 200 mg PO BID 02/12/25 03/10/25 gabapentin 400 mg tablet 400 mg PO BEDTIME 02/12/25 03/10/25 insulin aspart U-100 100 unit/mL 3 sliding scale dose SUBCUT 02/12/25 03/10/25 (3 mL) subcutaneous pen (Novolog DIRECTED FlexPen U-100 Insulin aspart) levothyroxine 100 mcg tablet 100 mcg PO DAILY 02/12/25 03/10/25 losartan 25 mg tablet 25 mg PO DAILY 02/12/25 03/10/25 memantine 10 mg tablet 10 mg PO BID 02/12/25 03/10/25 mirtazapine 15 mg tablet 15 mg PO BEDTIME 02/12/25 03/10/25 ropinirole 1 mg tablet 1 mg PO BEDTIME 02/12/25 03/10/25 Previous Rx's ?Medication ?Instructions ?Recorded hydrocodone 5 mg-acetaminophen 325 1 tab PO Q6H PRN pain #30 tabs 02/13/25 mg tablet Allergies Allergy/AdvReac Type Severity Reaction Status Date / Time aspirin Allergy Unknown Verified 03/10/25 14:16 codeine Allergy Unknown Verified 03/10/25 14:16 morphine Allergy Unknown Verified 03/10/25 14:16 Sulfa (Sulfonamide Allergy Unknown Verified 03/10/25 14:16 Antibiotics) sulfamethoxazole (From Allergy Unknown Verified 03/10/25 14:16 Bactrim) trimethoprim (From Bactrim) Allergy Unknown Verified 03/10/25 14:16 [facility] ED PFSH: Medical History Coronary artery disease GERD (gastroesophageal reflux disease) Chronic low back pain Osteoarthritis Obstructive sleep apnea Hypertension DM type 2 (diabetes mellitus, type 2) Surgical History History of right below knee amputation Status post bilateral knee replacements H/O: hysterectomy H/O tubal ligation Previous section H/O umbilical hernia repair Social History Smoking and tobacco/nicotine status: former use of tobacco/nicotine Physical Exam Const: COMMON NORMALS: no acute distress EXAM LIMITATIONS: altered mental status GENERAL APPEARANCE: lethargic ORIENTATION/CONSCIOUSNESS: Yes patient obtunded and Yes lethargic HENMT: COMMON NORMALS: normocephalic, atraumatic and Normal external nose present HEAD & SCALP: normocephalic and atraumatic NOSE: Normal external nose present and Normal nares present Eye: COMMON NORMALS: Equal, round and reactive pupils present, EOMs intact bilaterally and conjunctivae normal CONJUNCTIVA: Yes conjunctivae normal PUPIL: Yes Equal, round and reactive pupils present Chest: CHEST: Yes Symmetrical chest wall rise Resp: COMMON NORMALS: normal respiratory effort, No use of accessory muscles and clear to auscultation bilaterally AUSCULTATION: clear to auscultation bilaterally Cardio: COMMON NORMALS: regular rate and regular rhythm RATE: regular rate RHYTHM: regular rhythm GI: COMMON NORMALS: Normal to inspection, nondistended, normoactive bowel sounds present and Soft to palpation PALPATION: Yes Soft to palpation Neuro: MARIBELL COMA SCALE: document [facility] findings [place] coma scale eye opening: None [place] coma scale verbal response: Sounds [place] coma scale motor response: Localising [place] coma scale total score: 8 SENSORIUM/ORIENTATION: Yes lethargic Course Vital Signs: Vital signs: Vital Signs Temperature 98.8 F 03/23/25 03:03 Pulse Rate 93 03/23/25 04:20 Respiratory Rate 18 03/23/25 03:03 Blood Pressure 144/110 03/23/25 04:20 Pulse Oximetry 97 03/23/25 04:20 MDM - Weakness Medical Decision Making Is a 75-year-old [facility] patient with altered mental status, obtundation. Vitals are otherwise stable. She is oxygenating normally. Her hemoglobin is 9.6. Platelet count 140. BMP is normal. Lactic acid is 1.2. Liver enzymes are normal. Chest x-ray shows no focal consolidation, pneumothorax, etc. There is mention of a potential of his left sixth rib fracture. Head CT is pending. Head CT is negative. Cervical spine CT negative. She was given 0.4 mg Narcan is awake and talking complaining of pain now. She is stable for discharge as she is oxygenating well on room air, other parameters are benign. Will hold her pain medication for 24 hours, start at a lower dose. Lab Data 03/23/25 03:10 03/23/25 03:10 Radiology Impressions Chest X-Ray 03/23/25 03:27 IMPRESSION: 1. No focal consolidation, pleural effusion, or pneumothorax. 2. Possible fracture of the left 6th rib, correlate for pain in this location. Cervical Spine CT 03/23/25 03:53 IMPRESSION: No acute cervical spine fracture. Laboratory Results WBC 6.19 10^3/uL (3.29-11.43) 03/23/25 03:10 RBC 3.91 10^6/uL (3.85-5.65) 03/23/25 03:10 Hgb 9.60 g/dL (11.27-16.99) L 03/23/25 03:10 Hct 31.4 % (36-47) L 03/23/25 03:10 MCV 80.3 fl (85-98) L 03/23/25 03:10 MCH 24.6 pg (27-33) L 03/23/25 03:10 MCHC 30.6 g/dL (30-55) 03/23/25 03:10 RDW 18.5 % (12.1-15.1) H 03/23/25 03:10 Plt Count 140 10^3/cmm (157-399) L 03/23/25 03:10 MPV 9.9 fL (7.4-10.4) 03/23/25 03:10 Neut % (Auto) 68.3 % 03/23/25 03:10 Lymph % (Auto) 22.0 % 03/23/25 03:10 [place] % (Auto) 8.6 % 03/23/25 03:10 Eos % (Auto) 0.3 % 03/23/25 03:10 Baso % (Auto) 0.3 % 03/23/25 03:10 Neut # (Auto) 4.23 10^3/uL (1.8-7.7) 03/23/25 03:10 Lymph # (Auto) 1.4 10^3/uL (0.8-4.8) 03/23/25 03:10 [place] # (Auto) 0.5 10^3/uL (0.2-0.9) 03/23/25 03:10 Eos # (Auto) 0.0 10^3/uL (0.0-0.8) 03/23/25 03:10 Baso # (Auto) 0.0 10^3/uL (0.0-0.1) 03/23/25 03:10 Nucleated RBC % (auto) 0 % 03/23/25 03:10 Nucleated RBCs # 0.0 /100WBC 03/23/25 03:10 Specimen Type Arterial 03/23/25 03:50 Sample Site Brachial, right 03/23/25 03:50 ABG pH 7.41 (7.35-7.45) 03/23/25 03:50 ABG pCO2 40.3 mmHg (35-45) 03/23/25 03:50 ABG pO2 67.3 mmHg (80.0-100.0) L 03/23/25 03:50 ABG PO2/FiO2 Ratio 320 03/23/25 03:50 ABG HCO3 25.6 mmol/L (22-26) 03/23/25 03:50 ABG Base Excess 0.9 mmol/L (-2.0-2.0) 03/23/25 03:50 Konrad Test Pos 03/23/25 03:50 Hematocrit 31.0 % (37-47) L 03/23/25 03:50 Hgb O2 Saturation 91.5 % (95-100) L 03/23/25 03:50 Carboxyhemoglobin 1.5 %THgb (0.4-20.1) 03/23/25 03:50 Methemoglobin 1.2 % (0.4-1.5) 03/23/25 03:50 Total Hemoglobin 10.1 g/dL (12-16) L 03/23/25 03:50 O2 Delivery Device Room air 03/23/25 03:50 FiO2 21.0 % 03/23/25 03:50 Top Bottom Attaching Machine Operator ID Bd 03/23/25 03:50 Sodium 136 mmol/L (136-145) 03/23/25 03:10 Potassium 3.7 mmol/L (3.5-5.1) 03/23/25 03:10 Chloride 101 mmol/L (98-107) 03/23/25 03:10 Carbon Dioxide 25 mmol/L (22-29) 03/23/25 03:10 Anion Gap 13.7 (5-19) 03/23/25 03:10 BUN 12 mg/dL (8-23) 03/23/25 03:10 Creatinine 0.7 mg/dL (0.5-0.9) 03/23/25 03:10 GFR Calculation Not Reportable 03/23/25 03:10 Glucose 185 mg/dL (65-115) H 03/23/25 03:10 Calculated Osmolality 287 mOsm/kg (285-295) 03/23/25 03:10 Lactic Acid 1.2 mmol/L (0.5-2.2) 03/23/25 03:10 Calcium 9.3 mg/dL (8.5-10.5) 03/23/25 03:10 Total Bilirubin 0.5 mg/dL (0.15-1.2) 03/23/25 03:10 AST 31 U/L (0-32) 03/23/25 03:10 ALT 30 U/L (0-33) 03/23/25 03:10 Alkaline Phosphatase 163 U/L (35-105) H 03/23/25 03:10 Total Protein 7.9 g/dL (6.6-8.7) 03/23/25 03:10 Albumin 3.5 g/dL (3.5-5.2) 03/23/25 03:10 Globulin 4.4 g/dL (1.3-4.6) 03/23/25 03:10 All radiology interpretation(s) finalized by discharge Discharge Plan Discharge Patient Disposition: Home Clinical Impression: Accidental overdose Qualifiers: Encounter type: initial encounter Qualified Code(s): T50.901A - Poisoning by unspecified drugs, medicaments and biological substances, accidental (unintentional), initial encounter Condition: Stable Prescriptions: No Action amitriptyline 100 mg tablet 100 mg PO BEDTIME furosemide [Lasix] 40 mg Tablet 40 mg PO DAILY acetaminophen [Tylenol] 325 mg Tablet 650 mg PO QID PRN (Reason: Pain) sennosides-docusate sodium [Senna-S] 8.6-50 mg Tablet 2 tab-cap PO BID magnesium hydroxide [Milk of Magnesia] 400 mg/5 mL Suspension 30 ml PO DAILY digoxin 125 mcg (0.125 mg) Tablet 125 mcg PO DAILY fluticasone propionate 110 mcg/actuation Hfa Aerosol Inhaler 2 puff INHALATION DAILY omeprazole magnesium [Prilosec OTC] 20 mg Tablet,Delayed Release (Dr/Ec) 40 mg PO BID trospium 20 mg Tablet 20 mg PO BID duloxetine [Cymbalta] 30 mg Capsule,Delayed Release(Dr/Ec) 30 mg PO QAM hydrocodone-acetaminophen 5-300 mg Tablet 1 tab PO Q6H PRN (Reason: Pain) insulin glargine 100 unit/mL (3 mL) Insulin Pen 65 unit SUBCUT BID ropinirole 1 mg Tablet 1 mg PO BEDTIME amitriptyline 50 mg Tablet 50 mg PO DAILY levothyroxine 100 mcg Tablet 100 mcg PO DAILY losartan 25 mg Tablet 25 mg PO DAILY mirtazapine 15 mg Tablet 15 mg PO BEDTIME alum-mag hydroxide-simeth 200-200-20 mg/5 mL Suspension 30 ml PO QID PRN (Reason: Indigestion) Rx Instructions: administer between meals and at bedtime docusate sodium 100 mg Tablet 200 mg PO BID insulin aspart U-100 [Novolog FlexPen U-100 Insulin] 100 unit/mL (3 mL) Insulin Pen 3 sliding scale dose SUBCUT DIRECTED memantine 10 mg Tablet 10 mg PO BID gabapentin 400 mg Tablet 400 mg PO BEDTIME hydrocodone-acetaminophen 5-325 mg tablet 1 tab PO Q6H PRN (Reason: pain) Qty: 30 0RF Discharge Orders: Discharge ED (Routine); Ordered 03/23/25 Ordered By: Marco Hendrix Referrals: Anshu Ames MD [Primary Care Provider, Family Practice] Patient Instructions: Prescription Opioid Overdose (ED), Opioid Safety, Pain Management, Patient Portal & [place] Instructions Activity Restrictions/Additional Instructions: Hold all narcotic pain medication for 24 hours. Then you may restart, but at a lower dose. Consider nonschedued pain medication to prevent accidental overdose. Return for problems Print Language: Albanian Coding Level of Care Code ED Field Organizer for Francoise Jacome
[2025-03-23 04:02] LABS: ABG PCO2 40.3 mmHg (35-45); ABG PH Result 7.41 (7.35-7.45); Arterial Blood Gas Hematocrit 31.0 % (37-47); Blood Gas Allen Test Pos; Blood Gas Operator Identificat BD; Blood Gas Sample Site Brachial, right; Blood Gas Sample Type Arterial; Carboxyhemoglobin 1.5 %THgb (0.4-20.1); HCO3 ABG 25.6 mmol/L (22-26); Methemoglobin 1.2 % (0.4-1.5); PO2 ABG 67.3 mmHg (80.0-100.0); PO2 FiO2 Ratio Arterial Blood 320
[2025-03-23 04:20] VITALS: BP 144/110; PULSE 93; O2SAT 97
[2025-03-23 05:16] VITALS: BP 161/92; PULSE 97; O2SAT 98
[2025-03-23 06:16] VITALS: BP 114/99; PULSE 98; O2SAT 100
[2025-03-23 06:30] VITALS: BP 157/95; PULSE 97; O2SAT 100
[2025-03-23 06:36] VITALS: BP 157/95; PULSE 97; O2SAT 99
== END 2025-03-23 06:53 | disposition home or self-care (01) ==
PROVIDERS: Emergency Provider Emergency Medicine; PCP Family Medicine
DX: T50.901A Poisoning by unspecified drugs, medicaments and biological substances, accidental (unintentional), initial encounter (principal); Z79.4 Long term (current) use of insulin; Z87.891 Personal history of nicotine dependence; E11.9 Type 2 diabetes mellitus without complications; I10 Essential (primary) hypertension; X58.XXXA Exposure to other specified factors, initial encounter
CPT/HCPCS: 36600; 70450; 71045; 72125; 80053; 82805; 83605; 85025; 96374; 99285; J2312

== ENCOUNTER 2025-04-03 22:22 | Emergency (ER) | payer MEDICARE, MEDICAID, SELFPAY ==
[2025-04-03 22:25] VITALS: BP 131/65; PULSE 102; RESP 20; TEMP 38.1; O2SAT 95; BMI 42.9
--- NOTE | 2025-04-03 22:30 | XRR_ITS ---
PROCEDURE INFORMATION: Exam: XR Chest Exam date and time: 04/03/2025 10:53 PM Age: 75 years old Clinical indication: Pain; Chest pressure; Additional info: Chest pain TECHNIQUE: Imaging protocol: Radiologic exam of the chest. Views: 1 view. COMPARISON: CR (CHEST, ) 03/23/2025 3:28 AM FINDINGS: Lungs: Unremarkable. No consolidation. Pleural spaces: Unremarkable. No pleural effusion. No pneumothorax. Heart/Mediastinum: Unchanged cardiomegaly. Bones/joints: Unremarkable. XR/XR chest 1V portable [id number] IMPRESSION: No visualized acute cardiopulmonary process.
--- NOTE | 2025-04-03 22:35 | ECG_ITS ---
[employer] Test Date: 2025-04-03 Pat Name: Candis Almonte Department: Room: Gender: Female Director Occupational: : 1950 Requested By: Marco Flores Order Number: [id number] Asa MD: DEB HARVEY Measurements Intervals [place] Rate: 100 P: 78 [place]: 167 QRS: 20 QRSD: 138 T: 29 QT: 350 QTc: 453 Interpretive Statements SINUS TACHYCARDIA RIGHT BUNDLE BRANCH BLOCK [120+ ms QRS DURATION, UPRIGHT V1, 40+ ms S IN I/aVL/V4/V5/V6] Compared to ECG 01/22/2020 09:56:24 Right bundle-branch block now present Sinus rhythm no longer present Sinus arrhythmia no longer present Electronically Signed On 04-06-2025 23:08:49 ARTIFACTS CONSERVATOR by DEB HARVEY [email or web address]
--- OUTSIDE RECORDS SUMMARY | 2025-04-03 22:35 | XMS_ITS | Encounter Summary ---
Author Organization [facility] Address [address] [facility] [place] [facility] [place] [address] Care Team Providers Care Court Stenographer Name Role Phone Non-Staff, Physician Primary Care Provider Unava ilable Encounter Details Date Type Department Care Team (Latest Contact Info) Description 07/15/2002 Outpatient Historical [facility] Family Medicine- [address] [place] [address] Nell Verde MD NO ADDRESS ON FILE CERVICALGIA (Primary Dx) Social History Tobacco Use Types Packs/Day Years Used Date Smoking Tobacco: Never Assessed Comments Unknown Sex and Gender Information Value Date Recorded Sex Assigned at Not on file 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
--- OUTSIDE RECORDS SUMMARY | 2025-04-03 22:35 | XMS_ITS | Encounter Summary ---
Author Organization [facility] Address [address] [place] [facility] [place] [address] Care Team Providers Care Sap Bobj Developer Name Role Phone Non-Staff, Physician Primary Care Provider Unava ilable Encounter Details Date Type Department Care Team (Latest Contact Info) Description 02/19/2002 Outpatient Historical [facility] Family Medicine- [address] [place] [address] Edmond Machado DO NO ADDRESS ON FILE HEADACHE (Primary Dx); CERVICALGIA; ABN BLOOD CHEMISTRY NEC Social History Tobacco Use Types Packs/Day Years Used Date Smoking Tobacco: Never Assessed Comments Unknown Sex and Gender Information Value Date Recorded Sex Assigned at Not on file 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
--- OUTSIDE RECORDS SUMMARY | 2025-04-03 22:35 | XMS_ITS | Encounter Summary ---
Author Organization [facility] Address [address] [place] [facility] [place] [address] Care Team Providers Care All Source Collection Manager Name Role Phone Non-Staff, Physician Primary Care Provider Unava ilable Encounter Details Date Type Department Care Team (Latest Contact Info) Description 02/25/2002 Outpatient Historical [facility] Family Medicine- [address] [place] [phone] Nell Verde MD NO ADDRESS ON FILE DIABETES UNCOMPL ADULT-TYPE II (CMS/[facility]) (Primary Dx); DYSURIA Social History Tobacco Use Types Packs/Day Years Used Date Smoking Tobacco: Never Assessed Comments Unknown Sex and Gender Information Value Date Recorded Sex Assigned at Not on file Legal Sex Female 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
--- OUTSIDE RECORDS SUMMARY | 2025-04-03 22:35 | XMS_ITS | Encounter Summary ---
Author Organization [facility] Address [address] Attn: Epic Prelude [place]T [place] [address] Care Team Providers Care Sap Director Name Role Phone Non-Staff, Physician Primary Care Provider Unava ilable Encounter Details Date Type Department Care Team (Late st Contact Info) Description 02/04/2002 Out[place] [address] [address] Social History Tobacco Use Types Packs/Day Years Used Date Smoking Tobacco: Never Assessed Comments Unknown Sex and Gender Information Value Date Recorded Sex Assigned at Not on file Legal Sex Female 2:45 AM RN BABY Gender Identity Not on file Sexual Orientation [...] as of this encounter Care Teams Sap Director Relationship Specialty Start Date End Date Non-Staff, Physician NO ADDRESS ON FILE PCP - General 01/10/20 documented as of this encounter
--- OUTSIDE RECORDS SUMMARY | 2025-04-03 22:35 | XMS_ITS | Encounter Summary ---
Author Organization [facility] Address [address] [place] [facility] [place] [address] Care Team Providers Care Vice President Business & Corporate Development Name Role Phone Non-Staff, Physician Primary Care Provider Unava ilable Encounter Details Date Type Department Care Team (Latest Contact Info) Description 09/20/2002 Outpatient Historical [facility] Family Medicine- [address] [place] [phone] Nell Verde MD NO ADDRESS ON FILE LUMBAGO (Primary Dx); DIABETES UNCOMPL ADULT-TYPE II ([facility]) Social History Tobacco Use Types Packs/Day Years Used Date Smoking Tobacco: Never Assessed Comments Unknown Sex and Gender Information Value Date Recorded Sex Assigned at Not on file Legal Sex Female 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
--- OUTSIDE RECORDS SUMMARY | 2025-04-03 22:35 | XMS_ITS | Encounter Summary ---
Author Organization [facility] Address [address] [place] [facility] [place] [address] Care Team Providers Care Machine Puller And Laster Name Role Phone Non-Staff, Physician Primary Care Provider Unava ilable Encounter Details Date Type Department Care Team (Latest Contact Info) Description 08/19/2002 Outpatient Historical [facility] Family Medicine- [address] [place] [address] Nell Verde MD NO ADDRESS ON FILE CERVICALGIA (Primary Dx); LUMBAGO; NEURALGIA/NEURITIS NOS Social History Tobacco Use Types Packs/Day Years Used Date Smoking Tobacco: Never Assessed Comments Unknown Sex and Gender Information Value Date Recorded Sex Assigned at Not on file Legal Sex Female 2:45 AM GEM SETTER Gender Identity Not on file Sexual [...] documented as of this encounter Care Teams Machine Puller And Laster Relationship Specialty Start Date End Date Non-Staff, Physician NO ADDRESS ON FILE PCP - General 01/10/20 documented as of this encounter
--- OUTSIDE RECORDS SUMMARY | 2025-04-03 22:35 | XMS_ITS | Encounter Summary ---
Author Organization [facility] Address [address] [place] [address] Care Team Providers Care Etiology Teacher Name Role Phone Non-Staff, Physician Primary Care Provider Unava ilable Encounter Details Date Type Department Care Team (Latest Contact Info) Description 07/01/2002 Outpatient Historical [facility] Family Medicine- [place] [address] [place] [address] Nell Verde MD NO ADDRESS ON FILE ACUTE SINUSITIS NOS (Primary Dx); Plantar fibromatosis; DIABETES UNCOMPL ADULT-TYPE II ([facility]) Social History Tobacco Use Types Packs/Day Years Used Date Smoking Tobacco: Never Assessed Comments Unknown Sex and Gender Information Value Date Recorded Sex Assigned at Not on file Legal Sex Female 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
--- OUTSIDE RECORDS SUMMARY | 2025-04-03 22:35 | XMS_ITS | Encounter Summary ---
Author Organization [facility] Address [address] [place] [facility] [place] [address] Care Team Providers Care Mixed Animal Veterinarian Name Role Phone Non-Staff, Physician Primary Care Provider Unava ilable Encounter Details Date Type Department Care Team (Latest Contact Info) Description 07/05/2002 Outpatient Historical [facility] Family Medicine- [address] [place] [address] Nell Verde MD NO ADDRESS ON FILE ACUTE SINUSITIS NOS (Primary Dx); ALLERGIC RHINITIS NOS; DIABETES UNCOMPL ADULT-TYPE II ([facility]) Social History Tobacco Use Types Packs/Day Years Used Date Smoking Tobacco: Never Assessed Comments Unknown Sex and Gender Information Value Date Recorded Sex Assigned at Not on file Legal 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
--- OUTSIDE RECORDS SUMMARY | 2025-04-03 22:35 | XMS_ITS | Encounter Summary ---
Author Organization [facility] Address [address] [place] [address] Care Team Providers Care Orthotic Technician Name Role Phone Non-Staff, Physician Primary Care Provider Unava ilable Encounter Details Date Type Department Care Team (Latest Contact Info) Description 10/28/2002 Outpatient Historical [facility] Family Medicine- [address] [place] [phone] Nell Verde MD NO ADDRESS ON FILE URIN TRACT INFECTION NOS (Primary Dx); CYST KIDNEY DIS, UNSPEC; ABDOMINAL PAIN RLQ; DIABETES UNCOMPL ADULT-TYPE II ([facility]) Social History Tobacco Use Types Packs/Day Years Used Date Smoking Tobacco: Never Assessed Comments Unknown Sex and Gender Information Value Date Recorded Sex Assigned at Not on file Legal Sex Female 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
--- OUTSIDE RECORDS SUMMARY | 2025-04-03 22:35 | XMS_ITS | Encounter Summary ---
Author Organization [facility] Address [address] [place] [address] Care Team Providers Care Toe Pounder Name Role Phone Non-Staff, Physician Primary Care Provider Unava ilable Encounter Details Date Type Department Care Team (Latest Contact Info) Description 08/07/2002 Outpatient Historical [facility] Family Medicine- [address] [place] [phone] Edmond Machado DO NO ADDRESS ON FILE CHRONIC AIRWAY OBSTRUCTION NEC (CMS/[facility]) (Primary Dx); DIABETES UNCOMPL ADULT-TYPE II ([facility]); SPASM OF MUSCLE Social History Tobacco Use Types Packs/Day Years Used Date Smoking Tobacco: Never Assessed Comments Unknown Sex and Gender Information Value Date Recorded Sex Assigned at Not on file Legal Sex Female 2:45 AM SALAD MAKER Gender Identity Not on file Sexual [...] documented as of this encounter Care Teams Toe Pounder Relationship Specialty Start Date End Date Non-Staff, Physician NO ADDRESS ON FILE PCP - General 01/10/20 documented as of this encounter
--- OUTSIDE RECORDS SUMMARY | 2025-04-03 22:35 | XMS_ITS | Encounter Summary ---
Author Organization [facility] Address [address] [place] [address] Care Team Providers Care Car Hop Name Role Phone Non-Staff, Physician Primary Care Provider Unava ilable Encounter Details Date Type Department Care Team (Latest Contact Info) Description 10/28/2002 Outpatient Historical [facility] Family Medicine- [address] [place] [phone] Nell Verde MD NO ADDRESS ON FILE DIABETES UNCOMPL ADULT-TYPE II (CMS/H[facility]) (Primary Dx) Social History Tobacco Use Types Packs/Day Years Used Date Smoking Tobacco: Never Assessed Comments Unknown Sex and Gender Information Value Date Recorded Sex Assigned at Not on file Legal Sex Female 2: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
--- OUTSIDE RECORDS SUMMARY | 2025-04-03 22:35 | XMS_ITS | Encounter Summary ---
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
--- OUTSIDE RECORDS SUMMARY | 2025-04-03 22:35 | XMS_ITS | Encounter Summary ---
Author Organization [facility] Address [address] [place] [address] Care Team Providers Care Pastry Chef Name Role Phone Non-Staff, Physician Primary Care Provider Unava ilable Encounter Details Date Type Department Care Team (Late st Contact Info) Description 02/06/2002 Outpatient Historical [facility] General Surgery [address] [address] [address] [place] [address] Social History Tobacco Use Types Packs/Day Years Used Date Smoking Tobacco: Never Assessed Comments Unknown Sex and Gender Information Value Date Recorded Sex Assigned at Not on file Legal Sex Female 2:45 AM BILLING 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
--- OUTSIDE RECORDS SUMMARY | 2025-04-03 22:35 | XMS_ITS | Encounter Summary ---
Author Organization [facility] Address [address] [facility] [place] [address] Care Team Providers Care Global Program Manager Name Role Phone Non-Staff, Physician Primary Care Provider Unava ilable Encounter Details Date Type Department Care Team (Latest Contact Info) Description 11/22/2002 Outpatient Historical [facility] Family Medicine- [address] [place] [address] Nell Verde MD NO ADDRESS ON FILE BACKACHE NOS (Primary Dx) Social History Tobacco Use Types Packs/Day Years Used Date Smoking Tobacco: Never Assessed Comments Unknown Sex and Gender Information Value Date Recorded Sex Assigned at Not on file Legal Sex Female 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
--- OUTSIDE RECORDS SUMMARY | 2025-04-03 22:36 | XMS_ITS | Encounter Summary ---
Author Organization [facility] Address [address] [place] [address] Care Team Providers Care Unit Clerk Name Role Phone Non-Staff, Physician Primary Care Provider Unava ilable Encounter Details Date Type Department Care Team (Latest Contact Info) Description 06/25/2003 Outpatient Historical [facility] General Surgery [address] [address] [address] [place] [address] [place] [address] [facility] [address] [place] [address] PERS HX COLONIC POLYPS (Primary Dx) Social History Tobacco Use Types Packs/Day Years Used Date Smoking Tobacco: Never Assessed Comments Unknown Sex and Gender Information Value Date Recorded Sex Assigned at Not on file Legal Sex Female 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
--- OUTSIDE RECORDS SUMMARY | 2025-04-03 22:36 | XMS_ITS | Encounter Summary ---
Author Organization [facility] Address [address] [place] [address] Care Team Providers Care Thread Cutter Name Role Phone Non-Staff, Physician Primary Care Provider Unava ilable Encounter Details Date Type Department Care Team (Late st Contact Info) Description 05/29/2007 Outpatient Historical [facility] Family Medicine [place] [address] [facility] [address] [place] [phone] Jim Aquino PA NO ADDRESS ON FILE Social History Tobacco Use Types Packs/Day Years Used Date Smoking Tobacco: Never Assessed Comments Unknown Sex and Gender Information Value Date Recorded Sex Assigned at Not on file Legal Sex Female 2:45 AM ONLINE MERCHANT Gender Identity Not on file Sexual Orientation [...] sugar status is known. JESS Clayton D.O. 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
--- OUTSIDE RECORDS SUMMARY | 2025-04-03 22:36 | XMS_ITS | Encounter Summary ---
Author Organization [facility] Address [address] [facility] [place] [address] Care Team Providers Care Motor Block Mechanic Name Role Phone Non-Staff, Physician Primary Care Provider Unava ilable Encounter Details Date Type Department Care Team (Latest Contact Info) Description 05/13/2002 Outpatient Historical [facility] Family Medicine- [address] [place] [address] Nell Verde MD NO ADDRESS ON FILE DERMATITIS NOS (Primary Dx) Social History Tobacco Use Types Packs/Day Years Used Date Smoking Tobacco: Never Assessed Comments Unknown Sex and Gender Information Value Date Recorded Sex Assigned at Not on file Legal Sex Female 2: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
--- OUTSIDE RECORDS SUMMARY | 2025-04-03 22:36 | XMS_ITS | Clinical Summary ---
Author Organization [facility] Address [address] [place] [address] Care Team Providers Care Day Habilitation Specialist Name Role Phone Non-Staff, Physician Primary [...] E11.43. 1 Kit 01/20/20 17 Active Insulin Stuart, Disposable, (BD ULTRA-FINE MINI PEN NEEDLE) 31 [...] hyperglycemia, with long-term current use of insulin (CMS/[facility]) Test blood sugar 3 times per day. DX E11.43. 300 Each 3 04/17/19 Active fluticasone (FLOVENT HFA) 110 mcg/actuation HFA Aerosol InhalerIndication s:Mild intermittent asthma without complication,Panl obular emphysema (CMS/HCC) Take 2 Puffs by inhalation 2 times daily. 36 Gram 3 04/17/19 Active blood sugar diagnostic (ZoomCareTOUCH ULTRA TEST) StripIndications: Type 2 diabetes mellitus with hyperglycemia, with long-term current use of insulin ([facility]) Test blood sugar three time [...] complication, with long-term current use of insulin ([facility]) INJECT 15 UNITS SUBCUTANEOUSLY THREE [...] tablet Take 100 mcg by mouth daily seconds handler. Active docusate sodium (COLACE) 100 mg capsule [...] :Infection of total knee replacement, subsequent encounter Associate Professor Of Mathematics Socks 1 Each 01/15/20 Active amLODIPine (NORVASC) [...] on file Legal Sex Female 2:45 AM REFINISH TECHNICIAN Gender Identity Not on file Sexual Orientation Not on file Occupation Industry Job Start Date Job End Date Not on file Not on file Not on file Not on file Last Filed Vital Signs Vital Sign Reading Time Taken Comments Blood Pressure 140/80 04/24/2019 10:00 PM REFINISH TECHNICIAN Pulse 92 04/24/2019 10:00 PM REFINISH TECHNICIAN Temperature 36.6 C (97.8 F) 04/24/2019 10:00 PM REFINISH TECHNICIAN Respiratory Rate 18 04/24/2019 10:00 PM REFINISH TECHNICIAN Oxygen Saturation 97% 02/15/2019 5:43 PM REFINISH TECHNICIAN Inhaled Oxygen Concentration - - Weight 69.4 kg (153 lb) 02/15/2019 12:49 PM REFINISH TECHNICIAN Height 147.3 cm (4' 10 ) 01/14/2019 [...] years Discontinued Medical Devices Implanted Type Area Gauger Delivery Device Identifier Shelf Expiration Date Model / Serial / Lot Log [id number] - Cement - 1 - Cement Palacos Sgl [id number] Implanted:Qty: 1 on 11/11/[address] [facility] Cement Left: Knee [employer] 05/11/2013 [id number] / NA / [id number] Cement Palacos Sgl [id number] Implanted:Qty: 1 on 09/15/[address] [facility] Cement Right: Knee [employer] 09/08/[id number] 1 / / [id number] Log 28918 - Julee Total Knee - 1 - Comp Fem Nkii Gsf [id number] Implanted:Qty: 1 on 11/11/[address] [facility] Knee Left: Knee [employer] 10/08/2017 [id number] 1 / NA / [id number] Log 14074 - Julee Total Knee - 1 - Patella Nk Gs Poly 8mm [id number] Implanted:Qty: 1 on 11/11/[address] [facility] Knee Left: Knee [employer] 09/08/2012 [id number] / NA / [id number] Log 66573 - Julee Total Knee - 1 - Comp Tib Nkii Chemistry Instructor Stmd [id number] Implanted:Qty: 1 on 11/11/[address] [facility] Knee Left: Knee [employer] [id number] / NA / [id number] Log 49371 - Julee Total Knee - 1 - Art Surface Nk Gs [id number] Implanted:Qty: 1 on 11/11/[address] [facility] Knee Left: Knee [employer] 05/11/2012 [id number] / NA / [id number] Log 66103 - Depuy Total Knee - 1 - Comp Fem Sigma Cr Npor Sz2.5 Rt 96-0018 Implanted:Qty: 1 on 09/15/[address] [facility] Knee Right: Knee J[employer]J- [employer] 07/09/2014 96-0018 / / [id number] Tibial Tray Implanted:Qty: 1 on 09/15/[address] [facility] Knee Right: Knee [employer]- [employer] 07/10/2019 [id number] / / [id number] Description:Napoleon RIVERA AL TRAY FIXED BEARINGMODULAR COCR 2 Patella Implanted:Qty: 1 on 09/15/[address] [facility] Knee Right: Knee [employer]- [employer] 07/09/2014 96-0018 / / [id number] Description:3-Post Round Dom e [id number] MM Mesh Ventralex Patch Med 02212 - [id number] Implanted:Qty: 1 on 09/10/[address] [facility] Mesh N/A: Abdomen CR BARD- [employer] 06/10/2016 [id number] / / [id number] Cross-Linked Curved Insert Implanted:Qty: 1 on 09/15/[address] [facility] Right: Knee [employer] 02/08/2014 [id number] / / [id number] Description:Napoleon HOLLOWAY S-LINKED CURVED INSERT Procedures Procedure [...] complication, with long-term current use of insulin ([facility]) Hyperglycemia ENDOSCOPY, COLON, DIAGNOSTIC Routine 10/15/2008 from Last 3 Months or Most Recently Relevant to Health Maintenance Results * (ABNORMAL) HEMOGLOBIN A1C (12/25/2018 8:21 AM CDT) HEMOGLOBIN A1C 7.4(H) <=5.6 % 12/25/2018 9:10 AM CDT [facility] EST. AVG GLUCOSE, A1C 166 mg/dL 12/25/2018 9:10 AM CDT [facility] Blood Venipuncture / Unknown 12/25/2018 8:21 AM CDT 12/25/2018 8:40 AM CDT [facility] - 12/25/2018 9:10 AM CDT HGB A1C INTERPRETATION NORMAL: <5.7% PRE-DIABETES: 5.7 - 6.4% DIABETES: 6.5% OR GREATER us David Levy MD CHEMISTRY ORDERABLES Final Resu lt [facility] CLIA #[id number] [facility] [place] [address] * (ABNORMAL) LIPID PANEL (10/26/2017 12:21 PM CDT) CHOLESTEROL 169 <200 mg/dL 10/26/2017 9:39 PM CDT [facility] TRIGLYCERIDE 61 <150 mg/dL 10/26/2017 9:39 PM CDT [facility] HDL 63(H) 40 - 59 mg/dL 10/26/2017 9:39 PM CDT [facility] LDL CALCULATED 94 <100 mg/dL 10/26/2017 9:39 PM CDT [facility] NON-HDL CHOLESTEROL 106 <130 mg/dL 10/26/2017 9:39 PM CDT [facility] Blood Collection / Unknown 10/26/2017 12:21 PM CDT 10/26/2017 8:19 PM CDT Narrative [facility] - 10/26/2017 9:39 [...] Ranges for Lipid Panels (NCEP/AMA) Gwendolyn Pitts AUTOMOTIVE DESIGN DRAFTER CHEMISTRY ORDERABLES Fi nal Result [facility] IA# [id number] [address] [place] [address] * XR DEXA BONE DENSITY AXIAL 1 [...] clinical management available online at [email or web address] Enter Angle for Select DXA and the Femoral Neck BMD value. [id number] Narrative 08/01/2017 11:47 PM CDT DEXA Evaluation [...] clinical management available online at [email or web address] Enter Angle for Select DXA and the Femoral Neck BMD value. [id number] us Gwendolyn Smitheling AUTOMOTIVE DESIGN DRAFTER DIAGNOSTIC IMAGING BARBARA PEREZ Final Result * HM DIABETES EYE EXAM (05/19/2017) us Abstract Spg Provider HEALTH MAINTENANCE Final R esult * MICROALBUMIN/CREATININE RATIO, RANDOM UR (01/19/2017 9:43 AM CDT) MICROALBUMIN, URINE <1.2 No Reference Range mg/dL 01/19/2017 9:27 PM CDT [facility] CREATININE, URINE 85.1 29.0 - 226.0 mg/dL 01/19/2017 9:27 PM CDT [facility] Comment: Reference Range varies with fluid intake and diet. MICROALBUMIN/C REAT RATIO, UR <14.1 <25.0 mg/g Creatinine 01/19/2017 9:27 PM CDT [facility]ICE[facility] Urine URINE SPECIMEN OBTAINED BY CLEAN CATCH PROCEDURE / Unknown Collection / Unknown 01/19/2017 9:43 AM CDT 01/19/2017 8:39 PM CDT Narrative [facility] - 01/19/2017 9:27 PM CDT Condition Microalbumin/Creat ratio Normal Males <17 Normal Females <25 Microalbuminuria Males 17-299 Microalbuminuria Females 25-299 Overt proteinuria >=300 us Mary Kate Abbasi APRN URINE ORDERABLES Final Result [facility] CLIA# [id number] [address] [place] [address] * ENDOSCOPY, COLON, DIAGNOSTIC (10/15/2008) Abstract Spg Provider GI PROCEDURE ORDERABLES Fi nal Result [facility] from Last 3 Months or Most Recently Relevant to Health Maintenance Additional Health Concerns Infection Onset Date Last Indicated CRE-CP Comment: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
--- OUTSIDE RECORDS SUMMARY | 2025-04-03 22:36 | XMS_ITS | Encounter Summary ---
Author Organization [facility] Address [address] [place] [address] Care Team Providers Care Truck Caterer Name Role Phone Non-Staff, Physician Primary Care Provider Unava ilable Encounter Details Date Type Department Care Team (Latest Contact Info) Description 02/13/2006 Outpatient Historical [facility] [address] [place] [address] Nell Verde MD NO ADDRESS ON FILE Other Screening Mammogram (Primary Dx) Social History Tobacco Use Types Packs/Day Years Used Date Smoking Tobacco: Never Assessed Comments Unknown Sex and Gender Information Value Date Recorded Sex Assigned at Not on file Legal Sex Female 2:45 AM INSPECTOR PRINTED CIRCUIT BOARDS Gender Identity Not on file Sexual Orientation [...] as of this encounter Care Teams Truck Caterer Relationship Specialty Start Date End Date Non-Staff, Physician NO ADDRESS ON FILE PCP - General 01/10/20 documented as of this encounter
--- OUTSIDE RECORDS SUMMARY | 2025-04-03 22:36 | XMS_ITS | Encounter Summary ---
Author Organization [facility] Address [address] [facility] [place] [address] Care Team Providers Care Coat Check Attendant Name Role Phone Non-Staff, Physician Primary Care Provider Unava ilable Encounter Details Date Type Department Care Team (Latest Contact Info) Description 08/01/2006 Outpatient Historical [facility] Family Medicine- [address] [place] [phone] Abel Fields NP NO ADDRESS ON FILE Screening for Malignant Neoplasm of the Cervix (Primary Dx) Social History Tobacco Use Types Packs/Day Years Used Date Smoking Tobacco: Never Assessed Comments Unknown Sex and Gender Information Value Date Recorded Sex Assigned at Not on file Legal Sex Female 2:45 AM LOGISTICS RESEARCH ENGINEER Gender Identity Not on file Sexual [...] documented as of this encounter Care Teams Coat Check Attendant Relationship Specialty Start Date End Date Non-Staff, Physician NO ADDRESS ON FILE PCP - General 01/10/20 documented as of this encounter
--- OUTSIDE RECORDS SUMMARY | 2025-04-03 22:36 | XMS_ITS | Encounter Summary ---
Author Organization [facility] Address [address] [place] [address] Care Team Providers Care Delivery Representative Name Role Phone Non-Staff, Physician Primary Care Provider Unava ilable Encounter Details Date Type Department Care Team (Latest Contact Info) Description 08/18/2006 Outpatient Historical [facility] Pain Management Procedures [address] [place] [phone] Cristiano Nunez Thoracic or Lumbosacral Neuritis or Radiculitis, Unspecified (Primary Dx) Social History Tobacco Use Types Packs/Day Years Used Date Smoking Tobacco: Never Assessed Comments Unknown Sex and Gender Information Value Date Recorded Sex Assigned at Not on file Legal Sex Female 2:45 AM QUOTATION CLERK Gender Identity Not on file Sexual [...] documented as of this encounter Care Teams Delivery Representative Relationship Specialty Start Date End Date Non-Staff, Physician NO ADDRESS ON FILE PCP - General 01/10/20 documented as of this encounter
--- OUTSIDE RECORDS SUMMARY | 2025-04-03 22:36 | XMS_ITS | Encounter Summary ---
Author Organization [facility] Address [address] [place] [facility] [place] [address] Care Team Providers Care Wool Hat Finisher Name Role Phone Non-Staff, Physician Primary Care Provider Unava ilable Encounter Details Date Type Department Care Team (Latest Contact Info) Description 08/25/2004 Outpatient Historical [facility] Family Medicine- [address] [place] [address] Abel Fields NP NO ADDRESS ON FILE HERPES ZOSTER NOS (Primary Dx); OTALGIA NOS; ACUTE PHARYNGITIS; JOINT PAIN-L/LEG Social History Tobacco Use Types Packs/Day Years Used Date Smoking Tobacco: Never Assessed Comments Unknown Sex and Gender Information Value Date Recorded Sex Assigned at Not on file Legal Sex Female 2:45 AM RETINA SUBSPECIALIST Gender Identity Not on file Sexual Orientation [...] documented as of this encounter Care Teams Wool Hat Finisher Relationship Specialty Start Date End Date Non-Staff, Physician NO ADDRESS ON FILE PCP - General 01/10/20 documented as of this encounter
--- OUTSIDE RECORDS SUMMARY | 2025-04-03 22:36 | XMS_ITS | Encounter Summary ---
Author Organization [facility] Address [address] [place] [address] Care Team Providers Care Church Musician Name Role Phone Non-Staff, Physician Primary Care Provider Unava ilable Encounter Details Date Type Department Care Team (Latest Contact Info) Description 01/30/2007 Outpatient Historical [facility] Family Medicine- [place] [address] [place] [address] Jim Aquino PA NO ADDRESS ON FILE Edema (Primary Dx); Pain in Joint, Site Unspecified; DM w/o Complication Type II (CMS/HCC); Vaccine for Influenza Social History Tobacco Use Types Packs/Day Years Used Date Smoking Tobacco: Never Assessed Comments Unknown Sex and Gender Information Value Date Recorded Sex Assigned at Not on file Legal Sex Female 2:45 AM TOXICOLOGIST Gender Identity Not on file Sexual Orientation [...] documented as of this encounter Care Teams Church Musician Relationship Specialty Start Date End Date Non-Staff, Physician NO ADDRESS ON FILE PCP - General 01/10/20 documented as of this encounter
--- OUTSIDE RECORDS SUMMARY | 2025-04-03 22:36 | XMS_ITS | Encounter Summary ---
Author Organization [facility] Address [address] [place] [address] Care Team Providers Care Instructional Support Specialist Name Role Phone Non-Staff, Physician Primary Care Provider Unava ilable Encounter Details Date Type Department Care Team (Late st Contact Info) Description 03/14/2019 Ancillary Orders [facility] [address] [place] [address] Edmond Machado, NO ADDRESS ON [...] on file Legal Sex Female 2:45 AM PROFILING MACHINE SET UP OPERATOR Gender Identity Not on file Sexual [...] as of this encounter Care Teams Instructional Support Specialist Relationship Specialty Start Date End Date Non-Staff, Physician NO ADDRESS ON FILE PCP - General 01/10/20 documented as of this encounter
--- OUTSIDE RECORDS SUMMARY | 2025-04-03 22:36 | XMS_ITS | Encounter Summary ---
Author Organization [facility] Address [address] [facility] [place] [address] Care Team Providers Care Spray Booth Operator Name Role Phone Non-Staff, Physician Primary Care Provider Unava ilable Encounter Details Date Type Department Care Team (Latest Contact Info) Description 08/01/2006 Outpatient Historical [facility] Family Medicine- [address] [place] [address] Abel Fields NP NO ADDRESS ON FILE Routine Gynecological Examination (Primary Dx); Unspecified Vaginitis and Vulvovaginitis; Unspecified Constipation; Lumbago Social History Tobacco Use Types Packs/Day Years Used Date Smoking Tobacco: Never Assessed Comments Unknown Sex and Gender Information Value Date Recorded Sex Assigned at Not on file Legal Sex Female 2:45 AM AIR BRUSH DECORATOR Gender Identity Not on file Sexual [...] documented as of this encounter Care Teams Spray Booth Operator Relationship Specialty Start Date End Date Non-Staff, Physician NO ADDRESS ON FILE PCP - General 01/10/20 documented as of this encounter
--- OUTSIDE RECORDS SUMMARY | 2025-04-03 22:36 | XMS_ITS | Encounter Summary ---
Author Organization [facility] Address [address] [place] [address] Care Team Providers Care Analyst Food And Beverage Name Role Phone Non-Staff, Physician Primary Care Provider Unava ilable Encounter Details Date Type Department Care Team (Latest Contact Info) Description 01/07/2004 Outpatient Historical [facility] Family Medicine- [address] [place] [phone] Abel Fields NP NO ADDRESS ON FILE ABDOMINAL PAIN RLQ (Primary Dx); BACKACHE NOS; CERVICALGIA; ACUTE PHARYNGITIS Social History Tobacco Use Types Packs/Day Years Used Date Smoking Tobacco: Never Assessed Comments Unknown Sex and Gender Information Value Date Recorded Sex Assigned at Not on file Legal Sex Female 2:45 AM JAVA WEB USER INTERFACE DEVELOPER Gender Identity Not on file Sexual [...] documented as of this encounter Care Teams Analyst Food And Beverage Relationship Specialty Start Date End Date Non-Staff, Physician NO ADDRESS ON FILE PCP - General 01/10/20 documented as of this encounter
--- OUTSIDE RECORDS SUMMARY | 2025-04-03 22:36 | XMS_ITS | Encounter Summary ---
Author Organization [facility] Address [address] [place] [address] Care Team Providers Care Title Department Manager Name Role Phone Non-Staff, Physician Primary Care Provider Unava ilable Reason for Referral * CT Scan (Routine) - Closed Specialty Diagnoses / Procedures Referred By Contac t Referred To Contact Radiology Diagnoses Cephalgia Procedures CT HEAD WO CONTRAST Edmond Machado DO [facility] CT Scan [place] [address] [place] [address] Phone: tel: fax: Referral ID Status Reason Start Date Expiration Date Visits Re quested Visits Authorized [id number] Closed 03/13/2019 04/12/2020 1 1 NICAL PUBLICATIONS MANAGER Encounter Details Date Type Department Care Team (Late st Contact Info) Description 03/13/2019 Ancillary Orders [facility] Centralized Scheduling [address] [place] [address] Edmond Machado DO NO ADDRESS [...] on file Legal Sex Female 2:45 AM TECHNICAL PUBLICATIONS MANAGER Gender Identity Not on file Sexual Orientation Not on file Occupation Industry Job Start Date Job End Date Not on file Not on file Not on file Not on file documented as of this encounter Plan of Treatment Not on file documented as of this encounter Results * CT HEAD WO CONTRAST (03/14/2019 3:14 PM TECHNICAL PUBLICATIONS MANAGER) Anatomical Region Laterality Modality Head Computed Tomogra phy 03/14/2019 3:15 PM TECHNICAL PUBLICATIONS MANAGER Impressions 03/16/2019 10:20 AM TECHNICAL PUBLICATIONS MANAGER IMPRESSION: Please see below. Exam: CT [...] mucosal thickening. IMPRESSION: 1. No significant abnormality. [id number] Narrative Procedure Note Tex Murrieta MD - [...] mucosal thickening. IMPRESSION: 1. No significant abnormality. [id number] ORDERABLES Final Result [...] documented as of this encounter Care Teams Title Department Manager Relationship Specialty Start Date End Date Non-Staff, Physician NO ADDRESS ON FILE PCP - General 01/10/20 documented as of this encounter
--- OUTSIDE RECORDS SUMMARY | 2025-04-03 22:36 | XMS_ITS | Encounter Summary ---
Author Organization [facility] Address [address] [place] [facility] [place] [address] Care Team Providers Care Hired Worker Name Role Phone Non-Staff, Physician Primary Care Provider Unava ilable Encounter Details Date Type Department Care Team (Late st Contact Info) Description 06/10/2002 Outpatient Historical [facility] Family Medicine- [place] [address] [place] [address] Nell Verde MD NO ADDRESS ON FILE Social History Tobacco Use Types Packs/Day Years Used Date Smoking Tobacco: Never Assessed Comments Unknown Sex and Gender Information Value Date Recorded Sex Assigned at Not on file Legal Sex Female 2:45 AM CUSTOMER RETENTION REPRESENTATIVE Gender Identity Not on file Sexual [...] documented as of this encounter Care Teams Hired Worker Relationship Specialty Start Date End Date Non-Staff, Physician NO ADDRESS ON FILE PCP - General 01/10/20 documented as of this encounter
--- OUTSIDE RECORDS SUMMARY | 2025-04-03 22:36 | XMS_ITS | Encounter Summary ---
Author Organization [facility] Address [address] [place] [address] Care Team Providers Care Sliver Cutter Name Role Phone Non-Staff, Physician Primary Care Provider Unava ilable Encounter Details Date Type Department Care Team (Latest Contact Info) Description 08/23/2006 Outpatient Historical [facility] [address] [place] [phone] Cristiano Nunez Thoracic or Lumbosacral Neuritis or Radiculitis, Unspecified (Primary Dx) Social History Tobacco Use Types Packs/Day Years Used Date Smoking Tobacco: Never Assessed Comments Unknown Sex and Gender Information Value Date Recorded Sex Assigned at Not on file Legal Sex Female 2:45 AM DEBONING TEAM LEADER Gender Identity Not on file Sexual Orientation [...] documented as of this encounter Care Teams Sliver Cutter Relationship Specialty Start Date End Date Non-Staff, Physician NO ADDRESS ON FILE PCP - General 01/10/20 documented as of this encounter
--- OUTSIDE RECORDS SUMMARY | 2025-04-03 22:36 | XMS_ITS | Encounter Summary ---
Author Organization [facility] Address [address] [place] [address] Care Team Providers Care Neuropsychology Division Chief Name Role Phone Non-Staff, Physician Primary Care Provider Unava ilable Encounter Details Date Type Department Care Team (Latest Contact Info) Description 04/23/2004 Outpatient Historical [facility] Family Medicine- [address] [place] [address] Nell Verde MD NO ADDRESS ON FILE ACUTE BRONCHITIS (Primary Dx); ACUTE URI NOS; DIABETES MELLITUS TYPE II-UNCOMPL ([facility]) Social History Tobacco Use Types Packs/Day Years Used Date Smoking Tobacco: Never Assessed Comments Unknown Sex and Gender Information Value Date Recorded Sex Assigned at Not on file Legal Sex Female 2:45 AM EXTRUSION DIE COORDINATOR Gender Identity Not on file Sexual [...] documented as of this encounter Care Teams Neuropsychology Division Chief Relationship Specialty Start Date End Date Non-Staff, Physician NO ADDRESS ON FILE PCP - General 01/10/20 documented as of this encounter
--- OUTSIDE RECORDS SUMMARY | 2025-04-03 22:36 | XMS_ITS | Encounter Summary ---
Author Organization [facility] Address [address] [place] [facility] [place] [address] Care Team Providers Care Traffic Lieutenant Name Role Phone Non-Staff, Physician Primary Care Provider Unava ilable Encounter Details Date Type Department Care Team (Late st Contact Info) Description 09/21/2004 Outpatient Historical [facility] Abel Fields, FHA UNDERWRITER NO ADDRESS ON FILE Social History Tobacco Use Types Packs/Day Years Used Date Smoking Tobacco: Never Assessed Comments Unknown Sex and Gender Information Value Date Recorded Sex Assigned at Not on file Legal Sex Female 2:45 AM GOVERNMENT AUDITOR Gender Identity Not on file Sexual [...] documented as of this encounter Care Teams Traffic Lieutenant Relationship Specialty Start Date End Date Non-Staff, Physician NO ADDRESS ON FILE PCP - General 01/10/20 documented as of this encounter
--- OUTSIDE RECORDS SUMMARY | 2025-04-03 22:36 | XMS_ITS | Encounter Summary ---
Author Organization [facility] Address [address] [place] [address] Care Team Providers Care Resourcing Consultant Name Role Phone Non-Staff, Physician Primary Care Provider Unava ilable Encounter Details Date Type Department Care Team (Latest Contact Info) Description 12/20/2006 Outpatient Historical [facility] [address] [place] [address] AMBULANCE, [facility] Pain in Soft Tissues of Limb (Primary Dx) Social History Tobacco Use Types Packs/Day Years Used Date Smoking Tobacco: Never Assessed Comments Unknown Sex and Gender Information Value Date Recorded Sex Assigned at Not on file Legal Sex Female 2:45 AM SMOKE INSPECTOR Gender Identity Not on file Sexual [...] documented as of this encounter Care Teams Resourcing Consultant Relationship Specialty Start Date End Date Non-Staff, Physician NO ADDRESS ON FILE PCP - General 01/10/20 documented as of this encounter
--- OUTSIDE RECORDS SUMMARY | 2025-04-03 22:36 | XMS_ITS | Encounter Summary ---
Author Organization [facility] Address [address] [place] [facility] [place] [address] Care Team Providers Care Teacher Of The Emotionally Disturbed Name Role Phone Non-Staff, Physician Primary Care Provider Unava ilable Encounter Details Date Type Department Care Team (Latest Contact Info) Description 08/16/2006 Outpatient Historical [facility] Family Medicine- [address] [place] [address] Abel Fields NP NO ADDRESS ON FILE Shortness of Breath (Primary Dx); Lumbago Social History Tobacco Use Types Packs/Day Years Used Date Smoking Tobacco: Never Assessed Comments Unknown Sex and Gender Information Value Date Recorded Sex Assigned at Not on file Legal Sex Female 2:45 AM EMISSION SPECIALIST Gender Identity Not on file Sexual [...] documented as of this encounter Care Teams Teacher Of The Emotionally Disturbed Relationship Specialty Start Date End Date Non-Staff, Physician NO ADDRESS ON FILE PCP - General 01/10/20 documented as of this encounter
--- OUTSIDE RECORDS SUMMARY | 2025-04-03 22:36 | XMS_ITS | Encounter Summary ---
Author Organization [facility] Address [address] [facility] [place] [address] Care Team Providers Care Mold Design Engineer Name Role Phone Non-Staff, Physician Primary Care Provider Unava ilable Encounter Details Date Type Department Care Team (Latest Contact Info) Description 02/25/2004 Outpatient Historical [facility] Family Medicine- [address] [place] [address] Abel Fields NP NO ADDRESS ON FILE ROUTINE READING COACH EXAMINATION (Primary Dx) Social History Tobacco Use Types Packs/Day Years Used Date Smoking Tobacco: Never Assessed Comments Unknown Sex and Gender Information Value Date Recorded Sex Assigned at Not on file Legal Sex Female 2:45 AM CLAMP CARRIER OPERATOR Gender Identity Not on file Sexual [...] as of this encounter Care Teams Mold Design Engineer Relationship Specialty Start Date End Date Non-Staff, Physician NO ADDRESS ON FILE PCP - General 01/10/20 documented as of this encounter
--- OUTSIDE RECORDS SUMMARY | 2025-04-03 22:36 | XMS_ITS | Encounter Summary ---
Author Organization [facility] Address [address] [place] [address] Care Team Providers Care Instrumental Music Teacher Name Role Phone Non-Staff, Physician Primary Care Provider Unava ilable Encounter Details Date Type Department Care Team (Latest Contact Info) Description 06/10/2002 Outpatient Historical [facility] Family Medicine- [address] [place] [address] Nell Verde MD NO ADDRESS ON FILE ACUTE SINUSITIS NOS (Primary Dx); HYPERTENSION NOS; HYPOTHYROIDISM NOS; DIABETES UNCOMPL ADULT-TYPE II ([facility]) Social History Tobacco Use Types Packs/Day Years Used Date Smoking Tobacco: Never Assessed Comments Unknown Sex and Gender Information Value Date Recorded Sex Assigned at Not on file Legal Sex Female 2:45 AM MAILHOUSE OPERATOR Gender Identity Not on file Sexual [...] documented as of this encounter Care Teams Instrumental Music Teacher Relationship Specialty Start Date End Date Non-Staff, Physician NO ADDRESS ON FILE PCP - General 01/10/20 documented as of this encounter
--- OUTSIDE RECORDS SUMMARY | 2025-04-03 22:36 | XMS_ITS | Encounter Summary ---
Author Organization [facility] Address [address] [place] [facility] [place] [address] Care Team Providers Care Manager Port Name Role Phone Non-Staff, Physician Primary Care [...] on file Legal Sex Female 2:45 AM STEAM CLOTHES PRESS OPERATOR Gender Identity Not on file [...] as of this encounter Care Teams Manager Port Relationship Specialty Start Date End Date Non-Staff, Physician NO ADDRESS ON FILE PCP - General 01/10/20 documented as of this encounter
--- OUTSIDE RECORDS SUMMARY | 2025-04-03 22:36 | XMS_ITS | Encounter Summary ---
Author Organization [facility] Address [address] [place] [address] Care Team Providers Care Regional Forester Name Role Phone Non-Staff, Physician Primary Care Provider Unava ilable Encounter Details Date Type Department Care Team (Latest Contact Info) Description 07/04/2003 Outpatient Historical [facility] General Surgery [address] [address] [address] [place] [address] [place] [address] [facility] [address] [place] [address] SURGERY FOLLOWUP, UNSPEC (Primary Dx) Social History Tobacco Use Types Packs/Day Years Used Date Smoking Tobacco: Never Assessed Comments Unknown Sex and Gender Information Value Date Recorded Sex Assigned at Not on file Legal Sex Female 2:45 AM DIP FILLER Gender Identity Not on file Sexual [...] documented as of this encounter Care Teams Regional Forester Relationship Specialty Start Date End Date Non-Staff, Physician NO ADDRESS ON FILE PCP - General 01/10/20 documented as of this encounter
--- OUTSIDE RECORDS SUMMARY | 2025-04-03 22:36 | XMS_ITS | Encounter Summary ---
Author Organization [facility] Address [address] [place] [place] [address] Care Team Providers Care Microbiology Professor Name Role Phone Non-Staff, Physician Primary Care Provider Unava ilable Encounter Details Date Type Department Care Team (Latest Contact Info) Description 08/22/2003 Outpatient Historical [facility] Family Medicine- [address] [place] [address] Nell Verde MD NO ADDRESS ON FILE HYPERTENSION NOS (Primary Dx) Social History Tobacco Use Types Packs/Day Years Used Date Smoking Tobacco: Never Assessed Comments Unknown Sex and Gender Information Value Date Recorded Sex Assigned at Not on file Legal Sex Female 2:45 AM COMPUTER SYSTEMS DESIGN ANALYST Gender Identity Not on file Sexual [...] documented as of this encounter Care Teams Microbiology Professor Relationship Specialty Start Date End Date Non-Staff, Physician NO ADDRESS ON FILE PCP - General 01/10/20 documented as of this encounter
--- OUTSIDE RECORDS SUMMARY | 2025-04-03 22:36 | XMS_ITS | Encounter Summary ---
Author Organization [facility] Address [address] [place] [address] Care Team Providers Care Health Benefits Specialist Name Role Phone Non-Staff, Physician Primary Care Provider Unava ilable Encounter Details Date Type Department Care Team (Latest Contact Info) Description 08/01/2017 Ancillary Orders [facility] [address] [place] [address] Gwendolyn Pitts, [place] [address] [place] [address] Visit for screening mammogram Social History Tobacco Use Types Packs/Day Years Used Date Smoking Tobacco: Former Cigarettes 2.5 9 0 04/10/2003 - 04/10/2012 Smokeless Tobacco: Never Alcohol Use Standard Drinks/Week Comments No 0 (1 standard drink = 0.6 oz pur e alcohol) Comments No Sex and Gender Information Value Date Recorded Sex Assigned at Not on file Legal Sex Female 2:45 AM RETAIL TEAM LEADER Gender Identity Not on file Sexual Orientation Not on file Occupation Industry Job Start Date Job End Date Not on file Not on file Not on file Not on file documented as of this encounter Plan of Treatment Not on file documented as of this encounter Results * MAMMO PRIOR STUDY (03/18/2008 1:30 PM RETAIL TEAM LEADER) Narrative 08/01/2017 1:39 PM CDT This exam was auto finalized to allow images to be scanned to PACS. Gwendolyn Lavee Hong PAINT FORMULATOR DIAGNOSTIC IMAGING ORDCesar PEREZ Final Result documented [...] documented as of this encounter Care Teams Health Benefits Specialist Relationship Specialty Start Date End Date Non-Staff, Physician NO ADDRESS ON FILE PCP - General 01/10/20 documented as of this encounter
--- OUTSIDE RECORDS SUMMARY | 2025-04-03 22:36 | XMS_ITS | Encounter Summary ---
Author Organization [facility] Address [address] [place] [address] Care Team Providers Care Community Affairs Director Name Role Phone Non-Staff, Physician Primary Care Provider Unava ilable Encounter Details Date Type Department Care Team (Late st Contact Info) Description 05/15/2007 Outpatient Historical [facility] Family Medicine [place] [address] [facility] [address] [place] [address] Jim Aquino PA NO ADDRESS ON FILE Social History Tobacco Use Types Packs/Day Years Used Date Smoking Tobacco: Never Assessed Comments Unknown Sex and Gender Information Value Date Recorded Sex Assigned at Not on file Legal Sex Female 2:45 AM MIXER WET POUR Gender Identity Not on file Sexual Orientation [...] be given this date. 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
--- OUTSIDE RECORDS SUMMARY | 2025-04-03 22:36 | XMS_ITS | Encounter Summary ---
Author Organization [facility] Address [address] [place] [facility] [place] [address] Care Team Providers Care Spray Worker Name Role Phone Non-Staff, Physician Primary Care Provider Unava ilable Encounter Details Date Type Department Care Team (Latest Contact Info) Description 08/06/2003 Outpatient Historical [facility] Family Medicine- [address] [place] [phone] Abel Fields NP NO ADDRESS ON FILE OBST CHRON BRONCHITIS WITH EXAC (CMS/HCC) (Primary Dx); ABDOMINAL PAIN RLQ Social History Tobacco Use Types Packs/Day Years Used Date Smoking Tobacco: Never Assessed Comments Unknown Sex and Gender Information Value Date Recorded Sex Assigned at Not on file Legal Sex Female 2:45 AM RETAIL BRAND AMBASSADOR Gender Identity Not on file Sexual Orientation [...] as of this encounter Care Teams Spray Worker Relationship Specialty Start Date End Date Non-Staff, Physician NO ADDRESS ON FILE PCP - General 01/10/20 documented as of this encounter
--- OUTSIDE RECORDS SUMMARY | 2025-04-03 22:36 | XMS_ITS | Encounter Summary ---
Author Organization [facility] Address [address] [facility] [place] [address] Care Team Providers Care Head Of Merchandise Buying Name Role Phone Non-Staff, Physician Primary Care Provider Unava ilable Encounter Details Date Type Department Care Team (Late st Contact Info) Description 03/20/2007 Outpatient Historical [facility] Family Medicine- [place] [address] [place] [address] Jim Aquino, PA NO ADDRESS ON FILE Social History Tobacco Use Types Packs/Day Years Used Date Smoking Tobacco: Never Assessed Comments Unknown Sex and Gender Information Value Date Recorded Sex Assigned at Not on file Legal Sex Female 2:45 AM NEEDLE GRADER Gender Identity Not on file Sexual Orientation [...] as of this encounter Care Teams Head Of Merchandise Buying Relationship Specialty Start Date End Date Non-Staff, Physician NO ADDRESS ON FILE PCP - General 01/10/20 documented as of this encounter
--- OUTSIDE RECORDS SUMMARY | 2025-04-03 22:36 | XMS_ITS | Encounter Summary ---
Author Organization [facility] Address [address] [place] [address] Care Team Providers Care Paste Thinner Name Role Phone Non-Staff, Physician Primary Care Provider Unava ilable Encounter Details Date Type Department Care Team (Latest Contact Info) Description 03/18/2005 Outpatient Historical [facility] Family Medicine- [place] [address] [place] [address] Nell Verde MD NO ADDRESS ON FILE HYPERTENSION NOS (Primary Dx); DIABETES MELLITUS TYPE II-UNCOMPL (CMS/HCC); ACUTE URI NOS; VACCINE FOR STREP PNEUMONIAE Social History Tobacco Use Types Packs/Day Years Used Date Smoking Tobacco: Never Assessed Comments Unknown Sex and Gender Information Value Date Recorded Sex Assigned at Not on file Legal Sex Female 2:45 AM DIRECTOR MISSION Gender Identity Not on file Sexual Orientation [...] documented as of this encounter Care Teams Paste Thinner Relationship Specialty Start Date End Date Non-Staff, Physician NO ADDRESS ON FILE PCP - General 01/10/20 documented as of this encounter
--- OUTSIDE RECORDS SUMMARY | 2025-04-03 22:36 | XMS_ITS | Encounter Summary ---
Author Organization [facility] Address [address] [place] [address] Care Team Providers Care Networking Administrator Name Role Phone Non-Staff, Physician Primary Care Provider Unava ilable Encounter Details Date Type Department Care Team (Latest Contact Info) Description 08/11/2006 Outpatient Historical [facility] Pain Management Procedures [address] [place] [phone] Cristiano Nunez Thoracic or Lumbosacral Neuritis or Radiculitis, Unspecified (Primary Dx) Social History Tobacco Use Types Packs/Day Years Used Date Smoking Tobacco: Never Assessed Comments Unknown Sex and Gender Information Value Date Recorded Sex Assigned at Not on file Legal Sex Female 2:45 AM BOXING TRAINER Gender Identity Not on file Sexual Orientation [...] documented as of this encounter Care Teams Networking Administrator Relationship Specialty Start Date End Date Non-Staff, Physician NO ADDRESS ON FILE PCP - General 01/10/20 documented as of this encounter
--- OUTSIDE RECORDS SUMMARY | 2025-04-03 22:36 | XMS_ITS | Encounter Summary ---
Author Organization [facility] Address [address] [place] [address] Care Team Providers Care Electrical Assembly Technician Name Role Phone Non-Staff, Physician Primary Care Provider Unava ilable Encounter Details Date Type Department Care Team (Latest Contact Info) Description 08/18/2006 Outpatient Historical [facility] Pain [facility] [address] [place] [phone] Cristiano Nunez Thoracic or Lumbosacral Neuritis or Radiculitis, Unspecified (Primary Dx) Social History Tobacco Use Types Packs/Day Years Used Date Smoking Tobacco: Never Assessed Comments Unknown Sex and Gender Information Value Date Recorded Sex Assigned at Not on file Legal Sex Female 2:45 AM NAMED ACCOUNT EXECUTIVE Gender Identity Not on file Sexual Orientation [...] as of this encounter Care Teams Electrical Assembly Technician Relationship Specialty Start Date End Date Non-Staff, Physician NO ADDRESS ON FILE PCP - General 01/10/20 documented as of this encounter
--- OUTSIDE RECORDS SUMMARY | 2025-04-03 22:36 | XMS_ITS | Encounter Summary ---
Author Organization [facility] Address [address] [place] [address] Care Team Providers Care Zipper Trimmer Hand Name Role Phone Non-Staff, Physician Primary Care Provider Unava ilable Encounter Details Date Type Department Care Team (Latest Contact Info) Description 08/07/2003 Outpatient Historical [facility] [place] [address] [facility] [address] [place] [phone] Abel Fields, [place] NO ADDRESS ON FILE Diverticulosis of colon (Primary Dx); CHRONIC SINUSITIS NOS Social History Tobacco Use Types Packs/Day Years Used Date Smoking Tobacco: Never Assessed Comments Unknown Sex and Gender Information Value Date Recorded Sex Assigned at Not on file Legal Sex Female 2:45 AM RETAIL ADVERTISING EXECUTIVE Gender Identity Not on file Sexual [...] documented as of this encounter Care Teams Zipper Trimmer Hand Relationship Specialty Start Date End Date Non-Staff, Physician NO ADDRESS ON FILE PCP - General 01/10/20 documented as of this encounter
--- OUTSIDE RECORDS SUMMARY | 2025-04-03 22:36 | XMS_ITS | Encounter Summary ---
Author Organization [facility] Address [address] [place] [address] Care Team Providers Care Hull Inspector Name Role Phone Non-Staff, Physician Primary Care Provider Unava ilable Encounter Details Date Type Department Care Team (Latest Contact Info) Description 09/06/2006 Outpatient Historical [facility] Family Medicine- [place] [address] [place] [address] Abel Fields NP NO ADDRESS ON FILE Acute Sinusitis, Unspecified (Primary Dx); Acute Bronchitis; Unspecified Vaginitis and Vulvovaginitis; DM w/o Complication Type II (CMS/HCC) Social History Tobacco Use Types Packs/Day Years Used Date Smoking Tobacco: Never Assessed Comments Unknown Sex and Gender Information Value Date Recorded Sex Assigned at Not on file Legal Sex Female 2:45 AM MATHEMATICAL TECHNICIAN Gender Identity Not on file Sexual [...] documented as of this encounter Care Teams Hull Inspector Relationship Specialty Start Date End Date Non-Staff, Physician NO ADDRESS ON FILE PCP - General 01/10/20 documented as of this encounter
--- OUTSIDE RECORDS SUMMARY | 2025-04-03 22:36 | XMS_ITS | Encounter Summary ---
Author Organization [facility] Address [address] [place] [address] Care Team Providers Care Weight Loss Centre Manager Name Role Phone Non-Staff, Physician Primary Care Provider Unava ilable Encounter Details Date Type Department Care Team (Latest Contact Info) Description 08/08/2006 Outpatient Historical [facility] [address] [place] [phone] Cristiano Nunez Thoracic or Lumbosacral Neuritis or Radiculitis, Unspecified (Primary Dx); Lumbosacral Spondylosis Social History Tobacco Use Types Packs/Day Years Used Date Smoking Tobacco: Never Assessed Comments Unknown Sex and Gender Information Value Date Recorded Sex Assigned at Not on file Legal Sex Female 2:45 AM ROD MILL TENDER Gender Identity Not on file Sexual [...] documented as of this encounter Care Teams Weight Loss Centre Manager Relationship Specialty Start Date End Date Non-Staff, Physician NO ADDRESS ON FILE PCP - General 01/10/20 documented as of this encounter
--- OUTSIDE RECORDS SUMMARY | 2025-04-03 22:36 | XMS_ITS | Encounter Summary ---
Author Organization [facility] Address [address] [place] [address] Care Team Providers Care Yoghurt Maker Name Role Phone Non-Staff, Physician Primary Care Provider Unava ilable Encounter Details Date Type Department Care Team (Latest Contact Info) Description 03/06/[address] [facility] Family Medicine- [place] [address] [place] [address] Jim Aquino, PA NO ADDRESS ON FILE Pain in Joint, Multiple Sites (Primary Dx); DM w/o Complication Type II (CMS/HCC); Nausea with Vomiting; Abdominal Pain, Unspecified Site Social History Tobacco Use Types Packs/Day Years Used Date Smoking Tobacco: Never Assessed Comments Unknown Sex and Gender Information Value Date Recorded Sex Assigned at Not on file Legal Sex Female 2:45 AM DIRECTOR OF MATERIALS MANAGEMENT Gender Identity Not on file Sexual [...] documented as of this encounter Care Teams Yoghurt Maker Relationship Specialty Start Date End Date Non-Staff, Physician NO ADDRESS ON FILE PCP - General 01/10/20 documented as of this encounter
--- OUTSIDE RECORDS SUMMARY | 2025-04-03 22:36 | XMS_ITS | Encounter Summary ---
Author Organization [facility] Address [address] [place] [facility] [place] [address] Care Team Providers Care Business Practices Supervisor Name Role Phone Non-Staff, Physician Primary Care Provider Unava ilable Encounter Details Date Type Department Care Team (Latest Contact Info) Description 12/05/2003 Outpatient Historical [facility] Family Medicine- [address] [place] [phone] Nell Verde MD NO ADDRESS ON FILE LUMBAGO (Primary Dx); URIN TRACT INFECTION NOS Social History Tobacco Use Types Packs/Day Years Used Date Smoking Tobacco: Never Assessed Comments Unknown Sex and Gender Information Value Date Recorded Sex Assigned at Not on file Legal Sex Female 2:45 AM REGIONAL SERVICE MANAGER Gender Identity Not on file [...] as of this encounter Care Teams Business Practices Supervisor Relationship Specialty Start Date End Date Non-Staff, Physician NO ADDRESS ON FILE PCP - General 01/10/20 documented as of this encounter
--- OUTSIDE RECORDS SUMMARY | 2025-04-03 22:36 | XMS_ITS | Encounter Summary ---
Author Organization [facility] Address [address] [place] [facility] [place] [address] Care Team Providers Care Parking Lot Signaler Name Role Phone Non-Staff, Physician Primary Care Provider Unava ilable Encounter Details Date Type Department Care Team (Latest Contact Info) Description 02/26/2003 Outpatient Historical [facility] Family Medicine- [address] [place] [address] Nell Verde MD NO ADDRESS ON FILE HERPANGINA (Primary Dx) Social History Tobacco Use Types Packs/Day Years Used Date Smoking Tobacco: Never Assessed Comments Unknown Sex and Gender Information Value Date Recorded Sex Assigned at Not on file Legal Sex Female 2:45 AM NEW HOME SALES 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
--- OUTSIDE RECORDS SUMMARY | 2025-04-03 22:36 | XMS_ITS | Encounter Summary ---
Author Organization [facility] Address [address] [place] [address] Care Team Providers Care Hotel Casino Floorperson Name Role Phone Non-Staff, Physician Primary Care [...] on file Legal Sex Female 2:45 AM SUPERINTENDENT PIER Gender Identity Not on file Sexual Orientation [...] at L5-S1 which may compress the left [id number] root. 2. Small right foraminal disc protrusion [...] documented as of this encounter Care Teams Hotel Casino Floorperson Relationship Specialty Start Date End Date Non-Staff, Physician NO ADDRESS ON FILE PCP - General 01/10/20 documented as of this encounter
--- OUTSIDE RECORDS SUMMARY | 2025-04-03 22:36 | XMS_ITS | Encounter Summary ---
Author Organization [facility] Address [address] [place] [facility] [place] [address] Care Team Providers Care Yardage Caller Name Role Phone Non-Staff, Physician Primary Care Provider Unava ilable Encounter Details Date Type Department Care Team (Latest Contact Info) Description 05/07/2002 Outpatient Historical [facility] Family Medicine- [address] [place] [phone] Edmond Machado DO NO ADDRESS ON FILE DIABETES UNCOMPL ADULT-TYPE II (CMS/HCC) (Primary Dx); CERVICALGIA; ACUTE URI NOS; HYPERTENSION NOS Social History Tobacco Use Types Packs/Day Years Used Date Smoking Tobacco: Never Assessed Comments Unknown Sex and Gender Information Value Date Recorded Sex Assigned at Not on file Legal Sex Female 2:45 AM THEATER PROJECTIONIST Gender Identity Not on file Sexual Orientation [...] documented as of this encounter Care Teams Yardage Caller Relationship Specialty Start Date End Date Non-Staff, Physician NO ADDRESS ON FILE PCP - General 01/10/20 documented as of this encounter
--- OUTSIDE RECORDS SUMMARY | 2025-04-03 22:36 | XMS_ITS | Encounter Summary ---
Author Organization [facility] Address [address] [place] [facility] [place] [address] Care Team Providers Care Chief General Pediatric Clinic Name Role Phone Non-Staff, Physician Primary Care Provider Unava ilable Encounter Details Date Type Department Care Team (Latest Contact Info) Description 02/25/2004 Outpatient Historical [facility] Family Medicine- [address] [place] [phone] Abel Fields NP NO ADDRESS ON FILE VAGINITIS NOS (Primary Dx) Social History Tobacco Use Types Packs/Day Years Used Date Smoking Tobacco: Never Assessed Comments Unknown Sex and Gender Information Value Date Recorded Sex Assigned at Not on file Legal Sex Female 2:45 AM DOFFER Gender Identity Not on file Sexual Orientation [...] as of this encounter Care Teams Chief General Pediatric Clinic Relationship Specialty Start Date End Date Non-Staff, Physician NO ADDRESS ON FILE PCP - General 01/10/20 documented as of this encounter
--- OUTSIDE RECORDS SUMMARY | 2025-04-03 22:36 | XMS_ITS | Encounter Summary ---
Author Organization [facility] Address [address] [place] [address] Care Team Providers Care Wrapper Hand Name Role Phone Non-Staff, Physician Primary Care Provider Unava ilable Encounter Details Date Type Department Care Team (Late st Contact Info) Description 07/07/2020 Lab Requisition [facility] [address] [place] [address] Nomi White, [address] [facility] [address] [place] [address] Social History Tobacco Use Types Packs/Day Years Used Date Smoking Tobacco: Former Cigarettes 2.5 9 0 04/10/2003 - 04/10/2012 Smokeless Tobacco: Never Alcohol Use Standard Drinks/Week Comments No 0 (1 standard drink = 0.6 oz pur e alcohol) Comments No Sex and Gender Information Value Date Recorded Sex Assigned at Not on file Legal Sex Female 2:45 AM YARN TWISTER Gender Identity Not on file Sexual Orientation [...] - 2.00 ng/mL 07/07/2020 6:18 PM CDT [facility] Blood 07/07/2020 8:50 AM CDT 07/07/2020 5:22 PM CDT Nomi White DO CHEMISTRY ORDERABLES Final Result [facility] [address] [address] documented in this encounter Visit Diagnoses Not on filedocumented in this encounter Additional Health Concerns Infection Onset Date Last Indicated Resolved Time CRE-CP Comment:Sputum 07/09/18 (Serratia) 07/09/2018 07/09/2018 Assessment Noted Time PHQ-9 Depression Total Score: 1 07/20/19 18 11:00 AM CDT documented as of this encounter Care Teams Wrapper Hand Relationship Specialty Start Date End Date Non-Staff, Physician NO ADDRESS ON FILE PCP - General 01/10/20 documented as of this encounter
--- OUTSIDE RECORDS SUMMARY | 2025-04-03 22:36 | XMS_ITS | Encounter Summary ---
Author Organization [facility] Address [address] [facility] [place] [address] Care Team Providers Care Induction Coordination Power Engineer Name Role Phone Non-Staff, Physician Primary Care Provider Unava ilable Encounter Details Date Type Department Care Team (Latest Contact Info) Description 02/11/2004 Outpatient Historical [facility] Family Medicine- Amit[address] [place] [phone] Abel Fields NP NO ADDRESS ON FILE Lichenification (Primary Dx); CALCULUS OF KIDNEY; LUMBAGO Social History Tobacco Use Types Packs/Day Years Used Date Smoking Tobacco: Never Assessed Comments Unknown Sex and Gender Information Value Date Recorded Sex Assigned at Not on file Legal Sex Female 2:45 AM SCRIPT MANAGER Gender Identity Not on file Sexual [...] documented as of this encounter Care Teams Induction Coordination Power Engineer Relationship Specialty Start Date End Date Non-Staff, Physician NO ADDRESS ON FILE PCP - General 01/10/20 documented as of this encounter
--- OUTSIDE RECORDS SUMMARY | 2025-04-03 22:36 | XMS_ITS | Encounter Summary ---
Author Organization [facility] Address [address] [place] [address] Care Team Providers Care Bindery Machine Operator Name Role Phone Non-Staff, Physician Primary Care Provider Unava ilable Encounter Details Date Type Department Care Team (Latest Contact Info) Description 08/23/2006 Outpatient Historical [facility] Pain Management Procedures [address] [place] [phone] Cristiano Nunez Thoracic or Lumbosacral Neuritis or Radiculitis, Unspecified (Primary Dx) Social History Tobacco Use Types Packs/Day Years Used Date Smoking Tobacco: Never Assessed Comments Unknown Sex and Gender Information Value Date Recorded Sex Assigned at Not on file Legal Sex Female 2:45 AM COTTON BUYER Gender Identity Not on file Sexual Orientation [...] documented as of this encounter Care Teams Bindery Machine Operator Relationship Specialty Start Date End Date Non-Staff, Physician NO ADDRESS ON FILE PCP - General 01/10/20 documented as of this encounter
--- OUTSIDE RECORDS SUMMARY | 2025-04-03 22:36 | XMS_ITS | Encounter Summary ---
Author Organization [facility] Address [address] [place] [address] Care Team Providers Care Industrial Electrician Name Role Phone Non-Staff, Physician Primary Care Provider Unava ilable Encounter Details Date Type Department Care Team (Latest Contact Info) Description 08/08/2006 Outpatient [facility] [address] [place] [phone] Cristiano Nunez Thoracic or Lumbosacral Neuritis or Radiculitis, Unspecified (Primary Dx) Social History Tobacco Use Types Packs/Day Years Used Date Smoking Tobacco: Never Assessed Comments Unknown Sex and Gender Information Value Date Recorded Sex Assigned at Not on file Legal Sex Female 2:45 AM SEED COLLECTOR Gender Identity Not on file Sexual [...] as of this encounter Care Teams Industrial Electrician Relationship Specialty Start Date End Date Non-Staff, Physician NO ADDRESS ON FILE PCP - General 01/10/20 documented as of this encounter
--- OUTSIDE RECORDS SUMMARY | 2025-04-03 22:36 | XMS_ITS | Encounter Summary ---
Author Organization [facility] Address [address] [facility] [place] [address] Care Team Providers Care Sock Drier Name Role Phone Non-Staff, Physician Primary Care Provider Unava ilable Encounter Details Date Type Department Care Team (Latest Contact Info) Description 02/18/2004 Outpatient Historical [facility] Family Medicine- [address]mit[address] [place] [phone] Edmond Machado DO NO ADDRESS ON FILE ABDOMINAL PAIN UNSPEC SITE (Primary Dx); FEMALE GENITAL SYMPTOMS NOS; LUMBAGO; DIABETES MELLITUS TYPE II-UNCOMPL (CMS/HCC) Social History Tobacco Use Types Packs/Day Years Used Date Smoking Tobacco: Never Assessed Comments Unknown Sex and Gender Information Value Date Recorded Sex Assigned at Not on file Legal Sex Female 2:45 AM CHIEF SECURITY OFFICER Gender Identity Not on file Sexual [...] documented as of this encounter Care Teams Sock Drier Relationship Specialty Start Date End Date Non-Staff, Physician NO ADDRESS ON FILE PCP - General 01/10/20 documented as of this encounter
--- OUTSIDE RECORDS SUMMARY | 2025-04-03 22:36 | XMS_ITS | Encounter Summary ---
Author Organization [facility] Address [address] [facility] [place] [address] Care Team Providers Care Rn Documentation Name Role Phone Non-Staff, Physician Primary Care Provider Unava ilable Encounter Details Date Type Department Care Team (Latest Contact Info) Description 07/30/2003 Outpatient Historical [facility] Family Medicine- [address] [place] [phone] Edmond Machado DO NO ADDRESS ON FILE ACUTE PHARYNGITIS (Primary Dx); ACUTE SINUSITIS NOS; ACUTE BRONCHITIS; LUMBAGO Social History Tobacco Use Types Packs/Day Years Used Date Smoking Tobacco: Never Assessed Comments Unknown Sex and Gender Information Value Date Recorded Sex Assigned at Not on file Legal Sex Female 2:45 AM DISTRIBUTION ENGINEERING TECHNOLOGIST Gender Identity Not on file Sexual Orientation [...] as of this encounter Care Teams Rn Documentation Relationship Specialty Start Date End Date Non-Staff, Physician NO ADDRESS ON FILE PCP - General 01/10/20 documented as of this encounter
--- OUTSIDE RECORDS SUMMARY | 2025-04-03 22:36 | XMS_ITS | Clinical Summary ---
Author Organization [facility] Address [address] [facility] [address] Attn: Epic Prelude ADT [place] [address] Care Team Providers Care Load Out Supervisor Name Role Phone Non-Staff, Physician Primary Care Provider Unava ilable Allergies Active Allergy Reactions Criticality Noted Date Comments Aspirin Nausea and Vomiting Medium Codeine Rash,Nausea and Vomiting,Unknown High Morphine Swelling High Sulfa (Sulfonamide Antibiotics) Rash High Sulfamethoxazole-Trim ethoprim Other (See Comments) 12/25/2018 Unknown, per facility Medications blood sugar diagnostic StripIndications:T ype 2 diabetes mellitus with hyperglycemia, with long-term current use of insulin ([facility]) Test blood sugar three time per day. DX:E11.43. 300 Each 3 04/17/19 19 Active fluticasone propionate (FLOVENT HFA) 110 mcg/actuation HFA Aerosol InhalerIndications :Mild intermittent asthma without complication,Panlo bular emphysema ([facility]) Take 2 Puffs by inhalation 2 times daily. 36 Gram 3 04/17/19 19 Active ARIPiprazole (ABILIFY) 2 mg tabletIndications: Depression with anxiety TAKE 1 TABLET(2 MG) BY MOUTH DAILY 90 Tablet 1 04/27/19 19 Active insulin lispro (HumaLOG KwikPen Insulin) 100 unit/mL pen syringeIndications :Type 2 diabetes mellitus with complication, with long-term current use of insulin ([facility]) INJECT 15 UNITS SUBCUTANEOUSLY THREE TIMES DAILY BEFORE MEALS IF GLUCOSE GREATER THAN 160 45 mL 2 06/19/19 19 Active insulin detemir U-100 (LEVEMIR) 100 unit/mL pen syringeIndications :Type 2 diabetes mellitus with complication, with long-term current use of insulin ([facility]),Hypergly cemia Inject 20 Units [...] tablet Take 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 12/26/19 Active MAGNESIUM HYDROXIDE ORAL Take 30 [...] 6 hours as needed. 12/26/19 Active Insulin Tilghman, Disposable, 31 gauge x 06/23 NeedleIndications: Type 2 diabetes mellitus with hyperglycemia, with long-term current use of insulin ([facility]) Use 4 times per day Dx: E11.8. 300 Each 3 01/31/20 18 Active donepeziL (ARICEPT) 5 mg tabletIndications: Short-term memory loss TAKE 1 TABLET BY MOUTH DAILY 90 Tablet 3 02/10/20 Active lancets 33 gaugeIndications:T ype 2 diabetes mellitus with hyperglycemia, with long-term current use of insulin ([facility]) Test blood sugar 3 [...] Infection of total knee replacement, subsequent encounter Automotive Sales Manager Socks 1 Each 0 01/15/20 Active Miscellaneous [...] complication, with long-term current use of insulin ([facility]),Hypergly cemia Test blood sugar [...] Encounters Date Type Department Care Team Description 03/23/2025 4:50 AM FISHER TROLL LINE - 03/23/2025 11:59 PM FISHER TROLL LINE Hospital Encounter [facility] [place] [address] [place] [address] Ambulance, [facility] Discharge Disposition: [facility] 02/25/2025 External Device Data STL ABSTRACTION Provider, Abstract 02/05/2025 External Device Data STL ABSTRACTION Provider, Abstract 02/04/2025 External Device Data STL ABSTRACTION Provider, Abstract 02/04/2025 External Device Data STL ABSTRACTION Provider, Abstract 01/21/2025 7:15 AM CDT - 01/21/2025 11:59 PM CDT Hospital Encounter [facility] [place] [address] [facility] [address] [place] [address] Ambulance, [place] Discharge Disposition: [facility] from Last 3 Months Immunizations Immunization Administration [...] on file Legal Sex Female 10:52 AM FISHER TROLL LINE Gender Identity Not on file Sexual Orientation Not on file Last Filed Vital Signs Vital Sign Reading Time Taken Comments Blood Pressure 143/92 05/06/2023 12:00 AM FISHER TROLL LINE Pulse 94 05/06/2023 12:00 AM FISHER TROLL LINE Temperature 36.3 C (97.3 F) 05/05/2023 9:01 PM FISHER TROLL LINE Respiratory Rate 16 05/06/2023 12:00 AM FISHER TROLL LINE Oxygen Saturation 100% 05/06/2023 12:00 AM FISHER TROLL LINE Inhaled Oxygen Concentration - - Weight 68.1 kg (150 lb 3.2 oz) 05/05/2023 9:01 P M FISHER TROLL LINE Height 147.3 cm (4' 10 ) 05/05/2023 9:01 PM FISHER TROLL LINE Body Mass Index 31.39 05/05/2023 9:01 PM FISHER TROLL LINE Plan of Treatment Health Maintenance Due Date Last Done Comments Traditional Medicare (ACO) A nnual Wellness Visit 01/16/1967 ZOSTER VACCINE (1 of 2) 01/16/1998 DIABETES [...] 75+ series) 01/16/2023 INFLUENZA VACCINE (#1) 2024 , 01/25/2019, 04/17/2018, Additional history exists COVID-19 Vaccine ( - 2024-2 6 season) 2024 07/04/2024, 05/05/2023, [...] years Discontinued Medical Devices Implanted Type Area Cross Tie Cutter Device Identifier Shelf Expiration Date Model / Serial / Lot Log [id number] - Cement - 1 - Cement [facility] [id number] Implanted:Qty: 1 on 11/11/2008 Cement Left: Knee [employer]ATH[employer]INE [employer] 05/11/2013 [id number] / NA / [id number] Cement [facility] [id number] Implanted:Qty: 1 on 09/15/2009 Cement Right: Knee [employer]ATH[employer] 09/08/[id number] Log 19165 - Katherine Total Knee - 1 - Art Surface Nk [id number] Implanted:Qty: 1 on 11/11/2008 Knee Left: Knee [employer]ATH[employer]INE [employer] 05/11/2012 [id number] / NA / [id number] Log 29987 - Katherine Total Knee - 1 - Comp Fem Nkii Gs [id number] Implanted:Qty: 1 on 11/11/2008 Knee Left: Knee [employer] 10/08/2017 [id number] / NA / [id number] Log 55102 - Katherine Total Knee - 1 - Comp Tib Nkii Maintenance Foreman [facility] [id number] Implanted:Qty: 1 on 11/11/2008 Knee Left: Knee [employer] [id number] / NA / [id number] Log 18384 - Katherine Total Knee - 1 - Patella Nk Gs Poly 8mm [id number] Implanted:Qty: 1 on 11/11/2008 Knee Left: Knee [employer] 09/08/2012 [id number] / NA / [id number] Log 86972 - Depuy Total Knee - 1 - Comp Fem Sigma Cr Npor Sz2.5 Rt 96-0018 Implanted:Qty: 1 on 09/15/2009 Knee Right: Knee [employer] 07/09/2014 96-0018 / / [id number] Patella Implanted:Qty: 1 on 09/15/2009 Knee Right: Knee [employer] 07/09/2014 96-0018 / / [id number] Description:3-Post Round Dom e [id number] MM Tibial Tray Implanted:Qty: 1 on 09/15/2009 Knee Right: Knee [employer] 07/10/2019 [id number] / / [id number] Description:Napoleon DUONGTIBHira AL TRAY FIXED BEARINGMODULAR COCR 2 Mesh Ventralex Patch Med [id number] - [id number] Implanted:Qty: 1 on 09/10/2012 Mesh N/A: Abdomen CR BARD- [employer] 06/10/2016 [id number] / / [id number] Cross-Linked Curved Insert Implanted:Qty: 1 on 09/15/2009 Right: Knee [employer] 02/08/2014 [id number] / / [id number] Description:Napoleon JARRELLOS S-LINKED CURVED INSERT Procedures Procedure Name Priority Date/Time Associated Diagnosis Comments HEMOGLOBIN A1C Routine 12/25/2018 8:21 AM CDT LIPID PANEL Routine 10/26/2017 12:21 PM CDT XR DEXA BONE DENSITY AXIAL 1 OR MORE SITES Routine 08/01/2017 1:30 PM CDT Encounter for screening for osteoporosis HM DIABETES EYE EXAM 05/19/2017 12:00 AM FISHER TROLL LINE MICROALBUMIN/CREATI NINE RATIO, RANDOM UR Routine 01/19/2017 9:43 AM CDT from Last 3 Months or Most Recently Relevant to Health Maintenance Results * (ABNORMAL) HEMOGLOBIN A1C (12/25/2018 8:21 AM CDT) HEMOGLOBIN A1C 7.4(H) <=5.6 % 12/25/2018 9:10 AM CDT [facility] EST. AVG GLUCOSE, A1C 166 mg/dL 12/25/2018 9:10 AM CDT [facility] Blood Venipuncture / Unknown 12/25/2018 8:21 AM CDT 12/25/2018 8:40 AM CDT [facility] LABORATORY [facility] - 12/25/2018 9:10 AM CDT HGB A1C INTERPRETATION NORMAL: <5.7% PRE-DIABETES: 5.7 - 6.4% DIABETES: 6.5% OR GREATER us David Levy MD CHEMISTRY ORDERABLES Final Resu lt [facility] CLIA #[id number] [address] [place] [address] [facility] CLIA #[id number] [address] [place] [address] * (ABNORMAL) LIPID PANEL (10/26/2017 12:21 PM CDT) CHOLESTEROL 169 <200 mg/dL 10/26/2017 9:39 PM CDT [facility]LO LARKIN TRIGLYCERIDE 61 <150 mg/dL 10/26/2017 9:39 PM CDT [facility] HDL 63(H) 40 - 59 mg/dL 10/26/2017 9:39 PM CDT [facility] LDL CALCULATED 94 <100 mg/dL 10/26/2017 9:39 PM CDT [facility]ARK[facility] NON-HDL CHOLESTEROL 106 <130 mg/dL 10/26/2017 9:39 PM CDT [facility] Blood Collection / Unknown 10/26/2017 12:21 PM CDT 10/26/2017 8:19 PM CDT Narrative [facility] - 10/26/2017 9:39 PM CDT TOTAL CHOLESTEROL mg/dL Desirable<200 Borderline [id number] High>=240 TRIGLYCERIDES mg/dL Normal<150 Borderline manq258-980 Aejr007-477 Very high>=500 HDL CHOLESTEROL mg/dL Low<40 Ekqepc19-84 Desirable>=60 NON HDL CHOLESTEROL mg/dL Optimal<130 Near Rsoewjv626-122 Borderline Fldf450-339 Very High>=190 Calculated LDL mg/dL Optimal<100 Near Gyzoahd237-425 Borderline Tupl534-536 Zeii361-965 Very High>=190 ATPIII Guidelines Reference Ranges for Lipid Panels (NCEP/AMA) Gwendolyn Pitts FROG SHAKER CHEMISTRY ORDERABLES Fi nal Result [facility] CLIA# [id number] [address] [place] [address] * XR DEXA BONE DENSITY AXIAL 1 [...] clinical management available online at [email or web address] [employer] DXA and the Femoral Neck BMD value. [id number] Narrative 08/01/2017 11:47 PM CDT DEXA Evaluation [...] clinical management available online at [email or web address] [employer] DXA and the Femoral Neck BMD value. [id number] us Gwendolyn Pitts FROG SHAKER DIAGNOSTIC IMAGING ORDE ANA Final Result * HM DIABETES EYE EXAM (05/19/2017 12:00 AM FISHER TROLL LINE) us Sgf Scanning HEALTH MAINTENANCE Final Result * MICROALBUMIN/CREATININE RATIO, RANDOM UR (01/19/2017 9:43 AM CDT) MICROALBUMIN, URINE <1.2 No Reference Range mg/dL 01/19/2017 9:27 PM CDT [facility] CREATININE, URINE 85.1 29.0 - 226.0 mg/dL 01/19/2017 9:27 PM CDT [facility] Comment: Reference Range varies with fluid intake and diet. MICROALBUMIN/C REAT RATIO, UR <14.1 <25.0 mg/g Creatinine 01/19/2017 9:27 PM CDT [facility] Urine URINE SPECIMEN OBTAINED BY CLEAN CATCH PROCEDURE / Unknown Collection / Unknown 01/19/2017 9:43 AM CDT 01/19/2017 8:39 PM CDT Narrative [facility] - 01/19/2017 9:27 PM CDT Condition Microalbumin/Creat ratio Normal Males <17 Normal Females <25 Microalbuminuria Males 17-299 Microalbuminuria Females 25-299 Overt proteinuria >=300 Mary Kate Abbasi APRN URINE ORDERABLES Final Result [facility] CLIA# [id number] [facility] [place] [address] from Last 3 Months or Most Recently Relevant to Health Maintenance Additional Health Concerns Infection Onset Date Last Indicated CREW SCHEDULER-CP Comment:Sputum 07/09/18 (Serratia) 07/09/2018 12/25/2023 Insurance [place] PART A AND B Advance Directives For more information, please contact: [phone] Documents on File Type Date Recorded Patient Basin Cleaner Expl anation Advance Directive POA 07/09/2018 5:19 AM Ad martines Directive POA Care Teams Load Out Supervisor Relationship Specialty Start Date End Date Non-Staff, Physician NO ADDRESS ON FILE PCP - General 01/10/20
--- OUTSIDE RECORDS SUMMARY | 2025-04-03 22:36 | XMS_ITS | Encounter Summary ---
Author Organization [facility] Address [address] [place] [address] Care Team Providers Care Service Dismantler Name Role Phone Non-Staff, Physician Primary Care Provider Unava ilable Encounter Details Date Type Department Care Team (Latest Contact Info) Description 08/22/2003 Outpatient Historical [facility] Family Medicine- [place] [address] [place] [phone] Nell Verde MD NO ADDRESS ON FILE DIABETES UNCOMPL ADULT-TYPE II (CMS/HCC) (Primary Dx); HYPOTHYROIDISM NOS; HYPERTENSION NOS Social History Tobacco Use Types Packs/Day Years Used Date Smoking Tobacco: Never Assessed Comments Unknown Sex and Gender Information Value Date Recorded Sex Assigned at Not on file Legal Sex Female 2:45 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
--- OUTSIDE RECORDS SUMMARY | 2025-04-03 22:36 | XMS_ITS | Encounter Summary ---
Author Organization [facility] Address [address] [place] [address] Care Team Providers Care Cable Tv Installer Name Role Phone Non-Staff, Physician Primary Care Provider Unava ilable Encounter Details Date Type Department Care Team (Late st Contact Info) Description 03/27/2007 Outpatient Historical [facility] Family Medicine- Amita Jimenez [address] [place] [address] Jim Aquino, PA NO ADDRESS ON FILE Social History Tobacco Use Types Packs/Day Years Used Date Smoking Tobacco: Never Assessed Comments Unknown Sex and Gender Information Value Date Recorded Sex Assigned at Not on file Legal Sex Female 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
--- OUTSIDE RECORDS SUMMARY | 2025-04-03 22:36 | XMS_ITS | Encounter Summary ---
Author Organization [facility] Address [address] [place] [address] Care Team Providers Care Retail Product Demo Specialist Name Role Phone Non-Staff, Physician Primary Care Provider Unava ilable Encounter Details Date Type Department Care Team (Latest Contact Info) Description 02/21/2002 Outpatient Historical [facility] Medicine [place] [address] [facility] [address] [place] [phone] Nell Verde MD NO ADDRESS ON FILE DIABETES UNCOMPL ADULT-TYPE II (CMS/HCC) (Primary Dx); HYPERTENSION NOS; ADJ REACT-ANXIOUS MOOD Social History Tobacco Use Types Packs/Day Years Used Date Smoking Tobacco: Never Assessed Comments Unknown Sex and Gender Information Value Date Recorded Sex Assigned at Not on file Legal Sex Female 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
--- OUTSIDE RECORDS SUMMARY | 2025-04-03 22:36 | XMS_ITS | Encounter Summary ---
Author Organization [facility] Address [address] [place] [address] Care Team Providers Care Facility Operations Manager Name Role Phone Non-Staff, Physician Primary Care Provider Unava ilable Encounter Details Date Type Department Care Team (Latest Contact Info) Description 06/20/2003 Outpatient Historical [facility] General Surgery [address] [address] [address] [place] [address] [place] [address] [facility] [address] [place] [address] ABDOMINAL PAIN OTHER SPEC SITE (Primary Dx) Social History Tobacco Use Types Packs/Day Years Used Date Smoking Tobacco: Never Assessed Comments Unknown Sex and Gender Information Value Date Recorded Sex Assigned at Not on file Legal Sex Female 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
--- OUTSIDE RECORDS SUMMARY | 2025-04-03 22:36 | XMS_ITS | Encounter Summary ---
Author Organization [facility] Address [address] [place] [address] Care Team Providers Care Customer Service Associate Name Role Phone Non-Staff, Physician Primary Care Provider Unava ilable Reason for Referral * Outpatient Services (Routine) - Closed Specialty Diagnoses / Procedures Referred By Jose t Referred To Contact Diagnoses Well woman exam Procedures MAMMO DIGITIZED STUDY Mary Kate Abbasi APRN NO ADDRESS ON FILE Referral ID Status Reason Start Date Expiration Date Visits Re quested Visits Authorized [id number] Closed 07/05/2011 07/04/2012 1 1 * Outpatient Services (Routine) - Closed Specialty Diagnoses / Procedures Referred By Jose arriola Referred To Contact Diagnoses Well woman exam Procedures MAMMO DIGITIZED STUDY Mary Kate Abbasi APRN NO ADDRESS ON FILE Referral ID Status Reason Start Date Expiration Date Visits Re quested Visits Authorized [id number] Closed 07/05/2011 07/04/2012 1 1 Encounter Details Date Type Department Care Team (Late st Contact Info) Description 07/05/2011 Ancillary Orders [facility] Family Medicine- Amita [address] [place] [phone] Mary Kate Abbasi APRN NO ADDRESS ON [...] on file Legal Sex Female 2:45 AM GIFTS OFFICER Gender Identity Not on file Sexual Orientation Not on file documented as of this encounter Plan of Treatment Not on file documented as of this encounter Results * MAMMO DIGITIZED STUDY (03/11/2009 11:46 AM GIFTS OFFICER) Narrative Emily Hairston, RT - 07/05/2011 11:46 AM CDT Order information only. Exam was auto-finalized. Procedure Note Emily Hairston, RT - 07/05/2011 Order information only. Exam was [facility] G ORDERABLES Final Result * MAMMO DIGITIZED STUDY (03/15/2007 11:45 AM GIFTS OFFICER) Narrative Emily Hairston, RT - 07/05/2011 11:46 AM CDT Order information only. Exam was auto-finalized. Procedure Note Emily Hairston, RT - 07/05/2011 Order information only. Exam was [facility]-finalized. [facility] DIAGNOSTIC IMAGIN G ORDERABLES [...] documented as of this encounter Care Teams Customer Service Associate Relationship Specialty Start Date End Date Non-Staff, Physician NO ADDRESS ON FILE PCP - General 01/10/20 documented as of this encounter
--- OUTSIDE RECORDS SUMMARY | 2025-04-03 22:36 | XMS_ITS | Encounter Summary ---
Author Organization [facility] Address [address] [place] [address] Care Team Providers Care Grease Maker Name Role Phone Non-Staff, Physician Primary Care Provider Unava ilable Encounter Details Date Type Department Care Team (Latest Contact Info) Description 09/12/2006 Outpatient Historical [facility] [address] 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
--- OUTSIDE RECORDS SUMMARY | 2025-04-03 22:36 | XMS_ITS | Encounter Summary ---
Author Organization [facility] Address [address] [place] [facility] [place] [place] [address] Care Team Providers Care Steam Table Worker Name Role Phone Non-Staff, Physician Primary Care Provider Unava ilable Encounter Details Date Type Department Care Team (Latest Contact Info) Description 02/25/2004 Outpatient Historical [facility] Family Medicine- [address]mit[address] [place] [phone] Abel Fields NP NO ADDRESS ON FILE ABDOMINAL PAIN RLQ (Primary Dx); VAGINITIS NOS; ROUTINE OPERATOR ELECTRONIC WARFARE EXAMINATION Social History Tobacco Use Types Packs/Day Years Used Date Smoking Tobacco: Never Assessed Comments Unknown Sex and Gender Information Value Date Recorded Sex Assigned at Not on file Legal 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
--- OUTSIDE RECORDS SUMMARY | 2025-04-03 22:36 | XMS_ITS | Encounter Summary ---
Author Organization [facility] Address [address] [place] [address] Care Team Providers Care Extension Associate Name Role Phone Non-Staff, Physician Primary Care Provider Unava ilable Encounter Details Date Type Department Care Team (Latest Contact Info) Description 06/10/2002 Outpatient Historical [facility] [facility] [address] 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
--- OUTSIDE RECORDS SUMMARY | 2025-04-03 22:36 | XMS_ITS | Encounter Summary ---
Author Organization [facility] Address [address] [place] [address] Care Team Providers Care Technical Assistance Consultant Name Role Phone Non-Staff, Physician Primary Care Provider Unava ilable Encounter Details Date Type Department Care Team (Latest Contact Info) Description 09/12/2006 Outpatient [facility] [address] [place] [phone] Cristiano Nunez Thoracic or Lumbosacral Neuritis or Radiculitis, Unspecified (Primary Dx) Social History Tobacco Use Types Packs/Day Years Used Date Smoking Tobacco: Never Assessed Comments Unknown Sex and Gender Information Value Date Recorded Sex Assigned at Not on file Legal Sex Female 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
--- OUTSIDE RECORDS SUMMARY | 2025-04-03 22:36 | XMS_ITS | Encounter Summary ---
Author Organization [facility] Address [address] [place] [address] Care Team Providers Care Zinc Skimmer Name Role Phone Non-Staff, Physician Primary Care Provider Unava ilable Encounter Details Date Type Department Care Team (Latest Contact Info) Description 12/21/2005 Outpatient Historical [facility] Medicine [place] [address] [facility] [address] [place] [phone] Nell Verde MD NO ADDRESS ON FILE Urinary Tract Infection, Site not Specified (Primary Dx); Unspecified Backache; Dermatophytosis of Nail; DM w/o Complication Type II (CMS/HCC) Social History Tobacco Use Types Packs/Day Years Used Date Smoking Tobacco: Never Assessed Comments Unknown Sex and Gender Information Value Date Recorded Sex Assigned at Not on file Legal 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
--- OUTSIDE RECORDS SUMMARY | 2025-04-03 22:36 | XMS_ITS | Encounter Summary ---
Author Organization [facility] Address [address] [place] [address] Care Team Providers Care Tacking Machine Operator Name Role Phone Non-Staff, Physician Primary Care Provider Unava ilable Encounter Details Date Type Department Care Team (Latest Contact Info) Description 09/09/2004 Outpatient Historical [facility] Medicine [place] [address] [facility] [address] [place] [phone] Nell Verde MD NO ADDRESS ON FILE HYPERTENSION NOS (Primary Dx); DIABETES MELLITUS TYPE II-UNCOMPL (CMS/HCC); HYPOTHYROIDISM NOS; MYOCLONUS Social History Tobacco Use Types Packs/Day Years Used Date Smoking Tobacco: Never Assessed Comments Unknown Sex and Gender Information Value Date Recorded Sex Assigned at Not on file Legal Sex Female 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
--- OUTSIDE RECORDS SUMMARY | 2025-04-03 22:36 | XMS_ITS | Encounter Summary ---
Author Organization [facility] Address [address] [place] [facility] [place] [address] Care Team Providers Care Electron Beam Welding Machine Operator Name Role Phone Non-Staff, Physician Primary Care Provider Unava ilable Encounter Details Date Type Department Care Team (Latest Contact Info) Description 02/18/2003 Outpatient Historical [facility] Family Medicine- [address] [place] [address] Edmond Machado DO NO ADDRESS ON FILE BACKACHE NOS (Primary Dx); HYPOTHYROIDISM NOS Social History Tobacco Use Types Packs/Day Years Used Date Smoking Tobacco: Never Assessed Comments Unknown Sex and Gender Information Value Date Recorded Sex Assigned at Not on file Legal Sex Female 2:45 AM SHOT COAT TENDER Gender Identity Not on file Sexual [...] documented as of this encounter Care Teams Electron Beam Welding Machine Operator Relationship Specialty Start Date End Date Non-Staff, Physician NO ADDRESS ON FILE PCP - General 01/10/20 documented as of this encounter
--- OUTSIDE RECORDS SUMMARY | 2025-04-03 22:36 | XMS_ITS | Encounter Summary ---
Author Organization [facility] Address [address] [place] [facility] [place] [address] Care Team Providers Care Hazardous Materials Handler Name Role Phone Non-Staff, Physician Primary Care Provider Unava ilable Encounter Details Date Type Department Care Team (Latest Contact Info) Description 06/03/2005 Outpatient Historical [facility] Family Medicine- [address] [place] [address] Nell Verde MD NO ADDRESS ON FILE ACUTE BRONCHITIS (Primary Dx); MORBID OBESITY (CMS/HCC); DIABETES MELLITUS TYPE II-UNCOMPL (CMS/HCC) Social History Tobacco Use Types Packs/Day Years Used Date Smoking Tobacco: Never Assessed Comments Unknown Sex and Gender Information Value Date Recorded Sex Assigned at Not on file Legal Sex Female 2:45 AM BODY AND FENDER 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
--- OUTSIDE RECORDS SUMMARY | 2025-04-03 22:37 | XMS_ITS | Clinical Summary ---
Author Organization [facility] Address [address] [place] [address] Care Team Providers Care Mainspring Torque Tester Name Role Phone Anshu Ames MD Primary [...] Department Care Team Description 03/19/2025 2:30 PM MANIFEST CLERK Telemedicine [facility] [place] - Primary Care 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 [place] [address] Anshu Ames MD Type 2 diabetes mellitus with diabetic neuropathy, with long-term current use of insulin (HCC) (Primary Dx); Chronic diastolic CHF (congestive heart failure) (HCC); Pancytopenia (HCC); Other emphysema (HCC); Hx of AKA (above knee amputation), right (HCC) 02/10/2025 Refill [facility] [place] - Primary Care [address] [place] [address] Alia Landeros LPN Pain 01/16/2025 Refill [facility] [place] - Primary Care [address] [place] [address] Vanessa Domniguez, DANA Pain from Last 3 Months Immunizations [...] on file Legal Sex Female 9:13 PM MANIFEST CLERK Gender Identity Not on file Sexual Orientation Not on file Last Filed Vital Signs Vital Sign Reading Time Taken Comments Blood Pressure 112/60 03/17/2025 9:55 AM MANIFEST CLERK Pulse 86 03/17/2025 9:55 AM MANIFEST CLERK Temperature 36.6 C (97.9 F) 03/17/2025 9:55 AM MANIFEST CLERK Respiratory Rate 20 03/17/2025 9:55 AM MANIFEST CLERK Oxygen Saturation 96% 03/17/2025 9:55 AM MANIFEST CLERK Inhaled Oxygen Concentration - - Weight 75.8 kg (167 lb) 03/17/2025 9:55 AM MANIFEST CLERK Height 144.8 cm (4' 9 ) 03/17/2025 9:55 AM MANIFEST CLERK Body Mass Index 36.14 03/17/2025 9:55 AM MANIFEST CLERK Plan of Treatment Health Maintenance Due Date Last Done Comments Foot Exam 1950 Ophthalmology Exam 01/16/1958 Urine Microalbumin 01/16/1958 Shingrix (ZOSTER RECOMBINANT) (1 of 2) 01/16/1998 Mammogram 08/29/2018 08/29/2017, 08/01/2017 Colonoscopy 10/15/2018 10/15/2008 Hemoglobin A1C 03/25/2019 12/25/2018 Bone Density Scan (DXA Scan) 08/01/2020 08/01/2017, 08/01/2017 RSV 60+ (1 - 1-dose 75+ series) 01/16/2023 COVID-19 Vaccine (2024- season) 2024 07/04/2024, 05/05/2023, 04/28/2020 Medicare Annual [...] age to complete this topic Insurance [facility] [place] [facility] Care Teams Mainspring Torque Tester Relationship Specialty Start Date End Date Anshu Ames MD [address] [place] [id number] PCP - General Family Medicine 03/08/22
--- OUTSIDE RECORDS SUMMARY | 2025-04-03 22:37 | XMS_ITS | Encounter Summary ---
Author Organization [facility] Address [address] [facility] [place] [place] [address] Care Team Providers Care Mailing Section Clerk Name Role Phone Non-Staff, Physician Primary Care Provider Unava ilable Encounter Details Date Type Department Care Team (Latest Contact Info) Description 08/14/2001 Outpatient Historical [facility] Family Medicine- [address] [place] [address] Edmond Machado DO NO ADDRESS ON FILE ANEMIA NOS (Primary Dx); HEMATURIA; BACKACHE NOS; MYALGIA AND MYOSITIS NOS Social History Tobacco Use Types Packs/Day Years Used Date Smoking Tobacco: Never Assessed Comments Unknown Sex and Gender Information Value Date Recorded Sex Assigned at Not on file Legal Sex Female 2:45 AM ROUTE SUPERVISOR Gender Identity Not on file Sexual [...] documented as of this encounter Care Teams Mailing Section Clerk Relationship Specialty Start Date End Date Non-Staff, Physician NO ADDRESS ON FILE PCP - General 01/10/20 documented as of this encounter
--- OUTSIDE RECORDS SUMMARY | 2025-04-03 22:37 | XMS_ITS | Encounter Summary ---
Author Organization [facility] Address [address] [facility] [address] Care Team Providers Care Front Desk Auxiliary Name Role Phone Non-Staff, Physician Primary Care Provider Unava ilable Encounter Details Date Type Department Care Team (Latest Contact Info) Description 03/12/2001 Outpatient Historical [facility] Family Medicine- [address] [place] [address] Nell Verde MD NO ADDRESS ON FILE JOINT PAIN-PELVIS (Primary Dx) Social History Tobacco Use Types Packs/Day Years Used Date Smoking Tobacco: Never Assessed Comments Unknown Sex and Gender Information Value Date Recorded Sex Assigned at Not on file Legal Sex Female 2:45 AM JUNIOR PARALEGAL Gender Identity Not on file Sexual Orientation [...] documented as of this encounter Care Teams Front Desk Auxiliary Relationship Specialty Start Date End Date Non-Staff, Physician NO ADDRESS ON FILE PCP - General 01/10/20 documented as of this encounter
--- OUTSIDE RECORDS SUMMARY | 2025-04-03 22:37 | XMS_ITS | Encounter Summary ---
Author Organization [facility] Address [address] [place] [address] Care Team Providers Care Chairperson Anesthesiology Name Role Phone Non-Staff, Physician Primary Care Provider Unava ilable Encounter Details Date Type Department Care Team (Latest Contact Info) Description 02/10/1998 Outpatient Historical [facility] Family Medicine- [address] [place] [phone] Edmond Machado DO NO ADDRESS ON FILE [...] documented as of this encounter Care Teams Chairperson Anesthesiology Relationship Specialty Start Date End Date Non-Staff, Physician NO ADDRESS ON FILE PCP - General 01/10/20 documented as of this encounter
--- OUTSIDE RECORDS SUMMARY | 2025-04-03 22:37 | XMS_ITS | Encounter Summary ---
Author Organization [facility] Address [address] [place] [facility] [place] [address] Care Team Providers Care Parachute Crown Sewer Name Role Phone Non-Staff, Physician Primary Care Provider Unava ilable Encounter Details Date Type Department Care Team (Latest Contact Info) Description 02/21/2000 Outpatient Historical [facility] Family Medicine- [address] [place] [phone] Eliz Echevarria NO ADDRESS ON FILE Acute sinusitis, unspecified (Primary Dx); Headache(784.0); Cough Social History Tobacco Use Types Packs/Day Years Used Date Smoking Tobacco: Never Assessed Comments Unknown Sex and Gender Information Value Date Recorded Sex Assigned at Not on file Legal Sex Female 2:45 AM 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
--- OUTSIDE RECORDS SUMMARY | 2025-04-03 22:37 | XMS_ITS | Encounter Summary ---
Author Organization [facility] Address [address] [place] [address] Care Team Providers Care Automatic Steel Tie Adjuster Name Role Phone Non-Staff, Physician Primary Care Provider Unava ilable Encounter Details Date Type Department Care Team (Latest Contact Info) Description 10/25/2000 Outpatient Historical [facility] Family Medicine- [address] [place] [address] Edmond Machado DO NO ADDRESS ON FILE Unspecified essential hypertension (Primary Dx); Unspecified hypothyroidism; Obesity, unspecified Social History Tobacco Use Types Packs/Day Years Used Date Smoking Tobacco: Never Assessed Comments Unknown Sex and Gender Information Value Date Recorded Sex Assigned at Not on file Legal Sex Female 2:45 AM DOCK BOSS Gender Identity Not on file Sexual Orientation [...] documented as of this encounter Care Teams Automatic Steel Tie Adjuster Relationship Specialty Start Date End Date Non-Staff, Physician NO ADDRESS ON FILE PCP - General 01/10/20 documented as of this encounter
--- OUTSIDE RECORDS SUMMARY | 2025-04-03 22:37 | XMS_ITS | Encounter Summary ---
Author Organization Address [address] [facility] Attn: Epic Prelude ADT [place] [address] Care Team Providers Care Recycling Or Rubbish Collector Name Role Phone Non-Staff, Physician Primary Care [...] on file Legal Sex Female 2:45 AM GEAR TECHNICIAN Gender Identity Not on file Sexual [...] documented as of this encounter Care Teams Recycling Or Rubbish Collector Relationship Specialty Start Date End Date Non-Staff, Physician NO ADDRESS ON FILE PCP - General 01/10/20 documented as of this encounter
--- OUTSIDE RECORDS SUMMARY | 2025-04-03 22:37 | XMS_ITS | Encounter Summary ---
Author Organization [facility] Address [address] [place] [facility] [place] [address] Care Team Providers Care Client Services Director Name Role Phone Non-Staff, Physician Primary Care Provider Unava ilable Encounter Details Date Type Department Care Team (Latest Contact Info) Description 02/03/1998 Outpatient Historical [facility] Family Medicine- [address] [place] [phone] Edmond Machado DO NO ADDRESS ON FILE Generalized osteoarthrosis, involving multiple sites (Primary Dx) Social History Tobacco Use Types Packs/Day Years Used Date Smoking Tobacco: Never Assessed Comments Unknown Sex and Gender Information Value Date Recorded Sex Assigned at Not on file Legal Sex Female 2:45 AM DATA PROCESSING OPERATOR Gender Identity Not on file Sexual [...] documented as of this encounter Care Teams Client Services Director Relationship Specialty Start Date End Date Non-Staff, Physician NO ADDRESS ON FILE PCP - General 01/10/20 documented as of this encounter
--- OUTSIDE RECORDS SUMMARY | 2025-04-03 22:37 | XMS_ITS | Encounter Summary ---
Author Organization [facility] Address [address] [place] [address] Care Team Providers Care Proofing Machine Operator Name Role Phone Non-Staff, Physician Primary Care Provider Unava ilable Encounter Details Date Type Department Care Team (Latest Contact Info) Description 12/16/1999 Outpatient Historical [facility] [place] [address] [facility] [address] [place] [phone] Yuan Barros MD Abdominal pain, epigastric (Primary Dx); Abdominal pain, right upper quadrant Social History Tobacco Use Types Packs/Day Years Used Date Smoking Tobacco: Never Assessed Comments Unknown Sex and Gender Information Value Date Recorded Sex Assigned at Not on file Legal Sex Female 2:45 AM TARGET TRIMMER Gender Identity Not on file Sexual Orientation [...] documented as of this encounter Care Teams Proofing Machine Operator Relationship Specialty Start Date End Date Non-Staff, Physician NO ADDRESS ON FILE PCP - General 01/10/20 documented as of this encounter
--- OUTSIDE RECORDS SUMMARY | 2025-04-03 22:37 | XMS_ITS | Encounter Summary ---
Author Organization [facility] Address [address] [facility] [place] [address] Care Team Providers Care Laundromat Worker Name Role Phone Non-Staff, Physician Primary Care Provider Unava ilable Encounter Details Date Type Department Care Team (Latest Contact Info) Description 03/10/1998 Outpatient Historical [facility] Family Medicine- [address] [place] [phone] Edmond Machado DO NO ADDRESS ON FILE Pain in joint, lower leg (Primary Dx); Rash and other nonspecific skin eruption Social History Tobacco Use Types Packs/Day Years Used Date Smoking Tobacco: Never Assessed Comments Unknown Sex and Gender Information Value Date Recorded Sex Assigned at Not on file Legal Sex Female 2:45 AM ASSISTANT PROFESSOR OF 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
--- OUTSIDE RECORDS SUMMARY | 2025-04-03 22:37 | XMS_ITS | Encounter Summary ---
Author Organization [facility] Address [address] [facility] [place] [address] Care Team Providers Care Turbo Electric Operator Name Role Phone Non-Staff, Physician Primary Care Provider Unava ilable Encounter Details Date Type Department Care Team (Latest Contact Info) Description 11/27/2000 Outpatient Historical [facility] Family Medicine- [address] [place] [address] Edmond Machado, NO ADDRESS ON FILE Toxic effect venom (Primary Dx); Cervicalgia; Impetigo; Dermatophytosis of groin and perianal area Social History Tobacco Use Types Packs/Day Years Used Date Smoking Tobacco: Never Assessed Comments Unknown Sex and Gender Information Value Date Recorded Sex Assigned at Not on file Legal Sex Female 2:45 AM SUPPLY CRIB ATTENDANT Gender Identity Not on file Sexual [...] documented as of this encounter Care Teams Turbo Electric Operator Relationship Specialty Start Date End Date Non-Staff, Physician NO ADDRESS ON FILE PCP - General 01/10/20 documented as of this encounter
--- OUTSIDE RECORDS SUMMARY | 2025-04-03 22:37 | XMS_ITS | Encounter Summary ---
Author Organization [facility] Address [address] [place] [address] Care Team Providers Care Raw Juice Weigher Name Role Phone Non-Staff, Physician Primary Care Provider Unava ilable Encounter Details Date Type Department Care Team (Latest Contact Info) Description 08/09/2000 Outpatient Historical [facility] General Surgery [address] [address] [address] [place] [address] [place] [address] [facility] [address] [place] [address] Abdominal pain, epigastric (Primary Dx) Social History Tobacco Use Types Packs/Day Years Used Date Smoking Tobacco: Never Assessed Comments Unknown Sex and Gender Information Value Date Recorded Sex Assigned at Not on file Legal Sex Female 2:45 AM FASHION MARKETER Gender Identity Not on file Sexual Orientation [...] documented as of this encounter Care Teams Raw Juice Weigher Relationship Specialty Start Date End Date Non-Staff, Physician NO ADDRESS ON FILE PCP - General 01/10/20 documented as of this encounter
--- OUTSIDE RECORDS SUMMARY | 2025-04-03 22:37 | XMS_ITS | Encounter Summary ---
Author Organization [facility] Address [address] [facility] Attn: Epic Prelude ADT [place] [address] Care Team Providers Care Interior Assemblies Developer Prover Name Role Phone Non-Staff, Physician Primary Care [...] on file Legal Sex Female 2:45 AM VAULT PERSON Gender Identity Not on file Sexual [...] documented as of this encounter Care Teams Interior Assemblies Developer Prover Relationship Specialty Start Date End Date Non-Staff, Physician NO ADDRESS ON FILE PCP - General 01/10/20 documented as of this encounter
--- OUTSIDE RECORDS SUMMARY | 2025-04-03 22:37 | XMS_ITS | Encounter Summary ---
Author Organization [facility] Address [address] [place] [address] Care Team Providers Care Restorer Lace And Textiles Name Role Phone Non-Staff, Physician Primary Care Provider Unava ilable Reason for Referral * CT Scan (Routine) - Closed Specialty Diagnoses / Procedures Referred By Contac t Referred To Contact Radiology Diagnoses Headache Procedures CT HEAD WO CONTRAST Edmond Machado DO [facility] CT Scan [place] [address] [facility] [address] [place] [address] Phone: tel: fax: Referral ID Status Reason Start Date Expiration Date V isits Requested Visits Authorized [id number] Closed NMN View CTS to Schedule (SGF) 09/11/2018 10/12/2019 1 1 Encounter Details Date Type Department Care Team (Late st Contact Info) Description 09/11/[address] [facility] Centralized Scheduling [address] 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
--- OUTSIDE RECORDS SUMMARY | 2025-04-03 22:37 | XMS_ITS | Encounter Summary ---
Author Organization [facility] Address [address] [place] [facility] [place] [address] Care Team Providers Care Boat Rental Clerk Name Role Phone Non-Staff, Physician Primary Care Provider Unava ilable Encounter Details Date Type Department Care Team (Latest Contact Info) Description 04/21/1998 Outpatient Historical [facility] Family Medicine- [address] [place] [address] Edmond Machado DO NO ADDRESS ON FILE Scabies (Primary Dx); Allergy, unspecified not elsewhere classified Social History Tobacco Use Types Packs/Day Years Used Date Smoking Tobacco: Never Assessed Comments Unknown Sex and Gender Information Value Date Recorded Sex Assigned at Not on file Legal Sex Female 2:45 AM DEVELOPER PROVER MECHANICAL Gender Identity Not on file Sexual Orientation [...] documented as of this encounter Care Teams Boat Rental Clerk Relationship Specialty Start Date End Date Non-Staff, Physician NO ADDRESS ON FILE PCP - General 01/10/20 documented as of this encounter
--- OUTSIDE RECORDS SUMMARY | 2025-04-03 22:37 | XMS_ITS | Encounter Summary ---
Author Organization [facility] Address [address] [facility] Attn: Epic Prelude ADT [place] [address] Care Team Providers Care Career Center Director Name Role Phone Non-Staff, Physician [...] on file Legal Sex Female 2:45 AM BRANCH OPERATION EVALUATION MANAGER Gender Identity Not on file Sexual [...] documented as of this encounter Care Teams Career Center Director Relationship Specialty Start Date End Date Non-Staff, Physician NO ADDRESS ON FILE PCP - General 01/10/20 documented as of this encounter
--- OUTSIDE RECORDS SUMMARY | 2025-04-03 22:37 | XMS_ITS | Encounter Summary ---
Author Organization [facility] Address [address] [place] [address] Care Team Providers Care Press Setup Operator Name Role Phone Non-Staff, Physician Primary Care Provider Unava ilable Encounter Details Date Type Department Care Team (Latest Contact Info) Description 01/02/2002 Outpatient Historical [facility] Family Medicine- [place] [address] [place] [phone] Jaime Frausto MD [address] [facility] [address] [place] [address] ABDOMINAL PAIN RUQ (Primary Dx); Gynecologic examination; POSTMENOPAUSAL HORMONAL REPLACMT Social History Tobacco Use Types Packs/Day Years Used Date Smoking Tobacco: Never Assessed Comments Unknown Sex and Gender Information Value Date Recorded Sex Assigned at Not on file Legal Sex Female 2:45 AM PLANT OPERATIONS COORDINATOR Gender Identity Not on file Sexual [...] documented as of this encounter Care Teams Press Setup Operator Relationship Specialty Start Date End Date Non-Staff, Physician NO ADDRESS ON FILE PCP - General 01/10/20 documented as of this encounter
--- OUTSIDE RECORDS SUMMARY | 2025-04-03 22:37 | XMS_ITS | Encounter Summary ---
Author Organization [facility] Address [address] [facility] [place] [address] Care Team Providers Care Senior Patrol Agent Name Role Phone Non-Staff, Physician Primary Care Provider Unava ilable Encounter Details Date Type Department Care Team (Latest Contact Info) Description 01/09/2001 Outpatient Historical [facility] Family Medicine- [address] [place] [phone] Edmond Machado DO NO ADDRESS ON FILE Acute upper respiratory infections of unspecified site (Primary Dx) Social History Tobacco Use Types Packs/Day Years Used Date Smoking Tobacco: Never Assessed Comments Unknown Sex and Gender Information Value Date Recorded Sex Assigned at Not on file Legal Sex Female 2:45 AM SALES OPERATIONS ASSISTANT Gender Identity Not on file Sexual [...] as of this encounter Care Teams Senior Patrol Agent Relationship Specialty Start Date End Date Non-Staff, Physician NO ADDRESS ON FILE PCP - General 01/10/20 documented as of this encounter
--- OUTSIDE RECORDS SUMMARY | 2025-04-03 22:37 | XMS_ITS | Encounter Summary ---
Author Organization [facility] Address [address] [place] [address] Care Team Providers Care Computer Numerical Control Grinder Name Role Phone Non-Staff, Physician Primary Care Provider Unava ilable Encounter Details Date Type Department Care Team (Late st Contact Info) Description 10/20/2017 Ancillary Orders [facility] [address] [facility] [address] [place] [address] Gwendolyn Pitts, [facility] [address] [place] [phone] Abnormal mammogram Social History Tobacco Use Types Packs/Day Years Used Date Smoking Tobacco: Former Cigarettes 2.5 9 0 04/10/2003 - 04/10/2012 Smokeless Tobacco: Never Alcohol Use Standard Drinks/Week Comments No 0 (1 standard drink = 0.6 oz pur e alcohol) Comments No Sex and Gender Information Value Date Recorded Sex Assigned at Not on file Legal Sex Female 2:45 AM DRAMA CRITIC Gender Identity Not on file Sexual Orientation [...] to be scanned to PACS. Gwendolyn Smitheling RETAIL AND PROMOTIONS COORDINATOR DIAGNOSTIC IMAGING ORDE RABLES Final Result * MAMMO PRIOR STUDY (08/29/2017 11:40 AM CDT) Narrative 10/20/2017 11:40 AM CDT This exam was auto finalized to allow images to be scanned to PACS. us Gwendolyn Smitheling RETAIL AND PROMOTIONS COORDINATOR DIAGNOSTIC IMAGING ORDE RABLES Final Result * MAMMO PRIOR STUDY (08/01/2017 11:40 AM CDT) Narrative 10/20/2017 11:40 AM CDT This exam was auto finalized to allow images to be scanned to PACS. us Gwendolyn Pitts RETAIL AND PROMOTIONS COORDINATOR DIAGNOSTIC IMAGING ORDE RABLES Final Result documented [...] as of this encounter Care Teams Computer Numerical Control Grinder Relationship Specialty Start Date End Date Non-Staff, Physician NO ADDRESS ON FILE PCP - General 01/10/20 documented as of this encounter
--- OUTSIDE RECORDS SUMMARY | 2025-04-03 22:37 | XMS_ITS | Encounter Summary ---
Author Organization [facility] Address [address] [place] [address] Care Team Providers Care Pharmacy Technology Instructor Name Role Phone Non-Staff, Physician Primary Care Provider Unava ilable Encounter Details Date Type Department Care Team (Latest Contact Info) Description 10/23/1998 Outpatient Historical [facility]- [address] [phone] Edmond Machado, NO ADDRESS ON FILE Other abnormal blood chemistry (Primary Dx); Backache, unspecified; Other malaise and fatigue Social History Tobacco Use Types Packs/Day Years Used Date Smoking Tobacco: Never Assessed Comments Unknown Sex and Gender Information Value Date Recorded Sex Assigned at Not on file Legal Sex Female 2:45 AM PROCESSOR HELPER Gender Identity Not on file Sexual [...] documented as of this encounter Care Teams Pharmacy Technology Instructor Relationship Specialty Start Date End Date Non-Staff, Physician NO ADDRESS ON FILE PCP - General 01/10/20 documented as of this encounter
--- OUTSIDE RECORDS SUMMARY | 2025-04-03 22:37 | XMS_ITS | Encounter Summary ---
Author Organization [facility] Address [address] [place] [facility] [place] [address] Care Team Providers Care Operations Technician Name Role Phone Non-Staff, Physician Primary Care Provider Unava ilable Encounter Details Date Type Department Care Team (Latest Contact Info) Description 04/06/2001 Outpatient Historical [facility] Family Medicine- [address] [place] [address] Nell Verde MD NO ADDRESS ON FILE FLU W MANIFESTATION NEC (Primary Dx); URINARY FREQUENCY Social History Tobacco Use Types Packs/Day Years Used Date Smoking Tobacco: Never Assessed Comments Unknown Sex and Gender Information Value Date Recorded Sex Assigned at Not on file Legal Sex Female 2:45 AM FLIGHT SUPERINTENDENT Gender Identity Not on file Sexual [...] as of this encounter Care Teams Operations Technician Relationship Specialty Start Date End Date Non-Staff, Physician NO ADDRESS ON FILE PCP - General 01/10/20 documented as of this encounter
--- OUTSIDE RECORDS SUMMARY | 2025-04-03 22:37 | XMS_ITS | Encounter Summary ---
Author Organization [facility] Address [address] [facility] [place] [address] Care Team Providers Care Funeral Pre Need Consultant Name Role Phone Non-Staff, Physician Primary Care Provider Unava ilable Encounter Details Date Type Department Care Team (Latest Contact Info) Description 11/20/2001 Outpatient Historical [facility] Family Medicine- [address] [place] [address] Edmond Machado DO NO ADDRESS ON FILE CUTANEOUS CANDIDIASIS (Primary Dx) Social History Tobacco Use Types Packs/Day Years Used Date Smoking Tobacco: Never Assessed Comments Unknown Sex and Gender Information Value Date Recorded Sex Assigned at Not on file Legal Sex Female 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
--- OUTSIDE RECORDS SUMMARY | 2025-04-03 22:37 | XMS_ITS | Encounter Summary ---
Author Organization [facility] Address [address] [facility] [place] [address] Care Team Providers Care Load Dispatcher Local Name Role Phone Non-Staff, Physician Primary Care Provider Unava ilable Encounter Details Date Type Department Care Team (Latest Contact Info) Description 10/29/1999 Outpatient Historical [facility] Family Medicine- [address] [place] [phone] Eliz Echevarria NO ADDRESS ON FILE Other specified disorder of bladder (Primary Dx); Dysuria Social History Tobacco Use Types Packs/Day Years Used Date Smoking Tobacco: Never Assessed Comments Unknown Sex and Gender Information Value Date Recorded Sex Assigned at Not on file Legal Sex Female 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
--- OUTSIDE RECORDS SUMMARY | 2025-04-03 22:37 | XMS_ITS | Encounter Summary ---
Author Organization [facility] Address [address] [facility] [place] [address] Care Team Providers Care Internet And E Business Project Manager Name Role Phone Non-Staff, Physician Primary Care Provider Unava ilable Encounter Details Date Type Department Care Team (Latest Contact Info) Description 05/22/2001 Outpatient Historical [facility] Family Medicine- [address] [place] [address] Edmond Machado DO NO ADDRESS ON FILE HEADACHE (Primary Dx); CERVICALGIA; HYPERTENSION NOS Social History Tobacco Use Types Packs/Day Years Used Date Smoking Tobacco: Never Assessed Comments Unknown Sex and Gender Information Value Date Recorded Sex Assigned at Not on file Legal Sex Female 2:45 AM COST ESTIMATING MANAGER Gender Identity Not on file Sexual [...] documented as of this encounter Care Teams Internet And E Business Project Manager Relationship Specialty Start Date End Date Non-Staff, Physician NO ADDRESS ON FILE PCP - General 01/10/20 documented as of this encounter
--- OUTSIDE RECORDS SUMMARY | 2025-04-03 22:37 | XMS_ITS | Encounter Summary ---
Author Organization [facility] Address [address] [place] [address] Care Team Providers Care Lean Manufacturing Coordinator Name Role Phone Non-Staff, Physician Primary Care Provider Unava ilable Encounter Details Date Type Department Care Team (Latest Contact Info) Description 01/21/2002 Outpatient Historical [facility] Medicine Accident [address] [facility] [address] [place] [address] Yuan Barros MD ESOPHAGEAL REFLUX (Primary Dx) Social History Tobacco Use Types Packs/Day Years Used Date Smoking Tobacco: Never Assessed Comments Unknown Sex and Gender Information Value Date Recorded Sex Assigned at Not on file Legal Sex Female 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
--- OUTSIDE RECORDS SUMMARY | 2025-04-03 22:37 | XMS_ITS | Encounter Summary ---
Author Organization [facility] Address [address] [place] [address] Care Team Providers Care Parcel Post Truck Driver Name Role Phone Non-Staff, Physician Primary Care Provider Unava ilable Encounter Details Date Type Department Care Team (Latest Contact Info) Description 01/30/2002 Outpatient Historical [facility] General Surgery [address] [address] [address] [place] [address] [place] [address] [facility] [address] [place] [address] Open wound of breast (Primary Dx) Social [...] documented as of this encounter Care Teams Parcel Post Truck Driver Relationship Specialty Start Date End Date Non-Staff, Physician NO ADDRESS ON FILE PCP - General 01/10/20 documented as of this encounter
--- OUTSIDE RECORDS SUMMARY | 2025-04-03 22:37 | XMS_ITS | Encounter Summary ---
Author Organization [facility] Address [address] [place] [address] Care Team Providers Care Central Office Associate Name Role Phone Non-Staff, Physician Primary Care Provider Unava ilable Encounter Details Date Type Department Care Team (Latest Contact Info) Description 02/26/2001 Outpatient Historical [facility] Family Medicine- [place] [address] [place] [phone] Nell Verde MD NO ADDRESS ON FILE HYPOTHYROIDISM NOS (Primary Dx); HEADACHE; ACUTE SINUSITIS NOS Social History Tobacco Use Types Packs/Day Years Used Date Smoking Tobacco: Never Assessed Comments Unknown Sex and Gender Information Value Date Recorded Sex Assigned at Not on file Legal Sex Female 2:45 AM ENGINEER SECOND 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
--- OUTSIDE RECORDS SUMMARY | 2025-04-03 22:37 | XMS_ITS | Encounter Summary ---
Author Organization [facility] Address [address] [place] [facility] [place] [address] Care Team Providers Care Dial Brusher Name Role Phone Non-Staff, Physician Primary Care Provider Unava ilable Encounter Details Date Type Department Care Team (Latest Contact Info) Description 08/29/2000 Outpatient Historical [facility] Family Medicine- [place] [address] [place] [phone] Edmond Machado DO NO ADDRESS ON FILE Unspecified hypothyroidism (Primary Dx); Cough; Fluid overload Social History Tobacco Use Types Packs/Day Years Used Date Smoking Tobacco: Never Assessed Comments Unknown Sex and Gender Information Value Date Recorded Sex Assigned at Not on file Legal Sex Female 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
--- OUTSIDE RECORDS SUMMARY | 2025-04-03 22:37 | XMS_ITS | Encounter Summary ---
Author Organization [facility] Address [address] [facility] [place] [address] Care Team Providers Care Bryologist Name Role Phone Non-Staff, Physician Primary Care Provider Unava ilable Encounter Details Date Type Department Care Team (Latest Contact Info) Description 06/26/2001 Outpatient Historical [facility] Medicine- [address] [place] [address] Edmond Machado DO NO ADDRESS ON FILE OSTEOARTHROS NOS-UNSPEC (Primary Dx); HEADACHE Social History Tobacco Use Types Packs/Day Years Used Date Smoking Tobacco: Never Assessed Comments Unknown Sex and Gender Information Value Date Recorded Sex Assigned at Not on file Legal Sex Female 2:[address]ER Gender Identity Not on file Sexual [...] documented as of this encounter Care Teams Bryologist Relationship Specialty Start Date End Date Non-Staff, Physician NO ADDRESS ON FILE PCP - General 01/10/20 documented as of this encounter
--- OUTSIDE RECORDS SUMMARY | 2025-04-03 22:37 | XMS_ITS | Encounter Summary ---
Author Organization [facility] Address [address] [place] [address] Care Team Providers Care Leaf Coverer Name Role Phone Non-Staff, Physician Primary Care Provider Unava ilable Encounter Details Date Type Department Care Team (Latest Contact Info) Description 12/17/2018 Ancillary Orders [facility] Orthopedics - Orthopedic [facility] [address] [place] [id number] Lance Mon PA-C [address] [place] [id number] Arthritis of right knee Social History Tobacco Use Types Packs/Day Years Used Date Smoking Tobacco: Former Cigarettes 2.5 9 0 04/10/2003 - 04/10/2012 Smokeless Tobacco: Never Alcohol Use Standard Drinks/Week Comments No 0 (1 standard drink = 0.6 oz pur e alcohol) Comments No Sex and Gender Information Value Date Recorded Sex Assigned at Not on file Legal Sex Female 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
--- OUTSIDE RECORDS SUMMARY | 2025-04-03 22:37 | XMS_ITS | Encounter Summary ---
Author Organization [facility] Address [address] [facility] [place] [address] Care Team Providers Care Refining Engineer Name Role Phone Non-Staff, Physician Primary Care Provider Unava ilable Encounter Details Date Type Department Care Team (Latest Contact Info) Description 09/29/1999 Outpatient Historical [facility] Family Medicine- [address]mit[address] [place] [address] Eliz Echevarria NO ADDRESS ON FILE Benign murali lg bowel (Primary Dx); Rectal/anal hemorrhage; Obesity, unspecified Social History Tobacco Use Types Packs/Day Years Used Date Smoking Tobacco: Never Assessed Comments Unknown Sex and Gender Information Value Date Recorded Sex Assigned at Not on file Legal Sex Female 2:45 AM CELL MANAGER Gender Identity Not on file Sexual [...] documented as of this encounter Care Teams Refining Engineer Relationship Specialty Start Date End Date Non-Staff, Physician NO ADDRESS ON FILE PCP - General 01/10/20 documented as of this encounter
--- OUTSIDE RECORDS SUMMARY | 2025-04-03 22:37 | XMS_ITS | Encounter Summary ---
Author Organization [facility] Address [address] [place] [facility] [place] [address] Care Team Providers Care Transfer Operator Name Role Phone Non-Staff, Physician Primary Care Provider Unava ilable Encounter Details Date Type Department Care Team (Latest Contact Info) Description 03/24/2000 Outpatient Historical [facility] Family Medicine- [address] [place] [phone] Eliz Echevarria NO ADDRESS ON FILE Generalized osteoarthrosis, involving multiple sites (Primary Dx); Abdominal pain, unspecified site; Need vaccination-viral disease Social History Tobacco Use Types Packs/Day Years Used Date Smoking Tobacco: Never Assessed Comments Unknown Sex and Gender Information Value Date Recorded Sex Assigned at Not on file Legal Sex Female 2:45 AM BASKET SORTER Gender Identity Not on file Sexual [...] documented as of this encounter Care Teams Transfer Operator Relationship Specialty Start Date End Date Non-Staff, Physician NO ADDRESS ON FILE PCP - General 01/10/20 documented as of this encounter
--- OUTSIDE RECORDS SUMMARY | 2025-04-03 22:37 | XMS_ITS | Encounter Summary ---
Author Organization [facility] Address [address] [facility] [place] [address] Care Team Providers Care Manager Care Management Name Role Phone Non-Staff, Physician Primary Care Provider Unava ilable Encounter Details Date Type Department Care Team (Latest Contact Info) Description 07/05/2000 Outpatient Historical [facility] Family Medicine- [address]mit[address] [place] [address] Edmond Machado DO NO ADDRESS ON FILE Lichenification (Primary Dx); Headache(784.0); Fluid overload Social History Tobacco Use Types Packs/Day Years Used Date Smoking Tobacco: Never Assessed Comments Unknown Sex and Gender Information Value Date Recorded Sex Assigned at Not on file Legal Sex Female 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
--- OUTSIDE RECORDS SUMMARY | 2025-04-03 22:37 | XMS_ITS | Encounter Summary ---
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
--- OUTSIDE RECORDS SUMMARY | 2025-04-03 22:37 | XMS_ITS | Encounter Summary ---
Author Organization [facility] Address [address] [facility] Attn: Epic Prelude ADT [place] [address] Care Team Providers Care Music Executive Name Role Phone Non-Staff, Physician Primary [...] file Legal Sex Female 2:45 AM CORPORATE SAFETY MANAGER Gender Identity Not on file Sexual [...] documented as of this encounter Care Teams Music Executive Relationship Specialty Start Date End Date Non-Staff, Physician NO ADDRESS ON FILE PCP - General 01/10/20 documented as of this encounter
--- OUTSIDE RECORDS SUMMARY | 2025-04-03 22:37 | XMS_ITS | Encounter Summary ---
Author Organization [facility] Address [address] [facility] Attn: Epic Prelude ADT [place] [address] Care Team Providers Care Manager Market Intelligence Name Role Phone Non-Staff, Physician Primary Care Provider Unava ilable Encounter Details Date Type Department Care Team (Late st Contact Info) Description 01/31/2002 [place] [id number] [address] Social History Tobacco Use Types Packs/Day Years Used Date Smoking Tobacco: Never Assessed Comments Unknown Sex and Gender Information Value Date Recorded Sex Assigned at Not on file Legal Sex Female 2:45 AM STEAMER BLOCKER Gender Identity Not on file Sexual Orientation [...] as of this encounter Care Teams Manager Market Intelligence Relationship Specialty Start Date End Date Non-Staff, Physician NO ADDRESS ON FILE PCP - General 01/10/20 documented as of this encounter
--- OUTSIDE RECORDS SUMMARY | 2025-04-03 22:37 | XMS_ITS | Encounter Summary ---
Author Organization [facility] Address [address] [place] [address] Care Team Providers Care Skiver Blockers Name Role Phone Non-Staff, Physician Primary Care Provider Unava ilable Encounter Details Date Type Department Care Team (Late st Contact Info) Description 10/28/2009 Ancillary Orders [facility] Orthopedics- 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
--- OUTSIDE RECORDS SUMMARY | 2025-04-03 22:37 | XMS_ITS | Encounter Summary ---
Author Organization [facility] Address [address] [place] [address] Care Team Providers Care Transportation Assistant Name Role Phone Non-Staff, Physician Primary Care Provider Unava ilable Encounter Details Date Type Department Care Team (Latest Contact Info) Description 10/26/2001 Outpatient Historical [facility] Medicine [place] [address] [facility] [address] [place] [address] Nell Verde MD NO ADDRESS ON FILE URIN TRACT INFECTION NOS (Primary Dx); VAGINITIS NOS Social History Tobacco Use Types Packs/Day Years Used Date Smoking Tobacco: Never Assessed Comments Unknown Sex and Gender Information Value Date Recorded Sex Assigned at Not on file Legal Sex Female 2:45 AM POKER IN Gender Identity Not on file Sexual Orientation [...] documented as of this encounter Care Teams Transportation Assistant Relationship Specialty Start Date End Date Non-Staff, Physician NO ADDRESS ON FILE PCP - General 01/10/20 documented as of this encounter
--- OUTSIDE RECORDS SUMMARY | 2025-04-03 22:37 | XMS_ITS | Encounter Summary ---
Author Organization [facility] Address [address] [place] [address] Care Team Providers Care Risk Control Representative Name Role Phone Non-Staff, Physician Primary Care Provider Unava ilable Encounter Details Date Type Department Care Team (Latest Contact Info) Description 12/14/1999 Outpatient Historical [facility] Medicine [place] [address] [facility] [address] [place] [phone] Yuan Barros MD Abdominal pain, right upper quadrant (Primary Dx) Social History Tobacco Use Types Packs/Day Years Used Date Smoking Tobacco: Never Assessed Comments Unknown Sex and Gender Information Value Date Recorded Sex Assigned at Not on file Legal Sex Female 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
--- OUTSIDE RECORDS SUMMARY | 2025-04-03 22:37 | XMS_ITS | Encounter Summary ---
Author Organization [facility] Address [address] [facility] [place] [place] [address] Care Team Providers Care Childcare Attendant Name Role Phone Non-Staff, Physician Primary Care Provider Unava ilable Encounter Details Date Type Department Care Team (Latest Contact Info) Description 06/12/2001 Outpatient Historical [facility] Family Medicine- [address] [place] [phone] Edmond Machado DO NO ADDRESS ON FILE HEADACHE (Primary Dx); LACK OF COORDINATION; DYSURIA Social History Tobacco Use Types Packs/Day Years Used Date Smoking Tobacco: Never Assessed Comments Unknown Sex and Gender Information Value Date Recorded Sex Assigned at Not on file Legal Sex Female 2:45 AM WINDOWS SUPPORT ENGINEER Gender Identity Not on file Sexual [...] documented as of this encounter Care Teams Childcare Attendant Relationship Specialty Start Date End Date Non-Staff, Physician NO ADDRESS ON FILE PCP - General 01/10/20 documented as of this encounter
--- OUTSIDE RECORDS SUMMARY | 2025-04-03 22:37 | XMS_ITS | Encounter Summary ---
Author Organization [facility] Address [address] [facility] [place] [address] Care Team Providers Care Learning Technologies Specialist Name Role Phone Non-Staff, Physician Primary Care Provider Unava ilable Encounter Details Date Type Department Care Team (Latest Contact Info) Description 10/02/2001 Outpatient Historical [facility] Family Medicine- [address] [place] [address] Edmond Machado DO NO ADDRESS ON FILE HELICOBACTER PYLORI INFECTION (Primary Dx); SPASM OF MUSCLE Social History Tobacco Use Types Packs/Day Years Used Date Smoking Tobacco: Never Assessed Comments Unknown Sex and Gender Information Value Date Recorded Sex Assigned at Not on file Legal Sex Female 2:45 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
--- OUTSIDE RECORDS SUMMARY | 2025-04-03 22:37 | XMS_ITS | Encounter Summary ---
Author Organization [facility] Address [address] [place] [address] Care Team Providers Care Dairy Inspector Name Role Phone Non-Staff, Physician Primary Care Provider Unava ilable Encounter Details Date Type Department Care Team (Latest Contact Info) Description 07/19/2000 Outpatient Historical [facility] Family Medicine- [address] [place] [address] Jaime Frausto MD [address] [facility] [address] [place] [address] Abdominal pain, unspecified site (Primary Dx); Flatulence, eructation, and gas pain Social History Tobacco Use Types Packs/Day Years Used Date Smoking Tobacco: Never Assessed Comments Unknown Sex and Gender Information Value Date Recorded Sex Assigned at Not on file Legal Sex Female 2:45 AM RN [facility] Gender Identity Not on file Sexual Orientation [...] as of this encounter Care Teams Dairy Inspector Relationship Specialty Start Date End Date Non-Staff, Physician NO ADDRESS ON FILE PCP - General 01/10/20 documented as of this encounter
--- OUTSIDE RECORDS SUMMARY | 2025-04-03 22:37 | XMS_ITS | Encounter Summary ---
Author Organization [facility] Address [address] [facility] [place] [address] Care Team Providers Care Field Control Inspector Name Role Phone Non-Staff, Physician Primary Care Provider Unava ilable Encounter Details Date Type Department Care Team (Latest Contact Info) Description 04/24/2001 Outpatient Historical [facility] Family Medicine- [address] [place] [address] Edmond Machado DO NO ADDRESS ON FILE HEADACHE (Primary Dx); ACUTE URI NOS; KERATODERMA, ACQUIRED Social History Tobacco Use Types Packs/Day Years Used Date Smoking Tobacco: Never Assessed Comments Unknown Sex and Gender Information Value Date Recorded Sex Assigned at Not on file Legal Sex Female 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
--- OUTSIDE RECORDS SUMMARY | 2025-04-03 22:37 | XMS_ITS | Encounter Summary ---
Author Organization [facility] Address [address] [place] [address] Care Team Providers Care Senior Software Quality Engineer Name Role Phone Non-Staff, Physician Primary Care Provider Unava ilable Encounter Details Date Type Department Care Team (Latest Contact Info) Description 12/08/1999 Outpatient Historical [facility] Family Medicine- [place] [address] [place] [address] Eliz Echevarria NO ADDRESS ON FILE Vaginitis [...] file Legal Sex Female 2:45 AM EDGE GLUER Gender Identity Not on file Sexual Orientation [...] as of this encounter Care Teams Senior Software Quality Engineer Relationship Specialty Start Date End Date Non-Staff, Physician NO ADDRESS ON FILE PCP - General 01/10/20 documented as of this encounter
--- OUTSIDE RECORDS SUMMARY | 2025-04-03 22:37 | XMS_ITS | Encounter Summary ---
Author Organization [facility] Address [address] [place] [address] Care Team Providers Care Business Change Manager Name Role Phone Non-Staff, Physician Primary Care Provider Unava ilable Encounter Details Date Type Department Care Team (Late st Contact Info) Description 03/18/2009 Ancillary Orders [facility] [address] [place] [address] Nikkie Arias, AUDIT TECH [address] [place] [address] Screening Mammogram Social History Tobacco Use Types Packs/Day Years Used Date Smoking Tobacco: Former Cigarettes Alcohol Use Standard Drinks/Week Comments No 0 (1 standard drink = 0.6 oz pur e alcohol) Comments No Sex and Gender Information Value Date Recorded Sex Assigned at Not on file 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
--- OUTSIDE RECORDS SUMMARY | 2025-04-03 22:37 | XMS_ITS | Encounter Summary ---
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
--- OUTSIDE RECORDS SUMMARY | 2025-04-03 22:37 | XMS_ITS | Encounter Summary ---
Author Organization [facility] Address [address] [place] [address] Care Team Providers Care Sex Crimes Detective Name Role Phone Non-Staff, Physician Primary Care Provider Unava ilable Encounter Details Date Type Department Care Team (Latest Contact Info) Description 01/09/2002 Outpatient Historical [facility] General Surgery [address] [address] [address] [place] [address] [place] [address] [facility] [address] [place] [address] ABDOMINAL PAIN EPIGASTRIC (Primary Dx) Social History Tobacco Use Types Packs/Day Years Used Date Smoking Tobacco: Never Assessed Comments Unknown Sex and Gender Information Value Date Recorded Sex Assigned at Not on file 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
--- OUTSIDE RECORDS SUMMARY | 2025-04-03 22:37 | XMS_ITS | Encounter Summary ---
Author Organization [facility] Address [address] [place] [facility] [place] [address] Care Team Providers Care Installation & Maintenance Executive Name Role Phone Non-Staff, Physician Primary Care Provider Unava ilable Encounter Details Date Type Department Care Team (Latest Contact Info) Description 11/24/1999 Outpatient Historical [facility] Family Medicine- [address] [place] [address] Edmond Machado DO NO ADDRESS ON FILE Backache, unspecified (Primary Dx); Pain in joint, shoulder region; Pain in joint, lower leg; Urinary tract infection, site not specified Social History Tobacco Use Types Packs/Day Years Used Date Smoking Tobacco: Never Assessed Comments Unknown Sex and Gender Information Value Date Recorded Sex Assigned at Not on file 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
--- OUTSIDE RECORDS SUMMARY | 2025-04-03 22:37 | XMS_ITS | Encounter Summary ---
Author Organization [facility] Address [address] [place] [facility] [place] [address] Care Team Providers Care Cdl Flatbed Truck Driver Name Role Phone Non-Staff, Physician Primary Care Provider Unava ilable Encounter Details Date Type Department Care Team (Latest Contact Info) Description 07/25/2000 Outpatient Historical [facility] Family Medicine- [address] [place] [address] Edmond Machado DO NO ADDRESS ON FILE Contact dermatitis and other eczema, due to unspecified cause (Primary Dx); Backache, unspecified; Abdominal pain, unspecified site Social History Tobacco Use Types Packs/Day Years Used Date Smoking Tobacco: Never Assessed Comments Unknown Sex and Gender Information Value Date Recorded Sex Assigned at Not on file 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
--- OUTSIDE RECORDS SUMMARY | 2025-04-03 22:37 | XMS_ITS | Encounter Summary ---
Author Organization [facility] Address [address] [place] [address] Care Team Providers Care Acrobatic Rigger Name Role Phone Non-Staff, Physician Primary Care Provider Unava ilable Encounter Details Date Type Department Care Team (Latest Contact Info) Description 05/03/2000 Outpatient Historical [facility] Family Medicine- [address] [place] [address] Edmond Machado, NO ADDRESS ON FILE Unspecified viral infection, in conditions classified elsewhere and of unspecified site (Primary Dx); Need for prophylactic vaccination with tetanus-diphtheria (Td) Social History Tobacco Use Types Packs/Day Years Used Date Smoking Tobacco: Never Assessed Comments Unknown Sex and Gender Information Value Date Recorded Sex Assigned at Not on file 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
--- OUTSIDE RECORDS SUMMARY | 2025-04-03 22:37 | XMS_ITS | Encounter Summary ---
Author Organization [facility] Address [address] [place] [address] Care Team Providers Care Hiv Cts Specialist Name Role Phone Non-Staff, Physician Primary Care Provider Unava ilable Encounter Details Date Type Department Care Team (Latest Contact Info) Description 01/29/2002 Outpatient Historical [facility] Family Medicine- [address] [place] [phone] Jaime Frausto MD [address] [facility] [address] [place] [address] LOCAL SKIN INFECTION NOS (Primary Dx); Dermatitis due to plant; FLUID OVERLOAD Social History Tobacco Use Types Packs/Day Years Used Date Smoking Tobacco: Never Assessed Comments Unknown Sex and Gender Information Value Date Recorded Sex Assigned at Not on file Legal Sex Female 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
--- OUTSIDE RECORDS SUMMARY | 2025-04-03 22:37 | XMS_ITS | Encounter Summary ---
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
--- OUTSIDE RECORDS SUMMARY | 2025-04-03 22:37 | XMS_ITS | Encounter Summary ---
Author Organization [facility] Address [address] [place] [facility] [place] [address] Care Team Providers Care Tape Calender Name Role Phone Non-Staff, Physician Primary Care Provider Unava ilable Encounter Details Date Type Department Care Team (Latest Contact Info) Description 07/11/2000 Outpatient Historical [facility] Family Medicine- [address] [place] [phone] Edmond Machado DO NO ADDRESS ON FILE Other and unspecified noninfectious gastroenteritis and colitis(558.9) (Primary Dx) Social History Tobacco Use Types Packs/Day Years Used Date Smoking Tobacco: Never Assessed Comments Unknown Sex and Gender Information Value Date Recorded Sex Assigned at Not on file 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
[2025-04-03 22:38] LABS: Hematocrit 30.6 % (36-47); Hemoglobin 9.50 g/dL (11.27-16.99); Mean Corpuscular HGB Conc 31.0 g/dL (30-55); Mean Corpuscular Hemoglobin 24.5 pg (27-33); Mean Corpuscular Volume 78.9 fl (85-98); Nucleated Red Blood Cells % 0 %; Platelet Count 157 10^3/cmm (157-399); Red Blood Count 3.88 10^6/uL (3.85-5.65); White Blood Count 6.09 10^3/uL (3.29-11.43)
[2025-04-03 23:01] LABS: Troponin(5th) Baseline < 6 ng/L (0-10)
[2025-04-03 23:02] LABS: Alanine Aminotransferase 22 U/L (0-33); Albumin Level 3.4 g/dL (3.5-5.2); Alkaline Phosphatase 156 U/L (35-105); Anion Gap 16.3 (5-19); Aspartate Amino Transferase 28 U/L (0-32); Blood Urea Nitrogen 8 mg/dL (8-23); Calcium 8.4 mg/dL (8.5-10.5); Carbon Dioxide 23 mmol/L (22-29); Chloride 93 mmol/L (98-107); Globulin 3.9 g/dL (1.3-4.6); Glucose 324 mg/dL (65-115); Osmolality Calculated 277 mOsm/kg (285-295); Potassium 4.3 mmol/L (3.5-5.1); Sodium 128 mmol/L (136-145); Total Protein 7.3 g/dL (6.6-8.7)
--- NOTE | 2025-04-03 23:18 | W.ED.CHESTPA ---
HPI - Chest Pain General: Chief Complaint: Chest Pain Stated Complaint: Chest pain Time Seen by Provider: 04/03/25 22:30 History of Present Illness: This 75-year-old female presents with bilateral arm pain that has improved slightly since onset. The patient reports that the pain began after attempting to push herself up from a wheelchair, during which she heard a loud popping sound in her arm. She initially experienced pain in both arms, with the right arm being particularly affected. The patient also developed chest pain, which was first noted by EMS personnel during ambulance transport. She has been experiencing subjective fever, though she is uncertain about documented temperature elevations. The patient denies cough, abdominal pain, nausea, vomiting, or diarrhea. She reports feeling generally unwell. There is no known recent exposure to sick contacts. The patient has a history of cardiac issues with occasional chest pain but denies previous cardiac interventions or stent placement. Related Data Home Medications ?Medication ?Instructions ?Recorded ?Confirmed acetaminophen 325 mg tablet 650 mg PO QID PRN Pain 01/22/20 03/10/25 (Tylenol) digoxin 125 mcg (0.125 mg) tablet 125 mcg PO DAILY 01/22/20 03/10/25 duloxetine 30 mg capsule,delayed 30 mg PO QAM 01/22/20 03/10/25 release (Cymbalta) fluticasone propionate 110 2 puff inhalation DAILY 01/22/20 03/10/25 mcg/actuation HFA aerosol inhaler furosemide 40 mg tablet (Lasix) 40 mg PO DAILY 01/22/20 03/10/25 hydrocodone 5 mg-acetaminophen 300 1 tab PO Q6H PRN Pain 01/22/20 03/10/25 mg tablet insulin glargine 100 unit/mL (3 65 unit SUBCUT BID 01/22/20 03/10/25 mL) subcutaneous pen magnesium hydroxide 400 mg/5 mL 30 ml PO DAILY 01/22/20 03/10/25 oral suspension (Milk of Magnesia) omeprazole magnesium 20 mg 40 mg PO BID 01/22/20 03/10/25 tablet,delayed release (Prilosec OTC) sennosides 8.6 mg-docusate sodium 2 tab-cap PO BID 01/22/20 03/10/25 50 mg tablet (Senna-S) trospium 20 mg tablet 20 mg PO BID 01/22/20 03/10/25 amitriptyline 100 mg tablet 100 mg PO BEDTIME 01/24/25 03/10/25 aluminum-mag hydroxide-simethicone 30 ml PO QID PRN Indigestion 02/12/25 03/10/25 200 mg-200 mg-20 mg/5 mL oral susp amitriptyline 50 mg tablet 50 mg PO DAILY 02/12/25 03/10/25 docusate sodium 100 mg tablet 200 mg PO BID 02/12/25 03/10/25 gabapentin 400 mg tablet 400 mg PO BEDTIME 02/12/25 03/10/25 insulin aspart U-100 100 unit/mL 3 sliding scale dose SUBCUT 02/12/25 03/10/25 (3 mL) subcutaneous pen (Novolog DIRECTED FlexPen U-100 Insulin aspart) levothyroxine 100 mcg tablet 100 mcg PO DAILY 02/12/25 03/10/25 losartan 25 mg tablet 25 mg PO DAILY 02/12/25 03/10/25 memantine 10 mg tablet 10 mg PO BID 02/12/25 03/10/25 mirtazapine 15 mg tablet 15 mg PO BEDTIME 02/12/25 03/10/25 ropinirole 1 mg tablet 1 mg PO BEDTIME 02/12/25 03/10/25 Previous Rx's ?Medication ?Instructions ?Recorded hydrocodone 5 mg-acetaminophen 325 1 tab PO Q6H PRN pain #30 tabs 02/13/25 mg tablet cefdinir 300 mg capsule 300 mg PO BID #14 caps 04/04/25 Allergies Allergy/AdvReac Type Severity Reaction Status Date / Time aspirin Allergy Unknown Verified 03/10/25 14:16 codeine Allergy Unknown Verified 03/10/25 14:16 morphine Allergy Unknown Verified 03/10/25 14:16 Sulfa (Sulfonamide Allergy Unknown Verified 03/10/25 14:16 Antibiotics) sulfamethoxazole (From Allergy Unknown Verified 03/10/25 14:16 Bactrim) trimethoprim (From Bactrim) Allergy Unknown Verified 03/10/25 14:16 PFSH ED PFSH: Medical History (Updated 04/04/25 @ 02:33 by Marco Hendrix DO) Coronary artery disease GERD (gastroesophageal reflux disease) Chronic low back pain Osteoarthritis Obstructive sleep apnea Hypertension DM type 2 (diabetes mellitus, type 2) Surgical History History of right below knee amputation Status post bilateral knee replacements H/O: hysterectomy H/O tubal ligation Previous section H/O umbilical hernia repair Social History Smoking and tobacco/nicotine status: former use of tobacco/nicotine Physical Exam Const: COMMON NORMALS: no acute distress GENERAL APPEARANCE: cooperative, ill appearing (Mildly) and frail appearing (mildly) HENMT: COMMON NORMALS: normocephalic, atraumatic and Normal external nose present HEAD & SCALP: normocephalic and atraumatic FACE & SINUS: normal facial exam and face symmetric NOSE: Normal external nose present Eye: COMMON NORMALS: Equal, round and reactive pupils present and EOMs intact bilaterally PUPIL: Yes Equal, round and reactive pupils present Neck/C-Spine: GENERAL: Yes trachea midline Chest: CHEST: Yes Symmetrical chest wall rise Resp: COMMON NORMALS: normal respiratory effort, No retractions, No use of accessory muscles and clear to auscultation bilaterally AUSCULTATION: clear to auscultation bilaterally Cardio: COMMON NORMALS: regular rate and regular rhythm RATE: regular rate RHYTHM: regular rhythm GI: COMMON NORMALS: Normal to inspection, nondistended, normoactive bowel sounds present Extremity: COMMON NORMALS: no pedal edema Neuro: MARIBELL COMA SCALE: document GCS findings Cincinnatus coma scale eye opening: Spontaneous Cincinnatus coma scale verbal response: Orientated Maribell coma scale motor response: Obey commands Maribell coma scale total score: 15 SENSORY EXAM: Yes extremities (intact) Psych: COMMON NORMALS: speech normal SPEECH: Yes normal speech Skin: COMMON NORMALS: no rashes or lesions noted GENERAL SKIN EXAM: no rashes or lesions noted Course Vital Signs: Vital signs: Vital Signs Temperature 100.5 F H 04/03/25 22:25 Pulse Rate 88 04/04/25 00:29 Respiratory Rate 18 04/04/25 00:29 Blood Pressure 145/88 04/04/25 00:29 Pulse Oximetry 98 04/04/25 00:29 Oxygen Delivery Me thod Room Air 04/03/25 22:25 MDM - Chest Pain Medical Decision Making 75-year-old female with chest discomfort. Her chest discomfort is resolved. She has had bilateral arm discomfort as well. She is tender over her right humerus/biceps region. Hemoglobin is 9.5. Sodium 128, sugar 324. Her first troponin is nondetectable. Liver enzymes are not remarkable. Sodium is 128. Her temperature is 100.5 orally here. Temperatures improved after Tylenol. Chest x-ray is negative. Urinalysis does reveal significant urinary tract infection. Swabs are negative for COVID, flu, and RSV. She will be treated in the senior care for UTI as a source of her fever. She is given a gram of Rocephin here after blood cultures. Will continue treatment with cefdinir. She is stable for discharge, return for worsening symptoms despite treatment. Lab Data 04/03/25 22:04/03/25: Radiology Impressions Chest X-Ray 04/03/25 IMPRESSION: No visualized acute cardiopulmonary process. Laboratory Results WBC 6.09 10^3/uL (3.29-11.43) 04/03/25: RBC 3.88 10^6/uL (3.85-5.65) 04/03/25: Hgb 9.50 g/dL (11.27-16.99) L 04/03/25: Hct 30.6 % (36-47) L 04/03/25: MCV 78.9 fl (85-98) L 04/03/25: MCH 24.5 pg (27-33) L 04/03/25: MCHC 31.0 g/dL (30-55) 04/03/25: RDW 17.4 % (12.1-15.1) H 04/03/25: Plt Count 157 10^3/cmm (157-399) 04/03/25: MPV 9.8 fL (7.4-10.4) 04/03/25: Neut % (Auto) 81.6 % 04/03/25: Lymph % (Auto) 12.0 % 04/03/25: [place] % (Auto) 5.7 % 04/03/25: Eos % (Auto) 0.2 % 04/03/25: Baso % (Auto) 0.3 % 04/03/25: Neut # (Auto) 4.97 10^3/uL (1.8-7.7) 04/03/25 22:30 Lymph # (Auto) 0.7 10^3/uL (0.8-4.8) L 04/03/25 22:30 [place] # (Auto) 0.4 10^3/uL (0.2-0.9) 04/03/25 22:30 Eos # (Auto) 0.0 10^3/uL (0.0-0.8) 04/03/25 22: Baso # (Auto) 0.0 10^3/uL (0.0-0.1) 04/03/25:30 Nucleated RBC % (auto) 0 % 04/03/25: Nucleated RBCs # 0.0 /100WBC 04/03/25 22:30 Sodium 128 mmol/L (136-145) L 04/03/25 22:30 Potassium 4.3 mmol/L (3.5-5.1) 04/03/25: Chloride 93 mmol/L (98-107) L 04/03/25: Carbon Dioxide 23 mmol/L (22-29) 04/03/25 22: Anion Gap 16.3 (5-19) 04/03/25 22:30 BUN 8 mg/dL (8-23) 04/03/25: Creatinine 0.7 mg/dL (0.5-0.9) 04/03/25 22:30 GFR Calculation Not Reportable 04/03/25: Glucose 324 mg/dL (65-115) H 04/03/25 22:30 Calculated Osmolality 277 mOsm/kg (285-295) L 04/03/25: Lactic Acid 1.7 mmol/L (0.5-2.2) 04/03/25 23:25 Calcium 8.4 mg/dL (8.5-10.5) L 04/03/25:30 Total Bilirubin 0.3 mg/dL (0.15-1.2) 04/03/25 22:30 AST 28 U/L (0-32) 04/03/25 22:30 ALT 22 U/L (0-33) 04/03/25 22:30 Alkaline Phosphatase 156 U/L (35-105) H 04/03/25 22:30 Troponin T Baseline < 6 ng/L (0-10) 04/03/25 22:30 Troponin T 60 Minute 7.15 ng/L (0-10) 04/03/25 23:25 Delta Troponin T 1.56848 ABS# (0-10) 04/03/25 23:25 Total Protein 7.3 g/dL (6.6-8.7) 04/03/25 22:30 Albumin 3.4 g/dL (3.5-5.2) L 04/03/25 22:30 Globulin 3.9 g/dL (1.3-4.6) 04/03/25 22:30 Urine Color Yellow (Yellow) 04/04/25 01:49 Urine Appearance Turbid (CLEAR) A 04/04/25 01:49 Urine pH 6.0 (5-7) 04/04/25 01:49 Ur Specific [place] 1.017 (1.005-1.030) 04/04/25 01:49 Urine Protein 1+ (Negative) A 04/04/25 01:49 Urine Glucose (UA) Negative (Normal) 04/04/25 01:49 Urine Ketones Trace (Negative) 04/04/25 01:49 Urine Blood 1+ (Negative) A 04/04/25 01:49 Urine Nitrate Negative (Negative) 04/04/25 01:49 Urine Bilirubin Negative (Negative) 04/04/25 01:49 Urine Urobilinogen 1.0 mg/dL (Negative) 04/04/25 01:49 Ur Leukocyte Esterase 3+ (Negative) A 04/04/25 01:49 Urine RBC 6-10 /hpf (0-2) 04/04/25 01:49 Urine WBC >100 /hpf (0-5) H 04/04/25 01:49 Ur Squamous Epith Cells 21-50 /hpf (0-5) H 04/04/25 01:49 Amorphous Sediment Not Reportable 04/04/25 01:49 Urine Bacteria 4+ /hpf (NONE) H 04/04/25 01:49 Hyaline Casts 1.21 /lpf 04/04/25 01:49 Influenza A (PCR) Negative (Negative) 04/04/25 00:04 Influenza Type B (PCR) Negative (Negative) 04/04/25 00:04 RSV (PCR) Negative (Negative) 04/04/25 00:04 SARS-CoV-2 (PCR) Negative (Negative) 04/04/25 00:04 All radiology interpretation(s) finalized by discharge EKG Data EKG 1: Interpretation: EKG performed at 2235 read 223. Sinus tachycardia rate 100. Jbphh normal. Right bundle branch block. No ST wave changes. QTc is 407. QRS duration is 138 Discharge Plan Discharge Patient Disposition: Home Clinical Impression: Acute UTI Condition: Stable Prescriptions: New cefdinir 300 mg capsule 300 mg PO BID Qty: 14 0RF No Action amitriptyline 100 mg tablet 100 mg PO BEDTIME furosemide [Lasix] 40 mg Tablet 40 mg PO DAILY acetaminophen [Tylenol] 325 mg Tablet 650 mg PO QID PRN (Reason: Pain) sennosides-docusate sodium [Senna-S] 8.6-50 mg Tablet 2 tab-cap PO BID magnesium hydroxide [Milk of Magnesia] 400 mg/5 mL Suspension 30 ml PO DAILY digoxin 125 mcg (0.125 mg) Tablet 125 mcg PO DAILY fluticasone propionate 110 mcg/actuation Hfa Aerosol Inhaler 2 puff INHALATION DAILY omeprazole magnesium [Prilosec OTC] 20 mg Tablet,Delayed Release (Dr/Ec) 40 mg PO BID trospium 20 mg Tablet 20 mg PO BID duloxetine [Cymbalta] 30 mg Capsule,Delayed Release(Dr/Ec) 30 mg PO QAM hydrocodone-acetaminophen 5-300 mg Tablet 1 tab PO Q6H PRN (Reason: Pain) insulin glargine 100 unit/mL (3 mL) Insulin Pen 65 unit SUBCUT BID ropinirole 1 mg Tablet 1 mg PO BEDTIME amitriptyline 50 mg Tablet 50 mg PO DAILY levothyroxine 100 mcg Tablet 100 mcg PO DAILY losartan 25 mg Tablet 25 mg PO DAILY mirtazapine 15 mg Tablet 15 mg PO BEDTIME alum-mag hydroxide-simeth 200-200-20 mg/5 mL Suspension 30 ml PO QID PRN (Reason: Indigestion) Rx Instructions: administer between meals and at bedtime docusate sodium 100 mg Tablet 200 mg PO BID insulin aspart U-100 [Novolog FlexPen U-100 Insulin] 100 unit/mL (3 mL) Insulin Pen 3 sliding scale dose SUBCUT DIRECTED memantine 10 mg Tablet 10 mg PO BID gabapentin 400 mg Tablet 400 mg PO BEDTIME hydrocodone-acetaminophen 5-325 mg tablet 1 tab PO Q6H PRN (Reason: pain) Qty: 30 0RF Discharge Orders: Discharge ED (Routine); Ordered 04/04/25 Ordered By: Marco Hendrix Referrals: Anshu Ames MD [Primary Care Provider, [facility]] - 1-3 days Patient Instructions: Urinary Tract Infection in Older Adults (ED), Opioid Safety, Pain Management, Patient Portal & Eamon Instructions Print Language: Nigerien Coding Level of Care Code ED Behavioral Health Assistant for Chg Fwd Heart Score HEART Score Components History: Slightly Suspicous EKG: Non-specific Changes Age: 65 or more yrs Risk Factors: 1 or 2 Risk Factors Troponin: Baseline Trop <16 ng/L HEART Score RESULT HEART Score: 4
[2025-04-03 23:54] LABS: Lactic Sepsis W/Reflex 1.7 mmol/L (0.5-2.2)
[2025-04-04 00:29] VITALS: BP 145/88; PULSE 88; RESP 18; O2SAT 98
[2025-04-04 00:48] LABS: Respiratory Syncytial Virus Ce NEGATIVE (Negative); SARS-CoV-2 PCR NEGATIVE (Negative)
[2025-04-04 01:59] LABS: Glucose Urine UA Negative (Normal); Nitrate Urine Negative (Negative); Specific Gravity, Urine 1.017 (1.005-1.030)
[2025-04-04 02:03] LABS: Add Urine Microscopic? YES; Universal Test for UA Present (0)
[2025-04-04] MEDS: cefTRIAXone 1,000 mg SDV 1000 MG IVP (02:34)
[2025-04-04] MEDS: sodium chloride 0.9% (100 ml) 100 ML (02:35)
[2025-04-04 03:46] VITALS: BP 122/78; PULSE 88; RESP 18; O2SAT 93
== END 2025-04-04 03:47 | disposition home or self-care (01) ==
PROVIDERS: Emergency Provider Emergency Medicine; PCP Family Medicine
DX: N39.0 Urinary tract infection, site not specified (principal); R07.9 Chest pain, unspecified; R00.0 Tachycardia, unspecified; I45.10 Unspecified right bundle-branch block; I51.7 Cardiomegaly
CPT/HCPCS: 36415; 71045; 80053; 81001; 83605; 84484; 85025; 87040; 87637; 93005; 96374; 99285; J0696; J9999

== ENCOUNTER 2025-04-08 15:00 | Oncology outpatient (recurring) (ONCR) | payer MEDICARE, MEDICAID, SELFPAY ==
[2025-04-08 15:52] LABS: Hematocrit 30.3 % (36-47); Hemoglobin 9.30 g/dL (11.27-16.99); Mean Corpuscular HGB Conc 30.7 g/dL (30-55); Mean Corpuscular Hemoglobin 24.4 pg (27-33); Mean Corpuscular Volume 79.5 fl (85-98); Nucleated Red Blood Cells % 0 %; Platelet Count 181 10^3/cmm (157-399); Red Blood Count 3.81 10^6/uL (3.85-5.65); White Blood Count 2.71 10^3/uL (3.29-11.43)
[2025-04-08 16:12] LABS: Alanine Aminotransferase 20 U/L (0-33); Albumin Level 3.2 g/dL (3.5-5.2); Alkaline Phosphatase 150 U/L (35-105); Anion Gap 15.4 (5-19); Aspartate Amino Transferase 21 U/L (0-32); Blood Urea Nitrogen 7 mg/dL (8-23); Calcium 8.4 mg/dL (8.5-10.5); Carbon Dioxide 25 mmol/L (22-29); Chloride 93 mmol/L (98-107); Ferritin 33 ng/mL (15-150); Globulin 4.1 g/dL (1.3-4.6); Glucose 402 mg/dL (65-115); Iron 22 ug/dL (37-145); Osmolality Calculated 283 mOsm/kg (285-295); Potassium 4.4 mmol/L (3.5-5.1); Sodium 129 mmol/L (136-145); Total Iron Binding Capacity 264 mcg/dl; Total Protein 7.3 g/dL (6.6-8.7); Unsaturated Iron Binding 242 ug/dL (112-347)
[2025-04-08 16:28] LABS: Vitamin B12 725 pg/mL (232-1245)
[2025-04-08 22:31] LABS: Hepatitis A Antibody IgM Non-Reactive (Nonreactive); Hepatitis B Surface Antigen Non-Reactive (Nonreactive)
[2025-04-09 06:46] LABS: PROTEIN, TOTAL 7.3 g/dL (6.1-8.1)
[2025-04-09 18:10] LABS: ALPHA 1 GLOBULIN 0.4 g/dL (0.2-0.3); ALPHA 2 GLOBULIN 0.8 g/dL (0.5-0.9); BETA 1 GLOBULIN 0.5 g/dL (0.4-0.6); BETA 2 GLOBULIN 0.6 g/dL (0.2-0.5)
== END 2025-04-09 23:59 | disposition home or self-care (01) ==
PROVIDERS: PCP Family Medicine; Visit Provider Internal Medicine Medical Oncology
DX: D70.9 Neutropenia, unspecified (principal); D64.9 Anemia, unspecified; E11.9 Type 2 diabetes mellitus without complications; K74.60 Unspecified cirrhosis of liver; R16.2 Hepatomegaly with splenomegaly, not elsewhere classified
CPT/HCPCS: 80053; 82607; 82728; 82746; 83540; 83550; 84155; 84165; 85025; 86705; 86706; 86709; 86803; 87340; 99204